=== PATIENT | female | born 1970 | race Caucasian/White ===

== ENCOUNTER → 2016-09-03 | Outpatient (CLI) | payer MEDICARE, OTHER ==
[2016-09-03 09:30] LABS: Calcium 9.7 mg/dL (8.4-10.2); Potassium 4.2 mmol/L (3.5-5.1); Total Bilirubin 0.6 mg/dL (0.2-1.3); Total Protein 7.3 g/dL (6.3-8.2)
== END | disposition home or self-care (01) ==
LOC: LABWHC1 08:16
PROVIDERS: ATTEND Family Medicine
DX: E11.618 Type 2 diabetes mellitus with other diabetic arthropathy (principal)
CPT/HCPCS: 36415; 80053; 84681

== ENCOUNTER 2016-11-10 21:21 | Inpatient (IN) | payer MEDICARE, OTHER ==
--- NOTE | 2016-11-10 21:48 | ED ---
General Adult HPI - General Chief complaint: Syncope Stated complaint: Syncope Time Seen by Provider: 11/10/16 21:33 Source: EMS Mode of arrival: EMS Limitations: no limitations - History of Present Illness Initial comments: The patient is a 46-year-old female who presents to the ED with a chief complaint of nausea, vomiting, and generalized abdominal pain. The patient states that her nausea and vomiting have been present over the course the past 8 days. Patient states that she has been using various medications to help to relieve her symptoms. The patient states that she went to go see her PCP, who started her on Compazine. The patient states that today she was able to keep down some food but that this was the first time in the past 4-5 days. She notes that she has felt more lightheaded over the course the past 8 days. She states that she is off balance when attempting to ambulate. She states that she feels lightheaded and almost as if she is going to pass out. Patient also states severe constipation. She states that she has not had a bowel movement for the past 4 days. The patient notes that she does have a history of diabetes. She has an insulin pump that she uses. Patient notes that her sugars have been in the 200-250 range. Patient denies any fever or chills. She denies any history of cardiac disease. - Related Data Home Medications Medication Instructions Recorded Confirmed Esomeprazole Magnesium [NexIUM] 40 mg PO BID 12/24/15 11/10/16 Cyanocobalamin [Vitamin B-12] 500 mcg PO DAILY 01/14/16 11/10/16 HYDROcodone/APAP 10-325MG [[place] 1 tab PO TID PRN 01/14/16 11/10/16 10-325] Ascorbic Acid [Vitamin C] 1,000 mg PO DAILY 11/10/16 11/10/16 Ascorbic Acid/Multivit-Min 1,000 mg PO DAILY 11/10/16 11/10/16 [Emergen-C 1,000 mg Packet] INSULIN LISPRO (For Pump) [humaLOG See Protocol SQ-PUMP CONTINUOUS 11/10/1610/22 (For Pump)] Lidocaine 5% Patch [Lidoderm 5% 1 patch TRANSDERM DAILY 11/10/16 11/10/16 Patch] Menthol [Biofreeze] 1 applic TOPICAL DAILY PRN 11/10/16 11/10/16 Prochlorperazine [Compazine] 10 mg PO Q8H PRN 11/10/16 11/10/16 Allergies Allergy/AdvReac Type Severity Reaction Status Date / Time ceftriaxone sodium Allergy Anaphylaxis Verified 11/10/16 21:48 [From Rocephin] propoxyphene napsylate Allergy Rash/Hives Verified 11/10/16 21:48 [From Darvocet-N] steroids AdvReac elevated Uncoded 01/29/16 14:24 blood sugar 1600 Review of Systems ROS Statement: Those systems with pertinent positive or pertinent negative responses have been documented in the HPI. ROS Other: All systems not noted in ROS Statement are negative. Constitutional: Denies: fever, chills, weakness Eyes: Denies: vision change ENT: Denies: ear pain, throat pain, dental pain Respiratory: Denies: cough, dyspnea, wheezes Cardiovascular: Denies: chest pain, palpitations, dyspnea on exertion Endocrine: Reports: fatigue Gastrointestinal: Reports: abdominal pain (generalized), nausea, vomiting, constipation. Denies: diarrhea Genitourinary: Reports: urgency, dysuria, frequency. Denies: hematuria Musculoskeletal: Denies: back pain Skin: Denies: rash, lesions Neurological: Reports: abnormal gait, other (lightheadedness). Denies: headache , weakness Psychiatric: Denies: anxiety, depression Past Medical History Past Medical History: Diabetes Mellitus, GERD/Reflux, Neurologic Disorder, Skin Disorder Additional Past Medical History / Comment(s): wound ball of rt foot, neuropathy hands/feet History of Any Multi-Drug Resistant Organisms: MRSA Date of last positivie culture/infection: 2010 MDRO Source:: scalp Past Surgical History: Back Surgery, Cholecystectomy, Hysterectomy, Joint Replacement, Orthopedic Surgery, Tonsillectomy Additional Past Surgical History / Comment(s): left below knee amputation, lt knee joint replacement, 3 toes rt foot amputated, laser surgery eyes Past Anesthesia/Blood Transfusion Reactions: No Reported Reaction Past Psychological History: Anxiety, Depression Smoking Status: Never smoker Past Alcohol Use History: Rare Past Drug Use History: None Reported - Past Family History Mother Family Medical History: No Reported History General Exam Limitations: no limitations General appearance: alert, in no apparent distress Head exam: Present: atraumatic, normocephalic Eye exam: Present: normal appearance, PERRL Pupils: Present: normal accommodation ENT exam: Present: normal exam, mucous membranes dry Neck exam: Present: normal inspection, full ROM Respiratory exam: Present: normal lung sounds bilaterally. Absent: respiratory distress, wheezes, rales, rhonchi, stridor Cardiovascular Exam: Present: normal rhythm, tachycardia, normal heart sounds. Absent: systolic murmur, diastolic murmur GI/Abdominal exam: Present: soft, tenderness (mild diffuse tenderness). Absent : distended, guarding, rebound, rigid Extremities exam: Present: normal inspection, full ROM Back exam: Absent: normal inspection, full ROM Neurological exam: Present: alert, oriented X3 Psychiatric exam: Present: normal affect, normal mood Skin exam: Present: warm, dry, intact Course Vital Signs 11/10/16 21:22 Temperature 97.8 F Pulse Rate 78 Respiratory 18 Rate Blood Pressure 118/64 O2 Sat by Pulse 96 Oximetry EKG Findings - EKG Comments: EKG Findings:: EKG demonstrates rate of 100. There are no concerning ST or T- wave changes. QTc is slightly prolonged at 477. Medical Decision Making - Medical Decision Making Patient is a 46-year-old female who presents to ED with a chief complaint of lightheadedness and constipation. Patient also complains of nausea and vomiting. Symptoms are present over the course the past 8-9 days. Patient does not have any evidence of fevers or chills. She is noted to have generalized abdominal pain on examination of the abdomen. As such, we will check CT abdomen and pelvis. Check CBC, CMP, Magnesium. Check a UA and urine culture. Provide the patient with 2 L of IV fluids. Check a VBG and acetone given patient's insulin-dependent diabetes. Rule out DKA. 12:26 AM Patient noted to have elevated calcium. Continue with aggressive hydration. After speaking with the patient, she revealed that she has been consuming a large number of Rolaids over the course the past week. She states that it is only thing that she is able to keep down. As such, she's been eating as many as she can. Patient states that she's consumed today entire large container over the course the past several days. 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 However, I will check parathyroid and vitamin D levels. The patient's denies any history of malignancy. It should be noted that CT demonstrated a suspicious area in the patient's stomach. This area requires further investigation. Should also be noted the patient has a UTI. She will be treated with a dose of Levaquin while here in the ED. I have updated the patient overall findings. Patient will need to be admitted to the hospital. Vital signs are noted to be stable. Patient does not have any evidence of altered mental status. Magnesium was noted to be low and was supplemented. - Lab Data Result diagrams: 11/10/16 22:05 11/10/16 22:05 Lab Results 11/10/16 11/10/16 11/10/16 Range/Units 22:05 22:05 22:05 WBC 7.2 (3.8-10.6) k/uL RBC 3.73 L (3.80-5.40) m/uL Hgb 11.9 (11.4-16.0) gm/dL Hct 35.3 (34.0-46.0) % MCV 94.6 (80.0-100.0) fL MCH 31.9 (25.0-35.0) pg MCHC 33.8 (31.0-37.0) g/dL RDW 13.3 (11.5-15.5) % Plt Count 198 (150-450) k/uL Neutrophils % 62 % Lymphocytes % 27 % Monocytes % 6 % Eosinophils % 2 % Basophils % 1 % Neutrophils # 4.5 (1.3-7.7) k/uL Lymphocytes # 1.9 (1.0-4.8) k/uL Monocytes # 0.4 (0-1.0) k/uL Eosinophils # 0.2 (0-0.7) k/uL Basophils # 0.1 (0-0.2) k/uL VBG pH (7.31-7.41) VBG pCO2 (37-51) mmHg VBG HCO3 (24-28) mmol/L Sodium 137 (137-145) mmol/L Potassium 3.3 L (3.5-5.1) mmol/L Chloride 91 L (98-107) mmol/L Carbon Dioxide 39 H (22-30) mmol/L Anion Gap 7 mmol/L BUN 25 H (7-17) mg/dL Creatinine 1.13 H (0.52-1.04) mg/dL Est GFR (MDRD) Af Amer >60 (>60 ml/min/1.73 sqM) Est GFR (MDRD) Non-Af 52 (>60 ml/min/1.73 sqM) Glucose 273 H (74-99) mg/dL Plasma Lactic Acid [place] 1.8 (0.7-2.0) mmol/L Calcium 13.4 H* (8.4-10.2) mg/dL Magnesium 1.0 L* (1.6-2.3) mg/dL Total Bilirubin 0.7 (0.2-1.3) mg/dL AST 20 (14-36) U/L ALT 27 (9-52) U/L Alkaline Phosphatase 52 (38-126) U/L Troponin I (0.000-0.034) ng/mL Total Protein 6.5 (6.3-8.2) g/dL Albumin 3.7 (3.5-5.0) g/dL Urine Color Urine Appearance (Clear) Urine pH (5.0-8.0) Ur Specific [place] (1.001-1.035) Urine Protein (Negative) Urine Glucose (UA) (Negative) Urine Ketones (Negative) Urine Blood (Negative) Urine Nitrite (Negative) Urine Bilirubin (Negative) Urine Urobilinogen (<2.0) mg/dL Ur Leukocyte Esterase (Negative) Urine RBC (0-5) /hpf Urine WBC (0-5) /hpf Ur Squamous Epith Cells (0-4) /hpf Amorphous Sediment (None) /hpf Urine Bacteria (None) /hpf Hyaline Casts (0-2) /lpf Acetone, Qual Negative (Negative) 11/10/16 11/10/16 11/10/16 Range/Units 22:05 22:05 22:20 WBC (3.8-10.6) k/uL RBC (3.80-5.40) m/uL Hgb (11.4-16.0) gm/dL Hct (34.0-46.0) % MCV (80.0-100.0) fL MCH (25.0-35.0) pg MCHC (31.0-37.0) g/dL RDW (11.5-15.5) % Plt Count (150-450) k/uL Neutrophils % % Lymphocytes % % Monocytes % % Eosinophils % % Basophils % % Neutrophils # (1.3-7.7) k/uL Lymphocytes # (1.0-4.8) k/uL Monocytes # (0-1.0) k/uL Eosinophils # (0-0.7) k/uL Basophils # (0-0.2) k/uL VBG pH 7.49 H (7.31-7.41) VBG pCO2 53 H (37-51) mmHg VBG HCO3 40 H (24-28) mmol/L Sodium (137-145) mmol/L Potassium (3.5-5.1) mmol/L Chloride (98-107) mmol/L Carbon Dioxide (22-30) mmol/L Anion Gap mmol/L BUN (7-17) mg/dL Creatinine (0.52-1.04) mg/dL Est GFR (MDRD) Af Amer (>60 ml/min/1.73 sqM) Est GFR (MDRD) Non-Af (>60 ml/min/1.73 sqM) Glucose (74-99) mg/dL Plasma Lactic Acid [place] (0.7-2.0) mmol/L Calcium (8.4-10.2) mg/dL Magnesium (1.6-2.3) mg/dL Total Bilirubin (0.2-1.3) mg/dL AST (14-36) U/L ALT (9-52) U/L Alkaline Phosphatase (38-126) U/L Troponin I <0.012 (0.000-0.034) ng/mL Total Protein (6.3-8.2) g/dL Albumin (3.5-5.0) g/dL Urine Color Yellow Urine Appearance Clear (Clear) Urine pH 8.0 (5.0-8.0) Ur Specific [place] 1.011 (1.001-1.035) Urine Protein Trace H (Negative) Urine Glucose (UA) 4+ H (Negative) Urine Ketones Negative (Negative) Urine Blood Negative (Negative) Urine Nitrite Negative (Negative) Urine Bilirubin Negative (Negative) Urine Urobilinogen <2.0 (<2.0) mg/dL Ur Leukocyte Esterase Large H (Negative) Urine RBC <1 (0-5) /hpf Urine WBC 31 H (0-5) /hpf Ur Squamous Epith Cells 1 (0-4) /hpf Amorphous Sediment Rare H (None) /hpf Urine Bacteria Rare H (None) /hpf Hyaline Casts 88 H (0-2) /lpf Acetone, Qual (Negative) Disposition Clinical Impression: Hypercalcemia, Hypomagnesemia, Acute UTI Disposition: ADMITTED IP TO THIS HOSP Condition: Stable Referrals: Eric Meeks MD [Primary Care Provider] - 1-2 days Decision to Admit Reason: Admit from EC Decision Date: 11/11/16 Decision Time: 00:29
[2016-11-10] MEDS ORDERED: RX INFO: IV CONTRAST WAS GIVEN 1 EACH MISC MISCELLANE PRN (21:54)
[2016-11-10] MEDS ORDERED: SODIUM CHLORIDE 0.9% 2,000 ML IV STA (21:55)
[2016-11-10] MEDS ORDERED: ONDANSETRON 4 MG/2 ML VIAL IVP STA (21:55)
[2016-11-10] MEDS ORDERED: HYDROmorphone 1 MG/ML 1 ML SYRINGE IVP STA (21:55)
[2016-11-10] MEDS ORDERED: SODIUM CHLORIDE 0.9% 1,000 ML IV STA (21:55)
[2016-11-10 22:21] LABS: Basophils # (A) 0.1 k/uL (0-0.2); Basophils % (A) 1 %; CHCM 33.9; Eosinophils # (A) 0.2 k/uL (0-0.7); Eosinophils % (A) 2 %; HCT 35.3 % (34.0-46.0); HDW 2.53; HGB 11.9 gm/dL (11.4-16.0); Luc # (Auto) 0.17; Luc % (Auto) 2; Lymphocytes # (A) 1.9 k/uL (1.0-4.8); Lymphocytes % (A) 27 %; MCH 31.9 pg (25.0-35.0); MCHC 33.8 g/dL (31.0-37.0); MCV 94.6 fL (80.0-100.0); Mean Platelet Volume 8.3; Monocytes # (A) 0.4 k/uL (0-1.0); Monocytes % (A) 6 %; Neutrophils # (A) 4.5 k/uL (1.3-7.7); Neutrophils % (A) 62 %; RBC 3.73 m/uL (3.80-5.40); RDW 13.3 % (11.5-15.5); WBC 7.2 k/uL (3.8-10.6); WBC (Perox) 7.74
[2016-11-10 22:30] LABS: Amorphous Sediment,Urine Rare /hpf; Appearance,Urine Clear (Clear); Bacteria,Urine Rare /hpf; Bilirubin,Urine Negative (Negative); Glucose,Urine (UA) 4+ (Negative); Ketones,Urine Negative (Negative); Leukocyte Esterase,Urine Large (Negative); Nitrite,Urine Negative (Negative); Particle Count 3502; Protein,Urine Trace (Negative); RBC,Urine <1 /hpf (0-5); Specific Gravity,Urine 1.011 (1.001-1.035); Squamous Epithelial Cell,Urine 1 /hpf (0-4); UA Billing (MACRO vs. MICRO) MICRO; Urobilinogen,Urine <2.0 mg/dL (<2.0); WBC,Urine 31 /hpf (0-5)
[2016-11-10 22:39] LABS: ALT 27 U/L (9-52); AST 20 U/L (14-36); Alkaline Phosphatase 52 U/L (38-126); Anion Gap 7 mmol/L; Blood Urea Nitrogen 25 mg/dL (7-17); Carbon Dioxide 39 mmol/L (22-30); Chloride 91 mmol/L (98-107); Glucose 273 mg/dL (74-99); Non-African American GFR(MDRD) 52 (>60 ml/min/1.73 sqM); Potassium 3.3 mmol/L (3.5-5.1); Sodium 137 mmol/L (137-145); Total Bilirubin 0.7 mg/dL (0.2-1.3); Total Protein 6.5 g/dL (6.3-8.2)
[2016-11-10 22:41] LABS: Calcium 13.4 mg/dL (8.4-10.2)
[2016-11-10 22:49] LABS: VBG PH 7.49 (7.31-7.41)
[2016-11-10] MEDS ORDERED: LEVOFLOXACIN 750MG-D5W PMX 750 MG in DEXTROSE/WATER 1 150ML.BAG IVPB STA (22:51)
[2016-11-10] MEDS: MAGNESIUM SULFATE-D5W PMX 1 GM in DEXTROSE/WATER 1 100ML.BAG IVPB SCH (23:10)
--- NOTE | 2016-11-10 23:42 | CT ---
EXAM: CT Abdomen and Pelvis With Intravenous Contrast CLINICAL HISTORY: Reason: Constipation x 10 days. Nausea and vomiting x 1 week with pelvic pain. TECHNIQUE: Axial computed tomography images of the abdomen and pelvis with intravenous contrast. CTDI is 18.90 mGy and DLP is 772.80 mGy-cm. This CT exam was performed using one or more of the following dose reduction techniques: automated exposure control, adjustment of the mA and/or kV according to patient size, and/or use of iterative reconstruction technique. COMPARISON: None FINDINGS: Liver: Normal. No focal lesion. Spleen: Normal. No focal lesion. Gallbladder: Status post cholecystectomy. Pancreas: Atrophy of the pancreas. No mass or inflammation. Adrenal glands: Normal. No mass. Kidneys: Small extrarenal pelvis on the right. No hydronephrosis or stone. No mass. Bowel: Moderate stool ball in the rectum without significant rectal inflammatory changes may represent fecal impaction. Mild to moderate formed stool in the sigmoid colon and descending colon. Liquid noted in the right colon and transverse colon. Normal appendix. No bowel obstruction or inflammation. Nonspecific heterogeneously hypodense structure in the stomach cardia which may be arising off the gastric wall near the GE junction. Some sort of polyp or other soft tissue lesion cannot be excluded. Urinary bladder: Diffuse bladder wall prominence may be secondary to underdistention of the bladder. Reproductive organs: Normal. Muscles: No mass. Subcutaneous tissues: 2 cm probable sebaceous cyst in the right inguinal region. Injection granulomas in the right gluteal soft tissues. Peritoneal space: Normal. No free fluid. Lymph nodes: Normal. No lymphadenopathy. Vessels: Normal. No aneurysm or dissection. Bones: Mild degenerative changes of the hips. No acute fracture or bony lesion. Lung bases: Minimal dependent atelectasis bilaterally. IMPRESSION: 1. Moderate stool ball in the rectum without significant perirectal inflammatory change may represent fecal impaction. No evidence of bowel obstruction or inflammation. Normal appendix. 2. Nonspecific heterogeneously hypodense structure in the stomach cardia which may be arising off the gastric wall near the GE junction. Polyp versus other soft tissue lesion versus adherent ingested material possible.
[2016-11-11] MEDS ORDERED: HYDROmorphone 1 MG/ML 1 ML SYRINGE IV PRN (00:30)
[2016-11-11] MEDS ORDERED: SODIUM CHLORIDE 0.9% 1,000 ML IV STA (00:30)
[2016-11-11] MEDS ORDERED: NALOXONE 0.4 MG/ML 1 ML VIAL IV PRN (00:30)
[2016-11-11] MEDS: HYDROcodone/APAP 5-325MG 1 EACH TAB PO PRN ×2 (00:55→08:19)
[2016-11-11 01:35] LABS: Glucose,Whole Blood 301 mg/dL (75-99)
[2016-11-11 02:04] VITALS: BMI 25.8
[2016-11-11 02:06] LABS: Anion Gap 7 mmol/L; Blood Urea Nitrogen 22 mg/dL (7-17); Carbon Dioxide 35 mmol/L (22-30); Chloride 94 mmol/L (98-107); Glucose 328 mg/dL (74-99); Magnesium 2.1 mg/dL (1.6-2.3); Non-African American GFR(MDRD) 59 (>60 ml/min/1.73 sqM); Potassium 3.5 mmol/L (3.5-5.1); Sodium 136 mmol/L (137-145)
[2016-11-11 07:29] LABS: Glucose,Whole Blood 201 mg/dL (75-99)
[2016-11-11 11:01] LABS: Glucose,Whole Blood 155 mg/dL (75-99)
[2016-11-11 12:06] LABS: Glucose,Whole Blood 154 mg/dL (75-99)
[2016-11-11] MEDS ORDERED: INSPUCOR MISCELLANE PRN (13:48)
[2016-11-11] MEDS ORDERED: INSULIN PUMP BASAL RATES 1 EACH MISC MISCELLANE PRN (13:48)
[2016-11-11] MEDS ORDERED: INSULIN LISPRO (For Pump) 100 UNIT/ML VIAL SQ-PUMP SCH (14:00)
[2016-11-11 17:22] LABS: Glucose,Whole Blood 202 mg/dL (75-99)
[2016-11-11] MEDS: HYDROcodone/APAP 10-325MG 1 EACH TAB PO PRN (17:27)
[2016-11-11] MEDS: ENOXAPARIN 40 MG/0.4 ML SYRINGE SQ SCH (17:28)
[2016-11-11] MEDS: PANTOPRAZOLE 40 MG TABLET PO SCH (17:28)
[2016-11-11 21:42] LABS: Glucose,Whole Blood 221 mg/dL (75-99)
[2016-11-11] MEDS ORDERED: LEVOFLOXACIN 750MG-D5W PMX 750 MG in DEXTROSE/WATER 1 150ML.BAG IVPB SCH (22:00)
--- NOTE | 2016-11-11 22:59 | HP ---
DATE OF ADMISSION: 11/11/2016 PRESENTING COMPLAINT: Nausea, vomiting, fever, constipation. HISTORY OF PRESENTING COMPLAINT: This is a very pleasant 46-year-old patient of Dr. Meeks. Chronic stable medical conditions include GERD, peripheral neuropathy, left below knee amputation, anxiety, depression, severe, osteoarthritis, diabetes. For 10 days patient sugars are running high and also for 2 days the patient developed significant nausea, vomiting. Patient normally has a bowel movement every 2 to 4 days but has not had a bowel movement for at least 5 or 6 days. Sugars are starting to run really high, since that patient presented with feeling rather miserable. Denies any fevers or chills. No urinary symptoms. The patient was found to have UTI in the ER. Patient had been adjusting her sugar with the insulin pump she has. REVIEW OF SYSTEMS: CONSTITUTIONAL: Weak, tired. HEENT: None. RESPIRATORY: None. CARDIOVASCULAR: None. GASTROINTESTINAL: As above. GENITOURINARY: None. MUSCULOSKELETAL: Aches and pains in different joints. Dermatological: None. HEMATOLOGIC: None. LYMPHATICS: None. PSYCHIATRY: None. NEUROLOGICAL: Peripheral neuropathy. PAST HISTORY: Diabetes, GERD, peripheral neuropathy, osteoarthritis, anxiety, depression. PAST SURGICAL HISTORY: Back surgery, cholecystectomy, hysterectomy, joint replacement, left below knee amputation, left knee joint replacement. ( ) laser surgery to the eyes. Past psych history: Anxiety, depression. SOCIAL HISTORY: The patient lives with her boyfriend. No smoking or alcohol. FAMILY HISTORY: Reviewed, noncontributory to the presentation. HOME MEDICATIONS: 1. Vitamin B12 500 mcg p.o. daily. 2. Vitamin C 1000 mg p.o. daily. 3. ( ) 1000 milligrams p.o. daily. 4. Menthol one application topically daily p.r.n. 5. Lidoderm 5% patch topical p.r.n. 6. Compazine 10 mg p.o. q.8 p.r.n. 7. [place] 10 p.o. t.i.d. p.r.n. 8. Nexium 40 mg p.o. b.i.d. 9. Humalog pump. ALLERGIES: CEFTRIAXONE, DARVOCET-N 100, STEROIDS. PHYSICAL EXAMINATION: Vital signs on presentation: Temperature 97.8, pulse 70, respiration 18, blood pressure 108/64, pulse ox 96% on room air. GENERAL APPEARANCE: Average build, lying in bed, tired appearing. EYES: Pupils equal. Conjunctivae normal. Oral cavity with dry mucous membrane. NECK: JVD not raised. Mass not palpable. RESPIRATORY: Effort normal. LUNGS: Fair air entry. CARDIOVASCULAR: First and second sounds normal. No edema. ABDOMEN: Soft, nontender. Liver and spleen not palpable. LYMPHATIC: No lymph node palpable in neck or axillae. PSYCHIATRY: Alert and oriented x3. Mood and affect slightly anxious-appearing. NEUROLOGICAL: Pupils equal. Cranial nerves grossly intact. Power and sensation slightly decreased distally. EXTREMITIES: Left total amputation with a prosthesis in place. INVESTIGATIONS: White count 7.2, hemoglobin 11.9. Potassium 3.3, BUN 25, creatinine 1.13, calcium 13.4, magnesium 1.0. UA positive for leukocyte esterase, WBC. Serum acetone negative. The patient blood sugar was 273. Repeat was 328. ASSESSMENT: 1. Acute urinary tract infection. 2. Severe hypomagnesemia. 3. Hypercalcemia from dehydration. 4. Hypokalemia. PLAN: The patient given IV fluids, given laxative, patient had a big bowel movement today. He has been out of bed. Sugars started to come down. Patient will be treated for UTI. Care was discussed with the patient. Encouraged to be out of bed. Copy to Dr. Meeks.
[2016-11-12] MEDS: HYDROcodone/APAP 10-325MG 1 EACH TAB PO PRN (01:04)
[2016-11-12 07:51] LABS: Glucose,Whole Blood 233 mg/dL (75-99)
[2016-11-12 08:05] LABS: Basophils % (A) 1 %; CH 31.5; CHCM 32.9; Eosinophils # (A) 0.4 k/uL (0-0.7); Eosinophils % (A) 8 %; HCT 32.1 % (34.0-46.0); HGB 10.6 gm/dL (11.4-16.0); Luc # (Auto) 0.18; Luc % (Auto) 4; Lymphocytes # (A) 1.7 k/uL (1.0-4.8); Lymphocytes % (A) 37 %; MCH 31.6 pg (25.0-35.0); MCHC 32.9 g/dL (31.0-37.0); MCV 96.1 fL (80.0-100.0); Mean Platelet Volume 7.6; Monocytes # (A) 0.3 k/uL (0-1.0); Monocytes % (A) 6 %; Neutrophils % (A) 44 %; RBC 3.34 m/uL (3.80-5.40); RDW 13.5 % (11.5-15.5); WBC 4.6 k/uL (3.8-10.6); WBC (Perox) 4.88
[2016-11-12 08:19] LABS: ALT 27 U/L (9-52); AST 23 U/L (14-36); Alkaline Phosphatase 43 U/L (38-126); Anion Gap 6 mmol/L; Blood Urea Nitrogen 15 mg/dL (7-17); Calcium 9.9 mg/dL (8.4-10.2); Carbon Dioxide 32 mmol/L (22-30); Chloride 102 mmol/L (98-107); Glucose 207 mg/dL (74-99); Magnesium 1.7 mg/dL (1.6-2.3); Non-African American GFR(MDRD) 59 (>60 ml/min/1.73 sqM); Phosphorous 1.8 mg/dL (2.5-4.5); Potassium 3.5 mmol/L (3.5-5.1); Sodium 140 mmol/L (137-145); Total Bilirubin 0.5 mg/dL (0.2-1.3); Total Protein 5.7 g/dL (6.3-8.2)
[2016-11-12] MEDS: PANTOPRAZOLE 40 MG TABLET PO SCH ×2 (08:32→16:32)
[2016-11-12] MEDS: ENOXAPARIN 40 MG/0.4 ML SYRINGE SQ SCH (08:33)
[2016-11-12] MEDS ORDERED: LIDOCAINE 5% PATCH TOPICAL SCH (09:00)
[2016-11-12 11:54] LABS: Hemoglobin A1C 9.8 % (4.2-6.1)
[2016-11-12] MEDS ORDERED: CYANOCOBALAMIN 500 MCG TAB PO SCH (12:00)
[2016-11-12 13:00] LABS: Glucose,Whole Blood 181 mg/dL (75-99)
[2016-11-12] MEDS: CALCIUM CARBONATE LIQUID 500 MG/5 ML CUP PO SCH ×2 (14:05→16:32)
[2016-11-12 15:38] VITALS: BP 111/75; PULSE 82; RESP 18; TEMP 98.4
--- NOTE | 2016-11-12 16:58 | HP ---
ADDENDUM DATE OF ADMISSION: 11/11/2016 ASSESSMENT: 1. Acute urinary tract infection. 2. Severe hypomagnesemia. 3. Hypercalcemia from dehydration. 4. Hypokalemia. 5. Gastroesophageal reflux disease. 6. Diabetes mellitus, type 2, causing peripheral neuropathy. 7. Primary osteoarthritis in multiple joints, bilateral. 8. Anxiety, depression not otherwise specified. 9. Left below-knee amputation with a prosthesis.
[2016-11-12 17:38] LABS: Glucose,Whole Blood 231 mg/dL (75-99)
[2016-11-12] MEDS ORDERED: LEVOFLOXACIN 750 MG TAB PO SCH (22:00)
--- NOTE | 2016-11-13 20:02 | DS ---
DATE OF ADMISSION: 11/11/2016 DATE OF DISCHARGE: 11/12/2016 FINAL DIAGNOSES: 1. Acute urinary tract infection presented on admission. 2. Severe hypomagnesemia. 3. ( ) dehydration. 4. Hyperkalemia. 5. Diabetes mellitus type 2 causing peripheral neuropathy. 6. Primary osteoarthritis of multiple joints, bilateral. 7. Anxiety, depression not otherwise specified. 8. Left below -knee amputation with a prosthesis. 9. Acute dehydration, nausea, vomiting on presentation. HOSPITAL COURSE: This patient is diabetic, presented with nausea, vomiting. Feeling very weak, tired, severely hypomagnesemic. Sugars are running high. Responded well to IV fluids and antibiotics. Sugars doing better. On the day of discharge, the patient is tolerating a diet. Overall doing much better. CT of the abdomen was unremarkable. It looks like all the ( ) precipitated by urinary tract infection. Patient doing much better at the time of discharge. DISCHARGE MEDICATIONS: 1. Nexium 40 mg b.i.d. 2. Vitamin B12 500 mcg p.o. daily. 3. [place] 10, 1 tablet t.i.d. p.r.n. 4. Vitamin C 1000 mg p.o. daily. 5. Humalog pump. 6. Lidoderm 5% patch. 7. BioFreeze one topical daily p.r.n. 8. Compazine 10 mg q.8 p.r.n. 9. Levaquin 250 mg a day for 5 days. Follow up with Dr. Laina Phipps. Follow-up with Dr. Meeks on 11/14/2016. Initially because of CT scan, patient should call the patient and tell him to tell her that she should follow up with Dr. Meeks if she has ( ) of this thing and then follow up with Dr. Laina Phipps regarding CT scan finding.
== END 2016-11-12 18:26 | disposition home or self-care (01) | DRG 690 ==
LOC: EC 21:21 → 4MS4W 11-11 00:31
PROVIDERS: ADMIT Hospitalist; ATTEND Hospitalist
DX: N39.0 Urinary tract infection, site not specified (principal); E11.42 Type 2 diabetes mellitus with diabetic polyneuropathy; E83.42 Hypomagnesemia; E83.52 Hypercalcemia; E86.0 Dehydration; E87.6 Hypokalemia; M19.91 Primary osteoarthritis, unspecified site; K21.9 Gastro-esophageal reflux disease without esophagitis; K59.00 Constipation, unspecified; F32.9 Major depressive disorder, single episode, unspecified; F41.9 Anxiety disorder, unspecified; Z96.41 Presence of insulin pump (external) (internal); Z90.49 Acquired absence of other specified parts of digestive tract; Z89.512 Acquired absence of left leg below knee; Z90.710 Acquired absence of both cervix and uterus; Z96.652 Presence of left artificial knee joint; Z79.4 Long term (current) use of insulin; Z79.899 Other long term (current) drug therapy
CPT/HCPCS: 36415; 74177; 80048; 80053; 81001; 82009; 82306; 82652; 82803; 83036; 83605; 83735; 83970; 84100; 84484; 85025; 87086; 93005; 96361; 96365; 96367; 96375; 99285

== ENCOUNTER 2016-12-01 07:50 | Day surgery (SDC) | payer MEDICARE, OTHER ==
[2016-11-26 11:42] VITALS: BMI 25.7
[~2016-12-01 07:50] MED LIST: LACTATED RINGERS 1,000 ML IV SCH; LIDOCAINE 1% 20 ML VIAL (10MG/ML) FOR IV START INTRADERMA PRN
[2016-12-01 08:08] VITALS: RESP 16; TEMP 98.4
[2016-12-01 08:16] LABS: Glucose,Whole Blood 128 mg/dL (75-99)
[2016-12-01] MEDS ORDERED: PROPOFOL 10 MG/ML 20 ML VIAL IV ONE (08:32)
--- NOTE | 2016-12-01 08:46 | P.GSHP ---
History of Present Illness H&P Date: 12/01/16 Chief Complaint: Abdominal pain, constipation, gastritis This is a 46-year-old female presents today for EGD colonoscopy. She had complaints of epigastric dull pain, constipation and some mild GERD symptoms. She's had pain for several weeks. Past Medical History Past Medical History: Diabetes Mellitus, Eye Disorder, GERD/Reflux, Neurologic Disorder, Skin Disorder, Syncope Additional Past Medical History / Comment(s): healed wound ball of rt foot, neuropathy hands/feet, Left BKA and toes amputated right foot making balance difficult when walking., Legally Blind., Back and stump pain., Constipation., Hx of anemia., Nausea. History of Any Multi-Drug Resistant Organisms: MRSA Date of last positivie culture/infection: 2010 MDRO Source:: scalp Past Surgical History: Back Surgery, Cholecystectomy, Hysterectomy, Joint Replacement, Orthopedic Surgery, Tonsillectomy Additional Past Surgical History / Comment(s): left below knee amputation, lt knee joint replacement, 3 toes rt foot amputated, laser surgery eyes Past Anesthesia/Blood Transfusion Reactions: No Reported Reaction Past Psychological History: Anxiety, Depression Additional Psychological History / Comment(s): DEPRESSION AFTER HER MOTHER PASSED- NO PROBLEM NOW. Smoking Status: Never smoker Past Alcohol Use History: Rare Past Drug Use History: None Reported - Past Family History Mother Family Medical History: No Reported History Medications and Allergies Home Medications Medication Instructions Recorded Confirmed Type Esomeprazole Magnesium [NexIUM] 40 mg PO BID 12/24/15 11/26/16 History Cyanocobalamin [Vitamin B-12] 500 mcg PO DAILY 01/14/16 11/26/16 History HYDROcodone/APAP 10-325MG [[place] 1 tab PO TID PRN 01/14/16 11/26/16 History 10-325] Ascorbic Acid/Multivit-Min 1,000 mg PO DAILY 11/10/16 11/26/16 History [Emergen-C 1,000 mg Packet] INSULIN LISPRO (For Pump) [humaLOG See Protocol SQ-PUMP CONTINUOUS 11/10/16 History (For Pump)] Lidocaine 5% Patch [Lidoderm 5% 1 patch TRANSDERM DAILY PRN 11/10/16 11/26/16 History Patch] Prochlorperazine [Compazine] 10 mg PO Q8H PRN 11/10/16 12/01/16 History Magnesium (Unknown Dose) 1 tab PO DAILY 11/26/16 History Allergies Allergy/AdvReac Type Severity Reaction Status Date / Time ceftriaxone sodium Allergy Anaphylaxis Verified 12/01/16 08:04 [From Rocephin] propoxyphene napsylate Allergy Rash/Hives Verified 12/01/16 08:04 [From Darvocet-N] steroids AdvReac elevated Uncoded 12/01/16 08:04 blood sugar 1600 Surgical - Exam Vital Signs Temp Pulse Resp BP Pulse Ox 98.4 F 112 H 16 105/74 100 12/01/16 08:07 12/01/16 08:07 12/01/16 08:07 12/01/16 08:07 12/01/16 08:07 - General well developed, no distress - Eyes PERRL - ENT normal pinna - Neck no masses - Respiratory normal expansion - Cardiovascular Rhythm: regular - Abdomen Abdomen: soft, non tender Results - Labs Abnormal Lab Results - Last 24 Hours (Table) 12/01/16 Range/Units 08:12 POC Glucose (mg/dL) 128 H (75-99) mg/dL Assessment and Plan Plan: GERD, abdominal pain, constipation. Patient will undergo EGD and colonoscopy.
--- NOTE | 2016-12-01 09:08 | P.OP ---
Date of Procedure: 12/01/16 Preoperative Diagnosis: Epigastric abdominal pain Gastritis Possible rectal lesion Postoperative Diagnosis: Antral gastritis No evidence of hiatal hernia Normal colon Procedure(s) Performed: Implants: Anesthesia: MAC Surgeon: Arnaldo Yost Pathology: other (Antrum, esophagus) Condition: stable Disposition: PACU Indications for Procedure: Operative Findings: Description of Procedure: The patient's placed on the endoscopy table in the lateral position. She received IV sedation. The gastroscope some placed oropharynx and passed in the esophagus and stomach. Scope was then placed through the pylorus. The first and second portion of the duodenum appeared normal. Scope was then brought back the antrum and this appeared mildly inflamed. A biopsies was performed. The scope was unretroflexed and remainder stomach appeared normal. There is no hiatal hernia. The GE junction was at 40 cms. The distal esophagus appeared mildly inflamed. A biopsies performed. The proximal esophagus appeared normal. Scope was withdrawn for patient. Next digital rectal exam was performed which revealed no abnormalities. Flexible colonoscope was then placed patient anus and passed throughout the entire colon. The ileocecal valve was visualized. The cecum, ascending, transverse colon and descending colon appeared normal. Scope was then brought back the sigmoid colon and this appeared normal. Scope summer back the rectum and this appeared normal normal. Copious withdrawn for patient.
[2016-12-01 09:15] VITALS: BP 106/64; PULSE 85
[2016-12-01 09:35] LABS: Glucose,Whole Blood 159 mg/dL (75-99)
== END 2016-12-01 09:49 | disposition home or self-care (01) ==
LOC: ORWHC2ENDO 07:50
PROVIDERS: ATTEND Surgery
DX: K21.0 Gastro-esophageal reflux disease with esophagitis (principal); K29.70 Gastritis, unspecified, without bleeding; K59.00 Constipation, unspecified; E11.9 Type 2 diabetes mellitus without complications; Z79.4 Long term (current) use of insulin; Z96.41 Presence of insulin pump (external) (internal); Z79.899 Other long term (current) drug therapy; Z88.1 Allergy status to other antibiotic agents; Z88.5 Allergy status to narcotic agent; Z87.19 Personal history of other diseases of the digestive system
CPT/HCPCS: 88305; 88342; 45378; 43239; J2704

== ENCOUNTER 2017-01-20 09:52 | Day surgery (SDC) | payer MEDICARE, OTHER ==
[2017-01-14 13:18] VITALS: BMI 25.1
[~2017-01-20 09:52] MED LIST changes: +CLINDAMYCIN 900 MG in DEXTROSE 5% IN WATER 50 ML IVPB ONE; +DEXAMETHASONE SOD PHOSPHATE 10 MG/ML 1 ML VIAL IV ONE; +HEPARIN SODIUM,PORCINE 5,000 UNIT/ML 1 ML VIAL SQ ONE; -LACTATED RINGERS 1,000 ML IV SCH; -LIDOCAINE 1% 20 ML VIAL (10MG/ML) FOR IV START INTRADERMA PRN; +MIDAZOLAM 2 MG/2 ML VIAL IV PRN; +ONDANSETRON 4 MG/2 ML VIAL IVP ONE; +SCOPOLAMINE 1.5MG/72HR PATCH TRANSDERM ONE
[2017-01-20 10:38] LABS: Glucose,Whole Blood 128 mg/dL (75-99)
[2017-01-20] MEDS ORDERED: LIDOCAINE 1% 20 ML VIAL (10MG/ML) FOR IV START INTRADERMA ONE (10:53)
[2017-01-20] MEDS: LACTATED RINGERS 1,000 ML IV SCH ×2 (10:53→13:57)
--- NOTE | 2017-01-20 11:20 | P.GSHP ---
History of Present Illness H&P Date: 01/20/17 Chief Complaint: GERD This is a 46-year-old female referred from . -The patient has had long-standing problems with reflux esophagitis. The patient underwent recent EGD is found have evidence of esophagitis. Patient has been well informed on the procedure of laparoscopic Bren fundoplication. The patient is aware the risk of the conversion to the open procedure, risk of injury to the stomach, liver and spleen. The patient is also a risk of recurrent GERD and dysphagia symptoms. The patient understands there is a postoperative diet of full liquids for 2 weeks after surgery. 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 History of Any Multi-Drug Resistant Organisms: MRSA Date of last positivie culture/infection: 2010 MDRO Source:: scalp scrape from nail Past Surgical History: Back Surgery, Cholecystectomy, Hysterectomy, Joint Replacement, Orthopedic Surgery, Tonsillectomy Additional Past Surgical History / Comment(s): left below knee amputation-uses prosthesis, lt knee joint replacement, 3 toes rt foot amputated, laser surgery eyes Past Anesthesia/Blood Transfusion Reactions: No Reported Reaction Additional Past Anesthesia/Blood Transfusion Reaction / Comment(s): no hx of problems with prior blood transfusion Smoking Status: Never smoker - Past Family History Mother Family Medical History: No Reported History Medications and Allergies Home Medications Medication Instructions Recorded Confirmed Type Esomeprazole Magnesium [NexIUM] 40 mg PO BID 12/24/15 01/20/17 History Cyanocobalamin [Vitamin B-12] 500 mcg PO DAILY 01/14/16 01/20/17 History HYDROcodone/APAP 10-325MG [[place] 1 tab PO TID PRN 01/14/16 01/20/17 History 10-325] Ascorbic Acid/Multivit-Min 1,000 mg PO DAILY 11/10/16 01/20/17 History [Emergen-C 1,000 mg Packet] INSULIN LISPRO (For Pump) [humaLOG See Protocol SQ-PUMP CONTINUOUS 11/10/16 History (For Pump)] Lidocaine 5% Patch [Lidoderm 5% 1 patch TRANSDERM DAILY PRN 11/10/16 01/20/17 History Patch] Prochlorperazine [Compazine] 10 mg PO Q8H PRN 11/10/16 01/20/17 History Magnesium (Unknown Dose) 1 tab PO DAILY 11/26/16 01/20/17 History Allergies Allergy/AdvReac Type Severity Reaction Status Date / Time ceftriaxone sodium Allergy Anaphylaxis Verified 01/20/17 10:15 [From Rocephin] propoxyphene napsylate Allergy Rash/Hives Verified 01/20/17 10:15 [From Darvocet-N] steroids AdvReac elevated Uncoded 01/20/17 10:15 blood sugar 1600 Surgical - Exam Vital Signs Temp Pulse Resp BP Pulse Ox 98.8 F 90 16 92/57 98 01/20/17 10:52 01/20/17 10:52 01/20/17 10:52 01/20/17 10:52 01/20/17 10:52 - General well developed, no distress - Eyes PERRL - ENT normal pinna - Neck no masses - Respiratory normal expansion - Cardiovascular Rhythm: regular - Abdomen Abdomen: soft, non tender Results - Labs Abnormal Lab Results - Last 24 Hours (Table) 01/20/17 Range/Units 10:36 POC Glucose (mg/dL) 128 H (75-99) mg/dL Assessment and Plan Plan: GERD. We'll perform laparoscopic Bren fundoplication.
[2017-01-20] MEDS ORDERED: LIDOCAINE 1% INJ 10MG/ML (20 ML MDV) ONE (11:24)
[2017-01-20] MEDS ORDERED: ROCURONIUM BROMIDE 10 MG/ML 10 ML VIAL IV ONE (11:24)
[2017-01-20] MEDS ORDERED: NEOSTIGMINE 1 MG/ML 10 ML VIAL ONE (11:24)
[2017-01-20] MEDS ORDERED: SUCCINYLCHOLINE CHLORIDE 100 MG/5 ML SYR IV ONE (11:24)
[2017-01-20] MEDS ORDERED: MIDAZOLAM 2 MG/2 ML VIAL ONE (11:24)
[2017-01-20] MEDS ORDERED: GLYCOPYRROLATE 0.2 MG/ML 2 ML VIAL ONE (11:24)
[2017-01-20] MEDS ORDERED: PROPOFOL 10 MG/ML 20 ML VIAL IV ONE (11:24)
[2017-01-20] MEDS ORDERED: fentaNYL (PF) 50 MCG/ML 2 ML AMP ONE (11:24)
[2017-01-20] MEDS ORDERED: BUPIVACAINE-EPI 0.5%-1:200,000 10 ML VIAL SQ ONE ×2 (11:47→12:03)
--- NOTE | 2017-01-20 12:33 | P.OP ---
Date of Procedure: 01/20/17 Preoperative Diagnosis: GERD Postoperative Diagnosis: GERD Procedure(s) Performed: Laparoscopic Bren fundal plication Implants: Anesthesia: TIFFANY Surgeon: Arnaldo Yost Estimated Blood Loss (ml): 5 Pathology: none sent Condition: stable Disposition: PACU Indications for Procedure: Operative Findings: Description of Procedure: The patient was placed on the operating table in the supine position. The patient received general anesthesia. And was placed in dorsal lithotomy position. The patient was prepped and draped in the usual sterile fashion. The skin incision sites were anesthetized with 1% local Xylocaine. The skin was incised in the left periumbilical area and then using a blade less 5 mm trocar under direct visualization panel cavity was entered. After adequate insufflation the laparoscope was then placed into the peritoneal cavity. Next a 5 mm trochars placed in the right epigastric position. Another 5 millimeter trocar the right lateral position. Another 5 millimeter trocar in the left lateral position a 5 mm trocar is placed in the left epigastric position. And then the initial 5 mm trocar was exchanged for a 10 mm trocar. The left lateral lobe liver was retracted. The hernia was seen. The crural defect was then dissected using the Harmonic scissors device. A 360 crural dissection was performed the esophagus stomach was reduced back into the peritoneal Cavity. The crural defect was then closed using 2-0 Ethibond suture. Next the fundus of the stomach was mobilized using the [place] scissors device. and then a 58-[place] bougie dilator was placed oropharynx passed into the esophagus and stomach the fundal plication wrap was then performed by grasping the fundus posteriorly and bringing it around the esophagus and stomach fundoplication was then performed using 2-0 Ethibond suture. Care was taken that the fundal location rested over top of the intra-abdominal esophagus. There was no injury seen to the stomach or esophagus. The dilator was then withdrawn. The abdomen was irrigated there is no bleeding seen. The trochars were then withdrawn and then skin incision sites were closed using 3-0 Monocryl suture Steri-Strips are applied. Patient thought procedure well and sent to recovery room in stable condition.
[2017-01-20] MEDS ORDERED: ONDANSETRON 4 MG/2 ML VIAL IVP ONE (13:00)
[2017-01-20] MEDS: MEPERIDINE 50 MG/ML SYRINGE IVP ONE ×2 (13:05→13:39)
[2017-01-20 13:08] LABS: Glucose,Whole Blood 131 mg/dL (75-99)
[2017-01-20] MEDS: HYDROmorphone 1 MG/ML 1 ML SYRINGE IVP PRN ×5 (13:15→23:44)
[2017-01-20] MEDS: D5-0.45% NACL WITH KCL 20MEQ/L 1,000 ML IV SCH ×2 (14:42→23:45)
[2017-01-20] MEDS: ONDANSETRON 4 MG/2 ML VIAL IVP PRN ×2 (14:42→21:44)
[2017-01-20] MEDS: METOCLOPRAMIDE 5 MG/ML 2 ML VIAL IVP SCH ×2 (16:16→23:45)
[2017-01-20] MEDS: FAMOTIDINE 20 MG/2 ML VIAL IV SCH (20:47)
[2017-01-20 20:57] LABS: Glucose,Whole Blood 152 mg/dL (75-99)
[2017-01-20 21:20] VITALS: RESP 16
[2017-01-20] MEDS: PANTOPRAZOLE 40 MG/10 ML VIAL IVP SCH (21:28)
[2017-01-21 02:01] LABS: Glucose,Whole Blood 168 mg/dL (75-99)
[2017-01-21] MEDS: METOCLOPRAMIDE 5 MG/ML 2 ML VIAL IVP SCH ×2 (05:06→12:41)
[2017-01-21] MEDS: HYDROmorphone 1 MG/ML 1 ML SYRINGE IVP PRN ×2 (05:09→12:41)
[2017-01-21 05:15] LABS: Glucose,Whole Blood 122 mg/dL (75-99)
[2017-01-21 07:45] VITALS: BP 109/56; PULSE 85; TEMP 98.3
[2017-01-21 07:47] LABS: Basophils % (A) 1 %; CH 31.3; CHCM 31.6; Eosinophils # (A) 0.2 k/uL (0-0.7); Eosinophils % (A) 5 %; HCT 32.9 % (34.0-46.0); HDW 2.46; HGB 9.9 gm/dL (11.4-16.0); Luc # (Auto) 0.11; Luc % (Auto) 2; Lymphocytes # (A) 1.4 k/uL (1.0-4.8); Lymphocytes % (A) 28 %; MCHC 30.1 g/dL (31.0-37.0); MCV 99.8 fL (80.0-100.0); Macrocytosis Slight; Mean Platelet Volume 8.3; Monocytes # (A) 0.4 k/uL (0-1.0); Monocytes % (A) 7 %; Neutrophils % (A) 58 %; RDW 14.1 % (11.5-15.5); WBC 5.1 k/uL (3.8-10.6); WBC (Perox) 4.89
[2017-01-21] MEDS: D5-0.45% NACL WITH KCL 20MEQ/L 1,000 ML IV SCH ×2 (07:47→12:45)
[2017-01-21] MEDS: FAMOTIDINE 20 MG/2 ML VIAL IV SCH (07:48)
[2017-01-21] MEDS: PANTOPRAZOLE 40 MG/10 ML VIAL IVP SCH (07:48)
[2017-01-21 08:05] LABS: Anion Gap 6 mmol/L; Blood Urea Nitrogen 18 mg/dL (7-17); Calcium 8.4 mg/dL (8.4-10.2); Carbon Dioxide 24 mmol/L (22-30); Chloride 110 mmol/L (98-107); Glucose 109 mg/dL (74-99); Non-African American GFR(MDRD) >60 (>60 ml/min/1.73 sqM); Potassium 4.2 mmol/L (3.5-5.1); Sodium 140 mmol/L (137-145)
--- NOTE | 2017-01-21 08:34 | FL ---
EXAMINATION TYPE: FL esophagus cervic/pharynx DATE OF EXAM: 01/21/2017 LIMITED UGI-ESOPHAGRAM: CLINICAL HISTORY: Morbid Obesity, lap band placed earlier today. TECHNIQUE: Limited esophagram is performed utilizing 20 oz of Omnipaque 350. A total of 80 seconds o f fluoroscopic time was utilized during procedure. Seminal images are submitted. FINDINGS: There is mild delay in esophagogastric transit of contrast. While contrast does flow into t he stomach there is partial hang up of contrast within the distal esophagus. There is no evidence for leak. Small amount of free air is noted underneath the hemidiaphragms. IMPRESSION: 1. Mild delay in esophagogastric transit with partial hang up of contrast within the distal esophagus as noted.
[2017-01-21] MEDS ORDERED: LIDOCAINE 5% PATCH TOPICAL SCH (09:00)
--- NOTE | 2017-01-21 12:21 | CONS ---
DATE OF SERVICE: 01/20/2017 REASON FOR CONSULTATION: Advice regarding diabetes and other medical issues requested by Dr. Yost. HISTORY OF PRESENT ILLNESS: This is a 46-year-old woman with a past medical history of diabetes, history of syncope, history of GERD, being followed by Dr. Meeks in the outpatient setting. Underwent laparoscopic Bren fundoplication for severe GERD by Dr. Yost. The pressure has been elevated. Patient was using insulin pump with basal around 0.8 units/h. There is no history of fever, chills or rigors. No history of headache, loss of consciousness. PAST MEDICAL HISTORY: History of diabetes mellitus type 2 on insulin pump, history of GERD, history of severe heartburn. The home medications are: 1. Compazine 10 mg q.8 p.r.n. 2. Lidocaine 5% patch. 3. Insulin pump. 4. [place] 10 mg t.i.d. p.r.n. 5. Nexium 40 mg b.i.d. 6. Vitamin B12 five hundred mcg p.o. daily. 7. Multivitamin 1 p.o. daily. Allergies are ROCEPHIN, DARVOCET-N and STEROIDS. FAMILY HISTORY: No history of heart disease or strokes in the family. SOCIAL HISTORY: No history of smoking, no history of alcohol. REVIEW OF SYSTEMS: ENT: No diminished hearing, diminished vision. CARDIOVASCULAR SYSTEM: No angina. RESPIRATORY SYSTEM: No cough. GI: No nausea. : No dysuria. NERVOUS SYSTEM: No numbness or weakness. ALLERGY/IMMUNOLOGY: No asthma or hayfever. MUSCULOSKELETAL: As mentioned earlier. HEMATOLOGY: As mentioned earlier. ENDOCRINE: As mentioned earlier. CONSTITUTIONAL: As mentioned earlier. DERMATOLOGY: Negative. RHEUMATOLOGY: Negative. PSYCHIATRY: As mentioned earlier. PHYSICAL EXAM: Patient is alert and oriented x3. Pulse is 93, blood pressure 106/67, respirations 17, pulse ox 94% on room air. HEENT: Conjunctivae normal. NECK: No jugular venous distension. CARDIOVASCULAR SYSTEM: S1, S2, muffled, no S3, S4. RESPIRATORY: Breath sounds diminished at the bases, a few scattered rhonchi, no crackles. ABDOMEN: Soft, status post surgery. LEGS: No edema, no swelling. NERVOUS SYSTEM: Higher functions as mentioned. Moves all 4 limbs. No focal deficits. LYMPHATICS: No lymph node enlargement in the neck, axillae or groin. LABS: Glucose is 128 to 131 to 152. Other labs which are done during the recent admission, hemoglobin is 10.6 and chemistry shows high glucose, otherwise normal. UA shows UTI on recent labs. ASSESSMENT: 1. Status post laparoscopic Bren fundoplication for severe gastroesophageal reflux disease. 2. Diabetes mellitus type 2 on insulin pump. 3. Rule out urinary tract infection. 4. History of degenerative joint disease. 5. History of gastroesophageal reflux disease. 6. History of anxiety, depression. RECOMMENDATION AND DISCUSSION: In this 46-year-old woman who presented with multiple complex medical issues. Will monitor the patient closely. Continue with the current medications and symptomatic treatment. I would recommend to continue with the insulin pump at the basal rate and for now the patient is on D5 water. Otherwise, monitor blood sugars very closely. Other than that, I would also recommend repeat labs and also with UA with micro also. Home medications may be continued. Will follow the patient closely. Patient may be asked to follow up with Dr. Meeks closely. The rest of the home medications may be continued once the patient is p.o. Thank you, Dr. Yost for letting us participate in the care of this patient. AYLEEN
--- NOTE | 2017-01-21 13:59 | P.DS ---
Providers Date of admission: 01/20/17 Expected date of discharge: 01/21/17 Attending physician: Arnaldo Yost Consults: 01/20/17 12:32 Consult Physician Routine Consulting Provider: Roland Odell Consult Reason/Comments: Medical management Do you want consulting provider notified?: Yes Primary care physician: Eric Rader [facility] Course: A 46-year-old female who has had a long-standing history of reflux esophagitis. Patient underwent a recent EGD was found to have evidence of esophagitis. Patient elected to undergo laparoscopic bren fundoplication . Postop there were no events. Patient stated "all my symptoms have resolved I have no longer experiencing any esophageal reflux symptoms. Patient was instructed on postoperative diet to full liquids for 2 weeks after surgery patient was able to verbalize an understanding. Patient does have diabetes and has an insulin pump states that she has talked with her primary care provider who will be directing usage of her insulin pump. Patient was felt to be medically stable and appropriate to proceed with a discharge to home patient's follow esophagram showed no evidence of obstruction. There was no evidence of a leak. Small amount of free air noted.. Patient was felt to be hemodynamically stable appropriate proceed with a discharge to home Impression discharge diagnoses status post laparoscopic Bren fundoplication for symptomatic esophageal reflux with evidence of esophagitis per EGD Left BKA Legally blind Type 2 diabetes with an insulin pump History of symptomatic esophageal reflux symptoms The above impression and plan of care have been discussed and directed by signing physician. [place] Kaye nurse practitioner acting as scribe for signing physician. Plan - Discharge Summary New Discharge Prescriptions: Continue Esomeprazole Magnesium [NexIUM] 40 mg PO BID HYDROcodone/APAP 10-325MG [[place] 10-325] 1 tab PO TID PRN PRN Reason: Pain Cyanocobalamin [Vitamin B-12] 500 mcg PO DAILY Lidocaine 5% Patch [Lidoderm 5% Patch] 1 patch TRANSDERM DAILY PRN PRN Reason: stump pain Prochlorperazine [Compazine] 10 mg PO Q8H PRN PRN Reason: Nausea INSULIN LISPRO (For Pump) [humaLOG (For Pump)] See Protocol SQ-PUMP CONTINUOUS Ascorbic Acid/Multivit-Min [Emergen-C 1,000 mg Packet] 1,000 mg PO DAILY Magnesium (Unknown Dose) 1 tab PO DAILY Discharge Medication List Esomeprazole Magnesium [NexIUM] 40 mg PO BID 12/24/15 [History] Cyanocobalamin [Vitamin B-12] 500 mcg PO DAILY 01/14/16 [History] HYDROcodone/APAP 10-325MG [[place] 10-325] 1 tab PO TID PRN 01/14/16 [History] Ascorbic Acid/Multivit-Min [Emergen-C 1,000 mg Packet] 1,000 mg PO DAILY [History] INSULIN LISPRO (For Pump) [humaLOG (For Pump)] See Protocol SQ-PUMP CONTINUOUS 11/10/16 [History] Lidocaine 5% Patch [Lidoderm 5% Patch] 1 patch TRANSDERM DAILY PRN 11/10/16 [ History] Prochlorperazine [Compazine] 10 mg PO Q8H PRN 11/10/16 [History] Magnesium (Unknown Dose) 1 tab PO DAILY 11/26/16 [History] Follow up Appointment(s)/Referral(s): Eric Meeks MD [Primary Care Provider] - 01/28/17 1:15 pm Arnaldo Yost MD [STAFF PHYSICIAN] - 1 Week Activity/Diet/Wound Care/Special Instructions: For liquid diet for 2 weeks after surgery Discharge Disposition: HOME SELF-CARE
[2017-01-21 14:15] LABS: Appearance,Urine Clear (Clear); Bilirubin,Urine Negative (Negative); Glucose,Urine (UA) 3+ (Negative); Ketones,Urine Negative (Negative); Leukocyte Esterase,Urine Negative (Negative); Nitrite,Urine Negative (Negative); Protein,Urine Negative (Negative); Specific Gravity,Urine 1.008 (1.001-1.035); UA Billing (MACRO vs. MICRO) CHEM; Urobilinogen,Urine <2.0 mg/dL (<2.0)
--- NOTE | 2017-01-21 19:42 | PN ---
DATE OF SERVICE: 01/21/17 This 46-year-old woman who was admitted after laparoscopic Bren fundoplication is being closely monitored at this time. No chest pain. No palpitations. No fever. The patient is on basal rate insulin pump. On exam, the patient is alert and oriented times three. Pulse 85. Blood pressure 109/56. Respiratory rate 15. Temperature 98.3. Pulse ox 97% on room air. HEENT: Conjunctivae normal. Neck: No JVD. CARDIOVASCULAR : S1, S2 muffled. No S3, no S4. Respiratory: Breath sounds diminished at the bases. No rhonchi and no crackles. Abdomen soft. Status post surgery. LEGS: No edema. No swelling. DOUGH MAKER: No focal deficits. LABS: At this time, Accu-Cheks 122, hemoglobin 9.9. ASSESSMENT: 1. Status post laparoscopic Bren fundoplication, severe gastroesophageal reflux disease. 2. Diabetes mellitus Type 2, on insulin pump. 3. Degenerative joint disease. 4. History of gastroesophageal reflux disease. 5. History of anxiety and depression. 6. Urinary tract infection ruled ( ). RECOMMENDATIONS AND DISCUSSION: Continue the current medications. Continue symptomatic treatment. Continue the rest of the medications. If surgery okayed the patient, the patient will be discharged on the home medications. I recommend close follow-up in the outpatient setting with primary care physician. AYLEEN
== END 2017-01-21 15:40 | disposition home or self-care (01) ==
LOC: OR 09:52 → 3SUR 12:42 → OR 01-21 15:40
PROVIDERS: ATTEND Surgery
DX: K21.9 Gastro-esophageal reflux disease without esophagitis (principal); K42.9 Umbilical hernia without obstruction or gangrene; E11.42 Type 2 diabetes mellitus with diabetic polyneuropathy; E11.618 Type 2 diabetes mellitus with other diabetic arthropathy; Z79.4 Long term (current) use of insulin; Z96.41 Presence of insulin pump (external) (internal); E78.00 Pure hypercholesterolemia, unspecified; F41.8 Other specified anxiety disorders; F32.1 Major depressive disorder, single episode, moderate; G60.8 Other hereditary and idiopathic neuropathies; Z79.899 Other long term (current) drug therapy; Z88.1 Allergy status to other antibiotic agents; Z88.5 Allergy status to narcotic agent; Z88.8 Allergy status to other drugs, medicaments and biological substances
CPT/HCPCS: 43280; 80048; 85025; 81003; 74210; J1644; J2765 ×2; Q9967; J2175; J2405; J1170 ×2; C9113 ×2

== ENCOUNTER → 2018-01-13 | Outpatient (CLI) | payer MEDICARE, OTHER ==
--- NOTE | 2018-01-13 14:36 | FL ---
EXAMINATION: Single contrast Cervical and Thoracic Esophagram DATE OF EXAM: 01/13/2018 CLINICAL INDICATION: 47-year-old female severe heartburn that began one month ago, history of Bren fundoplication one year ago. COMPARISON: 01/21/2017 Total Fluoroscopy Time: 1.45 minutes. Total images: 21 FINDINGS: The swallowing mechanism is normal and hypopharyngeal anatomy is preserved. The cervical and thoracic portions have a normal course and caliber. There are moderate tertiary dm staltic contractions in the lower half of the esophagus. This is likely secondary to a relative moder ate obstruction at the GE junction. Contrast remains old in the esophagus for a prolonged period. There is a recurrent moderate-sized hiatal hernia and some irregularity along the hernia site possibl y reflecting an intact, herniated wrap. When the patient is supine, the hernia fills with contrast from the remainder of the stomach. Josué g astroesophageal reflux could not be elicited during the exam. IMPRESSION: 1. Recurrent hiatal hernia. There is irregularity along the herniated portion of the stomach suspecte d to represent an intact, herniated wrap rather than a mucosal lesion. 2. When the patient is supine, the hernia shows retrograde filling with contrast. Josué gastroesophag eal reflux could not be elicited during the course of the exam. 3. There is a relative moderate obstruction at the hernia when the patient was drinking upright.
== END | disposition home or self-care (01) ==
LOC: RADFLWHC 09:04
PROVIDERS: ATTEND Surgery
DX: K21.9 Gastro-esophageal reflux disease without esophagitis (principal); K44.9 Diaphragmatic hernia without obstruction or gangrene; K56.699 Other intestinal obstruction unspecified as to partial versus complete obstruction
CPT/HCPCS: 74220

== ENCOUNTER → 2018-01-20 | Outpatient (CLI) | payer MEDICARE, OTHER ==
[2018-01-20 10:23] LABS: Basophils % (A) 1 %; Eosinophils # (A) 0.4 k/uL (0-0.7); Eosinophils % (A) 9 %; HCT 36.9 % (34.0-46.0); HGB 11.4 gm/dL (11.4-16.0); Lymphocytes % (A) 41 %; MCH 28.5 pg (25.0-35.0); MCHC 30.8 g/dL (31.0-37.0); MCV 92.5 fL (80.0-100.0); Mean Platelet Volume 7.4; Monocytes # (A) 0.3 k/uL (0-1.0); Monocytes % (A) 6 %; Neutrophils % (A) 41 %; Platelet Count 264 k/uL (150-450); RBC 3.99 m/uL (3.80-5.40); RDW 13.4 % (11.5-15.5); WBC 4.8 k/uL (3.8-10.6)
== END | disposition home or self-care (01) ==
LOC: LABPAT 09:34
PROVIDERS: ATTEND Surgery
DX: Z01.818 Encounter for other preprocedural examination (principal); Z01.812 Encounter for preprocedural laboratory examination; K21.9 Gastro-esophageal reflux disease without esophagitis
CPT/HCPCS: 36415; 85025; 93005

== ENCOUNTER 2018-01-27 07:20 | Day surgery (SDC) | payer MEDICARE, OTHER ==
[2018-01-25 09:58] VITALS: BMI 24.4
[~2018-01-27 07:20] MED LIST changes: -CLINDAMYCIN 900 MG in DEXTROSE 5% IN WATER 50 ML IVPB ONE; -DEXAMETHASONE SOD PHOSPHATE 10 MG/ML 1 ML VIAL IV ONE; -HEPARIN SODIUM,PORCINE 5,000 UNIT/ML 1 ML VIAL SQ ONE; +LACTATED RINGERS 1,000 ML IV SCH; +LIDOCAINE 1% 20 ML VIAL (10MG/ML) FOR IV START INTRADERMA PRN; -MIDAZOLAM 2 MG/2 ML VIAL IV PRN; -ONDANSETRON 4 MG/2 ML VIAL IVP ONE; -SCOPOLAMINE 1.5MG/72HR PATCH TRANSDERM ONE
[2018-01-27 07:56] VITALS: TEMP 98.4
[2018-01-27 08:11] LABS: Glucose,Whole Blood 151 mg/dL (75-99)
[2018-01-27] MEDS ORDERED: LIDOCAINE 1% INJ 10MG/ML (20 ML MDV) ONE (08:44)
[2018-01-27] MEDS ORDERED: PROPOFOL 10 MG/ML 20 ML VIAL IV ONE (08:44)
--- NOTE | 2018-01-27 08:48 | P.GSHP ---
History of Present Illness H&P Date: 01/27/18 Chief Complaint: GERD This is a 39-year-old female who presents today for EGD. She's had issues with GERD. Her recent esophagram shows evidence of a recurrent hiatal hernia. Past Medical History Past Medical History: Diabetes Mellitus, Eye Disorder, GERD/Reflux, Neurologic Disorder, Skin Disorder, Syncope Additional Past Medical History / Comment(s): severe hearburn with nausea, neuropathy hands/feet, Legally Blind., Back and stump pain., Constipation., Hx of anemia.,HIATAL HERNIA, BALANCE ISSUES WITH PROTHESIS History of Any Multi-Drug Resistant Organisms: MRSA Date of last positivie culture/infection: 2010 MDRO Source:: scalp scrape from nail Past Surgical History: Back Surgery, Cholecystectomy, Hysterectomy, Joint Replacement, Orthopedic Surgery, Tonsillectomy Additional Past Surgical History / Comment(s): left below knee amputation-uses prosthesis, lt knee joint replacement, 3 toes rt foot amputated, laser surgery eyes, EGD, COLONOSCOPY Past Anesthesia/Blood Transfusion Reactions: No Reported Reaction Additional Past Anesthesia/Blood Transfusion Reaction / Comment(s): no hx of problems with prior blood transfusion Smoking Status: Never smoker - Past Family History Mother Family Medical History: No Reported History Medications and Allergies Home Medications Medication Instructions Recorded Confirmed Type Esomeprazole Magnesium [NexIUM] 40 mg PO BID 12/24/15 01/27/18 History HYDROcodone/APAP 10-325MG [[place] 1 tab PO TID PRN 01/14/16 01/27/18 History 10-325] Ascorbic Acid/Multivit-Min 1,000 mg PO DAILY 11/10/16 01/27/18 History [Emergen-C 1,000 mg Packet] INSULIN LISPRO (For Pump) [humaLOG See Protocol SQ-PUMP CONTINUOUS 11/10/16 History (For Pump)] Prochlorperazine [Compazine] 10 mg PO Q8H PRN 11/10/16 01/27/18 History Diphenox-Atrop 2.5-0.025 mg 1 tab PO 5XD PRN 01/25/18 01/27/18 History [Lomotil] Allergies Allergy/AdvReac Type Severity Reaction Status Date / Time ceftriaxone sodium Allergy Anaphylaxis Verified 01/27/18 07:58 [From Rocephin] propoxyphene napsylate Allergy Rash/Hives Verified 01/27/18 07:58 [From Darvocet-N] steroids AdvReac elevated Uncoded 01/27/18 07:58 blood sugar 1600 Surgical - Exam Vital Signs Temp Pulse Resp BP Pulse Ox 98.4 F 91 18 106/71 99 01/27/18 07:54 01/27/18 07:54 01/27/18 07:54 01/27/18 07:54 01/27/18 07:54 - General well developed, no distress - Eyes PERRL - ENT normal pinna - Neck no masses - Respiratory normal expansion, normal respiratory effort - Cardiovascular Rhythm: regular - Abdomen Abdomen: soft, non tender Results - Labs Abnormal Lab Results - Last 24 Hours (Table) 01/27/18 Range/Units 08:07 POC Glucose (mg/dL) 151 H (75-99) mg/dL Assessment and Plan Assessment: GERD. We'll perform EGD.
--- NOTE | 2018-01-27 08:56 | P.OP ---
Date of Procedure: 01/27/18 Preoperative Diagnosis: GERD Postoperative Diagnosis: Recurrent hiatal hernia Procedure(s) Performed: EGD Anesthesia: MAC Surgeon: Arnaldo Yost Pathology: other (Antrum) Condition: stable Disposition: PACU Description of Procedure: The patient's placed on the endoscopy table in the lateral position. She received IV sedation. The gastroscope placed oropharynx passed in the esophagus into the stomach. Scope was then placed through the pylorus. The first and second portion of the duodenum appeared normal. Scope was then brought back the stomach in the antrum appeared mildly inflamed a biopsies performed. The scope was unretroflexed and remainder some appeared normal. The patient had a fundal plication wrap. This appeared to be slight below the GE junction. There is evidence of recurrent hiatal hernia. The GE junction was at 38 cm. The distal esophagus appeared mildly inflamed. The proximal esophagus appeared normal. Scope was withdrawn for patient.
[2018-01-27 09:32] VITALS: BP 155/88; PULSE 84; RESP 18
== END 2018-01-27 09:40 | disposition home or self-care (01) ==
LOC: ORWHC2ENDO 07:20
PROVIDERS: ATTEND Surgery
DX: K29.50 Unspecified chronic gastritis without bleeding (principal); K44.9 Diaphragmatic hernia without obstruction or gangrene; K21.9 Gastro-esophageal reflux disease without esophagitis; E11.40 Type 2 diabetes mellitus with diabetic neuropathy, unspecified; Z86.14 Personal history of Methicillin resistant Staphylococcus aureus infection; Z90.49 Acquired absence of other specified parts of digestive tract; Z90.710 Acquired absence of both cervix and uterus; Z96.652 Presence of left artificial knee joint; Z89.512 Acquired absence of left leg below knee; Z79.4 Long term (current) use of insulin; Z79.899 Other long term (current) drug therapy; Z88.1 Allergy status to other antibiotic agents; Z88.8 Allergy status to other drugs, medicaments and biological substances; Z88.5 Allergy status to narcotic agent
CPT/HCPCS: 88305; 43239; J2001; J2704

== ENCOUNTER 2018-01-29 09:37 | Day surgery (SDC) | payer MEDICARE, OTHER ==
[~2018-01-29 09:37] MED LIST changes: +CLINDAMYCIN 900 MG in DEXTROSE 5% IN WATER 50 ML IVPB ONE; +DEXAMETHASONE SOD PHOSPHATE 10 MG/ML 1 ML VIAL IV ONE; +HEPARIN SODIUM,PORCINE 5,000 UNIT/ML 1 ML VIAL SQ ONE; +LEVOFLOXACIN 500MG-D5W PMX 500 MG in DEXTROSE/WATER 1 100ML.BAG IVPB ONE; +MIDAZOLAM 2 MG/2 ML VIAL IV PRN; +fentaNYL (PF) 50 MCG/ML 2 ML AMP IV PRN
--- NOTE | 2018-01-29 10:12 | P.GSHP ---
History of Present Illness H&P Date: 01/29/18 Chief Complaint: GERD This a 39-year-old female who presents today for laparoscopic hiatal hernia repair. Patient has had GERD. She was worked up found have evidence of a recurrent hiatal hernia. Patient aware the risks of surgery including conversion O procedure and injury to the stomach liver or spleen. Past Medical History Past Medical History: Diabetes Mellitus, Eye Disorder, GERD/Reflux, Neurologic Disorder, Skin Disorder, Syncope Additional Past Medical History / Comment(s): severe hearburn with nausea, neuropathy hands/feet, Legally Blind., Back and stump pain., Constipation., Hx of anemia.,HIATAL HERNIA, BALANCE ISSUES WITH PROTHESIS History of Any Multi-Drug Resistant Organisms: MRSA Date of last positivie culture/infection: 2010 MDRO Source:: scalp scrape from nail Past Surgical History: Back Surgery, Cholecystectomy, Hysterectomy, Joint Replacement, Orthopedic Surgery, Tonsillectomy Additional Past Surgical History / Comment(s): left below knee amputation-uses prosthesis, lt knee joint replacement, 3 toes rt foot amputated, laser surgery eyes, EGD, COLONOSCOPY Past Anesthesia/Blood Transfusion Reactions: No Reported Reaction Additional Past Anesthesia/Blood Transfusion Reaction / Comment(s): no hx of problems with prior blood transfusion Smoking Status: Never smoker - Past Family History Mother Family Medical History: No Reported History Medications and Allergies Home Medications Medication Instructions Recorded Confirmed Type Esomeprazole Magnesium [NexIUM] 40 mg PO BID 12/24/15 01/27/18 History HYDROcodone/APAP 10-325MG [[place] 1 tab PO TID PRN 01/14/16 01/27/18 History 10-325] Ascorbic Acid/Multivit-Min 1,000 mg PO DAILY 11/10/16 01/27/18 History [Emergen-C 1,000 mg Packet] INSULIN LISPRO (For Pump) [humaLOG See Protocol SQ-PUMP CONTINUOUS 11/10/16 History (For Pump)] Prochlorperazine [Compazine] 10 mg PO Q8H PRN 11/10/16 01/27/18 History Diphenox-Atrop 2.5-0.025 mg 1 tab PO 5XD PRN 01/25/18 01/27/18 History [Lomotil] Allergies Allergy/AdvReac Type Severity Reaction Status Date / Time ceftriaxone sodium Allergy Anaphylaxis Verified 01/27/18 07:58 [From Rocephin] propoxyphene napsylate Allergy Rash/Hives Verified 01/27/18 07:58 [From Darvocet-N] steroids AdvReac elevated Uncoded 01/27/18 07:58 blood sugar 1600 Surgical - Exam - General well developed, well nourished, no distress - Eyes PERRL - ENT normal pinna - Neck no masses - Respiratory normal expansion - Cardiovascular Rhythm: regular - Abdomen Abdomen: soft, non tender Assessment and Plan Assessment: GERD Recurrent hiatal hernia. We'll perform laparoscopic hiatal hernia repair.
[2018-01-29] MEDS: INSPUCOR MISCELLANE PRN ×2 (10:30→23:29)
[2018-01-29 11:23] LABS: Glucose,Whole Blood 77 mg/dL (75-99)
[2018-01-29] MEDS ORDERED: DEXTROSE 50%-WATER 50 ML SYRINGE IVP ONE (11:30)
[2018-01-29] MEDS: ONDANSETRON 4 MG/2 ML VIAL IVP ONE ×2 (11:31→13:43)
[2018-01-29 11:49] LABS: Glucose,Whole Blood 137 mg/dL (75-99)
[2018-01-29] MEDS ORDERED: BUPIVACAIN-EPI 0.5%-1:200,000 30 ML VIAL SQ ONE (12:35)
[2018-01-29 14:00] LABS: Glucose,Whole Blood 190 mg/dL (75-99)
[2018-01-29] MEDS: HYDROmorphone 0.5 MG/0.5 ML SYRINGE IVP PRN ×2 (14:05→14:19)
[2018-01-29] MEDS ORDERED: ONDANSETRON 4 MG/2 ML VIAL IVP PRN (14:06)
--- NOTE | 2018-01-29 14:06 | P.OP ---
Date of Procedure: 01/29/18 Preoperative Diagnosis: GERD Recurrent hiatal hernia Postoperative Diagnosis: Recurrent hiatal hernia Procedure(s) Performed: Laparoscopic repair of recurrent hiatal hernia with mesh 180 partial fundoplication Anesthesia: MAC Surgeon: Arnaldo Yost Estimated Blood Loss (ml): 5 Pathology: none sent Condition: stable Disposition: PACU Description of Procedure: The patient was placed on the operating table in the supine position. The patient received general anesthesia. And was placed in dorsal lithotomy position. The patient was prepped and draped in the usual sterile fashion. The skin incision sites were anesthetized with 1% local Xylocaine. The skin was incised in the left periumbilical area and then using a blade less 5 mm trocar under direct visualization panel cavity was entered. After adequate insufflation the laparoscope was then placed into the peritoneal cavity. Next a 5 mm trochars placed in the right epigastric position. Another 5 millimeter trocar the right lateral position. Another 5 millimeter trocar in the left lateral position a 5 mm trocar is placed in the left epigastric position. And then the initial 5 mm trocar was exchanged for a 10 mm trocar. The left lateral lobe liver was retracted. The hernia was seen. Using the Metzenbaum scissors and the Harmonic scissors the adhesions to the hiatal hernia were lysed. The stomach was reduced into the chest. The patient a previous fundoplication wrap. The wrap was freed by dividing the sutures of the wrap. And then meticulously dissected and stomach. The 58-[place]ux[place] bougie dilator was placed the patient's esophagus. The crural defect was then closed using 2-0 Ethibond suture. Once the crural defect was closed the [place] bio a mesh was placed over top of the repair and secured with 2-0 Ethibond suture. A 180 fundoplication wrap was performed. This point the dilator was withdrawn. Stomach and esophagus were inspected. There is no evidence of any injury to the stomach or esophagus. There is no bleeding seen. The trochars withdrawn. The skin was closed interrupted 3-0 Monocryl suture.
[2018-01-29] MEDS ORDERED: SODIUM CHLORIDE 0.9% 1,000 ML IV ONE (14:23)
--- NOTE | 2018-01-29 15:40 | P.CONS ---
History of Present Illness - Reason for Consult Consult date: 01/29/18 Medical management - Chief Complaint Laparoscopic hernia repair - History of Present Illness 39-year-old female who presented to the hospital for laparoscopic hernia repair ; patient has advanced history of gastroesophageal reflux disease and was worked up as an outpatient with severe recurrent hiatal hernia; patient underwent elective laparoscopic repair of recurrent hiatal hernia with mesh with partial fundoplication Patient is seen postoperatively; remains very sleepy but arousable; denying any complaints of chest pain or shortness of breath Review of Systems 14 point review of systems unremarkable Past Medical History Past Medical History: Diabetes Mellitus, Eye Disorder, GERD/Reflux, Neurologic Disorder, Skin Disorder, Syncope Additional Past Medical History / Comment(s): severe hearburn with nausea, neuropathy hands/feet, Legally Blind., Back and stump pain., Constipation., Hx of anemia.,HIATAL HERNIA, BALANCE ISSUES WITH PROTHESIS History of Any Multi-Drug Resistant Organisms: MRSA Year Discovered:: 2010 MDRO Source:: scalp scrape from nail Past Surgical History: Back Surgery, Cholecystectomy, Hysterectomy, Joint Replacement, Orthopedic Surgery, Tonsillectomy Additional Past Surgical History / Comment(s): left below knee amputation-uses prosthesis, lt knee joint replacement, 3 toes rt foot amputated, laser surgery eyes, EGD, COLONOSCOPY Past Anesthesia/Blood Transfusion Reactions: No Reported Reaction Additional Past Anesthesia/Blood Transfusion Reaction / Comm: no hx of problems with prior blood transfusion Smoking Status: Never smoker - Past Family History Mother Family Medical History: No Reported History Medications and Allergies Home Medications Medication Instructions Recorded Confirmed Type Esomeprazole Magnesium [NexIUM] 40 mg PO BID 12/24/15 01/27/18 History HYDROcodone/APAP 10-325MG [[place] 1 tab PO TID PRN 01/14/16 01/27/18 History 10-325] Ascorbic Acid/Multivit-Min 1,000 mg PO DAILY 11/10/16 01/27/18 History [Emergen-C 1,000 mg Packet] INSULIN LISPRO (For Pump) [humaLOG See Protocol SQ-PUMP CONTINUOUS 11/10/16 History (For Pump)] Prochlorperazine [Compazine] 10 mg PO Q8H PRN 11/10/16 01/27/18 History Diphenox-Atrop 2.5-0.025 mg 1 tab PO 5XD PRN 01/25/18 01/27/18 History [Lomotil] Docusate [Colace] 100 mg PO BID #20 capsule 01/29/18 Rx Docusate [Colace] 100 mg PO BID #20 capsule 01/29/18 Rx HYDROcodone/APAP 7.5-325MG [[place] 1 tab PO Q4H PRN 3 Days #18 tab 01/29/18 Rx 7.5-325] Allergies Allergy/AdvReac Type Severity Reaction Status Date / Time ceftriaxone sodium Allergy Anaphylaxis Verified 01/27/18 07:58 [From Rocephin] propoxyphene napsylate Allergy Rash/Hives Verified 01/27/18 07:58 [From Darvocet-N] steroids AdvReac elevated Uncoded 01/27/18 07:58 blood sugar 1600 Physical Exam Vitals: Vital Signs Temp Pulse Pulse Resp BP Pulse Ox 01/29/18 14:25 96 16 127/70 93 L 01/29/18 14:10 96 16 128/69 97 01/29/18 13:55 92 16 127/67 96 01/29/18 13:41 97 F L 90 18 134/68 97 01/29/18 11:34 98.0 F 95 18 143/80 98 Intake and Output 01/29/18 01/29/18 01/29/18 06:59 14:59 22:59 Intake Total 1156 Output Total 5 Balance 1151 Intake: IV 1156 Output: Estimated Blood Loss 5 - Constitutional General appearance: Present: average body habitus, cooperative, no acute distress - EENT Eyes: Present: anicteric sclerae, EOMI, PERRLA, normal appearance ENT: Present: hearing grossly normal, normal oropharynx Ears: bilateral: normal - Neck Neck: Present: normal ROM. Absent: lymphadenopathy, rigidity, thyromegaly Carotids: negative: bruit present Thyroid: bilateral: normal size, negative: enlarged, nodule - Respiratory Respiratory: bilateral: CTA, negative: rales, rhonchi, wheezing - Cardiovascular Rhythm: regular Heart sounds: normal: S1, S2 Abnormal Heart Sounds: Absent: systolic murmur, diastolic murmur - Gastrointestinal General gastrointestinal: Present: normal bowel sounds, soft. Absent: distended , organomegaly, tenderness - Genitourinary Genitourinary Comment(s): deferred - Integumentary Integumentary: Present: normal turgor. Absent: jaundiced, rash, ulcer - Neurologic Neurologic: Present: CNII-XII intact. Absent: focal deficits - Musculoskeletal Musculoskeletal: Present: gait normal, strength equal bilaterally - Psychiatric Psychiatric: Present: A&O x's 3, appropriate affect, intact judgment & insight Results Labs: Abnormal Lab Results - Last 24 Hours (Table) 01/29/18 01/29/18 Range/Units 11:48 13:45 POC Glucose (mg/dL) 137 H 190 H (75-99) mg/dL Assessment and Plan Assessment: 1. Diabetes mellitus - Fairly stable; we will continue with Accu-Cheks with insulin sliding scale - Patient uses insulin pump at home; we'll resume home settings once patient is stable and is started on oral feeding 2. Peripheral neuropathy; we will recommend starting patient on Neurontin upon discharge 3. Constipation; we will order stool softeners once oral intake is established 4. Chronic anemia; monitor H&H every 12 hours - We will recommend type crossmatch and transfuse if hemoglobin is less than 8 5. Hiatal hernia; as above - We will continue with PPI; Protonix 40 mg IV daily - Continue with Reglan 10 mg IV every 6 hours 6. DVT prophylaxis; Lovenox 40 mg subcu daily CODE STATUS; full code Time with Patient: Greater than 30
--- NOTE | 2018-01-29 16:41 | FL ---
EXAMINATION TYPE: FL esophagus cervic/pharynx DATE OF EXAM: 01/29/2018 ESOPHAGRAM: CLINICAL HISTORY: History of reflux and hiatal hernia status post Irwin fundoplication surgery annel ier today. TECHNIQUE: Limited esophagram is performed utilizing 30 oz of Isovue-370. A total of 59 seconds of f luoroscopic time was utilized during procedure. 23 spot images were saved during procedure. FINDINGS: The patient swallowed contrast without difficulty or delay. Esophageal peristalsis and mo tility are within normal limits. There is mild to moderate delay in flow of contrast along the diaphr agmatic hiatus into the stomach, there is no evidence of contrast extravasation to suggest leak. No p ersistent hiatal hernia is seen. Patient remained asymptomatic. Cholecystectomy clips are incidentall y noted. IMPRESSION: No evidence of leak status post Irwin fundoplication surgery earlier today.
[2018-01-29 18:02] LABS: Glucose,Whole Blood 385 mg/dL (75-99)
[2018-01-29] MEDS: LACTATED RINGERS 1,000 ML IV SCH ×2 (19:41→23:20)
[2018-01-29] MEDS: PANTOPRAZOLE 40 MG/10 ML VIAL IVP SCH (19:42)
[2018-01-29] MEDS: METOCLOPRAMIDE 5 MG/ML 2 ML VIAL IVP SCH ×2 (19:42→23:19)
[2018-01-29] MEDS ORDERED: INSULIN ASPART 100 UNIT/ML 1 ML 10 ML VIAL SQ PRN (19:54)
[2018-01-29] MEDS ORDERED: INSULIN PUMP BASAL RATES 1 EACH MISC MISCELLANE PRN (19:54)
[2018-01-29] MEDS: INSULIN PUMP MEAL BOLUS 1 UNIT MISC MISCELLANE SCH (20:37)
[2018-01-29 20:38] LABS: Glucose,Whole Blood 512 mg/dL (75-99)
[2018-01-29] MEDS: HYDROmorphone 1 MG/ML 1 ML SYRINGE IVP PRN (20:51)
[2018-01-29] MEDS ORDERED: INSULIN ASPART 100 UNIT/ML 1 ML 10 ML VIAL SQ SCH (21:00)
[2018-01-29 21:20] VITALS: BMI 25.9
[2018-01-29 21:45] LABS: Glucose,Whole Blood 460 mg/dL (75-99)
[2018-01-29 22:24] LABS: Glucose,Whole Blood 395 mg/dL (75-99)
[2018-01-29 23:21] LABS: Glucose,Whole Blood 315 mg/dL (75-99)
[2018-01-30 00:34] LABS: Glucose,Whole Blood 272 mg/dL (75-99)
[2018-01-30] MEDS: INSPUCOR MISCELLANE PRN ×2 (00:38→12:38)
[2018-01-30 01:51] LABS: Glucose,Whole Blood 243 mg/dL (75-99)
[2018-01-30 04:06] LABS: Glucose,Whole Blood 213 mg/dL (75-99)
[2018-01-30] MEDS: HYDROmorphone 1 MG/ML 1 ML SYRINGE IVP PRN ×2 (05:11→14:25)
[2018-01-30] MEDS: METOCLOPRAMIDE 5 MG/ML 2 ML VIAL IVP SCH ×2 (05:11→11:25)
[2018-01-30 07:06] LABS: Glucose,Whole Blood 133 mg/dL (75-99)
[2018-01-30 07:12] LABS: Basophils % (A) 0 %; Eosinophils # (A) 0.1 k/uL (0-0.7); Eosinophils % (A) 1 %; HCT 34.7 % (34.0-46.0); HGB 11.3 gm/dL (11.4-16.0); Lymphocytes # (A) 1.7 k/uL (1.0-4.8); Lymphocytes % (A) 24 %; MCH 30.5 pg (25.0-35.0); MCHC 32.4 g/dL (31.0-37.0); MCV 93.9 fL (80.0-100.0); Mean Platelet Volume 7.6; Monocytes # (A) 0.4 k/uL (0-1.0); Monocytes % (A) 6 %; Neutrophils # (A) 4.6 k/uL (1.3-7.7); Neutrophils % (A) 67 %; Platelet Count 214 k/uL (150-450); RDW 13.3 % (11.5-15.5); WBC 6.9 k/uL (3.8-10.6)
[2018-01-30] MEDS: INSULIN PUMP MEAL BOLUS 1 UNIT MISC MISCELLANE SCH ×2 (07:13→12:37)
[2018-01-30 07:27] LABS: Albumin 3.1 g/dL (3.5-5.0); Calcium 8.7 mg/dL (8.4-10.2); Potassium 4.5 mmol/L (3.5-5.1); Total Bilirubin 0.4 mg/dL (0.2-1.3); Total Protein 5.6 g/dL (6.3-8.2)
[2018-01-30] MEDS ORDERED: ENOXAPARIN 40 MG/0.4 ML SYRINGE SQ SCH (09:00)
[2018-01-30] MEDS: PANTOPRAZOLE 40 MG/10 ML VIAL IVP SCH (09:41)
[2018-01-30 11:59] LABS: Glucose,Whole Blood 161 mg/dL (75-99)
--- NOTE | 2018-01-30 13:28 | P.PN ---
Subjective Progress Note Date: 01/30/18 Patient is status post laparoscopic hiatal hernia repair for recurrence. She has been tolerating liquids. She has history of diabetes with insulin dependence. Medicines following for medical management. She had been seen by the dietitian regarding her Bren diet. Objective - Vital Signs Vital signs: Vital Signs Temp 97.8 F 01/30/18 02:32 Pulse 96 01/30/18 02:32 Resp 18 01/30/18 02:32 BP 105/66 01/30/18 02:32 Pulse Ox 98 01/30/18 02:32 Intake & Output 01/29/18 01/30/18 01/30/18 18:59 06:59 18:59 Intake Total 1156 1500 Output Total 5 Balance 1151 1500 Weight 79.379 kg 84.395 kg 84.395 kg Intake: IV 1156 Intake, IV Titration 1500 Amount Lactated Ringers 1,000 ml 1500 @ 125 mls/hr IV .Q8H TAMIKA Rx#:[id number] Output: Estimated Blood Loss 5 Other: # Voids 1 1 - Exam GENERAL: Well developed and in no acute distress. Pleasant. HEENT: No sclera icterus. Extraocular movements grossly intact. Moist buccal mucosa. Head is atraumatic, normocephalic. Hears conversational speech. No nasal drainage. NECK: Range of motion intact. CHEST: Non-labored respirations and equal bilateral excursions. CARDIOVASCULAR: Regular rate and rhythm. Palpable 2+ radial pulses. ABDOMEN: Soft, Nondistended. MUSCULOSKELETAL: No clubbing, cyanosis or edema. NEUROLOGIC: No focal or lateralizing signs. Cranial nerves II-12 grossly intact PSYCH: Appropriate affect. Alert and oriented to person, place and time. SKIN: Good skin turgor. Well perfused. - Labs CBC & Chem 7: 01/30/18 06:26 01/30/18 06:26 Labs: Abnormal Lab Results - Last 24 Hours (Table) 01/29/18 01/29/18 01/29/18 Range/Units 13:45 17:59 20:37 RBC (3.80-5.40) m/uL Hgb (11.4-16.0) gm/dL BUN (7-17) mg/dL Glucose (74-99) mg/dL POC Glucose (mg/dL) 190 H 385 H 512 H (75-99) mg/dL AST (14-36) U/L ALT (9-52) U/L Total Protein (6.3-8.2) g/dL Albumin (3.5-5.0) g/dL 01/29/18 01/29/18 01/29/18 Range/Units 21:22 22:23 23:18 RBC (3.80-5.40) m/uL Hgb (11.4-16.0) gm/dL BUN (7-17) mg/dL Glucose (74-99) mg/dL POC Glucose (mg/dL) 460 H 395 H 315 H (75-99) mg/dL AST (14-36) U/L ALT (9-52) U/L Total Protein (6.3-8.2) g/dL Albumin (3.5-5.0) g/dL 01/30/18 01/30/18 01/30/18 Range/Units 00:33 01:49 03:54 RBC (3.80-5.40) m/uL Hgb (11.4-16.0) gm/dL BUN (7-17) mg/dL Glucose (74-99) mg/dL POC Glucose (mg/dL) 272 H 243 H 213 H (75-99) mg/dL AST (14-36) U/L ALT (9-52) U/L Total Protein (6.3-8.2) g/dL Albumin (3.5-5.0) g/dL 01/30/18 01/30/18 01/30/18 Range/Units 06:26 06:26 06:46 RBC 3.70 L (3.80-5.40) m/uL Hgb 11.3 L (11.4-16.0) gm/dL BUN 18 H (7-17) mg/dL Glucose 145 H (74-99) mg/dL POC Glucose (mg/dL) 133 H (75-99) mg/dL AST 183 H (14-36) U/L ALT 145 H (9-52) U/L Total Protein 5.6 L (6.3-8.2) g/dL Albumin 3.1 L (3.5-5.0) g/dL 01/30/18 Range/Units 11:38 RBC (3.80-5.40) m/uL Hgb (11.4-16.0) gm/dL BUN (7-17) mg/dL Glucose (74-99) mg/dL POC Glucose (mg/dL) 161 H (75-99) mg/dL AST (14-36) U/L ALT (9-52) U/L Total Protein (6.3-8.2) g/dL Albumin (3.5-5.0) g/dL Assessment and Plan (1) Hiatal hernia with GERD Current Visit: Yes Status: Acute Code(s): K21.9 - GASTRO-ESOPHAGEAL REFLUX DISEASE WITHOUT ESOPHAGITIS; K44.9 - DIAPHRAGMATIC HERNIA WITHOUT OBSTRUCTION OR GANGRENE SNOMED Code(s): 354360926 (2) GERD (gastroesophageal reflux disease) Current Visit: No Status: Acute Code(s): K21.9 - GASTRO-ESOPHAGEAL REFLUX DISEASE WITHOUT ESOPHAGITIS SNOMED Code(s): 794263451 Plan: 1. Continue Bren diet 2. Follow-up with operating surgeon as outpatient 3. Medical management per medicine
--- NOTE | 2018-01-30 14:35 | P.PN ---
Progress Note - Text Progress Note Date: 01/30/18 The patient is cleared for discharge after discussion with her operating surgeon.
[2018-01-30 14:56] VITALS: BP 122/80; PULSE 91; RESP 16; TEMP 98.3
[2018-01-30 16:55] LABS: Glucose,Whole Blood 112 mg/dL (75-99)
[2018-01-30 17:46] LABS: Hemoglobin A1C 8.4 % (4.0-6.0)
--- NOTE | 2018-02-01 06:02 | PN ---
PROGRESS NOTE DATE OF SERVICE: 01/30/18. PRESENTING COMPLAIN: Abdominal surgery. INTERVAL HISTORY: Patient is status post abdominal surgery for a recurrence of hiatal hernia repair. The patient has some abdominal pain. No nausea or vomiting. Did tolerate a liquid diet. Did pass some flatus. Has been up to the bathroom. REVIEW OF SYSTEMS: Done for constitutional, cardiovascular, GI, pulmonary; relevant findings as above. CURRENT MEDICATIONS: Reviewed. PHYSICAL EXAMINATION: Temperature 97.8, pulse 96, respirations 18, blood pressure 105/66, pulse ox 98 percent on room air. GENERAL APPEARANCE: Sitting up, awake. EYES: Pupils equal. Conjunctivae normal. HEENT: External appearance of nose and ears normal. Oral cavity normal. NECK: JVD not raised. Mass not palpable. RESPIRATORY: Effort, lungs are clear. CARDIOVASCULAR: First and second sounds, no edema. ABDOMEN: Soft, mild tenderness. Liver and spleen not palpable. PSYCHIATRY: Alert and oriented x3. Mood and affect normal. INVESTIGATIONS: White count 6.9, potassium 4.5, BUN 8, creatinine 0.91. Accu-Cheks are noted. ASSESSMENT: 1. Status post laparoscopic repair of recurrent hiatal hernia with mesh. 2. Diabetes mellitus type 2 on insulin pump. 3. Gastroesophageal reflux disease. 4. Peripheral neuropathy secondary to diabetes. 5. Legally blind. 6. Left below-knee amputation, uses a prosthesis. PLAN: Continue medication and treatment plan patient on insulin pump. She knows to manage her sugar. Care was discussed. The patient should follow up with a family doctor upon discharge. Thank you Dr. Yost. [id number] / MARYN: [id number] /
== END 2018-01-30 18:16 | disposition home or self-care (01) ==
LOC: OR 09:37 → 3SUR 13:44 → OR 01-30 18:16
PROVIDERS: ATTEND Surgery
DX: K44.9 Diaphragmatic hernia without obstruction or gangrene (principal); E11.42 Type 2 diabetes mellitus with diabetic polyneuropathy; Z79.4 Long term (current) use of insulin; Z96.41 Presence of insulin pump (external) (internal); K21.9 Gastro-esophageal reflux disease without esophagitis; Z89.512 Acquired absence of left leg below knee; Z96.652 Presence of left artificial knee joint; H54.8 Legal blindness, as defined in USA; Z79.899 Other long term (current) drug therapy; Z88.5 Allergy status to narcotic agent; Z88.8 Allergy status to other drugs, medicaments and biological substances; Z86.14 Personal history of Methicillin resistant Staphylococcus aureus infection
CPT/HCPCS: 80053; 85025; 83036; 74210; 43282; C1781; J1644; J1100; J2765 ×2; J2405; J1956; J1650; J1170 ×3; C9113 ×2; Q9967

== ENCOUNTER → 2018-03-04 | Outpatient (CLI) | payer MEDICARE, OTHER ==
--- NOTE | 2018-03-04 14:45 | FL ---
EXAMINATION: Fluoroscopic barium swallow study DATE OF EXAM: 03/04/2018 CLINICAL INDICATION: 47-year-old female intractable vomiting and nausea. Sensation of food being stuc k since revision Bren fundoplication one month ago. COMPARISON: 01/13/2018 and 01/29/2018 Total Fluoroscopy Time: 1 minute 58 seconds. Total images: 16. FINDINGS: Thin barium was utilized given the patient's symptoms. The patient took only 2 swallows with a total of 1 ounce ingested. There is a moderate to severe obstruction at the level of the GE junction. Small amount of contrast makes its way into the stomach. Repeated to and fro flow of contrast is present w ithin the esophagus with extensive tertiary peristalsis that ensues. The hypopharyngeal anatomy is preserved. No obvious mucosal abnormality or or persistent filling defe ct is encountered. No evident recurrent hiatal hernia. IMPRESSION: 1. The patient ingested a total of only 1 ounce of thin barium. She became sick and vomited at one po int. There is a moderate to severe obstruction at the GE junction suspected to be secondary to a tigh t wrap. No recurrent hernia. 2. Extensive tertiary peristalsis and repeated to and fro flow of the pooled contrast in the esophagu s.
== END | disposition home or self-care (01) ==
LOC: RADFLWHC 08:59
PROVIDERS: ATTEND Surgery
DX: K56.609 Unspecified intestinal obstruction, unspecified as to partial versus complete obstruction (principal); R19.2 Visible peristalsis
CPT/HCPCS: 74220

== ENCOUNTER 2018-03-05 08:37 | Day surgery (SDC) | payer MEDICARE, OTHER ==
[2018-03-05] MEDS ORDERED: LACTATED RINGERS 1,000 ML IV ONE (09:24)
[2018-03-05] MEDS ORDERED: LIDOCAINE 1% 20 ML VIAL (10MG/ML) FOR IV START INTRADERMA ONE (09:25)
[2018-03-05 09:29] VITALS: RESP 16; TEMP 97.8
[2018-03-05 09:33] LABS: Glucose,Whole Blood 83 mg/dL (75-99)
[2018-03-05] MEDS ORDERED: PROPOFOL 10 MG/ML 20 ML VIAL IV ONE (10:02)
--- NOTE | 2018-03-05 10:08 | P.GSHP ---
History of Present Illness H&P Date: 03/05/18 Chief Complaint: Dysphagia This is a 39-year-old female who has complaints of dysphagia. Patient had a recent repair of recurrent hiatal hernia. Initially she did well however she had complaints of progressive dysphagia. Her original esophagram showed no evidence of obstruction of the GE junction. Her esophagram performed yesterday shows evidence of moderate obstruction of the GE junction. She presents today for EGD and possible balloon dilatation. Past Medical History Past Medical History: Diabetes Mellitus, Eye Disorder, GERD/Reflux, Neurologic Disorder, Skin Disorder, Syncope Additional Past Medical History / Comment(s): severe hearburn with nausea, neuropathy hands/feet, Legally Blind., Back and stump pain., Constipation., Hx of anemia.,HIATAL HERNIA, BALANCE ISSUES WITH PROTHESIS History of Any Multi-Drug Resistant Organisms: MRSA Date of last positivie culture/infection: 2010 MDRO Source:: scalp scrape from nail Past Surgical History: Back Surgery, Cholecystectomy, Hysterectomy, Joint Replacement, Orthopedic Surgery, Tonsillectomy Additional Past Surgical History / Comment(s): left below knee amputation-uses prosthesis, lt knee joint replacement, 3 toes rt foot amputated, laser surgery eyes, EGD, COLONOSCOPY Past Anesthesia/Blood Transfusion Reactions: No Reported Reaction Additional Past Anesthesia/Blood Transfusion Reaction / Comment(s): no hx of problems with prior blood transfusion Past Psychological History: No Psychological Hx Reported Additional Psychological History / Comment(s): DEPRESSION AFTER HER MOTHER PASSED- NO PROBLEM NOW. Smoking Status: Never smoker Past Alcohol Use History: None Reported Past Drug Use History: None Reported - Past Family History Mother Family Medical History: No Reported History Medications and Allergies Home Medications Medication Instructions Recorded Confirmed Type HYDROcodone/APAP 10-325MG [[place] 1 tab PO TID PRN 01/14/16 03/05/18 History 10-325] Ascorbic Acid/Multivit-Min 1,000 mg PO DAILY 11/10/16 03/05/18 History [Emergen-C 1,000 mg Packet] INSULIN LISPRO (For Pump) [humaLOG See Protocol SQ-PUMP CONTINUOUS 11/10/16 History (For Pump)] Prochlorperazine [Compazine] 10 mg PO Q8H PRN 11/10/16 03/05/18 History Diphenox-Atrop 2.5-0.025 mg 1 tab PO 5XD PRN 01/25/18 03/05/18 History [Lomotil] Ondansetron [Zofran] 4 mg PO Q8HR PRN 03/05/18 03/05/18 History Allergies Allergy/AdvReac Type Severity Reaction Status Date / Time ceftriaxone sodium Allergy Anaphylaxis Verified 03/05/18 08:57 [From Rocephin] propoxyphene napsylate Allergy Rash/Hives Verified 03/05/18 08:57 [From Darvocet-N] steroids AdvReac elevated Uncoded 03/05/18 08:57 blood sugar 1600 Surgical - Exam Vital Signs Temp Pulse Resp BP Pulse Ox 97.8 F 84 16 107/75 99 03/05/18 09:26 03/05/18 09:26 03/05/18 09:26 03/05/18 09:26 03/05/18 09:26 - General well developed, no distress - Eyes PERRL - ENT normal pinna - Neck no masses - Respiratory normal expansion - Cardiovascular Rhythm: regular - Abdomen Abdomen: soft, non tender Assessment and Plan Assessment: Dysphagia. We'll perform EGD and possible balloon dilatation
--- NOTE | 2018-03-05 10:27 | P.OP ---
Date of Procedure: 03/05/18 Preoperative Diagnosis: Dysphagia Postoperative Diagnosis: Dysphagia Procedure(s) Performed: EGD with balloon dilatation GE junction Anesthesia: MAC Surgeon: Arnaldo Yost Pathology: none sent Condition: stable Disposition: PACU Description of Procedure: The patient's placed on the endoscopy table in the lateral position. She received IV sedation. The gastroscope placed oropharynx. The scope was then placed esophagus. The scope was a place and stomach and then through the pylorus. There is no evidence of a gastric obstruction. The scope was then retroflexed there was no evidence of a recurrent hiatal hernia. Due to the patient's symptoms of dysphagia a 20 mm balloon was placed across the GE junction. This was held in position for 4 minutes. This was done several ties. The balloon was then withdrawn. There is known to any obstruction of the GE junction. The scope was withdrawn from patient.
[2018-03-05 10:41] LABS: Glucose,Whole Blood 114 mg/dL (75-99)
[2018-03-05 10:45] VITALS: BP 102/55; PULSE 81
== END 2018-03-05 10:56 | disposition home or self-care (01) ==
LOC: ORWHC2ENDO 08:37
PROVIDERS: ATTEND Surgery
DX: R13.10 Dysphagia, unspecified (principal); Z87.19 Personal history of other diseases of the digestive system; K21.9 Gastro-esophageal reflux disease without esophagitis; E11.40 Type 2 diabetes mellitus with diabetic neuropathy, unspecified; H54.8 Legal blindness, as defined in USA; L98.9 Disorder of the skin and subcutaneous tissue, unspecified; Z79.4 Long term (current) use of insulin; Z79.899 Other long term (current) drug therapy; Z96.41 Presence of insulin pump (external) (internal); Z96.652 Presence of left artificial knee joint; Z89.512 Acquired absence of left leg below knee; Z89.421 Acquired absence of other right toe(s); Z90.49 Acquired absence of other specified parts of digestive tract; Z90.710 Acquired absence of both cervix and uterus; Z86.14 Personal history of Methicillin resistant Staphylococcus aureus infection; Z88.6 Allergy status to analgesic agent; Z88.1 Allergy status to other antibiotic agents; Z88.8 Allergy status to other drugs, medicaments and biological substances
CPT/HCPCS: 43249; J2704; C1726

== ENCOUNTER → 2018-03-23 | Outpatient (CLI) | payer MEDICARE, OTHER ==
[2018-03-23 09:39] LABS: Basophils % (A) 1 %; Eosinophils # (A) 0.3 k/uL (0-0.7); Eosinophils % (A) 8 %; HCT 36.6 % (34.0-46.0); HGB 11.7 gm/dL (11.4-16.0); Hypochromasia Slight; Lymphocytes # (A) 1.6 k/uL (1.0-4.8); Lymphocytes % (A) 38 %; MCH 30.4 pg (25.0-35.0); MCHC 31.9 g/dL (31.0-37.0); MCV 95.4 fL (80.0-100.0); Mean Platelet Volume 7.9; Monocytes # (A) 0.3 k/uL (0-1.0); Monocytes % (A) 6 %; Neutrophils # (A) 1.8 k/uL (1.3-7.7); Neutrophils % (A) 44 %; Platelet Count 246 k/uL (150-450); RBC 3.84 m/uL (3.80-5.40); RDW 13.8 % (11.5-15.5); WBC 4.2 k/uL (3.8-10.6)
[2018-03-23 10:04] LABS: Albumin 3.8 g/dL (3.5-5.0); Calcium 9.5 mg/dL (8.4-10.2); Potassium 5.1 mmol/L (3.5-5.1); Total Bilirubin 0.4 mg/dL (0.2-1.3); Total Protein 6.6 g/dL (6.3-8.2)
[2018-03-23 11:25] LABS: Erythrocyte Sedimentation Rate 24 mm/hr (0-20)
== END | disposition home or self-care (01) ==
LOC: LABWHC1 08:48
PROVIDERS: ATTEND Nurse Practitioner Family
DX: Z00.01 Encounter for general adult medical examination with abnormal findings (principal); E03.9 Hypothyroidism, unspecified
CPT/HCPCS: 36415; 80053; 80061; 82550; 82607; 84443; 85025; 85652

== ENCOUNTER 2018-12-30 07:16 | Day surgery (SDC) | payer MEDICARE, OTHER ==
[2018-12-29 09:21] VITALS: BMI 25.1
[~2018-12-30 07:16] MED LIST changes: -CLINDAMYCIN 900 MG in DEXTROSE 5% IN WATER 50 ML IVPB ONE; -DEXAMETHASONE SOD PHOSPHATE 10 MG/ML 1 ML VIAL IV ONE; -HEPARIN SODIUM,PORCINE 5,000 UNIT/ML 1 ML VIAL SQ ONE; -LEVOFLOXACIN 500MG-D5W PMX 500 MG in DEXTROSE/WATER 1 100ML.BAG IVPB ONE; -LIDOCAINE 1% 20 ML VIAL (10MG/ML) FOR IV START INTRADERMA PRN; -MIDAZOLAM 2 MG/2 ML VIAL IV PRN; -fentaNYL (PF) 50 MCG/ML 2 ML AMP IV PRN
[2018-12-30 07:37] VITALS: RESP 18; TEMP 97.8
[2018-12-30] MEDS ORDERED: LACTATED RINGERS 1,000 ML IV ONE (07:37)
[2018-12-30] MEDS ORDERED: LIDOCAINE 1% 20 ML VIAL (10MG/ML) FOR IV START INTRADERMA ONE (07:37)
[2018-12-30 07:45] LABS: Glucose,Whole Blood 176 mg/dL (75-99)
[2018-12-30] MEDS ORDERED: PROPOFOL 10 MG/ML 20 ML VIAL IV ONE (08:17)
--- NOTE | 2018-12-30 08:22 | P.GSHP ---
History of Present Illness H&P Date: 12/30/18 Chief Complaint: Dysphagia This a 48-year-old female with history of dysphagia. Patient has had previous esophageal dysphagia. She does today for EGD with dilatation. Patient reversed surgery including injury to the esophagus bleeding recurrent GERD and dysphagia. Past Medical History Past Medical History: Diabetes Mellitus, Eye Disorder, GERD/Reflux, Neurologic Disorder, Skin Disorder, Syncope Additional Past Medical History / Comment(s): severe hearburn with nausea, neuropathy hands/feet, Legally Blind., Back and stump pain., Constipation., Hx of anemia.,HIATAL HERNIA History of Any Multi-Drug Resistant Organisms: MRSA Date of last positivie culture/infection: 2010 MDRO Source:: scalp scrape from nail Past Surgical History: Back Surgery, Cholecystectomy, Hysterectomy, Joint Replacement, Orthopedic Surgery, Tonsillectomy Additional Past Surgical History / Comment(s): left below knee amputation-uses prosthesis, lt knee joint replacement, 3 toes rt foot amputated, laser surgery eyes, EGD w/ dilatation, COLONOSCOPY Past Anesthesia/Blood Transfusion Reactions: No Reported Reaction Additional Past Anesthesia/Blood Transfusion Reaction / Comment(s): no hx of problems with prior blood transfusion Smoking Status: Never smoker - Past Family History Mother Family Medical History: No Reported History Medications and Allergies Home Medications Medication Instructions Recorded Confirmed Type HYDROcodone/APAP 10-325MG [[place] 1 tab PO TID PRN 01/14/16 12/29/18 History 10-325] Ascorbic Acid/Multivit-Min 1,000 mg PO DAILY 11/10/16 12/29/18 History [Emergen-C 1,000 mg Packet] INSULIN LISPRO (For Pump) [humaLOG See Protocol SQ-PUMP CONTINUOUS 11/10/16 12/29/18 History (For Pump)] Prochlorperazine [Compazine] 10 mg PO Q8H PRN 11/10/16 12/29/18 History Diphenox-Atrop 2.5-0.025 mg 1 tab PO 5XD PRN 01/25/18 12/29/18 History [Lomotil] Esomeprazole Magnesium [NexIUM] 40 mg PO DAILY 12/29/18 12/29/18 History Allergies Allergy/AdvReac Type Severity Reaction Status Date / Time ceftriaxone sodium Allergy Anaphylaxis Verified 12/29/18 09:16 [From Rocephin] propoxyphene napsylate Allergy Rash/Hives Verified 12/29/18 09:16 [From Darvocet-N] steroids AdvReac elevated Uncoded 12/29/18 09:16 blood sugar 1600 Surgical - Exam Vital Signs Temp Pulse Resp BP Pulse Ox 97.8 F 98 18 108/68 99 12/30/18 07:36 12/30/18 07:36 12/30/18 07:36 12/30/18 07:36 12/30/18 07:36 - General well developed, well nourished, no distress - Eyes PERRL - ENT normal pinna - Neck no masses - Respiratory normal expansion - Cardiovascular Rhythm: regular - Abdomen Abdomen: soft, non tender Results - Labs Abnormal Lab Results - Last 24 Hours (Table) 12/30/18 Range/Units 07:43 POC Glucose (mg/dL) 176 H (75-99) mg/dL Assessment and Plan Assessment: Dysphagia. We'll perform EGD with balloon dilatation esophagus.
--- NOTE | 2018-12-30 08:32 | P.OP ---
Date of Procedure: 12/30/18 Preoperative Diagnosis: Dysphagia Postoperative Diagnosis: Gastroparesis with retained gastric food No significant GE junction stricture Procedure(s) Performed: EGD with balloon dilatation of GE junction Anesthesia: TIFFANY Surgeon: Arnaldo Yost Pathology: none sent Condition: stable Disposition: PACU Description of Procedure: The patient's placed on the endoscopy table in the lateral position. She received IV sedation. The gastroscope placed oropharynx passed in the esophagus. Scope was then placed through the GE junction and stomach. There is a large amount of retained food the rectum. This was suggestive of gastroparesis. Scope was placed through the pylorus. First portion duodenum appeared normal. Scope was then brought back to the stomach. The GE junction was examined. There is appeared to be no evidence of significant obstruction. The 20 mm balloon was placed across the GE junction and dilated the balloon was passed easily through the GE junction. There is no significant stricture. The scope was withdrawn for patient. The distal esophagus appeared normal. The proximal esophagus. Scope was withdrawn for patient.
[2018-12-30 08:41] LABS: Glucose,Whole Blood 223 mg/dL (75-99)
[2018-12-30 09:07] VITALS: BP 133/78; PULSE 78
== END 2018-12-30 09:17 | disposition home or self-care (01) ==
LOC: ORWHC2ENDO 07:16
PROVIDERS: ATTEND Surgery
DX: E11.43 Type 2 diabetes mellitus with diabetic autonomic (poly)neuropathy (principal); K31.84 Gastroparesis; K21.9 Gastro-esophageal reflux disease without esophagitis; E11.42 Type 2 diabetes mellitus with diabetic polyneuropathy; H54.8 Legal blindness, as defined in USA; Z79.4 Long term (current) use of insulin; Z79.899 Other long term (current) drug therapy; Z88.1 Allergy status to other antibiotic agents; Z88.5 Allergy status to narcotic agent; Z88.8 Allergy status to other drugs, medicaments and biological substances; Z96.652 Presence of left artificial knee joint; Z90.49 Acquired absence of other specified parts of digestive tract; Z90.710 Acquired absence of both cervix and uterus; Z89.512 Acquired absence of left leg below knee; Z89.421 Acquired absence of other right toe(s); Z98.890 Other specified postprocedural states; Z86.14 Personal history of Methicillin resistant Staphylococcus aureus infection
CPT/HCPCS: 43249; J2704; C1726

== ENCOUNTER 2019-12-19 10:07 | Emergency (ER) | payer MEDICARE, OTHER ==
[2019-12-19 10:20] VITALS: TEMP 98.2
[2019-12-19] MEDS ORDERED: SODIUM CHLORIDE 0.9% 500 ML 500 ML IV ONE (10:40)
[2019-12-19] MEDS ORDERED: SODIUM CHLORIDE 0.9% 1,000 ML IV ONE (10:40)
[2019-12-19 12:14] LABS: Basophils % (A) 1 %; Eosinophils # (A) 0.3 k/uL (0-0.7); Eosinophils % (A) 6 %; HGB 11.7 gm/dL (11.4-16.0); Lymphocytes # (A) 1.3 k/uL (1.0-4.8); Lymphocytes % (A) 26 %; MCH 30.1 pg (25.0-35.0); MCHC 31.7 g/dL (31.0-37.0); MCV 95.1 fL (80.0-100.0); Mean Platelet Volume 8.5; Monocytes # (A) 0.2 k/uL (0-1.0); Monocytes % (A) 5 %; Neutrophils # (A) 3.1 k/uL (1.3-7.7); Neutrophils % (A) 61 %; Platelet Count 216 k/uL (150-450); RBC 3.89 m/uL (3.80-5.40); RDW 13.5 % (11.5-15.5); WBC 5.1 k/uL (3.8-10.6)
--- NOTE | 2019-12-19 12:27 | ED ---
General Adult HPI - General Chief complaint: Recheck/Abnormal Lab/Rx Stated complaint: covid test,body aches,sore throat Time Seen by Provider: 12/19/19 10:22 Source: patient, RN notes reviewed Mode of arrival: ambulatory Limitations: no limitations - History of Present Illness Initial comments: This a 49-year-old female presents emergency Department chief complaint of dizziness, possible colic. Patient states that she was exposed to a known positive at a meeting at work. Patient states that she's had in which she thought was just sinus issues. She states she had a runny nose, scratchy sore throat, , cough. She states it slightly productive. Patient is a known diabetic in which she's had multiple problems with her diabetes. Blood sugar has been labile recently. Patient denies any known fever or chills. She states that she's had ongoing dizziness and blood pressure issues in which she has seen cardiology several times. There is no clear reason for this. Patient states that it's usually with position changes. - Related Data Home Medications Medication Instructions Recorded Confirmed HYDROcodone/APAP 10-325MG [[place] 1 - 2 tab PO Q4HR PRN 01/14/16 12/19/19 10-325] Ascorbic Acid/Multivit-Min 1,000 mg PO DAILY 11/10/16 12/19/19 [Emergen-C 1,000 mg Packet] INSULIN LISPRO (For Pump) [humaLOG See Protocol SQ-PUMP CONTINUOUS 11/10/16 12/19/19 (For Pump)] Diphenox-Atrop 2.5-0.025 mg 1 tab PO 5XD PRN 01/25/18 12/19/19 [Lomotil] Ergocalciferol [Vitamin D2] 50,000 unit PO TH 12/19/19 12/19/19 Escitalopram [Lexapro] 20 mg PO DAILY PRN 12/19/19 12/19/19 Lidocaine 5% Patch [Lidoderm] 1 patch TOPICAL DAILY PRN 12/19/19 12/19/19 Loratadine [Claritin] 10 mg PO DAILY 12/19/19 12/19/19 Allergies Allergy/AdvReac Type Severity Reaction Status Date / Time ceftriaxone sodium Allergy Anaphylaxis Verified 12/19/19 11:21 [From Rocephin] propoxyphene napsylate AdvReac Rash/Hives Verified 12/19/19 11:21 [From Rubi] pink dye Allergy Swelling Uncoded 12/19/19 11:21 steroids AdvReac elevated Uncoded 12/19/19 10:20 blood sugar 1600 Review of Systems ROS Statement: Those systems with pertinent positive or pertinent negative responses have been documented in the HPI. ROS Other: All systems not noted in ROS Statement are negative. Past Medical History Past Medical History: Diabetes Mellitus, Eye Disorder, GERD/Reflux, Neurologic Disorder, Skin Disorder, Syncope Additional Past Medical History / Comment(s): severe hearburn with nausea, neuropathy hands/feet, Legally Blind., Back and stump pain., Constipation., Hx of anemia.,HIATAL HERNIA History of Any Multi-Drug Resistant Organisms: MRSA Date of last positivie culture/infection: 2010 MDRO Source:: scalp scrape from nail Past Surgical History: Back Surgery, Cholecystectomy, Hysterectomy, Joint Replacement, Orthopedic Surgery, Tonsillectomy Additional Past Surgical History / Comment(s): left below knee amputation-uses prosthesis, lt knee joint replacement, 3 toes rt foot amputated, laser surgery eyes, EGD w/ dilatation, COLONOSCOPY Past Anesthesia/Blood Transfusion Reactions: No Reported Reaction Additional Past Anesthesia/Blood Transfusion Reaction / Comment(s): no hx of problems with prior blood transfusion Past Psychological History: No Psychological Hx Reported Smoking Status: Never smoker Past Alcohol Use History: None Reported Past Drug Use History: None Reported - Past Family History Mother Family Medical History: No Reported History General Exam Limitations: no limitations General appearance: alert, in no apparent distress Head exam: Present: atraumatic, normocephalic, normal inspection Eye exam: Present: normal appearance, PERRL, EOMI. Absent: scleral icterus, conjunctival injection, periorbital swelling ENT exam: Present: normal exam, normal oropharynx, mucous membranes moist, TM's normal bilaterally Neck exam: Present: normal inspection, full ROM. Absent: tenderness, meningismus, lymphadenopathy Respiratory exam: Present: normal lung sounds bilaterally. Absent: respiratory distress, wheezes, rales, rhonchi, stridor Cardiovascular Exam: Present: regular rate, normal rhythm, normal heart sounds. Absent: systolic murmur, diastolic murmur, rubs, gallop, clicks GI/Abdominal exam: Present: soft, normal bowel sounds. Absent: distended, tenderness, guarding, rebound, rigid Neurological exam: Present: alert, oriented X3 Skin exam: Present: warm, dry, intact, normal color. Absent: rash Course Vital Signs 12/19/19 12/19/19 12/19/19 10:15 10:30 11:00 Temperature 98.2 F Pulse Rate 79 97 97 Respiratory 18 16 16 Rate Blood Pressure 88/58 132/76 132/84 O2 Sat by Pulse 92 L 10 L 100 Oximetry 12/19/19 12:30 Temperature Pulse Rate 90 Respiratory 16 Rate Blood Pressure 101/70 O2 Sat by Pulse 100 Oximetry Medical Decision Making - Medical Decision Making X-ray, labs were reviewed. Patient has no major abnormality's. She does have mild elevation of creatinine related to diabetes, fluid hydration. She feels improved after IV fluids. Patient did have covid testing which is pending. I do feel clinically she does not have COVID. Though she will follow-up on results tomorrow. - Lab Data Result diagrams: 12/19/19 11:58 12/19/19 11:58 Lab Results 12/19/19 12/19/19 12/19/19 Range/Units 11:58 11:58 11:58 WBC 5.1 (3.8-10.6) k/uL RBC 3.89 (3.80-5.40) m/uL Hgb 11.7 (11.4-16.0) gm/dL Hct 37.0 (34.0-46.0) % MCV 95.1 (80.0-100.0) fL MCH 30.1 (25.0-35.0) pg MCHC 31.7 (31.0-37.0) g/dL RDW 13.5 (11.5-15.5) % Plt Count 216 (150-450) k/uL Neutrophils % 61 % Lymphocytes % 26 % Monocytes % 5 % Eosinophils % 6 % Basophils % 1 % Neutrophils # 3.1 (1.3-7.7) k/uL Lymphocytes # 1.3 (1.0-4.8) k/uL Monocytes # 0.2 (0-1.0) k/uL Eosinophils # 0.3 (0-0.7) k/uL Basophils # 0.0 (0-0.2) k/uL PT 9.5 (9.0-12.0) sec INR 0.9 (<1.2) APTT 21.3 L (22.0-30.0) sec D-Dimer 0.47 (<0.60) mg/L FEU Sodium 136 L (137-145) mmol/L Potassium 4.2 (3.5-5.1) mmol/L Chloride 97 L (98-107) mmol/L Carbon Dioxide 32 H (22-30) mmol/L Anion Gap 7 mmol/L BUN 26 H (7-17) mg/dL Creatinine 1.15 H (0.52-1.04) mg/dL Est GFR (CKD-EPI)AfAm 64 (>60 ml/min/1.73 sqM) Est GFR (CKD-EPI)NonAf 56 (>60 ml/min/1.73 sqM) Glucose 276 H (74-99) mg/dL Plasma Lactic Acid Baron (0.7-2.0) mmol/L Calcium 10.6 H (8.4-10.2) mg/dL Magnesium 1.5 L (1.6-2.3) mg/dL Total Bilirubin 0.5 (0.2-1.3) mg/dL AST 22 (14-36) U/L ALT 17 (4-34) U/L Alkaline Phosphatase 69 (38-126) U/L Lactate Dehydrogenase 461 (313-618) U/L C-Reactive Protein <5.0 (<10.0) mg/L Total Protein 6.7 (6.3-8.2) g/dL Albumin 4.1 (3.5-5.0) g/dL Acetone, Qual Negative (Negative) 12/19/19 Range/Units 11:58 WBC (3.8-10.6) k/uL RBC (3.80-5.40) m/uL Hgb (11.4-16.0) gm/dL Hct (34.0-46.0) % MCV (80.0-100.0) fL MCH (25.0-35.0) pg MCHC (31.0-37.0) g/dL RDW (11.5-15.5) % Plt Count (150-450) k/uL Neutrophils % % Lymphocytes % % Monocytes % % Eosinophils % % Basophils % % Neutrophils # (1.3-7.7) k/uL Lymphocytes # (1.0-4.8) k/uL Monocytes # (0-1.0) k/uL Eosinophils # (0-0.7) k/uL Basophils # (0-0.2) k/uL PT (9.0-12.0) sec INR (<1.2) APTT (22.0-30.0) sec D-Dimer (<0.60) mg/L FEU Sodium (137-145) mmol/L Potassium (3.5-5.1) mmol/L Chloride (98-107) mmol/L Carbon Dioxide (22-30) mmol/L Anion Gap mmol/L BUN (7-17) mg/dL Creatinine (0.52-1.04) mg/dL Est GFR (CKD-EPI)AfAm (>60 ml/min/1.73 sqM) Est GFR (CKD-EPI)NonAf (>60 ml/min/1.73 sqM) Glucose (74-99) mg/dL Plasma Lactic Acid Baron 1.1 (0.7-2.0) mmol/L Calcium (8.4-10.2) mg/dL Magnesium (1.6-2.3) mg/dL Total Bilirubin (0.2-1.3) mg/dL AST (14-36) U/L ALT (4-34) U/L Alkaline Phosphatase (38-126) U/L Lactate Dehydrogenase (313-618) U/L C-Reactive Protein (<10.0) mg/L Total Protein (6.3-8.2) g/dL Albumin (3.5-5.0) g/dL Acetone, Qual (Negative) Disposition Clinical Impression: URI (upper respiratory infection), Dizziness Disposition: HOME SELF-CARE Condition: Stable Instructions (If sedation given, give patient instructions): Upper Respiratory Infection (ED) Additional Instructions: Please return to the Emergency Department if symptoms worsen or any other concerns. Is patient prescribed a controlled substance at d/c from ED?: No Referrals: Eric Meeks MD [Primary Care Provider] - 1-2 days Time of Disposition: 13:05
[2019-12-19 12:28] LABS: ALT 17 U/L (4-34); AST 22 U/L (14-36); African American GFR (CKD) 64 (>60 ml/min/1.73 sqM); Albumin 4.1 g/dL (3.5-5.0); Alkaline Phosphatase 69 U/L (38-126); Anion Gap 7 mmol/L; Blood Urea Nitrogen 26 mg/dL (7-17); C Reactive Protein <5.0 mg/L (<10.0); Calcium 10.6 mg/dL (8.4-10.2); Carbon Dioxide 32 mmol/L (22-30); Chloride 97 mmol/L (98-107); Glucose 276 mg/dL (74-99); LDH 461 U/L (313-618); Magnesium 1.5 mg/dL (1.6-2.3); Non-African American GFR(CKD) 56 (>60 ml/min/1.73 sqM); Potassium 4.2 mmol/L (3.5-5.1); Sodium 136 mmol/L (137-145); Total Bilirubin 0.5 mg/dL (0.2-1.3); Total Protein 6.7 g/dL (6.3-8.2)
[2019-12-19 12:31] VITALS: RESP 16
--- NOTE | 2019-12-19 12:32 | XR ---
EXAMINATION TYPE: XR chest 1V portable DATE OF EXAM: 12/19/2019 HISTORY: Shortness of breath. COMPARISON: 05/30/2013 TECHNIQUE: Single view of the chest is submitted. FINDINGS: Demonstrated are scattered senescent parenchymal change. There is no evidence for focal infiltrate. The heart is stable. Hilar and mediastinal structures are within normal limits. Degenerative changes are seen of the dorsal spine. IMPRESSION: 1. Chronic changes without evidence for acute pulmonary disease.
[2019-12-19 12:34] VITALS: BP 101/70; PULSE 90
[2019-12-19 12:34] LABS: D-Dimer 0.47 mg/L FEU (<0.60); INR 0.9 (<1.2); Prothrombin Time 9.5 sec (9.0-12.0)
[2019-12-19 12:38] LABS: Partial Thromboplastin Time 21.3 sec (22.0-30.0)
[2019-12-19 20:07] LABS: Ferritin 34.4 ng/mL (10.0-291.0)
== END 2019-12-19 14:50 | disposition home or self-care (01) ==
LOC: EC 10:07
DX: R42 Dizziness and giddiness (principal); J06.9 Acute upper respiratory infection, unspecified; E11.42 Type 2 diabetes mellitus with diabetic polyneuropathy; L98.9 Disorder of the skin and subcutaneous tissue, unspecified; H54.8 Legal blindness, as defined in USA; Z91.041 Radiographic dye allergy status; Z88.1 Allergy status to other antibiotic agents; Z88.5 Allergy status to narcotic agent; Z88.8 Allergy status to other drugs, medicaments and biological substances; Z20.828 Contact with and (suspected) exposure to other viral communicable diseases; Z96.41 Presence of insulin pump (external) (internal); Z86.14 Personal history of Methicillin resistant Staphylococcus aureus infection; Z96.652 Presence of left artificial knee joint
CPT/HCPCS: 36415; 93005; 85379; 80053; 82728; 82009; 83605; 83615; 83735; 85025; 85610; 85730; 86140; 87040; 84145; 71045; 99284; 96360; 96361; U0003

== ENCOUNTER 2020-06-25 12:35 | Day surgery (SDC) | payer MEDICARE, OTHER ==
[2020-06-21 09:56] VITALS: BMI 28.4
[~2020-06-25 12:35] MED LIST changes: +LIDOCAINE 1% (10MG/ML) FOR IV START INTRADERMA PRN
[2020-06-25 12:59] VITALS: TEMP 97.5
[2020-06-25 13:05] LABS: Glucose,Whole Blood 122 mg/dL (75-99)
[2020-06-25] MEDS ORDERED: fentaNYL (PF) 50 MCG/ML 2 ML AMP ONE (13:41)
[2020-06-25] MEDS ORDERED: MIDAZOLAM 2 MG/2 ML VIAL ONE (13:41)
[2020-06-25] MEDS ORDERED: PROPOFOL 10 MG/ML 20 ML VIAL IV ONE (13:41)
--- NOTE | 2020-06-25 13:58 | P.GSHP ---
History of Present Illness H&P Date: 06/25/20 Chief Complaint: Dysphagia This 50-year-old female who's had complaints of dysphagia. Patient presents today for EGD. Past Medical History Past Medical History: Diabetes Mellitus, Eye Disorder, GERD/Reflux, Neurologic Disorder Additional Past Medical History / Comment(s): dysphygia, severe hearburn with nausea, neuropathy hands/feet, Legally Blind, Back and stump pain, (left leg) prosthesis left leg, past hx of anemia, HIATAL HERNIA History of Any Multi-Drug Resistant Organisms: MRSA Date of last positivie culture/infection: 2010 MDRO Source:: scalp scrape from nail Past Surgical History: Back Surgery, Cholecystectomy, Hysterectomy, Joint Replacement, Orthopedic Surgery, Tonsillectomy Additional Past Surgical History / Comment(s): left below knee amputation-uses prosthesis, lt knee joint replacement, 3 toes rt foot amputated, laser surgery eyes, EGD w/ dilatation, COLONOSCOPY Past Anesthesia/Blood Transfusion Reactions: No Reported Reaction Additional Past Anesthesia/Blood Transfusion Reaction / Comment(s): no hx of pr oblems with prior blood transfusion Smoking Status: Never smoker - Past Family History Mother Family Medical History: No Reported History Medications and Allergies Home Medications Medication Instructions Recorded Confirmed Type HYDROcodone/APAP 10-325MG [[place] 1 - 2 tab PO Q4HR PRN 01/14/16 06/25/20 History 10-325] Ascorbic Acid/Multivit-Min 1,000 mg PO DAILY 11/10/16 06/25/20 History [Emergen-C 1,000 mg Packet] INSULIN LISPRO (For Pump) [humaLOG See Protocol SQ-PUMP CONTINUOUS 11/10/16 06/25/20 History (For Pump)] Diphenox-Atrop 2.5-0.025 mg 1 tab PO 5XD PRN 01/25/18 06/25/20 History [Lomotil] Ergocalciferol [Vitamin D2] 50,000 unit PO TH 12/19/19 06/25/20 History Lidocaine 5% Patch [Lidoderm] 1 patch TOPICAL DAILY PRN 12/19/19 06/25/20 History Loratadine [Claritin] 10 mg PO DAILY PRN 12/19/19 06/25/20 History Allergies Allergy/AdvReac Type Severity Reaction Status Date / Time ceftriaxone sodium Allergy Anaphylaxis Verified 06/21/20 09:48 [From Rocephin] propoxyphene napsylate AdvReac Rash/Hives Verified 06/21/20 09:48 [From Darvocet-N] pink dye Allergy Swelling Uncoded 06/21/20 09:48 steroids AdvReac extreme Uncoded 06/21/20 09:48 elevated blood sugar 1600 Surgical - Exam Vital Signs Temp Pulse Resp BP Pulse Ox 97.5 F L 95 16 120/72 98 06/25/20 12:57 06/25/20 12:57 06/25/20 12:57 06/25/20 12:57 06/25/20 12:57 - General well developed, well nourished, no distress - Eyes PERRL - ENT normal pinna - Neck no masses - Respiratory normal expansion - Cardiovascular Rhythm: regular - Abdomen Abdomen: soft, non tender Results - Labs Abnormal Lab Results - Last 24 Hours (Table) 06/25/20 Range/Units 13:01 POC Glucose (mg/dL) 122 H (75-99) mg/dL Assessment and Plan Assessment: We'll perform EGD with possible balloon dilatation.
--- NOTE | 2020-06-25 14:00 | P.OP ---
Date of Procedure: 06/25/20 Preoperative Diagnosis: Dysphagia Postoperative Diagnosis: Mild GE junction stricture Procedure(s) Performed: EGD with balloon dilatation Anesthesia: MAC Surgeon: Arnaldo Yost Pathology: none sent Condition: stable Disposition: PACU Description of Procedure: The patient's placed on the endoscopy table in the lateral position. He received IV 6. The gastroscope placed oropharynx passed in the esophagus and stomach. Scope was placed through the pylorus. The first and second portion duodenum appeared normal. Scope summer back the antrum and this appeared normal. Scope was unretroflexed and remainder some appeared normal. There is no significant hiatal hernia. It. That the possible profundoplasty below the esophagus. There. Minimal stricture GE junction. A 20 mm balloon was placed across the GE junction. This was held in position for 2 minutes. There is no seen. The balloon was withdrawn. The distal esophagus proximal esophagus appeared normal. Scope was withdrawn for patient.
[2020-06-25 14:04] LABS: Glucose,Whole Blood 112 mg/dL (75-99)
[2020-06-25 14:10] VITALS: BP 108/74; PULSE 72; RESP 18
== END 2020-06-25 14:27 | disposition home or self-care (01) ==
LOC: ORWHC2ENDO 12:35
PROVIDERS: ATTEND Surgery
DX: K22.2 Esophageal obstruction (principal); E11.9 Type 2 diabetes mellitus without complications; K21.9 Gastro-esophageal reflux disease without esophagitis; G62.9 Polyneuropathy, unspecified; H54.8 Legal blindness, as defined in USA; Z89.612 Acquired absence of left leg above knee; Z79.4 Long term (current) use of insulin; Z88.5 Allergy status to narcotic agent; Z91.041 Radiographic dye allergy status; Z88.8 Allergy status to other drugs, medicaments and biological substances; Z79.899 Other long term (current) drug therapy; Z90.710 Acquired absence of both cervix and uterus; Z86.14 Personal history of Methicillin resistant Staphylococcus aureus infection; Z90.49 Acquired absence of other specified parts of digestive tract; Z96.652 Presence of left artificial knee joint; Z98.890 Other specified postprocedural states
CPT/HCPCS: 43249; J2250; J3010; J2704; C1726

== ENCOUNTER 2020-06-29 10:48 | Inpatient (IN) | payer MEDICARE, OTHER ==
--- NOTE | 2020-06-29 11:45 | FL ---
EXAMINATION TYPE: FL UGI air w esophagus DATE OF EXAM: 06/29/2020 COMPARISON: 03/04/2018 HISTORY: Dysphasia TECHNIQUE: A single contrast UGI study is performed. FINDINGS: Sterilization Technician image of the abdomen shows no gross abnormality.. 54 seconds of fluoroscopy and 32 i mages submitted. The esophagus shows there appears to be distention of the esophagus. There is a localized narrowing a t the level of GE junction with probable small hiatal hernia. Contrast does fill into the stomach. Ho wever the patient had difficulty with the exam and only a few images couldn't be obtained. The exam h ad to be terminated at the request patient. Numerous tertiary contractions of esophagus are seen. Ret ained contrast seen through the upper esophagus. Partial obstructive pattern suspected. Only esophagr am could be performed due to the patient's difficulty exam and requested termination of the exam. Ref erring physician called and images reviewed with referring physician. IMPRESSION: 1. No retained contrast with partial obstructive pattern suspected likely secondary to narrowing at t he level of the GE junction
[2020-06-29] MEDS: PANTOPRAZOLE 40 MG/10 ML VIAL IVP SCH (13:32)
[2020-06-29] MEDS: SODIUM CHLORIDE 0.45% 1,000 ML IV SCH ×2 (13:33→21:51)
[2020-06-29 13:57] LABS: ALT 27 U/L (4-34); AST 35 U/L (14-36); African American GFR (CKD) >90 (>60 ml/min/1.73 sqM); Albumin 3.7 g/dL (3.5-5.0); Albumin/Globulin Ratio 1.3; Alkaline Phosphatase 58 U/L (38-126); Anion Gap 4 mmol/L; Blood Urea Nitrogen 20 mg/dL (7-17); Calcium 9.3 mg/dL (8.4-10.2); Carbon Dioxide 26 mmol/L (22-30); Chloride 108 mmol/L (98-107); Globulin 2.9 g/dL; Glucose 155 mg/dL (74-99); Magnesium 1.9 mg/dL (1.6-2.3); Non-African American GFR(CKD) 79 (>60 ml/min/1.73 sqM); Potassium 4.5 mmol/L (3.5-5.1); Sodium 138 mmol/L (137-145); Total Bilirubin 0.5 mg/dL (0.2-1.3); Total Protein 6.6 g/dL (6.3-8.2)
[2020-06-29 14:01] LABS: Basophils % (A) 1 %; Eosinophils # (A) 0.3 k/uL (0-0.7); Eosinophils % (A) 6 %; HCT 28.3 % (34.0-46.0); HGB 8.8 gm/dL (11.4-16.0); Lymphocytes # (A) 1.7 k/uL (1.0-4.8); Lymphocytes % (A) 30 %; MCHC 31.3 g/dL (31.0-37.0); MCV 92.6 fL (80.0-100.0); Mean Platelet Volume 8.8; Monocytes # (A) 0.4 k/uL (0-1.0); Monocytes % (A) 7 %; Neutrophils # (A) 3.1 k/uL (1.3-7.7); Neutrophils % (A) 55 %; Platelet Count 276 k/uL (150-450); RBC 3.05 m/uL (3.80-5.40); RDW 13.4 % (11.5-15.5); WBC 5.7 k/uL (3.8-10.6)
--- NOTE | 2020-06-29 14:18 | P.GSHP ---
History of Present Illness H&P Date: 06/29/20 CHIEF COMPLAINT: Vomiting HISTORY OF PRESENT ILLNESS: Patient seen and examined with Dr. Yost. This is a 50-year-old female with a known chronic hiatal hernia, dysphagia, gastroparesis, GERD, anemia and diabetes mellitus. She has a surgical history of laparoscopic repair of recurrent hiatal hernia with mesh, 180 degree partial fundoplication, cholecystectomy and hysterectomy. Patient has had previous EGDs with balloon dilation of GE junction. Patient recently had EGD on 06/25/[address] Yost for dysphagia. There was evidence of mild GE junction stricture she had EGD with balloon dilatation. Patient had UGI completed today that was reviewed by Dr. Yost. Was found to have evidence of retained contrast in the esophagus but did pass through to the stomach. Patient has been admitted to the hospital for dysphagia and dehydration. She has been having intractable vomiting at home. She's been unable to keep any food or fluids down. She is having issues with hypoglycemia since she is a diabetic. PAST MEDICAL HISTORY: See list. PAST SURGICAL HISTORY: See list. MEDICATIONS: See list. ALLERGIES: See list. SOCIAL HISTORY: No illicit drug use. REVIEW OF SYSTEMS: CONSTITUTIONAL: Denies fever or chills. HEENT: Denies blurred vision, vision changes, or eye pain. Denies hemoptysis CARDIOVASCULAR: Denies chest pain or pressure. RESPIRATORY: No shortness of breath. GASTROINTESTINAL: See HPI for pertinent findings HEMATOLOGIC: Denies bleeding disorders. GENITOURINARY: Denies any blood in urine or increased urinary frequency. SKIN: Denies pruitis. Denies rash. PHYSICAL EXAM: VITAL SIGNS: Reviewed GENERAL: Well-developed in no acute distress. HEENT: No sclera icterus. Extraocular movements grossly intact. Moist buccal mucosa. Head is atraumatic, normocephalic. No nasal drainage. ABDOMEN: Soft. Nondistended. Nontender NEUROLOGIC: Alert and oriented. Cranial nerves II through XII grossly intact. LABORATORY DATA: WBC 5.7 hemoglobin 8.8 BUN 20 creatinine 0.86 and magnesium 1.9 LFTs normal IMAGING: ASSESSMENT: 1. Dysphagia 2. Dehydration 3. Chronic hiatal hernia 4. Diabetes mellitus type 2 PLAN: -Start patient on IV fluids for dehydration -Patient can have sips of clears -Continue to monitor patient closely -Consult medicine for medical management -Check prophylaxis Protonix and DVT prophylaxis subcu heparin Physician Bulk Sealer Operator note has been reviewed by physician. Signing provider agrees with the documented findings, assessment, and plan of care. Past Medical History Past Medical History: Diabetes Mellitus, Eye Disorder, GERD/Reflux, Neurologic Disorder Additional Past Medical History / Comment(s): dysphygia, severe hearburn with nausea, neuropathy hands/feet, Legally Blind, Back and stump pain, (left leg) prosthesis left leg, past hx of anemia, HIATAL HERNIA History of Any Multi-Drug Resistant Organisms: MRSA Date of last positivie culture/infection: 2010 MDRO Source:: scalp scrape from nail Past Surgical History: Back Surgery, Cholecystectomy, Hysterectomy, Joint Replacement, Orthopedic Surgery, Tonsillectomy Additional Past Surgical History / Comment(s): left below knee amputation-uses prosthesis, lt knee joint replacement, 3 toes rt foot amputated, laser surgery eyes, EGD w/ dilatation, COLONOSCOPY Past Anesthesia/Blood Transfusion Reactions: No Reported Reaction Additional Past Anesthesia/Blood Transfusion Reaction / Comment(s): no hx of problems with prior blood transfusion Smoking Status: Never smoker - Past Family History Mother Family Medical History: No Reported History Medications and Allergies Home Medications Medication Instructions Recorded Confirmed Type HYDROcodone/APAP 10-325MG [[place] 1 tab PO 5XD 01/14/16 06/29/20 History 10-325] Ascorbic Acid/Multivit-Min 1,000 mg PO DAILY 11/10/16 06/29/20 History [Emergen-C 1,000 mg Packet] INSULIN LISPRO (For Pump) [humaLOG See Protocol SQ-PUMP CONTINUOUS 11/10/16 06/29/20 History (For Pump)] Ergocalciferol [Vitamin D2] 50,000 unit PO TH 12/19/19 06/29/20 History Lidocaine 5% Patch [Lidoderm] 1 patch TOPICAL DAILY PRN 12/19/19 06/29/20 History Meloxicam [Mobic] 15 mg PO DAILY PRN 06/29/20 06/29/20 History Pregabalin [Lyrica] 200 mg PO TID PRN 06/29/20 06/29/20 History Semaglutide [Ozempic] 1 mg SQ TH 06/29/20 06/29/20 History Allergies Allergy/AdvReac Type Severity Reaction Status Date / Time ceftriaxone sodium Allergy Anaphylaxis Verified 06/29/20 12:45 [From Rocephin] propoxyphene napsylate AdvReac Rash/Hives Verified 06/29/20 12:45 [From Darvocet-N] pink dye Allergy Swelling Uncoded 06/29/20 12:45 steroids AdvReac extreme Uncoded 06/29/20 12:45 elevated blood sugar 1600 Surgical - Exam Vital Signs Temp Pulse Resp BP Pulse Ox 98.1 F 101 H 18 126/81 96 06/29/20 12:30 06/29/20 12:30 06/29/20 12:30 06/29/20 12:30 06/29/20 12:30 Results - Labs 06/29/20 13:01 06/29/20 13:01 Abnormal Lab Results - Last 24 Hours (Table) 06/29/20 06/29/20 Range/Units 13:01 13:01 RBC 3.05 L (3.80-5.40) m/uL Hgb 8.8 L (11.4-16.0) gm/dL Hct 28.3 L (34.0-46.0) % Chloride 108 H (98-107) mmol/L BUN 20 H (7-17) mg/dL Glucose 155 H (74-99) mg/dL Diabetes panel 06/29/20 Range/Units 13:01 Sodium 138 (137-145) mmol/L Potassium 4.5 (3.5-5.1) mmol/L Chloride 108 H (98-107) mmol/L Carbon Dioxide 26 (22-30) mmol/L BUN 20 H (7-17) mg/dL Creatinine 0.86 (0.52-1.04) mg/dL Glucose 155 H (74-99) mg/dL Calcium 9.3 (8.4-10.2) mg/dL AST 35 (14-36) U/L ALT 27 (4-34) U/L Alkaline Phosphatase 58 (38-126) U/L Total Protein 6.6 (6.3-8.2) g/dL Albumin 3.7 (3.5-5.0) g/dL Calcium panel 06/29/20 Range/Units 13:01 Calcium 9.3 (8.4-10.2) mg/dL Albumin 3.7 (3.5-5.0) g/dL Pituitary panel 06/29/20 Range/Units 13:01 Sodium 138 (137-145) mmol/L Potassium 4.5 (3.5-5.1) mmol/L Chloride 108 H (98-107) mmol/L Carbon Dioxide 26 (22-30) mmol/L BUN 20 H (7-17) mg/dL Creatinine 0.86 (0.52-1.04) mg/dL Glucose 155 H (74-99) mg/dL Calcium 9.3 (8.4-10.2) mg/dL Adrenal panel 06/29/20 Range/Units 13:01 Sodium 138 (137-145) mmol/L Potassium 4.5 (3.5-5.1) mmol/L Chloride 108 H (98-107) mmol/L Carbon Dioxide 26 (22-30) mmol/L BUN 20 H (7-17) mg/dL Creatinine 0.86 (0.52-1.04) mg/dL Glucose 155 H (74-99) mg/dL Calcium 9.3 (8.4-10.2) mg/dL Total Bilirubin 0.5 (0.2-1.3) mg/dL AST 35 (14-36) U/L ALT 27 (4-34) U/L Alkaline Phosphatase 58 (38-126) U/L Total Protein 6.6 (6.3-8.2) g/dL Albumin 3.7 (3.5-5.0) g/dL
[2020-06-29] MEDS: HYDROcodone/APAP 10-325MG 1 EACH TAB PO PRN (17:35)
[2020-06-29] MEDS: HEPARIN SODIUM,PORCINE 5,000 UNIT/ML 1 ML VIAL SQ SCH (21:51)
[2020-06-30] MEDS: HYDROcodone/APAP 10-325MG 1 EACH TAB PO PRN ×3 (01:51→17:31)
[2020-06-30 06:50] LABS: HCT 33.6 % (34.0-46.0); HGB 11.3 gm/dL (11.4-16.0); MCH 31.6 pg (25.0-35.0); MCHC 33.5 g/dL (31.0-37.0); MCV 94.2 fL (80.0-100.0); Mean Platelet Volume 7.7; Platelet Count 213 k/uL (150-450); RBC 3.56 m/uL (3.80-5.40)
[2020-06-30] MEDS: PANTOPRAZOLE 40 MG/10 ML VIAL IVP SCH (08:47)
[2020-06-30] MEDS: ONDANSETRON 4 MG/2 ML VIAL IVP PRN (08:49)
[2020-06-30] MEDS: SODIUM CHLORIDE 0.45% 1,000 ML IV SCH (08:49)
[2020-06-30] MEDS: HEPARIN SODIUM,PORCINE 5,000 UNIT/ML 1 ML VIAL SQ SCH ×2 (08:49→20:14)
[2020-06-30 09:38] LABS: African American GFR (CKD) 85.8 (60.0-200.0); Anion Gap 2.1 mmol/L (4.00-12.00); BUN/Creat Ratio 14.44 Ratio (12.00-20.00); Calcium 8.8 mg/dL (8.7-10.3); Carbon Dioxide 25.9 mmol/L (21.6-31.8); Potassium 4.5 mmol/L (3.5-5.5)
--- NOTE | 2020-06-30 10:29 | P.PN ---
Subjective Progress Note Date: 06/30/20 Principal diagnosis: Dysphagia Patient still having dysphagia symptoms. Had some vomiting this morning. She says it appeared somewhat bilious however. No real pain. Objective - Vital Signs Vital signs: Vital Signs Temp 97.8 F 06/30/20 08:00 Pulse 77 06/30/20 08:00 Resp 18 06/30/20 08:00 BP 108/68 06/30/20 08:00 Pulse Ox 97 06/30/20 08:00 Intake & Output 06/29/20 06/30/20 06/30/20 18:59 06:59 18:59 Intake Total 1999 Balance 1999 Weight 91.81 kg Intake: Intake, IV Titration 1200 Amount Sodium Chloride 0.45% 1, 1200 000 ml @ 100 mls/hr IV . Q10H TAMIKA Rx#:[id number] Oral 800 Other: Voiding Method Toilet Toilet # Voids 1 1 # Emeses 1 - Exam Abdomen: Soft, nontender, nondistended - Labs CBC & Chem 7: 06/30/20 06:05 06/30/20 06:05 Labs: Abnormal Lab Results - Last 24 Hours (Table) 06/29/20 06/29/20 06/30/20 Range/Units 13:01 13:01 06:05 RBC 3.05 L 3.56 L (3.80-5.40) m/uL Hgb 8.8 L 11.3 L (11.4-16.0) gm/dL Hct 28.3 L 33.6 L (34.0-46.0) % Chloride 108 H (98-107) mmol/L Anion Gap (4.00-12.00) mmol/L BUN 20 H (7-17) mg/dL Glucose 155 H (74-99) mg/dL 06/30/20 Range/Units 06:05 RBC (3.80-5.40) m/uL Hgb (11.4-16.0) gm/dL Hct (34.0-46.0) % Chloride 114 H (98-107) mmol/L Anion Gap 2.10 L (4.00-12.00) mmol/L BUN (7-17) mg/dL Glucose 145 H (74-99) mg/dL Assessment and Plan (1) Dysphagia Narrative/Plan: Patient with ongoing dysphagia. Continue IV hydration and clear liquids for now. Current Visit: Yes Status: Acute Code(s): R13.10 - DYSPHAGIA, UNSPECIFIED SNOMED Code(s): 30758699
[2020-06-30] MEDS: D5-0.45% NACL WITH KCL 20MEQ/L 1,000 ML IV SCH ×2 (12:03→21:51)
[2020-06-30] MEDS ORDERED: LIDOCAINE 5% PATCH TOPICAL PRN (12:15)
[2020-06-30] MEDS ORDERED: PREGABALIN 100 MG CAP PO PRN (12:30)
[2020-06-30] MEDS ORDERED: INSPUCOR MISCELLANE PRN (13:47)
[2020-06-30] MEDS ORDERED: INSULIN PUMP BASAL RATES 1 EACH MISC MISCELLANE PRN (13:47)
[2020-06-30] MEDS ORDERED: INSULIN ASPART (NovoLOG) 100 UNIT/ML VIAL SQ PRN (13:47)
[2020-06-30 16:28] LABS: Glucose,Whole Blood 185 mg/dL (75-99)
[2020-06-30] MEDS: INSULIN PUMP MEAL BOLUS 1 UNIT MISC MISCELLANE SCH ×2 (17:33→20:18)
[2020-06-30 20:17] LABS: Glucose,Whole Blood 157 mg/dL (75-99)
--- NOTE | 2020-06-30 22:22 | P.CONS ---
History of Present Illness - Reason for Consult Consult date: 06/30/20 Medical management Requesting physician: Arnaldo Yost - Chief Complaint Nausea vomiting - History of Present Illness Consultation: This is a pleasant 50-year-old patient, of Dr. ayala from [place]. Patient chronic stable medical conditions include diabetes on insulin pump, GERD, peripheral neuropathy, legally blind, left below knee amputation with a prosthesis,. Patient has known gastroparesis. Patient's had surgical repair of laparoscopic recurrent hiatal hernia with mesh. Patient's had previous EGDs with balloon dilatation of the GE junction. Patient had EGD on June [address] Yost for dysphagia. Does mild stricture that was dilated. She had an upper GI. Study done yesterday was found to have evidence of retained contrast in the esophagus. 2 dr. Wray through the stomach. She's been having intractable vomiting at home. Unable to keep anything down. Sugars was started to run low. Review of systems: GEN.: Tired EYES: Legally blind HEENT: None NECK: None RESPIRATORY: None CARDIOVASCULAR: None GASTROINTESTINAL: As above GENITOURINARY: None MUSCULOSKELETAL: None LYMPHATICS: None HEMATOLOGICAL: None PSYCHIATRY: None NEUROLOGICAL: Peripheral neuropathy Past medical history to include: Diabetes mellitus type II on insulin pump, legally blind, GERD, peripheral neuropathy, left below knee amputation with a prosthesis, hiatal hernia, Social history: Lives with her boyfriend. No smoking or alcohol. Family history: Reviewed, noncontributory to presentation Physical examination: VITAL SIGNS: 97.8, 77, 18, 108/68, 97% room air GENERAL: BMI 28.2, laying in bed, bit tired. EYES: Pupils equal. Conjunctiva normal. HEENT: External appearance of nose and ears normal, oral cavity grossly normal. NECK: JVD not raised; masses not palpable. HEART: First and second heart sounds are normal; no edema. LUNGS: Respiratory rate normal; clear to auscultation. ABDOMEN: Soft, nontender, liver spleen not palpable, no masses palpable. PSYCH: Alert and oriented x3; mood and affect normal. NEUROLOGICAL: Cranial nerves grossly intact; no facial asymmetry, power and sensation grossly intact. LYMPHATICS: No lymph nodes palpable in the axilla and neck INVESTIGATIONS, reviewed in the clinical context: White count 4 hemoglobin 11.3 platelets 213 potassium 4.5 creatinine 0.9 Assessment: -Persistent nausea vomiting after patient underwent EGD and stricture dilatation 5 days ago. Follow-up upper GI barium study yesterday showed medium not going through the stomach. -Diabetes mellitus type 2 chronically on insulin uncontrolled with hypoglycemia from decreased oral intake -Diabetic peripheral neuropathy -Diabetic gastroparesis -Chronic low back pain -Left below knee amputation with a prosthesis -GERD Plan: Patient is put on D5 0.45. Accu-Cheks will be followed. Subcu heparin for DVT prophylaxis. Patient be followed closely. Discussed with the patient. We'll discuss with Dr. Yost if she'll benefit from a GI consultation. Also getting PPI. Thank you Dr. Yost Past Medical History Past Medical History: Diabetes Mellitus, Eye Disorder, GERD/Reflux, Neurologic Disorder Additional Past Medical History / Comment(s): dysphygia, severe hearburn with nausea, neuropathy hands/feet, Legally Blind, Back and stump pain, (left leg) prosthesis left leg, past hx of anemia, HIATAL HERNIA History of Any Multi-Drug Resistant Organisms: MRSA Year Discovered:: 2010 MDRO Source:: scalp scrape from nail Past Surgical History: Back Surgery, Cholecystectomy, Hysterectomy, Joint Replacement, Orthopedic Surgery, Tonsillectomy Additional Past Surgical History / Comment(s): left below knee amputation-uses prosthesis, lt knee joint replacement, 3 toes rt foot amputated, laser surgery eyes, EGD w/ dilatation, COLONOSCOPY Past Anesthesia/Blood Transfusion Reactions: No Reported Reaction Additional Past Anesthesia/Blood Transfusion Reaction / Comm: no hx of problems with prior blood transfusion Smoking Status: Never smoker - Past Family History Mother Family Medical History: No Reported History Medications and Allergies Home Medications Medication Instructions Recorded Confirmed Type HYDROcodone/APAP 10-325MG [Marion 1 tab PO 5XD 01/14/16 06/29/20 History 10-325] Ascorbic Acid/Multivit-Min 1,000 mg PO DAILY 11/10/16 06/29/20 History [Emergen-C 1,000 mg Packet] INSULIN LISPRO (For Pump) [humaLOG See Protocol SQ-PUMP CONTINUOUS 11/10/16 06/29/20 History (For Pump)] Ergocalciferol [Vitamin D2] 50,000 unit PO TH 12/19/19 06/29/20 History Lidocaine 5% Patch [Lidoderm] 1 patch TOPICAL DAILY PRN 12/19/19 06/29/20 History Meloxicam [Mobic] 15 mg PO DAILY PRN 06/29/20 06/29/20 History Pregabalin [Lyrica] 200 mg PO TID PRN 06/29/20 06/29/20 History Semaglutide [Ozempic] 1 mg SQ TH 06/29/20 06/29/20 History Allergies Allergy/AdvReac Type Severity Reaction Status Date / Time ceftriaxone sodium Allergy Anaphylaxis Verified 06/29/20 12:45 [From Rocephin] propoxyphene napsylate AdvReac Rash/Hives Verified 06/29/20 12:45 [From Darvocet-N] pink dye Allergy Swelling Uncoded 06/29/20 12:45 steroids AdvReac extreme Uncoded 06/29/20 12:45 elevated blood sugar 1600 Physical Exam Vitals: Vital Signs Temp Pulse Resp BP Pulse Ox 06/30/20 08:00 97.8 F 77 18 108/68 97 06/30/20 01:35 97.9 F 75 17 98/63 96 06/29/20 20:00 80 17 06/29/20 18:40 98.7 F 80 17 111/68 97 06/29/20 15:50 78 18 06/29/20 14:00 98.4 F 78 18 127/81 97 06/29/20 12:30 98.1 F 101 H 18 126/81 96 Intake and Output 06/29/20 06/30/20 06/30/20 22:59 06:59 14:59 Intake Total 300 1700 Balance 300 1700 Intake: Intake, IV Titration 1200 Amount Sodium Chloride 0.45% 1, 1200 000 ml @ 100 mls/hr IV . Q10H [facility] Rx#:[id number] Oral 300 500 Other: Voiding Method Toilet # Voids 1 1 # Emeses 1 Results CBC & Chem 7: 06/30/20 06:05 06/30/20 06:05 Labs: Abnormal Lab Results - Last 24 Hours (Table) 06/29/20 06/29/20 06/30/20 Range/Units 13:01 13:01 06:05 RBC 3.05 L 3.56 L (3.80-5.40) m/uL Hgb 8.8 L 11.3 L (11.4-16.0) gm/dL Hct 28.3 L 33.6 L (34.0-46.0) % Chloride 108 H (98-107) mmol/L Anion Gap (4.00-12.00) mmol/L BUN 20 H (7-17) mg/dL Glucose 155 H (74-99) mg/dL 06/30/20 Range/Units 06:05 RBC (3.80-5.40) m/uL Hgb (11.4-16.0) gm/dL Hct (34.0-46.0) % Chloride 114 H (98-107) mmol/L Anion Gap 2.10 L (4.00-12.00) mmol/L BUN (7-17) mg/dL Glucose 145 H (74-99) mg/dL
[2020-07-01 02:25] LABS: Glucose,Whole Blood 171 mg/dL (75-99)
[2020-07-01] MEDS: D5-0.45% NACL WITH KCL 20MEQ/L 1,000 ML IV SCH ×2 (06:29→15:40)
[2020-07-01 06:53] LABS: Glucose,Whole Blood 124 mg/dL (75-99)
[2020-07-01] MEDS: HEPARIN SODIUM,PORCINE 5,000 UNIT/ML 1 ML VIAL SQ SCH ×2 (07:44→20:10)
[2020-07-01] MEDS: HYDROcodone/APAP 10-325MG 1 EACH TAB PO PRN ×3 (07:44→21:20)
[2020-07-01] MEDS: PANTOPRAZOLE 40 MG/10 ML VIAL IVP SCH (07:46)
[2020-07-01] MEDS: INSULIN PUMP MEAL BOLUS 1 UNIT MISC MISCELLANE SCH ×4 (07:57→20:10)
--- NOTE | 2020-07-01 10:56 | P.PN ---
Subjective Progress Note Date: 07/01/20 Principal diagnosis: Dysphagia patient said she did better with the liquids yesterday. No vomiting today or yesterday. No pain. Objective - Vital Signs Vital signs: Vital Signs Temp 98.3 F 07/01/20 07:53 Pulse 85 07/01/20 07:53 Resp 18 07/01/20 07:53 BP 103/59 07/01/20 07:53 Pulse Ox 97 07/01/20 07:53 Intake & Output 06/30/20 07/01/20 07/01/20 18:59 06:59 18:59 Other: Voiding Method Toilet Toilet Toilet # Voids 2 2 # Emeses 1 - Exam Abdomen: Soft, nontender, nondistended - Labs CBC & Chem 7: 06/30/20 06:05 06/30/20 06:05 Labs: Abnormal Lab Results - Last 24 Hours (Table) 06/30/20 06/30/20 07/01/20 Range/Units 16:28 20:15 02:23 POC Glucose (mg/dL) 185 H 157 H 171 H (75-99) mg/dL 07/01/20 Range/Units 06:52 POC Glucose (mg/dL) 124 H (75-99) mg/dL Assessment and Plan (1) Dysphagia Narrative/Plan: Patient seemed to be doing slightly better. She is not comfortable being discharged at this point. Patient still had some hypoglycemic issues. Continue clear liquids. We'll reevaluate tomorrow. Current Visit: Yes Status: Acute Code(s): R13.10 - DYSPHAGIA, UNSPECIFIED SNOMED Code(s): 57840279
[2020-07-01 11:27] LABS: Glucose,Whole Blood 68 mg/dL (75-99)
[2020-07-01 11:51] LABS: Glucose,Whole Blood 79 mg/dL (75-99)
[2020-07-01 16:38] LABS: Glucose,Whole Blood 184 mg/dL (75-99)
[2020-07-01 20:10] LABS: Glucose,Whole Blood 147 mg/dL (75-99)
--- NOTE | 2020-07-01 21:32 | P.PN ---
Progress Note - Text Progress Note Date: 07/01/20 - Chief Complaint Nausea vomiting Consultation: This is a pleasant 50-year-old patient, of Dr. ayala from [place]. Patient chronic stable medical conditions include diabetes on insulin pump, GERD, peripheral neuropathy, legally blind, left below knee amputation with a prosthesis,. Patient has known gastroparesis. Patient's had surgical repair of laparoscopic recurrent hiatal hernia with mesh. Patient's had previous EGDs with balloon dilatation of the GE junction. Patient had EGD on June 25 -Dr. Yost for dysphagia. - mild stricture that was dilated. She had an upper GI. Study done yesterday was found to have evidence of retained contrast in the esophagus.-Partial obstructive pattern suspected narrowing at the level of the GE junction. She's been having intractable vomiting at home. Unable to keep anything down. Sugars was started to run low. Admitted with nausea vomiting. Hypoglycemia. Patient has a insulin pump. Using it accordingly. Today-patient didn't tolerate some liquids. Using an insulin pump. A bit tired. Review of systems: Was done for constitutional, cardiovascular, GI, pulmonary. relevant finding as above Active Medications Hydrocodone Bitart/Acetaminophen (Hydrocodone/Apap 10-325mg 1 Each Tab) 1 each PO Q6H PRN PRN Reason: Pain Last Admin: 07/01/20 21:20 Dose: 1 each Documented by: Heparin Sodium (Porcine) (Heparin Sodium,Porcine 5,000 Unit/Ml 1 Ml Vial) 5,000 unit SQ Q12HR [facility] Last Admin: 07/01/20 20:10 Dose: 5,000 unit Documented by: Potassium Chloride/Dextrose/Sod Cl (D5%-1/2ns-Kcl 20 Meq/L Iv Solution) 1,000 mls @ 100 mls/hr IV .Q10H [facility] Last Admin: 07/01/20 15:40 Dose: 100 mls/hr Documented by: Insulin Aspart (Insulin Aspart (Novolog) 100 Unit/Ml Vial) 0 unit SQ DAILY PRN PRN Reason: Insulin Pump Replacement Lidocaine (Lidocaine 5% Patch) 1 patch TOPICAL DAILY PRN PRN Reason: Pain Miscellaneous Information (Insulin Pump Basal Rates 1 Each Misc) 1 each MISCELLANE Q6HR PRN; Protocol PRN Reason: Blood Sugar - High Miscellaneous Information (Insulin Pump Meal Bolus 1 Unit Misc) 0 unit MISCELLANE ACHS [facility]; Protocol Last Admin: 07/01/20 20:10 Dose: Not Given Documented by: Miscellaneous Information (Insulin Pump Correction Bolus 1 Unit Misc) 0 unit MISCELLANE ACHS PRN; Protocol PRN Reason: Blood Sugar - High Non-Formulary Medication (Semaglutide [Ozempic]) 1 mg SQ TH [facility] Ondansetron HCl (Ondansetron 4 Mg/2 Ml Vial) 4 mg IVP Q6HR PRN PRN Reason: Nausea And Vomiting Last Admin: 06/30/20 08:49 Dose: 4 mg Documented by: Pantoprazole Sodium (Pantoprazole 40 Mg/10 Ml Vial) 40 mg IVP DAILY [facility] Last Admin: 07/01/20 07:46 Dose: 40 mg Documented by: Pregabalin (Pregabalin 100 Mg Cap) 200 mg PO TID PRN PRN Reason: Pain Past medical history to include: Diabetes mellitus type II on insulin pump, legally blind, GERD, peripheral neuropathy, left below knee amputation with a prosthesis, hiatal hernia, Social history: Lives with her boyfriend. No smoking or alcohol. Family history: Reviewed, noncontributory to presentation Physical examination: VITAL SIGNS: 98.1, 77, 19, 132/84, 99% room air GENERAL: BMI 28.2, laying in bed, awake EYES: Pupils equal. Conjunctiva normal. HEENT: External appearance of nose and ears normal, oral cavity grossly normal. NECK: JVD not raised; masses not palpable. HEART: First and second heart sounds are normal; no edema. LUNGS: Respiratory rate normal; clear to auscultation. ABDOMEN: Soft, nontender, liver spleen not palpable, no masses palpable. PSYCH: Alert and oriented x3; mood and affect normal. EXTREMITIES: Left below knee amputation-uses prosthesis INVESTIGATIONS, reviewed in the clinical context: July 01: Accu-Cheks 68, 79, 184, 147 White count 4 hemoglobin 11.3 platelets 213 potassium 4.5 creatinine 0.9 Assessment: -Persistent nausea vomiting after patient underwent EGD and stricture dilatation 5 days ago. Follow-up upper GI barium study -showing partial obstruction pattern with narrowing at the level of the GE junction. -EGD with balloon dilatation on 06/25/2020 with a 20 mm balloon. -Diabetes mellitus type 2 chronically on insulin pump-uncontrolled with hypoglycemia from decreased oral intake -Diabetic peripheral neuropathy -Diabetic gastroparesis -Chronic low back pain -Left below knee amputation with a prosthesis -GERD Plan: Discussed with the patient. Will get a GI consultation to see thank you been to further contribution. Discussed with the patient insulin pump: Just the same. Cutting back on her base rate. Thank you Dr. Yost
[2020-07-02] MEDS: ONDANSETRON 4 MG/2 ML VIAL IVP PRN ×2 (00:14→05:29)
[2020-07-02] MEDS: D5-0.45% NACL WITH KCL 20MEQ/L 1,000 ML IV SCH ×2 (00:14→15:52)
[2020-07-02 02:15] LABS: Glucose,Whole Blood 67 mg/dL (75-99)
[2020-07-02 06:57] LABS: Glucose,Whole Blood 335 mg/dL (75-99)
[2020-07-02] MEDS: HEPARIN SODIUM,PORCINE 5,000 UNIT/ML 1 ML VIAL SQ SCH ×2 (07:49→20:24)
[2020-07-02] MEDS: INSULIN PUMP MEAL BOLUS 1 UNIT MISC MISCELLANE SCH ×4 (07:49→20:24)
[2020-07-02] MEDS: PANTOPRAZOLE 40 MG/10 ML VIAL IVP SCH (07:49)
[2020-07-02 08:14] LABS: HCT 34.1 % (34.0-46.0); HGB 11.1 gm/dL (11.4-16.0); MCH 30.8 pg (25.0-35.0); MCHC 32.5 g/dL (31.0-37.0); MCV 94.8 fL (80.0-100.0); Mean Platelet Volume 7.8; Platelet Count 210 k/uL (150-450); RDW 13.1 % (11.5-15.5); WBC 5.1 k/uL (3.8-10.6)
[2020-07-02] MEDS: HYDROcodone/APAP 10-325MG 1 EACH TAB PO PRN ×2 (09:14→18:53)
--- NOTE | 2020-07-02 11:12 | FL ---
EXAMINATION TYPE: FL UGI w esophagus DATE OF EXAM: 07/02/2020 COMPARISON: 06/29/2020 HISTORY: 50-year-old female with dysphagia, history of hiatal hernia repair 01/29/2018 and several bal loon dilatations. TECHNIQUE: A single contrast UGI study is performed. FINDINGS: The patient ingested only 1 large swallow of thin barium. This pooled in the distal esophagus with re current episodes of intraesophageal reflux and no initial passage of contrast into the stomach for at least 3 minutes. Subsequent image 5 minutes later shows contrast having passed into the stomach. IMPRESSION: Only one large swallow of thin barium with initial complete obstruction at the GE junction for at [address] 3 minutes. Repeated episodes of intraesophageal reflux are encountered. Subsequent imaging 5 minut es later shows that the contrast has passed and is located in the stomach.
[2020-07-02 11:27] LABS: Glucose,Whole Blood 229 mg/dL (75-99)
[2020-07-02 11:35] LABS: African American GFR (CKD) 75.5 (60.0-200.0); Non-African American GFR(CKD) 65.2 (60.0-200.0)
[2020-07-02 11:41] LABS: Potassium 7.4 mmol/L (3.5-5.5)
[2020-07-02 13:14] LABS: African American GFR (CKD) 89 (>60 ml/min/1.73 sqM); Anion Gap 5 mmol/L; Blood Urea Nitrogen 8 mg/dL (7-17); Calcium 8.7 mg/dL (8.4-10.2); Carbon Dioxide 27 mmol/L (22-30); Chloride 104 mmol/L (98-107); Glucose 215 mg/dL (74-99); Non-African American GFR(CKD) 77 (>60 ml/min/1.73 sqM); Potassium 5.7 mmol/L (3.5-5.1); Sodium 136 mmol/L (137-145)
[2020-07-02] MEDS ORDERED: SODIUM POLYSTYRENE SULFONATE 15 GM/60 ML BOTTLE PO STA (13:18)
[2020-07-02] MEDS: DEXTROSE 5%-0.45% NACL 1,000 ML IV SCH (13:55)
--- NOTE | 2020-07-02 14:30 | P.PN ---
Subjective Progress Note Date: 07/02/20 CHIEF COMPLAINT: Dysphagia HISTORY OF PRESENT ILLNESS: Patient is being followed for her dysphagia. She did have vomiting this morning. She had another upper GI completed showing only 1 large swallow of thin barium with initial complete obstruction at the GE junction for at least 3 minutes. Repeated episodes of interest esophageal reflux are encountered. Subsequent imaging 5 minutes later showed the contrast has passed and is located in the stomach. Results have been reviewed with Dr. Yost. Patient has been having hyperkalemia. Potassium was removed from her IV fluids. Medicine service has also ordered Kayexalate. Patient did have hypoglycemia around 2 AM. Blood sugar now around 2:15 Afebrile. WBC 5.1 patient did have a critical potassium of 7.4 down to 5.7. PHYSICAL EXAM: VITAL SIGNS: Reviewed. GENERAL: Well-developed in no acute distress. HEENT: No sclera icterus. Extraocular movements grossly intact. Moist buccal mucosa. Head is atraumatic, normocephalic. ABDOMEN: Soft. Nondistended. Nontender. NEUROLOGIC: Alert and oriented. Cranial nerves II through XII grossly intact. ASSESSMENT: 1. Dysphagia 2. Dehydration improved 3. Chronic hiatal hernia 4. Diabetes mellitus type 2 PLAN: -Advanced patient to a full liquid diet -Continue IV fluids -Hyperkalemia being treated by medicine service -Repeat potassium level in a.m. -Check prophylaxis Protonix and DVT prophylaxis subcu heparin Physician Road Marker note has been reviewed by physician. Signing provider agrees with the documented findings, assessment, and plan of care. Objective - Vital Signs Vital signs: Vital Signs Temp 98.2 F 07/02/20 07:01 Pulse 81 07/02/20 07:01 Resp 18 07/02/20 07:01 BP 115/67 07/02/20 07:01 Pulse Ox 95 07/02/20 07:01 Intake & Output 07/01/20 07/02/20 07/02/20 18:59 06:59 18:59 Intake Total 300 Output Total 100 Balance 200 Intake: Oral 300 Output: Emesis 100 Other: Voiding Method Toilet Toilet Toilet # Voids 3 1 - Labs CBC & Chem 7: 07/02/20 07:36 07/02/20 12:19 Labs: Abnormal Lab Results - Last 24 Hours (Table) 07/01/20 07/01/20 07/02/20 Range/Units 16:36 20:09 02:13 RBC (3.80-5.40) m/uL Hgb (11.4-16.0) gm/dL Sodium (135-145) mmol/L Potassium (3.5-5.5) mmol/L Anion Gap (4.00-12.00) mmol/L BUN/Creatinine Ratio (12.00-20.00) Ratio Glucose (70-110) mg/dL POC Glucose (mg/dL) 184 H 147 H 67 L (75-99) mg/dL Calcium (8.7-10.3) mg/dL 07/02/20 07/02/20 07/02/20 Range/Units 06:47 07:36 07:36 RBC 3.60 L (3.80-5.40) m/uL Hgb 11.1 L (11.4-16.0) gm/dL Sodium 133 L (135-145) mmol/L Potassium 7.4 H* (3.5-5.5) mmol/L Anion Gap 2.00 L (4.00-12.00) mmol/L BUN/Creatinine Ratio 9.00 L (12.00-20.00) Ratio Glucose 381 H (70-110) mg/dL POC Glucose (mg/dL) 335 H (75-99) mg/dL Calcium 8.0 L (8.7-10.3) mg/dL 07/02/20 07/02/20 Range/Units 11:25 12:19 RBC (3.80-5.40) m/uL Hgb (11.4-16.0) gm/dL Sodium 136 L (135-145) mmol/L Potassium 5.7 H (3.5-5.5) mmol/L Anion Gap (4.00-12.00) mmol/L BUN/Creatinine Ratio (12.00-20.00) Ratio Glucose 215 H (70-110) mg/dL POC Glucose (mg/dL) 229 H (75-99) mg/dL Calcium (8.7-10.3) mg/dL
[2020-07-02 16:42] LABS: Glucose,Whole Blood 159 mg/dL (75-99)
[2020-07-02 20:16] LABS: Glucose,Whole Blood 189 mg/dL (75-99)
--- NOTE | 2020-07-02 21:04 | P.PN ---
Progress Note - Text Progress Note Date: 07/02/20 - Chief Complaint Nausea vomiting Consultation: This is a pleasant 50-year-old patient, of Dr. ayala from [place]. Patient chronic stable medical conditions include diabetes on insulin pump, GERD, peripheral neuropathy, legally blind, left below knee amputation with a prosthesis,. Patient has known gastroparesis. Patient's had surgical repair of laparoscopic recurrent hiatal hernia with mesh. Patient's had previous EGDs with balloon dilatation of the GE junction. Patient had EGD on June 25 -Dr. Yost for dysphagia. - mild stricture that was dilated. She had an upper GI. Study done yesterday was found to have evidence of retained contrast in the esophagus.-Partial obstructive pattern suspected narrowing at the level of the GE junction. She's been having intractable vomiting at home. Unable to keep anything down. Sugars was started to run low. Admitted with nausea vomiting. Hypoglycemia. Patient has a insulin pump. Using it accordingly. Today-patient and upper GI swallow today. Incomplete. Barium did stay in the esophagus about 3 minutes at least. And finally passed down to the stomach.. Review of systems: Was done for constitutional, cardiovascular, GI, pulmonary. relevant finding as above Active Medications Hydrocodone Bitart/Acetaminophen (Hydrocodone/Apap 10-325mg 1 Each Tab) 1 each PO Q6H PRN PRN Reason: Pain Last Admin: 07/02/20 18:53 Dose: 1 each Documented by: Heparin Sodium (Porcine) (Heparin Sodium,Porcine 5,000 Unit/Ml 1 Ml Vial) 5,000 unit SQ Q12HR [facility] Last Admin: 07/02/20 20:24 Dose: 5,000 unit Documented by: Dextrose/Sodium Chloride (Dextrose 5%-1/2ns Iv Soln) 1,000 mls @ 75 mls/hr IV .[id number] [facility] Last Admin: 07/02/20 13:55 Dose: 75 mls/hr Documented by: Insulin Aspart (Insulin Aspart (Novolog) 100 Unit/Ml Vial) 0 unit SQ DAILY PRN PRN Reason: Insulin Pump Replacement Lidocaine (Lidocaine 5% Patch) 1 patch TOPICAL DAILY PRN PRN Reason: Pain Miscellaneous Information (Insulin Pump Basal Rates 1 Each Misc) 1 each MISCELLANE Q6HR PRN; Protocol PRN Reason: Blood Sugar - High Miscellaneous Information (Insulin Pump Meal Bolus 1 Unit Misc) 0 unit MISCELLANE ACHS [facility]; Protocol Last Admin: 07/02/20 20:24 Dose: 0.9 unit Documented by: Miscellaneous Information (Insulin Pump Correction Bolus 1 Unit Misc) 0 unit MISCELLANE ACHS PRN; Protocol PRN Reason: Blood Sugar - High Non-Formulary Medication (Semaglutide [Ozempic]) 1 mg SQ TH [facility] Ondansetron HCl (Ondansetron 4 Mg/2 Ml Vial) 4 mg IVP Q6HR PRN PRN Reason: Nausea And Vomiting Last Admin: 07/02/20 05:29 Dose: 4 mg Documented by: Pantoprazole Sodium (Pantoprazole 40 Mg/10 Ml Vial) 40 mg IVP DAILY [facility] Last Admin: 07/02/20 07:49 Dose: 40 mg Documented by: Pregabalin (Pregabalin 100 Mg Cap) 200 mg PO TID PRN PRN Reason: Pain Past medical history to include: Diabetes mellitus type II on insulin pump, legally blind, GERD, peripheral neuropathy, left below knee amputation with a prosthesis, hiatal hernia, Social history: Lives with her boyfriend. No smoking or alcohol. Family history: Reviewed, noncontributory to presentation Physical examination: VITAL SIGNS: 98.2, 81, 18, 115/67, 95% room air GENERAL: BMI 28.2, sitting up in a chair awake EYES: Pupils equal. Conjunctiva normal. HEENT: External appearance of nose and ears normal, oral cavity grossly normal. NECK: JVD not raised; masses not palpable. HEART: First and second heart sounds are normal; no edema. LUNGS: Respiratory rate normal; clear to auscultation. ABDOMEN: Soft, nontender, liver spleen not palpable, no masses palpable. PSYCH: Alert and oriented x3; mood and affect normal. EXTREMITIES: Left below knee amputation-uses prosthesis INVESTIGATIONS, reviewed in the clinical context: July 02: White count 5.1 hemoglobin 11.1 potassium 7.4-repeat 5.7 creatinine 1.0 Accu-Cheks 229 Upper GI swallow-barium did stay in the esophagus for about 3 minutes. Finally did pass into the stomach July 01: Accu-Cheks 68, 79, 184, 147 White count 4 hemoglobin 11.3 platelets 213 potassium 4.5 creatinine 0.9 Assessment: -Persistent nausea vomiting after patient underwent EGD and stricture dilatation 5 days ago. Follow-up upper GI barium study -showing partial obstruction pattern with narrowing at the level of the GE junction. Repeat upper GI barium study shows the same results. -EGD with balloon dilatation on 06/25/2020 with a 20 mm balloon. -Diabetes mellitus type 2 chronically on insulin pump-uncontrolled with hypoglycemia from decreased oral intake -Diabetic peripheral neuropathy -Diabetic gastroparesis -Chronic low back pain -Left below knee amputation with a prosthesis -GERD -Hyperkalemia. Stop potassium supplement. Kayexalate. Plan: Patient using an insulin pump. Possible repeat endoscopy and dilatation. Discussed with the patient. Thank you Dr. Yost
[2020-07-03 02:22] LABS: Glucose,Whole Blood 89 mg/dL (75-99)
[2020-07-03 02:39] VITALS: RESP 17
[2020-07-03 06:56] LABS: Glucose,Whole Blood 99 mg/dL (75-99)
[2020-07-03 07:07] VITALS: BP 112/73; PULSE 91; TEMP 98.2
[2020-07-03] MEDS ORDERED: HYOSCYAMINE ORAL DROPS 1.875 MG/15 ML BOTTLE PO PRN (07:28)
[2020-07-03] MEDS: HEPARIN SODIUM,PORCINE 5,000 UNIT/ML 1 ML VIAL SQ SCH (08:32)
[2020-07-03] MEDS: PANTOPRAZOLE 40 MG/10 ML VIAL IVP SCH (08:32)
[2020-07-03] MEDS: INSULIN PUMP MEAL BOLUS 1 UNIT MISC MISCELLANE SCH (08:33)
[2020-07-03] MEDS: DEXTROSE 5%-0.45% NACL 1,000 ML IV SCH (08:33)
[2020-07-03 10:07] LABS: African American GFR (CKD) 85.8 (60.0-200.0); Anion Gap 8.5 mmol/L (4.00-12.00); BUN/Creat Ratio 8.89 Ratio (12.00-20.00); Calcium 8.5 mg/dL (8.7-10.3); Carbon Dioxide 26.5 mmol/L (21.6-31.8); Potassium 4.3 mmol/L (3.5-5.5)
[2020-07-03 11:35] LABS: Glucose,Whole Blood 336 mg/dL (75-99)
[2020-07-03] MEDS ORDERED: INSULIN ASPART (NovoLOG) 100 UNIT/ML VIAL SQ SCH (12:30)
--- NOTE | 2020-07-03 12:53 | P.DS ---
Providers Date of admission: 06/29/20 11:44 Expected date of discharge: 07/03/20 Attending physician: Arnaldo Yost Consults: 06/29/20 12:24 Consult Physician Routine Consulting Provider: Haim Ronquillo Consult Reason/Comments: medical management Do you want consulting provider notified?: Yes Placement Type Exists?: Yes 07/01/20 14:38 Consult Physician Routine Consulting Provider: Amirah Phipps Consult Reason/Comments: poss prebyesophagus/achalasia Do you want consulting provider notified?: Yes Primary care physician: Eric Meeks MD Hospital Course: Discharge diagnosis 1. Dysphagia 2. Dehydration improved 3. Chronic hiatal hernia 4. Diabetes mellitus type 2 5. Hyperkalemia resolved Hospital course This is a 50-year-old female with a known chronic hiatal hernia, dysphagia, gastroparesis, GERD, anemia and diabetes mellitus. She has a surgical history of laparoscopic repair of recurrent hiatal hernia with mesh, 180 degree partial fundoplication, cholecystectomy and hysterectomy. Patient has had previous EGDs with balloon dilation of GE junction. Patient recently had EGD on 06/25/[address] Yost for dysphagia. There was evidence of mild GE junction stricture she had EGD with balloon dilatation. Patient did have a repeat upper GI completed showing only 1 large swallow of thin barium with initial complete obstruction at the GE junction for at least 3 minutes. Repeated episodes of interest esophageal reflux are encountered. Subsequent imaging 5 minutes later showed the contrast has passed and is located in the stomach. Patient is tolerating a full liquid diet. Nausea and vomiting have resolved. Patient is stable for discharge. Please refer to chart for further details. Physician Gluing Machine Offbearer note has been reviewed by physician. Signing provider agrees with the documented findings, assessment, and plan of care. Patient Condition at Discharge: Stable Plan - Discharge Summary Discharge Rx Participant: Yes New Discharge Prescriptions: New Pantoprazole Sodium [Protonix] 40 mg PO DAILY #30 tablet. Hyoscyamine Sulfate [Levsin] 0.125 mg PO Q8HR PRN #90 tab PRN Reason: Spasms Continue HYDROcodone/APAP 10-325MG [[place] 10-325] 1 tab PO 5XD Ascorbic Acid/Multivit-Min [Emergen-C 1,000 mg Packet] 1,000 mg PO DAILY Lidocaine 5% Patch [Lidoderm 5% Patch] 1 patch TOPICAL DAILY PRN PRN Reason: Pain Ergocalciferol [Vitamin D2 (DRISDOL)] 50,000 unit PO TH Semaglutide [Ozempic] 1 mg SQ TH Pregabalin [Lyrica] 200 mg PO TID PRN PRN Reason: Pain Meloxicam [Mobic] 15 mg PO DAILY PRN PRN Reason: Pain No Action INSULIN LISPRO (For Pump) [humaLOG (For Pump)] See Protocol SQ-PUMP CONTINUOUS Discharge Medication List HYDROcodone/APAP 10-325MG [[place] 10-325] 1 tab PO 5XD 01/14/16 [History] Ascorbic Acid/Multivit-Min [Emergen-C 1,000 mg Packet] 1,000 mg PO DAILY 11/10/16 [History] INSULIN LISPRO (For Pump) [humaLOG (For Pump)] See Protocol SQ-PUMP CONTINUOUS 11/10/16 [History] Ergocalciferol [Vitamin D2 (DRISDOL)] 50,000 unit PO TH 12/19/19 [History] Lidocaine 5% Patch [Lidoderm 5% Patch] 1 patch TOPICAL DAILY PRN 12/19/19 [History] Meloxicam [Mobic] 15 mg PO DAILY PRN 06/29/20 [History] Pregabalin [Lyrica] 200 mg PO TID PRN 06/29/20 [History] Semaglutide [Ozempic] 1 mg SQ TH 06/29/20 [History] Hyoscyamine Sulfate [Levsin] 0.125 mg PO Q8HR PRN #90 tab 07/03/20 [Rx] Pantoprazole Sodium [Protonix] 40 mg PO DAILY #30 tablet. 07/03/20 [Rx] Follow up Appointment(s)/Referral(s): Eric Meeks MD [Primary Care Provider] - 07/09/20 11:15 am Talib Bran MD [STAFF PHYSICIAN] - 07/24/20 4:00 pm Arnaldo Yost MD [STAFF PHYSICIAN] - 07/10/20 2:30 pm Activity/Diet/Wound Care/Special Instructions: Patient is to be maintained on a full liquid diet until she follows up in the office with Dr. Yost Discharge Disposition: HOME SELF-CARE
--- NOTE | 2020-07-03 13:44 | P.CONS ---
History of Present Illness - Reason for Consult Consult date: 07/02/20 Difficulty swallowing, dysphagia Requesting physician: Hiam Ronquillo - Chief Complaint Nausea and vomiting, difficulty swallowing - History of Present Illness 50-year-old female with multiple medical comorbidities including diabetes mellitus with diabetic complications including peripheral neuropathy, gastroparesis and prior left below the knee amputation, other medical comorbidities including GERD, prior hiatal hernia repair. The patient presented to the hospital with complaints of nausea, vomiting and dehydration. The patient previously underwent laparoscopic hiatal hernia repair. She is undergone multiple EGDs with dilations in the past and previously done upper endoscopy with the surgical service on 06/25/2020 for dysphagia with balloon dilation at that time. She reports that she has frequent episodes of difficulty swallowing. This will happen both to solids and liquids where she feels as if she is unable to get them down. The patient underwent an upper GI study on 06/29/20 with no retained contrast with a partial obstructive pattern secondary to suspected narrowing at the GE junction. She underwent a barium swallow on 07/02/20 with only one large swallow with initial complete obstruction at the GE junction for 3 minutes with repeated episodes of intraesophageal reflux encountered. Currently the patient is seen lying in bed reporting that she is tolerating a liquid diet. No nausea and vomiting today. Review of Systems REVIEW OF SYSTEMS: CONSTITUTIONAL: Denies any fevers, chills, weight change or fatigue. CARDIOVASCULAR: Denies any chest pain, palpitations high or low blood pressures RESPIRATORY: Denies any shortness of breath, hemoptysis or cough. GENITOURINARY: No dysuria or hematuria. MUSCULOSKELETAL: No weakness reported, history of below the knee amputation. SKIN: Denies any new rashes or lesions, jaundice or pallor. PSYCHIATRIC: Denies any depression or anxiety. NEUROLOGY: Denies headache, denies any new focal deficits, history of peripheral neuropathy. EARS/NOSE/THROAT: No recent hearing change, congestion, nasal discharge or sore throat. EYES: No pain in eyes, discharge or change in vision. GASTROINTESTINAL: As per HPI. Past Medical History Past Medical History: Diabetes Mellitus, Eye Disorder, GERD/Reflux, Neurologic Disorder Additional Past Medical History / Comment(s): dysphygia, severe hearburn with nausea, neuropathy hands/feet, Legally Blind, Back and stump pain, (left leg) prosthesis left leg, past hx of anemia, HIATAL HERNIA History of Any Multi-Drug Resistant Organisms: MRSA Year Discovered:: 2010 MDRO Source:: scalp scrape from nail Past Surgical History: Back Surgery, Cholecystectomy, Hysterectomy, Joint Replacement, Orthopedic Surgery, Tonsillectomy Additional Past Surgical History / Comment(s): left below knee amputation-uses prosthesis, lt knee joint replacement, 3 toes rt foot amputated, laser surgery eyes, EGD w/ dilatation, COLONOSCOPY Past Anesthesia/Blood Transfusion Reactions: No Reported Reaction Additional Past Anesthesia/Blood Transfusion Reaction / Comm: no hx of problems with prior blood transfusion Smoking Status: Never smoker - Past Family History Mother Family Medical History: No Reported History Medications and Allergies Home Medications Medication Instructions Recorded Confirmed Type HYDROcodone/APAP 10-325MG [[place] 1 tab PO 5XD 01/14/16 06/29/20 History 10-325] Ascorbic Acid/Multivit-Min 1,000 mg PO DAILY 11/10/16 06/29/20 History [Emergen-C 1,000 mg Packet] INSULIN LISPRO (For Pump) [humaLOG See Protocol SQ-PUMP CONTINUOUS 11/10/16 06/29/20 History (For Pump)] Ergocalciferol [Vitamin D2 50,000 unit PO TH 12/19/19 06/29/20 History (DRISDOL)] Lidocaine 5% Patch [Lidoderm 5% 1 patch TOPICAL DAILY PRN 12/19/19 06/29/20 History Patch] Meloxicam [Mobic] 15 mg PO DAILY PRN 06/29/20 06/29/20 History Pregabalin [Lyrica] 200 mg PO TID PRN 06/29/20 06/29/20 History Semaglutide [Ozempic] 1 mg SQ TH 06/29/20 06/29/20 History Hyoscyamine Sulfate [Hyoscyamine 0.125 mg SL Q8HR PRN #90 tab.subl 07/03/20 Rx Sulfate SL] Hyoscyamine Sulfate [Levsin] 0.125 mg PO Q8HR PRN #90 tab 07/03/20 Rx Pantoprazole Sodium [Protonix] 40 mg PO DAILY #30 tablet. 07/03/20 Rx Allergies Allergy/AdvReac Type Severity Reaction Status Date / Time ceftriaxone sodium Allergy Anaphylaxis Verified 06/29/20 12:45 [From Rocephin] propoxyphene napsylate AdvReac Rash/Hives Verified 06/29/20 12:45 [From Giuliana-Kimani] pink dye Allergy Swelling Uncoded 06/29/20 12:45 steroids AdvReac extreme Uncoded 06/29/20 12:45 elevated blood sugar 1600 Physical Exam Vitals: Vital Signs Temp Pulse Resp BP Pulse Ox 07/02/20 13:45 98.1 F 87 16 133/77 98 07/02/20 07:01 98.2 F 81 18 115/67 95 07/02/20 02:00 98.0 F 88 17 101/66 97 07/01/20 20:00 97.8 F 78 17 118/74 98 Intake and Output 07/02/20 07/02/20 07/02/20 06:59 14:59 22:59 Intake Total 300 Output Total 100 Balance 200 Intake: Oral 300 Output: Emesis 100 Other: Voiding Method Toilet # Voids 1 On physical examination, patient appears comfortable in no apparent distress. HEAD: Normocephalic, atraumatic. EYES: No scleral icterus. No conjunctival injection. MOUTH: No lesions, tongue midline. NECK: Trachea midline, no gross abnormalities. CHEST: Clear to auscultation with no wheezing or rhonchi appreciated. HEART: Regular rate and rhythm. ABDOMEN: Soft, nontender to palpation. Bowel sounds are positive. No organomegaly. No guarding or rigidity. EXTREMITIES: No pedal edema, left [id number] amputation. SKIN: No rashes, no jaundice. NEUROLOGIC: Alert and oriented x3. No focal deficits. Results CBC & Chem 7: 07/02/20 07:36 07/03/20 06:23 Labs: Abnormal Lab Results - Last 24 Hours (Table) 07/01/20 07/01/20 07/02/20 Range/Units 16:36 20:09 02:13 RBC (3.80-5.40) m/uL Hgb (11.4-16.0) gm/dL Sodium (135-145) mmol/L Potassium (3.5-5.5) mmol/L Anion Gap (4.00-12.00) mmol/L BUN/Creatinine Ratio (12.00-20.00) Ratio Glucose (70-110) mg/dL POC Glucose (mg/dL) 184 H 147 H 67 L (75-99) mg/dL Calcium (8.7-10.3) mg/dL 07/02/20 07/02/20 07/02/20 Range/Units 06:47 07:36 07:36 RBC 3.60 L (3.80-5.40) m/uL Hgb 11.1 L (11.4-16.0) gm/dL Sodium 133 L (135-145) mmol/L Potassium 7.4 H* (3.5-5.5) mmol/L Anion Gap 2.00 L (4.00-12.00) mmol/L BUN/Creatinine Ratio 9.00 L (12.00-20.00) Ratio Glucose 381 H (70-110) mg/dL POC Glucose (mg/dL) 335 H (75-99) mg/dL Calcium 8.0 L (8.7-10.3) mg/dL 07/02/20 07/02/20 Range/Units 11:25 12:19 RBC (3.80-5.40) m/uL Hgb (11.4-16.0) gm/dL Sodium 136 L (135-145) mmol/L Potassium 5.7 H (3.5-5.5) mmol/L Anion Gap (4.00-12.00) mmol/L BUN/Creatinine Ratio (12.00-20.00) Ratio Glucose 215 H (70-110) mg/dL POC Glucose (mg/dL) 229 H (75-99) mg/dL Calcium (8.7-10.3) mg/dL Abdominal x-ray: report reviewed (Upper GI barium swallow on 07/02/20 with initial complete obstruction at the GE junction and intraesophageal reflux noted) Assessment and Plan (1) Dysphagia Narrative/Plan: 50-year-old female multiple medical comorbidities including prior hiatal hernia repair and multiple EGDs with dilations in the past presented with nausea, vomiting and dehydration. She reports difficulty swallowing which has been samuel g on for months. She has difficulty tolerating both solids and liquids. Her last EGD was performed on 06/25/2020 with balloon dilation up to 20 mm. Unclear etiology of symptoms, may be related to prior surgery and narrowing at the GE junction, motility abnormality, or other etiology. Current Visit: Yes Status: Acute Code(s): R13.10 - DYSPHAGIA, UNSPECIFIED SNOMED Code(s): 94431795 (2) Hiatal hernia with GERD Current Visit: No Status: Acute Code(s): K21.9 - GASTRO-ESOPHAGEAL REFLUX DISEASE WITHOUT ESOPHAGITIS; K44.9 - DIAPHRAGMATIC HERNIA WITHOUT OBSTRUCTION OR GANGRENE SNOMED Code(s): 719493308 Plan: Supportive care Okay for diet as tolerated Patient will be started on a trial of hyoscyamine for possible esophageal motility Continue other surgical management Case discussed with the patient length, she can follow-up with the GI clinic if still symptomatic in the outpatient setting Thank you for allowing us to participate in the care of this patient we will continue to follow
--- NOTE | 2020-07-03 15:11 | P.PN ---
Subjective Progress Note Date: 07/03/20 Principal diagnosis: Dysphasia The patient is seen and examined sitting up at the bedside. She is tolerating her diet better. She has not had any vomiting. She denies any abdominal pain. Objective - Vital Signs Vital signs: Vital Signs Temp 98.2 F 07/03/20 06:45 Pulse 91 07/03/20 06:45 Resp 17 07/03/20 06:45 BP 112/73 07/03/20 06:45 Pulse Ox 95 07/03/20 06:45 Intake & Output 07/02/20 07/03/20 07/03/20 18:59 06:59 18:59 Intake Total 1000 Balance 1000 Intake: Intake, IV Titration 1000 Amount Dextrose 5%-0.45% NaCl 1, 1000 000 ml @ 75 mls/hr IV . [id number] Rx#:[id number] Other: Voiding Method Toilet Toilet # Voids 3 1 - Exam General appearance: The patient is alert, oriented, appears in no acute distress. HET: Head is normocephalic and atraumatic. Conjunctiva pink. Sclera anicteric. Neck: Supple without lymphadenopathy. Abdomen: Soft, nontender, nondistended with bowel sounds. No guarding or rigidity. Extremities: Normal skin color and turgor. No pedal edema Neurological: No focal deficits. Alert and oriented 3. - Labs CBC & Chem 7: 07/02/20 07:36 07/03/20 06:23 Labs: Abnormal Lab Results - Last 24 Hours (Table) 07/02/20 07/02/20 07/02/20 Range/Units 07:36 11:25 12:19 Sodium 133 L 136 L (135-145) mmol/L Potassium 7.4 H* 5.7 H (3.5-5.5) mmol/L Anion Gap 2.00 L (4.00-12.00) mmol/L BUN (9.0-27.0) mg/dL BUN/Creatinine Ratio 9.00 L (12.00-20.00) Ratio Glucose 381 H 215 H (70-110) mg/dL POC Glucose (mg/dL) 229 H (75-99) mg/dL Calcium 8.0 L (8.7-10.3) mg/dL 07/02/20 07/02/20 07/03/20 Range/Units 16:41 20:14 06:23 Sodium (135-145) mmol/L Potassium (3.5-5.5) mmol/L Anion Gap (4.00-12.00) mmol/L BUN 8.0 L (9.0-27.0) mg/dL BUN/Creatinine Ratio 8.89 L (12.00-20.00) Ratio Glucose (70-110) mg/dL POC Glucose (mg/dL) 159 H 189 H (75-99) mg/dL Calcium 8.5 L (8.7-10.3) mg/dL Assessment and Plan (1) Dysphagia Narrative/Plan: 50-year-old female multiple medical comorbidities including prior hiatal hernia repair and multiple EGDs with dilations in the past presented with nausea, vomiting and dehydration. She reports difficulty swallowing which has been going on for months. She has difficulty tolerating both solids and liquids. Her last EGD was performed on 06/25/2020 with balloon dilation up to 20 mm. Unclear etiology of symptoms, may be related to prior surgery and narrowing at the GE junction, motility abnormality, or other etiology. Status: Acute Code(s): R13.10 - DYSPHAGIA, UNSPECIFIED SNOMED Code(s): 04215792 (2) Hiatal hernia with GERD Status: Acute Code(s): K21.9 - GASTRO-ESOPHAGEAL REFLUX DISEASE WITHOUT ESOPHAGITIS; K44.9 - DIAPHRAGMATIC HERNIA WITHOUT OBSTRUCTION OR GANGRENE SNOMED Code(s): 459925259 Plan: 1. Supportive care 2. Barium swallow completed and reviewed 3. Advance diet as tolerated, discussed with patient to eat small portions and chew well. 4. Continue Protonix daily 5. Hyoscyamine ordered 6. Continue with surgical recommendations 7. Recommend follow-up as an outpatient basis if symptoms persist I agree with the dictator's note, documented as a scribe by Linh Jang.
--- NOTE | 2020-07-03 23:18 | P.PN ---
Progress Note - Text Progress Note Date: 07/03/20 - Chief Complaint Nausea vomiting Consultation: This is a pleasant 50-year-old patient, of Dr. ayala from [place]. Patient chronic stable medical conditions include diabetes on insulin pump, GERD, peripheral neuropathy, legally blind, left below knee amputation with a prosthesis,. Patient has known gastroparesis. Patient's had surgical repair of laparoscopic recurrent hiatal hernia with mesh. Patient's had previous EGDs with balloon dilatation of the GE junction. Patient had EGD on June 25 -Dr. Yost for dysphagia. - mild stricture that was dilated. She had an upper GI. Study done yesterday was found to have evidence of retained contrast in the esophagus.-Partial obstructive pattern suspected narrowing at the level of the GE junction. She's been having intractable vomiting at home. Unable to keep anything down. Sugars was started to run low. Admitted with nausea vomiting. Hypoglycemia. Patient has a insulin pump. Using it accordingly.repeat upper GI swallow- [Incomplete]. Barium did stay in the esophagus about 3 minutes at least. And finally passed down to the stomach. Today-seen by GI. They prescribed hyoscyamine. Patient go home with the current diet. And follow with them. Depending upon the results. Discussed with patient Review of systems: Was done for constitutional, cardiovascular, GI, pulmonary. relevant finding as above Current medications reviewed in today's electronic records Past medical history to include: Diabetes mellitus type II on insulin pump, legally blind, GERD, peripheral neuropathy, left below knee amputation with a prosthesis, hiatal hernia, Social history: Lives with her boyfriend. No smoking or alcohol. Family history: Reviewed, noncontributory to presentation Physical examination: VITAL SIGNS: 98.2, 91, 17, 112/73, 95% room air GENERAL: BMI 28.2, sitting up in a chair awake EYES: Pupils equal. Conjunctiva normal. HEENT: External appearance of nose and ears normal, oral cavity grossly normal. NECK: JVD not raised; masses not palpable. HEART: First and second heart sounds are normal; no edema. LUNGS: Respiratory rate normal; clear to auscultation. ABDOMEN: Soft, nontender, liver spleen not palpable, no masses palpable. PSYCH: Alert and oriented x3; mood and affect normal. EXTREMITIES: Left below knee amputation-uses prosthesis INVESTIGATIONS, reviewed in the clinical context: July 02: White count 5.1 hemoglobin 11.1 potassium 7.4-repeat 5.7 creatinine 1.0 Accu-Cheks 229 Upper GI swallow-barium did stay in the esophagus for about 3 minutes. Finally did pass into the stomach July 01: Accu-Cheks 68, 79, 184, 147 White count 4 hemoglobin 11.3 platelets 213 potassium 4.5 creatinine 0.9 Assessment: -Persistent nausea vomiting after patient underwent EGD and stricture dilatation 5 days ago. Follow-up upper GI barium study -showing partial obstruction pattern with narrowing at the level of the GE junction. Repeat upper GI barium study shows the same results. Suspect achalasia -EGD with balloon dilatation on 06/25/2020 with a 20 mm balloon. -Diabetes mellitus type 2 chronically on insulin pump-uncontrolled with hypoglycemia from decreased oral intake -Diabetic peripheral neuropathy -Diabetic gastroparesis -Chronic low back pain -Left below knee amputation with a prosthesis -GERD -Hyperkalemia. Stop potassium supplement. Kayexalate. Plan: Patient also to monitor insulin pump. We'll take the hyoscyamine. Depending on results of follow-up with GI and Dr. Yost. Thank you Dr. Yost
[2020-07-05] MEDS ORDERED: NON FORMULARY DRUG (Semaglutide [Ozempic] 1 MG/0.75 ML Pen.Injctr) SQ SCH (12:15)
== END 2020-07-03 14:32 | disposition home or self-care (01) | DRG 392 ==
LOC: RADFLMAIN 10:48 → 4SSUR 11:44
PROVIDERS: ADMIT Surgery; ATTEND Surgery
PROC: 05HC33Z Insertion of Infusion Device into Left Basilic Vein, Percutaneous Approach (ICD-10-PCS; principal; 2020-06-29 13:15)
DX: K22.2 Esophageal obstruction (principal); E86.0 Dehydration; E11.649 Type 2 diabetes mellitus with hypoglycemia without coma; E11.42 Type 2 diabetes mellitus with diabetic polyneuropathy; E11.43 Type 2 diabetes mellitus with diabetic autonomic (poly)neuropathy; Z89.512 Acquired absence of left leg below knee; Z79.4 Long term (current) use of insulin; K31.84 Gastroparesis; R13.10 Dysphagia, unspecified; K44.9 Diaphragmatic hernia without obstruction or gangrene; K21.9 Gastro-esophageal reflux disease without esophagitis; E87.5 Hyperkalemia; D64.9 Anemia, unspecified; R47.02 Dysphasia; G89.29 Other chronic pain; M54.5 Low back pain; M79.605 Pain in left leg; H54.8 Legal blindness, as defined in USA; Z79.891 Long term (current) use of opiate analgesic; Z79.899 Other long term (current) drug therapy; Z96.41 Presence of insulin pump (external) (internal); Z86.14 Personal history of Methicillin resistant Staphylococcus aureus infection; Z90.49 Acquired absence of other specified parts of digestive tract; Z90.710 Acquired absence of both cervix and uterus; Z87.19 Personal history of other diseases of the digestive system; Z87.42 Personal history of other diseases of the female genital tract; Z90.89 Acquired absence of other organs; Z96.652 Presence of left artificial knee joint; Z97.14 Presence of artificial left leg (complete) (partial); Z98.890 Other specified postprocedural states; Z88.5 Allergy status to narcotic agent; Z88.8 Allergy status to other drugs, medicaments and biological substances; Z88.1 Allergy status to other antibiotic agents; Z91.02 Food additives allergy status
CPT/HCPCS: 36410; 74240; 74246; 76937; 80048; 80053; 83735; 85025; 85027

== ENCOUNTER 2020-07-23 10:56 | Day surgery (SDC) | payer MEDICARE, OTHER ==
[2020-07-20 09:20] VITALS: BMI 27.8
[~2020-07-23 10:56] MED LIST changes: -LIDOCAINE 1% (10MG/ML) FOR IV START INTRADERMA PRN
[2020-07-23 11:32] VITALS: RESP 16; TEMP 97.9
[2020-07-23 11:32] LABS: Glucose,Whole Blood 187 mg/dL (75-99)
[2020-07-23] MEDS ORDERED: fentaNYL (PF) 50 MCG/ML 2 ML AMP ONE (12:48)
[2020-07-23] MEDS ORDERED: MIDAZOLAM 2 MG/2 ML VIAL ONE (12:48)
[2020-07-23] MEDS ORDERED: PROPOFOL 10 MG/ML 20 ML VIAL IV ONE (12:48)
--- NOTE | 2020-07-23 13:07 | P.GSHP ---
History of Present Illness H&P Date: 07/23/20 Chief Complaint: Dysphagia This 50-year-old female who presents today for EGD. She's had issues with dysphagia. Past Medical History Past Medical History: Diabetes Mellitus, Eye Disorder, GERD/Reflux, Neurologic Disorder Additional Past Medical History / Comment(s): dysphygia, severe hearburn with nausea, neuropathy hands/feet, Legally Blind, Back and stump pain, (left leg) prosthesis left leg, past hx of anemia, HIATAL HERNIA History of Any Multi-Drug Resistant Organisms: MRSA Date of last positivie culture/infection: 2010 MDRO Source:: scalp scrape from nail Past Surgical History: Back Surgery, Cholecystectomy, Hysterectomy, Joint Replacement, Orthopedic Surgery, Tonsillectomy Additional Past Surgical History / Comment(s): left below knee amputation-uses prosthesis, lt knee joint replacement, 3 toes rt foot amputated, laser surgery eyes, EGD w/ dilatation, COLONOSCOPY Past Anesthesia/Blood Transfusion Reactions: No Reported Reaction Additional Past Anesthesia/Blood Transfusion Reaction / Comment(s): no hx of problems with prior blood transfusion Smoking Status: Never smoker - Past Family History Mother Family Medical History: No Reported History Medications and Allergies Home Medications Medication Instructions Recorded Confirmed Type HYDROcodone/APAP 10-325MG [[place] 1 tab PO 5XD 01/14/16 07/23/20 History 10-325] Ascorbic Acid/Multivit-Min 1,000 mg PO DAILY 11/10/16 07/23/20 History [Emergen-C 1,000 mg Packet] INSULIN LISPRO (For Pump) [humaLOG See Protocol SQ-PUMP CONTINUOUS 11/10/16 07/23/20 History (For Pump)] Lidocaine 5% Patch [Lidoderm 5% 1 patch TOPICAL DAILY PRN 12/19/19 07/23/20 History Patch] Meloxicam [Mobic] 15 mg PO DAILY PRN 06/29/20 07/23/20 History Pregabalin [Lyrica] 200 mg PO TID PRN 06/29/20 07/23/20 History Semaglutide [Ozempic] 1 mg SQ TH 06/29/20 07/23/20 History Hyoscyamine Sulfate [Hyoscyamine 0.125 mg SL Q8HR PRN #90 tab.subl 07/03/20 07/23/20 Rx Sulfate SL] Hyoscyamine Sulfate [Levsin] 0.125 mg PO Q8HR PRN #90 tab 07/03/20 07/23/20 Rx Pantoprazole Sodium [Protonix] 40 mg PO DAILY #30 tablet. 07/03/20 07/23/20 Rx Allergies Allergy/AdvReac Type Severity Reaction Status Date / Time ceftriaxone sodium Allergy Anaphylaxis Verified 07/23/20 11:18 [From Rocephin] propoxyphene napsylate AdvReac Rash/Hives Verified 07/23/20 11:18 [From Darvocet-N] pink dye Allergy Swelling Uncoded 07/23/20 11:18 steroids AdvReac extreme Uncoded 07/23/20 11:18 elevated blood sugar 1600 Surgical - Exam Vital Signs Temp Pulse Resp BP Pulse Ox 97.9 F 83 16 120/71 99 07/23/20 11:22 07/23/20 11:22 07/23/20 11:22 07/23/20 11:22 07/23/20 11:22 - General well developed, well nourished, no distress - Eyes PERRL - ENT normal pinna - Neck no masses - Respiratory normal expansion - Cardiovascular Rhythm: regular - Abdomen Abdomen: soft, non tender Results - Labs Abnormal Lab Results - Last 24 Hours (Table) 07/23/20 Range/Units 11:29 POC Glucose (mg/dL) 187 H (75-99) mg/dL Assessment and Plan Assessment: Dysphagia. We'll perform EGD
--- NOTE | 2020-07-23 13:09 | P.OP ---
Date of Procedure: 07/23/20 Preoperative Diagnosis: Dysphagia Postoperative Diagnosis: Dysphagia Procedure(s) Performed: EGD with balloon dilatation Anesthesia: MAC Surgeon: Arnaldo Yost Pathology: none sent Condition: stable Disposition: PACU Description of Procedure: She was placed on the endoscopy table in the lateral position. She received IV sedation. The gastroscope placed oropharynx passed in the esophagus and stomach. Scope was placed through the pylorus. There is no evidence of any gastric outlet obstruction. The stomach appeared normal. Scope was examined. There is known to the hiatal hernia. The GE junction was at 38 7 is. Due to the patient's symptoms of dysphagia a 20 mm balloon was held across the GE junction for 3 minutes. There is no evidence of any mucosal injury. The balloon was then deflated and then withdrawn. Related esophagus. Normal. Scope was withdrawn for patient.
[2020-07-23 13:28] VITALS: BP 107/72; PULSE 72
== END 2020-07-23 13:58 | disposition home or self-care (01) ==
LOC: ORWHC2ENDO 10:56
PROVIDERS: ATTEND Surgery
DX: R13.10 Dysphagia, unspecified (principal); K44.9 Diaphragmatic hernia without obstruction or gangrene; K21.9 Gastro-esophageal reflux disease without esophagitis; E11.40 Type 2 diabetes mellitus with diabetic neuropathy, unspecified; H54.8 Legal blindness, as defined in USA; Z79.4 Long term (current) use of insulin; Z79.899 Other long term (current) drug therapy; Z79.1 Long term (current) use of non-steroidal anti-inflammatories (NSAID); Z88.5 Allergy status to narcotic agent; Z88.8 Allergy status to other drugs, medicaments and biological substances; Z88.1 Allergy status to other antibiotic agents; Z86.14 Personal history of Methicillin resistant Staphylococcus aureus infection; Z96.652 Presence of left artificial knee joint; Z98.890 Other specified postprocedural states; Z90.49 Acquired absence of other specified parts of digestive tract; Z90.710 Acquired absence of both cervix and uterus
CPT/HCPCS: 43249; J2250; J3010; J2704; C1726

== ENCOUNTER → 2020-08-17 | Outpatient (CLI) | payer MEDICARE, OTHER ==
--- NOTE | 2020-08-17 08:48 | MR ---
EXAMINATION TYPE: MR knee LT wo con DATE OF EXAM: 08/17/2020 COMPARISON: Left knee x-ray January 14, 2016. HISTORY: Neuroma of amputation left stump, severe pain x 10 days TECHNIQUE: Multiplanar, multisequence imaging of the left knee is performed without IV contrast. FINDINGS: There is significant artifact degradation related to metallic hardware from total left knee arthropla sty making evaluation markedly suboptimal. There is amputation defect at the proximal diaphysis of th e tibia and fibula. There is old healed fracture through the proximal middle tibial metaphysis. No thomas spicious focal fluid collection is seen. Proximal evaluation about the prosthesis is nondiagnostic. N o suspicious skin thickening clearly identified. IMPRESSION: As above. Markedly suboptimal study. Consider further investigation with ultrasound if th ere is concern for recurrent soft tissue mass.
== END | disposition home or self-care (01) ==
LOC: RADMRIMAIN 06:49
PROVIDERS: ATTEND Surgery Vascular Surgery
DX: M79.605 Pain in left leg (principal); T87 Complications peculiar to reattachment and amputation; Z89.512 Acquired absence of left leg below knee

== ENCOUNTER 2021-12-22 22:20 | Emergency (ER) | payer MEDICARE, OTHER ==
--- NOTE | 2021-12-22 23:41 | XR ---
EXAMINATION TYPE: XR tibia fibula RT DATE OF EXAM: 12/22/2021 COMPARISON: NONE HISTORY: Leg pain TECHNIQUE: 4 views FINDINGS: The tibia and fibula appear intact. I see no fracture nor dislocation. Knee joint spaces ar e normal. Ankle joint appears intact. IMPRESSION: Negative right tibia and fibula exam
--- NOTE | 2021-12-23 01:17 | XR ---
EXAMINATION TYPE: XR ankle complete RT DATE OF EXAM: 12/23/2021 COMPARISON: NONE HISTORY: Ankle pain TECHNIQUE: 3 views FINDINGS: Ankle mortise is anatomic. I see no fracture nor dislocation. Joint spaces are normal. IMPRESSION: Normal right ankle exam. No fracture.
[2021-12-23] MEDS ORDERED: KETOROLAC 15 MG/ML 1 ML VIAL IM STA (01:37)
[2021-12-23] MEDS ORDERED: MAG HYDROX/AL HYDROX/SIMETH 30 ML, HYOSCYAMINE ELIXIR 10 ML, LIDOCAINE VISCOUS 2% 10 ML PO STA ×3 (01:53)
--- NOTE | 2021-12-23 02:02 | ED ---
Lower Extremity Injury HPI - General Chief Complaint: Extremity Injury, Lower Stated Complaint: Right leg pain Time Seen by Provider: 12/23/21 01:45 Source: patient, RN notes reviewed, old records reviewed Mode of arrival: wheelchair Limitations: physical limitation - History of Present Illness Initial Comments: Well-appearing 51-year-old female presents to the emergency room with right knee and ankle pain after losing her balance and falling today. Patient is a left AKA and uses a prosthesis. She had the toes of her right foot amputated last year. She believes she just lost her balance which caused the fall. She is able to partially bear weight. She did not hit her head or lose consciousness. She has no other injuries. MD Complaint: leg injury (right) -: hour(s) (5) Injury: Leg: Right, Knee: Right, Ankle: Right Type of Injury: other (fall) Place: home Severity scale (1-10): 10 Context: fall Associated Symptoms: able to partially bear weight - Related Data Home Medications Medication Instructions Recorded Confirmed HYDROcodone/APAP 10-325MG [[place] 1 tab PO 5XD 01/14/16 07/23/20 10-325] Ascorbic Acid/Multivit-Min 1,000 mg PO DAILY 11/10/16 07/23/20 [Emergen-C 1,000 mg Packet] INSULIN LISPRO (For Pump) [humaLOG See Protocol SQ-PUMP CONTINUOUS 11/10/16 07/23/20 (For Pump)] Lidocaine 5% Patch [Lidoderm 5% 1 patch TOPICAL DAILY PRN 12/19/19 07/23/20 Patch] Meloxicam [Mobic] 15 mg PO DAILY PRN 06/29/20 07/23/20 Pregabalin [Lyrica] 200 mg PO TID PRN 06/29/20 07/23/20 Semaglutide [Ozempic] 1 mg SQ TH 06/29/20 07/23/20 Previous Rx's Medication Instructions Recorded Hyoscyamine Sulfate [Hyoscyamine 0.125 mg SL Q8HR PRN #90 tab.subl 07/03/20 Sulfate SL] Hyoscyamine Sulfate [Levsin] 0.125 mg PO Q8HR PRN #90 tab 07/03/20 Pantoprazole Sodium [Protonix] 40 mg PO DAILY #30 tablet. 07/03/20 Allergies Allergy/AdvReac Type Severity Reaction Status Date / Time ceftriaxone sodium Allergy Anaphylaxis Verified 12/22/21 22:55 [From Rocephin] propoxyphene napsylate AdvReac Rash/Hives Verified 12/22/21 22:55 [From Darvocet-N] pink dye Allergy Swelling Uncoded 12/22/21 22:55 steroids AdvReac extreme Uncoded 12/22/21 22:55 elevated blood sugar 1600 Review of Systems ROS Statement: Those systems with pertinent positive or pertinent negative responses have been documented in the HPI. ROS Other: All systems not noted in ROS Statement are negative. Past Medical History Past Medical History: Diabetes Mellitus, Eye Disorder, GERD/Reflux, Neurologic Disorder Additional Past Medical History / Comment(s): dysphygia, severe hearburn with nausea, neuropathy hands/feet, Legally Blind, Back and stump pain, (left leg) prosthesis left leg, past hx of anemia, HIATAL HERNIA History of Any Multi-Drug Resistant Organisms: MRSA Date of last positivie culture/infection: 2010 MDRO Source:: scalp scrape from nail Past Surgical History: Back Surgery, Cholecystectomy, Hysterectomy, Joint Replacement, Orthopedic Surgery, Tonsillectomy Additional Past Surgical History / Comment(s): left below knee amputation-uses prosthesis, lt knee joint replacement, 3 toes rt foot amputated, laser surgery eyes, EGD w/ dilatation, COLONOSCOPY Past Anesthesia/Blood Transfusion Reactions: No Reported Reaction Additional Past Anesthesia/Blood Transfusion Reaction / Comment(s): no hx of problems with prior blood transfusion Past Psychological History: Anxiety Smoking Status: Never smoker Past Alcohol Use History: Rare Past Drug Use History: Marijuana - Past Family History Mother Family Medical History: No Reported History General Exam Limitations: physical limitation General appearance: alert, in no apparent distress Head exam: Present: atraumatic, normocephalic Eye exam: Absent: scleral icterus, conjunctival injection Neck exam: Absent: tenderness, meningismus Respiratory exam: Present: normal lung sounds bilaterally. Absent: respiratory distress, accessory muscle use Cardiovascular Exam: Present: regular rate Extremities exam: Present: normal capillary refill. Absent: pedal edema Right Knee exam: Present: tenderness (Patellar tendon), full knee extension. Absent: swelling, ecchymosis, dislocation, erythema Lower Leg exam: Present: abrasion Ankle exam: Present: tenderness (Lateral malleolus). Absent: swelling, abrasion, ecchymosis, deformity, erythema Foot/Toe exam: Absent: tenderness, swelling Neurovascular tendon exam: Present: no vascular compromise. Absent: abnormal cap refill, extremity cold to touch, pallor Neurological exam: Present: alert, oriented X3 Psychiatric exam: Present: normal affect, normal mood Skin exam: Present: warm, dry, normal color. Absent: cyanosis, diaphoretic, petechiae, pallor Course Vital Signs 12/22/21 12/23/21 22:50 02:07 Temperature 98.3 F 97 F L Pulse Rate 83 71 Respiratory 24 20 Rate Blood Pressure 118/68 138/78 O2 Sat by Pulse 97 97 Oximetry Medical Decision Making - Medical Decision Making X-ray of the right tib-fib shows no evidence of fracture, knee joint spaces are normal. X-ray of the ankle shows no evidence of fracture or dislocation. On physical exam there is no evidence of effusion to the right knee. She does have pain over the patellar tendon. She has complaints of pain to the lateral malleolus of the right foot. No evidence of swelling or bruising. She is neurovascularly intact. Patient denies any other injuries or pain. This is likely a sprain. Patient was given a shot of Toradol, an Ferd wrap for her knee and ankle stirrup for her ankle. She was given pain medicine in the emergency room. She was instructed to follow-up with orthopedics this week, states that she has seen Dr. Cheng in the past. At discharge patient is requesting something for her GERD. She was given a GI cocktail. Directed to return to the emergency room with any concerning symptoms. Case discussed with Dr. Green Disposition Clinical Impression: Right ankle sprain, Internal derangement of knee Disposition: HOME SELF-CARE Condition: Good Instructions (If sedation given, give patient instructions): Ankle Sprain (ED), Knee Pain (ED) Additional Instructions: Rest, ice, and elevate your right leg. Wear the ankle stirrup for support. Wear fred wrap to the knee for compression. Take Tylenol and/or Motrin as needed for pain. Follow-up with orthopedics this week. Return to the emergency room with any new or concerning symptoms including increased pain or inability to bear weight. Is patient prescribed a controlled substance at d/c from ED?: No Referrals: Eric Meeks MD [Primary Care Provider] - 1-2 days Time of Disposition: 02:01
[2021-12-23 02:11] VITALS: BP 138/78; PULSE 71; RESP 20; TEMP 97
== END 2021-12-23 02:10 | disposition home or self-care (01) ==
LOC: EC 22:20
DX: S93.401A Sprain of unspecified ligament of right ankle, initial encounter (principal); M23.91 Unspecified internal derangement of right knee; E11.9 Type 2 diabetes mellitus without complications; K21.9 Gastro-esophageal reflux disease without esophagitis; F41.9 Anxiety disorder, unspecified; F12.90 Cannabis use, unspecified, uncomplicated; Z88.1 Allergy status to other antibiotic agents; Z88.5 Allergy status to narcotic agent; Z91.041 Radiographic dye allergy status; Z88.8 Allergy status to other drugs, medicaments and biological substances; W01.0XXA Fall on same level from slipping, tripping and stumbling without subsequent striking against object, initial encounter
CPT/HCPCS: 96372; 99283

== ENCOUNTER 2022-05-08 07:08 | Day surgery (SDC) | payer MEDICARE, OTHER ==
[2022-05-06 13:04] VITALS: BMI 25.7
[2022-05-08] MEDS ORDERED: LACTATED RINGERS 1,000 ML IV SCH (07:26)
[2022-05-08] MEDS ORDERED: LIDOCAINE 1% (10MG/ML) FOR IV START INTRADERMA PRN (07:26)
[2022-05-08 07:32] VITALS: TEMP 97.2
[2022-05-08 07:48] LABS: Glucose,Whole Blood 152 mg/dL (70-110)
[2022-05-08] MEDS ORDERED: LIDOCAINE 2% INJ 20 MG/ML (2 ML VIAL) ONE (08:08)
[2022-05-08] MEDS ORDERED: PROPOFOL 10 MG/ML 20 ML VIAL IV ONE (08:08)
--- NOTE | 2022-05-08 08:09 | P.GSHP ---
History of Present Illness H&P Date: 05/08/22 Chief Complaint: GERD Is a 51-year-old female history of GERD. Patient resents today for EGD. Past Medical History Past Medical History: Diabetes Mellitus, Eye Disorder, GERD/Reflux, Hyperlipidemia, Neurologic Disorder Additional Past Medical History / Comment(s): Dysphagia, severe hearburn with nausea, neuropathy hands and feet, legally blind, back and left stump pain, left leg prosthesis, hx of anemia, hiatal hernia, eczema. History of Any Multi-Drug Resistant Organisms: MRSA Date of last positivie culture/infection: 2010 MDRO Source:: scalp scrape from nail Past Surgical History: Back Surgery, Cholecystectomy, Hysterectomy, Joint Replacement, Orthopedic Surgery, Tonsillectomy Additional Past Surgical History / Comment(s): Left below knee amputation-uses prosthesis, left knee joint replacement, all toes on right foot amputated, bilateral laser eye surgery, EGD with dilatation, colonoscopy. Past Anesthesia/Blood Transfusion Reactions: No Reported Reaction Additional Past Anesthesia/Blood Transfusion Reaction / Comment(s): No hx of problems with prior blood transfusion. Dad was really sensitive to Anesthesia, was sleepy for days afterwards. Past Psychological History: Anxiety Smoking Status: Never smoker Past Alcohol Use History: Rare Past Drug Use History: Marijuana Additional Drug Use History / Comment(s): Marijuana gummies once every 2-3 days PRN Insomnia. Aware no use 24hrs prior to procedure. - Past Family History Mother Family Medical History: No Reported History Medications and Allergies Home Medications Medication Instructions Recorded Confirmed Type HYDROcodone/APAP 10-325MG [[place] 1 tab PO 5XD PRN 01/14/16 05/06/22 History 10-325] Ascorbic Acid/Multivit-Min 1,000 mg PO DAILY 11/10/16 05/06/22 History [Emergen-C 1,000 mg Packet] INSULIN LISPRO (For Pump) [humaLOG See Protocol SQ-PUMP CONTINUOUS 11/10/16 05/06/22 History (For Pump)] Meloxicam [Mobic] 15 mg PO DAILY PRN 06/29/20 05/06/22 History Pregabalin [Lyrica] 200 mg PO TID PRN 06/29/20 05/06/22 History Pantoprazole Sodium [Protonix] 40 mg PO DAILY #30 tablet. 07/03/20 05/06/22 Rx Atorvastatin [Lipitor] 40 mg PO DAILY 05/06/22 05/06/22 History Ergocalciferol [Vitamin D2 (1250 1,250 mcg PO TH 05/06/22 05/06/22 History Mcg = 64206 Iu)] Allergies Allergy/AdvReac Type Severity Reaction Status Date / Time ceftriaxone sodium Allergy Anaphylaxis Verified 05/06/22 13:05 [From Rocephin] propoxyphene napsylate AdvReac Rash/Hives Verified 05/06/22 13:05 [From Darvocet-N] pink dye Allergy Swelling Uncoded 05/06/22 13:05 steroids AdvReac extreme Uncoded 05/06/22 13:05 elevated blood sugar 1600 Surgical - Exam Vital Signs Temp Pulse Resp BP Pulse Ox 97.2 F L 95 20 131/85 96 05/08/22 07:29 12 07:29 12 07:29 05/08/22 07:29 05/08/22 07:29 - General well developed, well nourished, no distress - Eyes PERRL - ENT normal pinna - Neck no masses - Respiratory normal expansion - Cardiovascular Rhythm: regular - Abdomen Abdomen: soft, non tender Results - Labs Abnormal Lab Results - Last 24 Hours (Table) 05/08/22 Range/Units 07:45 POC Glucose (mg/dL) 152 H (70-110) mg/dL Assessment and Plan Assessment: GERD. We'll perform EGD.
--- NOTE | 2022-05-08 08:21 | P.OP ---
Date of Procedure: 05/08/22 Preoperative Diagnosis: GERD Dysphagia Postoperative Diagnosis: Antral gastritis Hiatal hernia Possible gastroparesis Procedure(s) Performed: EGD Anesthesia: MAC Surgeon: Arnaldo Yost Pathology: other (Antrum) Condition: stable Disposition: PACU Description of Procedure: The patient's placed on the endoscopy table in the lateral position she received IV sedation. The gastroscope placed oropharynx passed in the esophagus into the stomach. Scope then placed through the pylorus. The first and second portion of the duodenum appeared normal. The scope summer back the antrum this. Minimal inflamed. A biopsies performed. The scope was unretroflexed and remainder the stomach appeared normal. There was a small recurrent hiatal hernia. The GE junction was at 38 cm. The distal esophagus appeared normal. The proximal esophagus.. There is no evidence of any gastric inlet obstruction the GE junction was patent. Scope was withdrawn for patient.
[2022-05-08 08:29] VITALS: RESP 12
[2022-05-08 08:50] VITALS: BP 121/75; PULSE 74
== END 2022-05-08 09:11 | disposition home or self-care (01) ==
LOC: ORWHC2ENDO 07:08
PROVIDERS: ATTEND Surgery
DX: K21.9 Gastro-esophageal reflux disease without esophagitis (principal); K29.50 Unspecified chronic gastritis without bleeding; K44.9 Diaphragmatic hernia without obstruction or gangrene; E11.9 Type 2 diabetes mellitus without complications; E78.5 Hyperlipidemia, unspecified; Z90.89 Acquired absence of other organs; Z90.710 Acquired absence of both cervix and uterus; Z90.49 Acquired absence of other specified parts of digestive tract; Z89.512 Acquired absence of left leg below knee; Z86.59 Personal history of other mental and behavioral disorders; Z79.1 Long term (current) use of non-steroidal anti-inflammatories (NSAID); Z79.899 Other long term (current) drug therapy
CPT/HCPCS: 43239; J2704; J2001; 88305

== ENCOUNTER → 2022-05-21 | Outpatient (CLI) | payer MEDICARE, OTHER ==
--- NOTE | 2022-05-22 14:33 | FL ---
EXAMINATION TYPE: FL UGI w esophagus DATE OF EXAM: 05/21/2022 COMPARISON: 05/30/2013 abdomen film HISTORY: Food not passing through stomach, gastroparesis TECHNIQUE: Single contrast technique was utilized due to previous [place] fundoplication. FINDINGS: Esophagus dilates to normal caliber and has normal contour to the gastroesophageal junction . No hesitancy passing through the gastroesophageal junction is evident. Scattered tertiary contracti ons are evident during the examination in the distal esophagus. Complete clearing is identified durin g the examination. Fundus body and antrum of the stomach appear normal. The gastroesophageal junction appears without st enosis Contrast enters the duodenum. There may be focal stenosis at the antral duodenal bulb junction identi fied during 2 portions of the examination. However, a widely patent pyloric channel is identified dur ing this exam. Consider spasm. Duodenal folds and mild prominence. Correlate for mild duodenitis. IMPRESSION: 1. Clinical consideration for pyloric spasm is recommended. Persistent stenosis however is not evide nt. 2. Presbyesophagus. 3. Mild duodenitis may be present.
== END | disposition home or self-care (01) ==
LOC: RADUSWWP 10:30
PROVIDERS: ATTEND Surgery
DX: K22.89 Other specified disease of esophagus (principal); K31.84 Gastroparesis; R13.19 Other dysphagia
CPT/HCPCS: 74240

== ENCOUNTER → 2023-03-09 | Outpatient (CLI) | payer MEDICARE, OTHER ==
[2023-03-09 17:19] LABS: HCT 37.8 % (37.2-46.3); MCH 30.2 pg (27.0-32.0); MCHC 31.7 d/dL (32.0-37.0); Mean Platelet Volume 11.2 FL (9.5-12.2); NRBC Per 100 WBC 0 X 10*3/uL (0.00-0.01); Platelet Count 264 X 10*3/uL (140-440); RBC 3.98 X 10*6/uL (4.10-5.20); RDW 14.4 % (11.5-14.5)
[2023-03-09 18:25] LABS: Blood Urea Nitrogen 21.5 mg/dL (9.0-27.0); Carbon Dioxide 21.2 mmol/L (21.6-31.8); Chloride 108 mmol/L (96-109); Potassium 4.6 mmol/L (3.5-5.5); Sodium 142 mmol/L (135-145)
== END | disposition home or self-care (01) ==
LOC: LABPAT 08:25
PROVIDERS: ATTEND Internal Medicine
DX: Z01.812 Encounter for preprocedural laboratory examination (principal); R07.9 Chest pain, unspecified; R06.02 Shortness of breath
CPT/HCPCS: 36415; 80051; 82565; 84520; 85027

== ENCOUNTER 2023-03-12 07:38 | Observation (INO) | payer MEDICARE, OTHER ==
[~2023-03-12 07:38] MED LIST changes: +HEPARIN SODIUM,PORCINE (1 ML) 2,500 UNIT in SODIUM CHLORIDE 0.9% 250 ML IRRIGATION PRN; +HEPARIN SODIUM,PORCINE 10,000 UNIT in SODIUM CHLORIDE 0.9% 1,000 ML IRRIGATION PRN; -LACTATED RINGERS 1,000 ML IV SCH
[2023-03-12] MEDS ORDERED: ASPIRIN 81 MG PO STA (07:59)
[2023-03-12 08:37] LABS: Basophils % (A) 0 %; Eosinophils # (A) 1.1 k/uL (0-0.7); Eosinophils % (A) 20 %; HCT 35.4 % (34.0-46.0); HGB 11.8 gm/dL (11.4-16.0); Lymphocytes # (A) 1.9 k/uL (1.0-4.8); Lymphocytes % (A) 34 %; MCH 31.2 pg (25.0-35.0); MCHC 33.2 g/dL (31.0-37.0); Mean Platelet Volume 8.1; Monocytes # (A) 0.3 k/uL (0-1.0); Monocytes % (A) 6 %; Neutrophils % (A) 37 %; Platelet Count 227 k/uL (150-450); RBC 3.77 m/uL (3.80-5.40); RDW 14.3 % (11.5-15.5); WBC 5.5 k/uL (3.8-10.6)
[2023-03-12 08:56] LABS: ALT 21 U/L (4-34); AST 25 U/L (14-36); African American GFR (CKD) 90 (>60 ml/min/1.73 sqM); Albumin 3.6 g/dL (3.5-5.0); Alkaline Phosphatase 52 U/L (38-126); Anion Gap 7 mmol/L; Blood Urea Nitrogen 25 mg/dL (7-17); Calcium 9.4 mg/dL (8.4-10.2); Carbon Dioxide 26 mmol/L (22-30); Chloride 107 mmol/L (98-107); Glucose 131 mg/dL (74-99); Magnesium 1.8 mg/dL (1.6-2.3); Non-African American GFR(CKD) 78 (>60 ml/min/1.73 sqM); Potassium 4.5 mmol/L (3.5-5.1); Sodium 140 mmol/L (137-145); Total Bilirubin 0.5 mg/dL (0.2-1.3); Total Protein 6.3 g/dL (6.3-8.2)
[2023-03-12 09:03] LABS: INR 0.9 (<1.2); Prothrombin Time 9.5 sec (9.0-12.0)
[2023-03-12 09:05] LABS: NT-Pro-B-Type Natriuretic Pept 93 pg/mL
--- NOTE | 2023-03-12 09:05 | XR ---
EXAMINATION TYPE: XR chest 2V DATE OF EXAM: 03/12/2023 COMPARISON: 12/19/2019 HISTORY: 52-year-old female with chest pain TECHNIQUE: PA and lateral views FINDINGS: The cardiomediastinal silhouette, aorta, and pulmonary vasculature are within normal limits. Lungs an d pleural spaces are clear. IMPRESSION: No acute cardiopulmonary process.
[2023-03-12 09:14] LABS: Partial Thromboplastin Time 21.8 sec (22.0-30.0)
--- NOTE | 2023-03-12 09:21 | ED ---
Chest Pain HPI - General Chief Complaint: Chest Pain Stated Complaint: chest pain Time Seen by Provider: 03/12/23 07:47 Source: patient, family, RN notes reviewed Mode of arrival: ambulatory Limitations: no limitations - History of Present Illness Initial Comments: 52-year-old female presents emergency Department with chief complaint of chest pain. Patient that she's been having bouts of chest pain states symptoms have worsened. Patient states the pain is centralized sometimes very sharp stabbing a pounding type pain. She does have a pressure associated with. She occasionally feels short of breath. Denies prior cardiac stents she does have a history of hyperlipidemia, diabetes and family cardiac history denies any history of smoking denies history of hypertension. Patient states she is currently seeing cardiology for workup. - Related Data Home Medications Medication Instructions Recorded Confirmed HYDROcodone/APAP 10-325MG [[place] 1 tab PO 5XD PRN 01/14/16 05/06/22 10-325] Ascorbic Acid/Multivit-Min 1,000 mg PO DAILY 11/10/16 05/06/22 [Emergen-C 1,000 mg Packet] INSULIN LISPRO (For Pump) [humaLOG See Protocol SQ-PUMP CONTINUOUS 11/10/16 05/06/22 (For Pump)] Meloxicam [Mobic] 15 mg PO DAILY PRN 06/29/20 05/06/22 Pregabalin [Lyrica] 200 mg PO TID PRN 06/29/20 05/06/22 Atorvastatin [Lipitor] 40 mg PO DAILY 05/06/22 05/06/22 Ergocalciferol [Vitamin D2 (1250 1,250 mcg PO TH 05/06/22 05/06/22 Mcg = 35644 Iu)] Previous Rx's Medication Instructions Recorded Pantoprazole Sodium [Protonix] 40 mg PO DAILY #30 tablet. 07/03/20 Allergies Allergy/AdvReac Type Severity Reaction Status Date / Time ceftriaxone sodium Allergy Anaphylaxis Verified 03/12/23 07:43 [From Rocephin] propoxyphene napsylate AdvReac Rash/Hives Verified 03/12/23 07:43 [From Darvocet-N] pink dye Allergy Swelling Uncoded 03/12/23 07:43 steroids AdvReac extreme Uncoded 03/12/23 07:43 elevated blood sugar 1600 Review of Systems ROS Statement: Those systems with pertinent positive or pertinent negative responses have been documented in the HPI. ROS Other: All systems not noted in ROS Statement are negative. EKG Findings - EKG Comments: EKG Findings:: EKG performed at 7:54 sinus rhythm with rate of 85 NH 158 QRS 85 QT/QTC 329/372 - EKG Results: EKG: interpreted by ISABEL Past Medical History Past Medical History: Diabetes Mellitus, Eye Disorder, GERD/Reflux, Neurologic Disorder Additional Past Medical History / Comment(s): dysphygia, severe hearburn with nausea, neuropathy hands/feet, Legally Blind, Back and stump pain, (left leg) prosthesis left leg, past hx of anemia, HIATAL HERNIA History of Any Multi-Drug Resistant Organisms: MRSA Date of last positivie culture/infection: 2010 MDRO Source:: scalp scrape from nail Past Surgical History: Back Surgery, Cholecystectomy, Hysterectomy, Joint Replacement, Orthopedic Surgery, Tonsillectomy Additional Past Surgical History / Comment(s): left below knee amputation-uses prosthesis, lt knee joint replacement, all toes on rt foot amputated, laser surgery eyes, EGD w/ dilatation, COLONOSCOPY Past Anesthesia/Blood Transfusion Reactions: No Reported Reaction Additional Past Anesthesia/Blood Transfusion Reaction / Comment(s): no hx of problems with prior blood transfusion Past Psychological History: Anxiety Smoking Status: Never smoker Past Alcohol Use History: Rare Past Drug Use History: Marijuana - Past Family History Mother Family Medical History: No Reported History General Exam Limitations: no limitations General appearance: alert, in no apparent distress Head exam: Present: atraumatic, normocephalic, normal inspection Respiratory exam: Present: normal lung sounds bilaterally. Absent: respiratory distress, wheezes, rales, rhonchi, stridor Cardiovascular Exam: Present: regular rate, normal rhythm, normal heart sounds. Absent: systolic murmur, diastolic murmur, rubs, gallop, clicks GI/Abdominal exam: Present: soft, normal bowel sounds. Absent: distended, tenderness, guarding, rebound, rigid Neurological exam: Present: alert, oriented X3 Skin exam: Present: warm, dry, intact, normal color. Absent: rash Course Vital Signs 03/12/23 03/12/23 07:43 09:11 Temperature 98.4 F Pulse Rate 98 73 Respiratory 18 18 Rate Blood Pressure 130/65 165/88 O2 Sat by Pulse 98 99 Oximetry Chest Pain MDM - MDM Was pt. sent in by a medical professional or institution (, [employer], COMPOUNDING PHARMACY TECHNICIAN, urgent care, hospital, or usp...) When possible be specific @ -No Did you speak to anyone other than the patient for history (EMS, parent, family, police, friend...)? What history was obtained from this source @ -No Did you review nursing and triage notes (agree or disagree)? Why? @ -I reviewed and agree with nursing and triage notes Were old charts reviewed (outside hosp., previous admission, EMS record, old EKG, old radiological studies, urgent care reports/EKG's, usp records)? Report findings @ -No old charts were reviewed Differential Diagnosis (chest pain, altered mental status, abdominal pain women, abdominal pain men, vaginal bleeding, weakness, fever, dyspnea, syncope, headache, dizziness, GI bleed, back pain, seizure, CVA, palpatations, mental health, musculoskeletal)? @ -Differential Chest Pain: Stable Angina, Unstable Angina, STEMI, NSTEMI Aortic Dissection, Pneumothorax, Musculoskeletal, Esophageal Spasm GERD, Cholecystitis, Pancreatitis, Zoster, this is not meant to be an all-inclusive list. ble EKG interpreted by me (3pts min.). @ -As above X-rays interpreted by me (1pt min.). @ -Chest x-ray shows no acute process CT interpreted by me (1pt min.). @ -None done U/S interpreted by me (1pt. min.). @ -None done What testing was considered but not performed or refused? (CT, X-rays, U/S, labs)? Why? @ -None What meds were considered but not given or refused? Why? @ -None Did you discuss the management of the patient with other professionals (professionals i.e. , [employer], COMPOUNDING PHARMACY TECHNICIAN, lab, RT, psych nurse, outreach and education social worker, church history professor, teacher, interface control officer, manager case)? Give summary @ -Dr. Knott as patient established with, Dr. Mcnair for admission Was smoking cessation discussed for >3mins.? @ -No Was critical care preformed (if so, how long)? @ -No Were there social determinants of health that impacted care today? How? (Homelessness, low income, unemployed, alcoholism, drug addiction, transportation, low edu. Level, literacy, decrease access to med. care, skilled nursing, rehab)? @ -No Was there de-escalation of care discussed even if they declined (Discuss DNR or withdrawal of care, Hospice)? DNR status @ -No What co-morbidities impacted this encounter? (DM, HTN, Smoking, COPD, CAD, Cancer, CVA, ARF, Chemo, Hep., AIDS, mental health diagnosis, sleep apnea, morbid obesity)? @ -Diabetes, hyperlipidemia Was patient admitted / discharged? Hospital course, mention meds given and route, prescriptions, significant lab abnormalities, going to OR and other pertinent info. @ -Admitted patient be admitted for cardiology vaginal, cardiology rule out. Patient was started on heparin. Undiagnosed new problem with uncertain prognosis? @ -No Drug Therapy requiring intensive monitoring for toxicity (Heparin, Nitro, Insulin, Cardizem)? @ -Heparin Were any procedures done? @ -No Diagnosis/symptom? @ -Chest pain Acute, or Chronic, or Acute on Chronic? @ -Acute Uncomplicated (without systemic symptoms) or Complicated (systemic symptoms)? @ -, Complicated Side effects of treatment? @ -No Exacerbation, Progression, or Severe Exacerbation? @ -No Poses a threat to life or bodily function? How? (Chest pain, [place], MS, pneumonia, PE, COPD, DKA, ARF, appy, cholecystitis, CVA, Diverticulitis, Homicidal, Suicidal, threat to staff... and all critical care pts) @ -Yes patient has ACS Disposition Clinical Impression: Chest pain Disposition: ADMITTED IP TO THIS HOSP Condition: Fair Referrals: Shayna Bustos NPC [Primary Care Provider] - 1-2 days Time of Disposition: 10:01
[2023-03-12] MEDS ORDERED: HEPARIN SODIUM 1,000 UN/ML (10ML VL) IV ONE (10:17)
[2023-03-12] MEDS ORDERED: NITROGLYCERIN SL TABS 0.4 MG TAB SUBLINGUAL PRN ×3 (10:17→12:33)
[2023-03-12] MEDS ORDERED: HEPARIN SODIUM 1,000 UN/ML (10ML VL) IV PRN (10:17)
[2023-03-12] MEDS ORDERED: PREGABALIN 100 MG CAP PO PRN (10:18)
[2023-03-12] MEDS ORDERED: HEPARIN SOD,PORK IN 0.45% NACL 25,000 UNIT in 0.45% NACL 1 250ML.BAG IV SCH (10:30)
[2023-03-12] MEDS ORDERED: INSULIN LISPRO (For Pump) 100 UNIT/ML VIAL SQ-PUMP SCH (10:30)
[2023-03-12] MEDS: HYDROcodone/APAP 10-325MG 1 EACH TAB PO PRN ×2 (12:13→23:41)
[2023-03-12] MEDS ORDERED: INSULIN ASPART 100 UNIT/ML SQ SCH (12:15)
[2023-03-12] MEDS ORDERED: ALPRAZolam 0.5 MG TAB PO PRN (12:21)
[2023-03-12] MEDS ORDERED: ATORVASTATIN 80 MG TAB PO STA (12:21)
[2023-03-12] MEDS ORDERED: ASPIRIN 325 MG TAB PO STA (12:21)
[2023-03-12] MEDS ORDERED: ALPRAZolam 0.25 MG TAB PO PRN (12:21)
--- NOTE | 2023-03-12 12:35 | P.CRDCN ---
History of Present Illness Consult date: 03/12/23 Consult reason: chest pain History of present illness: History of present illness: This is a 52 year old female patient of Dr. Knott with past medical history diabetes mellitus type 1 since age of 12, hyperlipidemia, diabetic neuropathy, gastritis, gastroparesis, prior below the knee amputation, prior right toes amputation, family history of premature coronary artery disease. Patient was established in the office on 03/09/2023 and at that time was having episodes of shortness of breath and heart racing with minimal activity and worsening. We have been asked to evaluate the patient for chest pain. Patient states that she has had chest pain on and off throughout the night and eases off a little bit when she relaxes. It's in the upper area and she does have some pain in the right side of her neck. The neck pain has been going on for 5 days but does occur along with the chest pain. She also has shortness of breath, dizziness an d sweating. Patient was being scheduled for cardiac catheterization and this is been moved up to be completed today. EKG sinus rhythm with no acute ST changes. Chest x-ray: No acute process WBC 5.5, hemoglobin 11.8, platelet count 227. INR 0.9. D-dimer 0.67. Electrolytes normal. BUN 25 creatinine 0.86. Blood sugar 131. Troponins negative 2. Magnesium 1.8. Liver function tests are normal. ProBNP 93. Home cardiac medications: Aspirin 81 mg daily, atorvastatin 40 mg daily, Toprol- XL 25 mg daily, Nitrostat as needed. Echocardiogram performed in 2017 revealed normal EF Lexiscan stress test performed in 2017 revealed normal EF and no ischemia. Review Of Systems: At the time of my evaluation: Constitutional: No fever, no chills. No weakness, fatigue or lethargy. EENT: No headache. No dizziness. Lungs: No shortness of breath, cough, no sputum production. No wheezing. Cardiovascular: No chest pain, no lower extremity edema. No palpitations. No paroxysmal nocturnal dyspnea. No orthopnea. No lightheadedness or dizziness. No syncopal episodes. Abdominal: No abdominal pain. No nausea, vomiting. No diarrhea. No constipation. No bloody or tarry stools. Genitourinary: No dysuria.. No urinary retention. Musculoskeletal: No myalgias. No muscle weakness, no frequent falls. No back pain. No neck pain. Integumentary: No wounds. No rash. No unusual bruising. Neurologic: No aphasia. No facial droop. No change in mentation. No head injury. No headache. Physical examination: Gen: This is a 52-year-old female resting on ER stretcher and appears to be comfortable and in no acute distress VS: reviewed HEENT: Head is atraumatic, normocephalic. Pupils equal, round. Sclerae is anicteric. NECK: Supple. No JVD. LUNGS: Clear to auscultation. No wheezes or rhonchi. No intercostal retractions. HEART: Regular rate and rhythm. No murmur. ABDOMEN: Soft No tenderness. EXTREMITIES: Prosthesis to the left lower extremity in place. No pedal edema on the right. No calf tenderness. NEUROLOGICAL: Patient is awake, alert and oriented x3. 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 Knott Obtain 2-D echocardiogram and Doppler study to assess cardiac structure and function Further recommendations to follow based upon clinical course Thank you kindly for this consultation. Nurse practitioner note has been reviewed, I agree with documented findings and plan of care. Patient was seen and examined. Past Medical History Past Medical History: Diabetes Mellitus, Eye Disorder, GERD/Reflux, Neurologic Disorder Additional Past Medical History / Comment(s): dysphygia, severe hearburn with nausea, neuropathy hands/feet, Legally Blind, Back and stump pain, (left leg) pr osthesis left leg, past hx of anemia, HIATAL HERNIA History of Any Multi-Drug Resistant Organisms: MRSA Date of last positivie culture/infection: 2010 MDRO Source:: scalp scrape from nail Past Surgical History: Back Surgery, Cholecystectomy, Hysterectomy, Joint Replacement, Orthopedic Surgery, Tonsillectomy Additional Past Surgical History / Comment(s): left below knee amputation-uses prosthesis, lt knee joint replacement, all toes on rt foot amputated, laser surgery eyes, EGD w/ dilatation, COLONOSCOPY Past Anesthesia/Blood Transfusion Reactions: No Reported Reaction Additional Past Anesthesia/Blood Transfusion Reaction / Comment(s): no hx of problems with prior blood transfusion Past Psychological History: Anxiety Smoking Status: Never smoker Past Alcohol Use History: Rare Past Drug Use History: Marijuana - Past Family History Mother Family Medical History: No Reported History Medications and Allergies Home Medications Medication Instructions Recorded Confirmed Type HYDROcodone/APAP 10-325MG [[place] 1 tab PO TID 01/14/16 03/12/23 History 10-325] Ascorbic Acid/Multivit-Min 1,000 mg PO DAILY 11/10/16 03/12/23 History [Emergen-C 1,000 mg Packet] Atorvastatin [Lipitor] 40 mg PO DAILY 05/06/22 03/12/23 History Ergocalciferol [Vitamin D2 (1250 1,250 mcg PO TH 05/06/22 03/12/23 History Mcg = 97943 Iu)] Aspirin EC [Ecotrin Low Dose] 81 mg PO DAILY 03/12/23 03/12/23 History Insulin Aspart (For Pump) [NovoLOG 0.01 unit SQ-PUMP CONTINUOUS 03/12/23 03/12/23 History (For Pump)] Linaclotide [Linzess] 145 mcg PO DAILY 03/12/23 03/12/23 History Metoprolol Succinate (ER) [Toprol 25 mg PO DAILY 03/12/23 03/12/23 History Xl] Nitroglycerin Sl Tabs [Nitrostat] 0.4 mg SUBLINGUAL Q5M PRN 03/12/23 03/12/23 History Leonarda Supplement 1 tab PO DAILY 03/12/23 03/12/23 History Allergies Allergy/AdvReac Type Severity Reaction Status Date / Time ceftriaxone sodium Allergy Anaphylaxis Verified 03/12/23 10:43 [From Rocephin] propoxyphene napsylate AdvReac Rash/Hives Verified 03/12/23 10:43 [From Darvocet-N] pink dye Allergy Swelling Uncoded 03/12/23 10:43 steroids AdvReac extreme Uncoded 03/12/23 10:43 elevated blood sugar 1600 Physical Exam Vitals: Vital Signs Temp Pulse Resp BP Pulse Ox 03/12/23 12:00 82 18 116/71 98 03/12/23 10:50 77 18 132/77 98 03/12/23 09:11 73 18 165/88 99 03/12/23 07:43 98.4 F 98 18 130/65 98 Intake and Output 03/11/23 03/12/23 03/12/23 22:59 06:59 14:59 Other: Weight 93.894 kg Results 03/12/23 08:19 03/12/23 08:19 Cardiac Enzymes 03/12/23 03/12/23 03/12/23 Range/Units 08:19 08:19 11:05 AST 25 (14-36) U/L Troponin I <0.012 <0.012 (0.000-0.034) ng/mL Coagulation 03/12/23 03/12/23 Range/Units 08:19 11:05 PT 9.5 (9.0-12.0) sec APTT 21.8 L 21.9 L (22.0-30.0) sec CBC 03/12/23 Range/Units 08:19 WBC 5.5 (3.8-10.6) k/uL RBC 3.77 L (3.80-5.40) m/uL Hgb 11.8 (11.4-16.0) gm/dL Hct 35.4 (34.0-46.0) % Plt Count 227 (150-450) k/uL Comprehensive Metabolic Panel 03/12/23 Range/Units 08:19 Sodium 140 (137-145) mmol/L Potassium 4.5 (3.5-5.1) mmol/L Chloride 107 (98-107) mmol/L Carbon Dioxide 26 (22-30) mmol/L BUN 25 H (7-17) mg/dL Creatinine 0.86 (0.52-1.04) mg/dL Glucose 131 H (74-99) mg/dL Calcium 9.4 (8.4-10.2) mg/dL AST 25 (14-36) U/L ALT 21 (4-34) U/L Alkaline Phosphatase 52 (38-126) U/L Total Protein 6.3 (6.3-8.2) g/dL Albumin 3.6 (3.5-5.0) g/dL Current Medications Generic Name Dose Route Start Last Admin Trade Name Freq PRN Reason Stop Dose Admin Hydrocodone Bitart/Acetaminophen 1 each 03/12/23 10:18 03/12/23 12:13 Hydrocodone/Apap 10-325mg 1 Each Tab PO 1 each 5XD PRN Administration Pain Alprazolam 0.25 mg 10/05/23 12:21 Alprazolam 0.25 Mg Tab PO Q6HR PRN Mild Anxiety Alprazolam 0.5 mg 03/12/23 12:21 Alprazolam 0.5 Mg Tab PO Q6HR PRN Moderate Anxiety Aspirin 325 mg 03/13/23 09:00 Aspirin 325 Mg Tab PO DAILY [facility] Aspirin 325 mg 03/12/23 12:21 Aspirin 325 Mg Tab PO 03/12/23 12:22 ONCE STA Atorvastatin Calcium 40 mg 03/13/23 09:00 Atorvastatin 40 Mg Tab PO DAILY TAMIKA Atorvastatin Calcium 80 mg 03/12/23 12:21 Atorvastatin 80 Mg Tab PO 03/12/23 12:22 ONCE STA Heparin Sodium (Porcine) 0 unit 03/12/23 10:17 Heparin Sodium 1,000 Un/Ml (10ml Vl) IV Q6HR PRN Low PTT Protocol Heparin Sodium/Sodium Chloride 250 mls @ 10 mls/hr 03/12/23 10:30 03/12/23 11:59 25,000 unit/ Sodium Chloride IV 10.65 units/kg/hr .Q24H TAMIKA 10 mls/hr Administration Protocol 10.65 UNITS/KG/HR Heparin Sodium (Porcine) 10, 1,001 mls @ 999 mls/hr 03/13/23 07:00 000 unit/ Sodium Chloride IRRIGATION 03/13/23 23:00 ONCE PRN INTRA-OP Heparin Sodium (Porcine) 2,500 250.5 mls @ 250 mls/hr 03/13/23 07:00 unit/ Sodium Chloride IRRIGATION 03/13/23 23:00 ONCE PRN INTRA-OP Insulin Human Lispro 0 unit 03/12/23 10:30 03/12/23 12:10 Insulin Lispro (For Pump) 100 Unit/Ml Vial SQ-PUMP 0.95 unit CONTINUOUS TAMIKA Administration Nitroglycerin 0.4 mg 03/12/23 10:17 Nitroglycerin Sl Tabs 0.4 Mg Tab SUBLINGUAL Q5M PRN Chest Pain Nitroglycerin 0.4 mg 03/12/23 12:21 Nitroglycerin Sl Tabs 0.4 Mg Tab SUBLINGUAL Q5M PRN Chest Pain Non-Formulary Medication 0.01 unit 03/12/23 12:15 03/12/23 12:17 Insulin Aspart (For Pump) [Novolog (For Pump)] SQ 0.01 unit CONTINUOUS TAMIKA Administration Pantoprazole Sodium 40 mg 03/13/23 07:30 Pantoprazole 40 Mg Tablet PO AC-BRKFST TAMIKA Pregabalin 200 mg 03/12/23 10:18 Pregabalin 100 Mg Cap PO TID PRN Pain Intake and Output 03/11/23 03/12/23 03/12/23 22:59 06:59 14:59 Other: Weight 93.894 kg Patient Weight 03/13/23 06:59 Weight 93.894 kg 03/12/23 08:19 03/12/23 08:19
[2023-03-12] MEDS: SODIUM CHLORIDE 0.9% 1,000 ML IV SCH (13:02)
[2023-03-12] MEDS ORDERED: fentaNYL (PF) 50 MCG/ML 2 ML AMP ONE (13:47)
[2023-03-12] MEDS ORDERED: VERAPAMIL 2.5 MG/ML 2 ML AMP ONE (13:47)
[2023-03-12] MEDS ORDERED: HEPARIN SODIUM 1,000 UN/ML (10ML VL) ONE (13:47)
[2023-03-12] MEDS: fentaNYL (PF) 50 MCG/ML 2 ML AMP IVP ONE ×2 (14:03→14:08)
[2023-03-12] MEDS: MIDAZOLAM 2 MG/2 ML VIAL IVP ONE ×2 (14:03→14:08)
[2023-03-12] MEDS ORDERED: LIDOCAINE 1% INJ 10MG/ML (30 ML VIAL-PF) SQ ONE (14:04)
[2023-03-12] MEDS ORDERED: IV FLUID CONTINUATION 900 ML IV ONE (14:05)
[2023-03-12] MEDS ORDERED: VERAPAMIL SYRINGE (5 MG/10 ML) INTRAARTER ONE (14:05)
[2023-03-12] MEDS: HEPARIN SODIUM 1,000 UN/ML (10ML VL) IV ONE ×3 (14:09→14:57)
[2023-03-12] MEDS ORDERED: TICAGRELOR 90 MG TAB ONE (14:28)
[2023-03-12] MEDS ORDERED: TICAGRELOR 90 MG TAB PO ONE (14:31)
[2023-03-12] MEDS ORDERED: IOPAMIDOL-370 100ML BTL INJ ONE ×3 (14:34→14:44)
--- NOTE | 2023-03-12 14:54 | P.PRCINT ---
Percutaneous Coronary Int. - Percutaneous Coronary Intervention Percutaneous Coronary Intervention: PROCEDURES PERFORMED: Left heart catheterization, bilateral coronary angiography, ultrasound guided arterial access, iFR diagonal 1, PCI diagonal 1 with a 2.5 x 15mm Xience FAUSTO, post dilated with a 2.5 NC balloon INDICATION: Chest pain with exertion concerning for unstable angina CONSENT:I have discussed the risks, benefits and alternative therapies for the above-mentioned procedure and for both sedation/analgesia as well as necessary blood product administration, if indicated, as they pertain to this patient. The patient has indicated understanding and acceptance of the risks and procedures discussed. PROCEDURE: After the risks, benefits and alternatives of the above mentioned procedure explained in detail with the patient, informed consent was obtained. Patient was taken to the catheterization lab and prepped and draped in usual fashion. Ultrasound guidance was used to assess for arterial access. 1% lidocaine was used to anesthetize the right radial artery. A 6-Sudanese sheath was placed in the right radial artery using modified Seldinger technique and ultrasound guidance. Left coronary angiography was performed with a 5-Sudanese JL 3.5 catheter and right coronary angiography was performed with a 5-Sudanese JR5 catheter in various views. A 5-Sudanese FR5 catheter was inserted into the left ventricle and pressure measurements were obtained. The decision was made to perform iFR of the diagonal 1 branch. Heparin was given for ACT greater than 250. A 6-Sudanese CLS 3.0 guide was used to engage the left main. A 0.014 pressure wire was advanced in the left main and normalize. Was then advanced into the mid diagonal 1 branch and iFR was performed and was abnormal at 0.86. Therefore the decision was made to perform PCI. A 0.014 BMW wire was advanced to the distal diagonal 1 branch. Predilation was performed with a 2.0 x 8 mm balloon. Next a 2.5 x 15 mm Xience FAUSTO was placed in the proximal diagonal 1 branch. The stent was postdilated with a 2.5 noncompliant balloon. Final angiograms were performed. Preintervention there was 80% stenosis with MARCELA 3 flow and postintervention there was less than 10% stenosis with MARCELA 3 flow. The right radial sheath was removed and a TR band was placed with hemostasis achieved. The patient tolerated the procedure well. Patient was transported back to the post catheterization holding area in stable condition. Conscious Sedation: Patient was monitored under the direct supervision of myself for conscious sedation using Versed and fentanyl for a total duration of 42 minutes HEMODYNAMICS: Aorta: 103/60 LV: 113/3, LVEDP 11 SELECTIVE CORONARY ARTERIOGRAPHY: LEFT MAIN: The left main is a large caliber vessel which bifurcates into the LAD and circumflex. There is no significant stenosis. LEFT ANTERIOR DESCENDING CORONARY ARTERY: LAD is a large caliber vessel which wraps around to the apex. There are mild luminal irregularities of LAD. Diagonal 1 is a small to moderate caliber branch with a proximal 80% stenosis. LEFT CIRCUMFLEX CORONARY ARTERY: Left circumflex is a moderate caliber vessel with mild luminal irregularities RIGHT CORONARY ARTERY: The right coronary artery is a large caliber vessel which gives off a PDA and PLV branch and is the dominant vessel. There is a mid RCA 30-40% stenosis and otherwise relatively normal. FINAL IMPRESSION: 1. CAD as described above including 30-40% RCA stenosis and diagonal 1 80% stenosis 2. Normal left sided filling pressures 3. Symptoms and findings consistent with unstable angina 4. Status post PCI diagonal 1 with a 2.5 x 15mm Xience FAUSTO, post dilated with a 2.5 NC balloon PLAN: 1. Aggressive risk factor modification per most recent ACC/AHA guidelines. 2. Continue dual antiplatelets with aspirin and Brillinta for 12 months.
--- NOTE | 2023-03-12 16:45 | P.HPIM ---
History of Present Illness H&P Date: 03/12/23 Chief Complaint: Chest pain 52-year-old woman with history of hypertension, diabetes, hyperlipidemia, BKA, family history of early coronary disease presented for evaluation of chest pain. 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 She has been experiencing intermittent chest pain which is worse with exertion and relieved with rest for several weeks. She presently reports mild chest discomfort at rest, denies palpitations. Denies fevers, chills, nausea, vomiting, syncope, recently, cough, dyspnea, abdominal pain, constipation, diarrhea, dysuria, numbness/weakness of extremities beyond baseline. Emergency, patient is afebrile, 130/65, heart rate 98, 98% on room air. CBC is unremarkable. Basic metabolic panel is unremarkable. Liver function tests unremarkable. Troponin was less than 0.012 than trended less than 0.012 on repeat. Coags are unremarkable. D-dimer is 0.67. EKG showed normal sinus rhyt hm with normal axis, no evidence of active ischemia. Chest x-ray showed normal- sized heart, clear breath bilaterally. Case is discussed with the emergency room provider incision was made with the patient's hospital for further evaluation. All Systems reviewed and pertinent positives and negatives noted in HPI, all other symptoms are negative Gen: in no apparent distress, resting comfortably in bed Eyes: PERRL, no scleral injection or icterus HENT: normocephalic, atraumatic, good hearing acuity, moist mucous membranes Neck: no tracheal deviation, full range of motion Resp: good air exchange, breathing comfortably with no accessory muscle use, no tactile fremitus CVS: good distal perfusion x 4, no pitting edema GI: soft, NTTP, ND, no hepatosplenomegaly : no suprapubic tenderness, no CVAT, sullivan catheter not present MSK: no clubbing, no cyanosis, no noted contractures of extremities Skin: no noted rashes, petechiae; temperature of skin is appropriate Neuro: moving all extremities without signs of weakness, CN II-XII intact Psych: cooperative, euthymic mood, insight and judgment intact Labs and imaging as above Assessment: Unstable angina Hypertension Hyperlipidemia Diabetes with diabetic neuropathy History of BKA Plan: Vital signs reviewed and noted in the HPI Lab work reviewed and noted in the HPI EKG and CXR are personally interpreted and noted in the HPI Case was discussed with the Emergency Room provider and decision was made to admit the patient for unstable angina Cardiology consult appreciated Nothing by mouth for left heart cath Aspirin, statin, metoprolol Trended troponins Heparin drip, follow PTT for toxicity EKG when necessary Telemetry Lipid panel, A1c, TSH Echocardiogram Patient is full code Past Medical History Past Medical History: Diabetes Mellitus, Eye Disorder, GERD/Reflux, Neurologic Disorder Additional Past Medical History / Comment(s): dysphygia, severe hearburn with na usea, neuropathy hands/feet, Legally Blind, Back and stump pain, (left leg) prosthesis left leg, past hx of anemia, HIATAL HERNIA History of Any Multi-Drug Resistant Organisms: MRSA Date of last positivie culture/infection: 2010 MDRO Source:: scalp scrape from nail Past Surgical History: Back Surgery, Cholecystectomy, Hysterectomy, Joint Replacement, Orthopedic Surgery, Tonsillectomy Additional Past Surgical History / Comment(s): left below knee amputation-uses prosthesis, lt knee joint replacement, all toes on rt foot amputated, laser surgery eyes, EGD w/ dilatation, COLONOSCOPY Past Anesthesia/Blood Transfusion Reactions: No Reported Reaction Additional Past Anesthesia/Blood Transfusion Reaction / Comment(s): no hx of problems with prior blood transfusion Past Psychological History: Anxiety Smoking Status: Never smoker Past Alcohol Use History: Rare Past Drug Use History: Marijuana - Past Family History Mother Family Medical History: No Reported History Medications and Allergies Home Medications Medication Instructions Recorded Confirmed Type HYDROcodone/APAP 10-325MG [[place] 1 tab PO TID 01/14/16 03/12/23 History 10-325] Ascorbic Acid/Multivit-Min 1,000 mg PO DAILY 11/10/16 03/12/23 History [Emergen-C 1,000 mg Packet] Atorvastatin [Lipitor] 40 mg PO DAILY 05/06/22 03/12/23 History Ergocalciferol [Vitamin D2 (1250 1,250 mcg PO TH 05/06/22 03/12/23 History Mcg = 77392 Iu)] Aspirin EC [Ecotrin Low Dose] 81 mg PO DAILY 03/12/23 03/12/23 History Insulin Aspart (For Pump) [NovoLOG 0.01 unit SQ-PUMP CONTINUOUS 03/12/23 03/12/23 History (For Pump)] Linaclotide [Linzess] 145 mcg PO DAILY 03/12/23 03/12/23 History Metoprolol Succinate (ER) [Toprol 25 mg PO DAILY 03/12/23 03/12/23 History Xl] Nitroglycerin Sl Tabs [Nitrostat] 0.4 mg SUBLINGUAL Q5M PRN 03/12/23 03/12/23 History Leonarda Supplement 1 tab PO DAILY 03/12/23 03/12/23 History Allergies Allergy/AdvReac Type Severity Reaction Status Date / Time ceftriaxone sodium Allergy Anaphylaxis Verified 03/12/23 10:43 [From Rocephin] propoxyphene napsylate AdvReac Rash/Hives Verified 03/12/23 10:43 [From Darvocet-N] pink dye Allergy Swelling Uncoded 03/12/23 10:43 steroids AdvReac extreme Uncoded 03/12/23 10:43 elevated blood sugar 1600 Physical Exam Osteopathic Statement: *. No significant issues noted on an osteopathic structural exam other than those noted in the History and Physical/Consult. Vitals: Vital Signs Temp Pulse Resp BP Pulse Ox 03/12/23 12:00 82 18 116/71 98 03/12/23 10:50 77 18 132/77 98 03/12/23 09:11 73 18 165/88 99 03/12/23 07:43 98.4 F 98 18 130/65 98 Intake and Output 03/12/23 03/12/23 03/12/23 06:59 14:59 22:59 Intake Total 200 Balance 200 Intake: IV 200 Other: Weight 93.894 kg Results CBC & Chem 7: 03/12/23 08:19 03/12/23 08:19 Labs: Abnormal Lab Results - Last 24 Hours (Table) 03/12/23 03/12/23 03/12/23 Range/Units 08:19 08:19 08:19 RBC 3.77 L (3.80-5.40) m/uL Eosinophils # 1.1 H (0-0.7) k/uL APTT 21.8 L (22.0-30.0) sec D-Dimer 0.67 H (<0.60) mg/L FEU BUN 25 H (7-17) mg/dL Glucose 131 H (74-99) mg/dL 03/12/23 Range/Units 11:05 RBC (3.80-5.40) m/uL Eosinophils # (0-0.7) k/uL APTT 21.9 L (22.0-30.0) sec D-Dimer (<0.60) mg/L FEU BUN (7-17) mg/dL Glucose (74-99) mg/dL
[2023-03-13] MEDS ORDERED: PANTOPRAZOLE 40 MG TABLET PO SCH (07:30)
[2023-03-13 08:03] VITALS: BP 120/76; PULSE 75; RESP 16; TEMP 97.6
[2023-03-13] MEDS: SODIUM CHLORIDE 0.9% 1,000 ML IV SCH (08:18)
[2023-03-13] MEDS ORDERED: NITROGLYCERIN SL TABS 0.4 MG TAB SUBLINGUAL PRN (08:48)
[2023-03-13] MEDS ORDERED: RX INFO: IV CONTRAST WAS GIVEN 1 EACH MISC MISCELLANE PRN (08:48)
[2023-03-13] MEDS ORDERED: ZOLPIDEM 5 MG TAB PO PRN (08:48)
[2023-03-13] MEDS ORDERED: MAG HYDROX/AL HYDROX/SIMETH 30 ML CUP PO PRN (08:48)
[2023-03-13] MEDS ORDERED: ATROPINE SULFATE 0.1 MG/ML 10ML SYRINGE IV PRN (08:48)
[2023-03-13] MEDS ORDERED: ATORVASTATIN 40 MG TAB PO SCH (09:00)
[2023-03-13] MEDS ORDERED: TICAGRELOR 90 MG TAB PO SCH (09:00)
[2023-03-13] MEDS ORDERED: ASPIRIN 325 MG TAB PO SCH (09:00)
[2023-03-13] MEDS ORDERED: METOPROLOL SUCCINATE (ER) 25 MG TAB.ER.24H PO SCH (09:00)
[2023-03-13] MEDS ORDERED: ASPIRIN 81 MG PO SCH (09:00)
--- NOTE | 2023-03-13 09:07 | P.PN ---
Subjective Progress Note Date: 03/13/23 History of present illness: This is a 52 year old female patient of Dr. Knott with past medical history diabetes mellitus type 1 since age of 12, hyperlipidemia, diabetic neuropathy, gastritis, gastroparesis, prior below the knee amputation, prior right toes amputation, family history of premature coronary artery disease. Patient was established in the office on 03/09/2023 and at that time was having episodes of shortness of breath and heart racing with minimal activity and worsening. We have been asked to evaluate the patient for chest pain. Patient states that she has had chest pain on and off throughout the night and eases off a little bit when she relaxes. It's in the upper area and she does have some pain in the right side of her neck. The neck pain has been going on for 5 days but does occur along with the chest pain. She also has shortness of breath, dizziness and sweating. Patient was being scheduled for cardiac catheterization and this is been moved up to be completed today. EKG sinus rhythm with no acute ST changes. Chest x-ray: No acute process WBC 5.5, hemoglobin 11.8, platelet count 227. INR 0.9. D-dimer 0.67. Electrolytes normal. BUN 25 creatinine 0.86. Blood sugar 131. Troponins negative 2. Magnesium 1.8. Liver function tests are normal. ProBNP 93. Home cardiac medications: Aspirin 81 mg daily, atorvastatin 40 mg daily, Toprol- XL 25 mg daily, Nitrostat as needed. Echocardiogram performed in 2017 revealed normal EF Lexiscan stress test performed in 2017 revealed normal EF and no ischemia. 03/13 Yesterday, patient underwent cardiac catheterization with Dr. Knott which revealed 30-40% RCA stenosis and diagonal one 80% stenosis status post PCI of the diagonal one. Patient to be on aspirin implant for 12 months. Blood pressure is 128/65, heart rate 60s and 70s. Patient's been afebrile. Patient denies having any chest pain, no shortness of breath, no palpitations. She denies lightheadedness or dizziness. Physical examination: Gen: This is a 52-year-old female resting on ER stretcher and appears to be comfortable and in no acute distress VS: reviewed HEENT: Head is atraumatic, normocephalic. Pupils equal, round. Sclerae is anicteric. NECK: Supple. No JVD. LUNGS: Clear to auscultation. No wheezes or rhonchi. No intercostal ret ractions. HEART: Regular rate and rhythm. No murmur. ABDOMEN: Soft No tenderness. EXTREMITIES: Prosthesis to the left lower extremity in place. No pedal edema on the right. No calf tenderness. NEUROLOGICAL: Patient is awake, alert and oriented x3. 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 Knott in 1 week. Nurse practitioner note has been reviewed, I agree with documented findings and plan of care. Patient was seen and examined. Objective - Vital Signs Vital signs: Vital Signs Temp 98.4 F 03/13/23 02:42 Pulse 69 03/13/23 02:42 Resp 15 03/13/23 02:42 BP 128/65 03/13/23 02:42 Pulse Ox 97 03/13/23 02:42 FiO2 Intake & Output 03/12/23 03/13/23 03/13/23 18:59 06:59 18:59 Intake Total 200 Balance 200 Weight 93.894 kg Intake: IV 200 Other: Voiding Method Toilet # Voids 2 - Labs CBC & Chem 7: 03/12/23 08:19 03/12/23 08:19 Labs: Abnormal Lab Results - Last 24 Hours (Table) 03/12/23 03/12/23 03/12/23 Range/Units 08:19 08:19 08:19 RBC 3.77 L (3.80-5.40) m/uL Eosinophils # 1.1 H (0-0.7) k/uL APTT 21.8 L (22.0-30.0) sec D-Dimer 0.67 H (<0.60) mg/L FEU BUN 25 H (7-17) mg/dL Glucose 131 H (74-99) mg/dL 03/12/23 03/12/23 Range/Units 11:05 17:48 RBC (3.80-5.40) m/uL Eosinophils # (0-0.7) k/uL APTT 21.9 L 52.1 H (22.0-30.0) sec D-Dimer (<0.60) mg/L FEU BUN (7-17) mg/dL Glucose (74-99) mg/dL
[2023-03-13 09:11] LABS: Blood Urea Nitrogen 25.3 mg/dL (9.0-27.0); Carbon Dioxide 25.8 mmol/L (21.6-31.8); Chloride 107 mmol/L (96-109); Chol/HDL Ratio 3.25 Ratio; Glucose 127 mg/dL (70-110); LDL Cholesterol,Calculated 111.6 mg/dL (0.0-131.0); Magnesium 1.9 mg/dL (1.5-2.4); Potassium 4.8 mmol/L (3.5-5.5); Sodium 139 mmol/L (135-145)
[2023-03-13 09:49] LABS: Basophils # (A) 0.04 X 10*3/uL (0.00-0.10); Basophils % (A) 1.1 %; Eosinophils # (A) 0.62 X 10*3/uL (0.04-0.35); HCT 32.1 % (37.2-46.3); HGB 10.3 d/dL (12.0-15.0); Lymphocytes # (A) 0.98 X 10*3/uL (0.90-5.00); Lymphocytes % (A) 26.8 %; MCHC 32.1 d/dL (32.0-37.0); MCV 93.6 FL (80.0-97.0); Mean Platelet Volume 10.8 FL (9.5-12.2); NRBC Per 100 WBC 0 X 10*3/uL (0.00-0.01); Neutrophils % (A) 43.8 %; Platelet Count 220 X 10*3/uL (140-440); RBC 3.43 X 10*6/uL (4.10-5.20); RDW 14.4 % (11.5-14.5); WBC 3.65 X 10*3/uL (4.50-10.00)
--- NOTE | 2023-03-13 14:47 | P.DS ---
Providers Date of admission: 03/12/23 09:22 Expected date of discharge: 03/13/23 Attending physician: Nehemiah Mcnair MD Consults: 03/12/23 10:17 Consult Physician Urgent Consulting Provider: Quinton Knott Consult Reason/Comments: chest pain Do you want consulting provider notified?: Yes 03/13/23 08:48 Consult Physician Routine Consulting Provider: [facility] Consult Reason/Comments: Post Interventional Patient Do you want consulting provider notified?: Already Contacted Primary care physician: PURA Mazariegos Hospital Course: Unstable angina Hypertension Hyperlipidemia Diabetes with diabetic neuropathy History of BKA Hospital Course: 52-year-old woman with history of hypertension, diabetes, hyperlipidemia, BKA, family history of early coronary disease presented for evaluation of chest pain. In the Emergency room, patient is afebrile, 130/65, heart rate 98, 98% on room air. CBC is unremarkable. Basic metabolic panel is unremarkable. Liver function tests unremarkable. Troponin was less than 0.012 than trended less than 0.012 on repeat. Coags are unremarkable. D-dimer is 0.67. EKG showed normal sinus rhythm with normal axis, no evidence of active ischemia. Chest x- ray showed normal-sized heart, clear breath bilaterally. Case is discussed with the emergency room provider and decision was made with the patient's hospital for further evaluation. Pt underwent LHC and was noted to have disease of 80% occlusion in OM1, she was stented. She was discharged home today with DAPT and f/u with cardiology. I spent 33 minutes coordinating this discharge on 03/13 Gen: in no apparent distress, resting comfortably in bed Eyes: PERRL, no scleral injection or icterus HENT: normocephalic, atraumatic, good hearing acuity, moist mucous membranes Neck: no tracheal deviation, full range of motion Resp: good air exchange, breathing comfortably with no accessory muscle use, no tactile fremitus CVS: good distal perfusion x 4, no pitting edema GI: soft, NTTP, ND, no hepatosplenomegaly : no suprapubic tenderness, no CVAT, sullivan catheter not present MSK: no clubbing, no cyanosis, no noted contractures of extremities Skin: no noted rashes, petechiae; temperature of skin is appropriate Neuro: moving all extremities without signs of weakness, CN II-XII intact Psych: cooperative, euthymic mood, insight and judgment intact Patient Condition at Discharge: Good Plan - Discharge Summary Discharge Rx Participant: Yes New Discharge Prescriptions: New Ticagrelor [Brilinta] 90 mg PO BID #180 tab Continue HYDROcodone/APAP 10-325MG [[place] 10-325] 1 tab PO TID Ascorbic Acid/Multivit-Min [Emergen-C 1,000 mg Packet] 1,000 mg PO DAILY Ergocalciferol [Vitamin D2 (1250 Mcg = 00479 Iu)] 1,250 mcg PO TH Atorvastatin [Lipitor] 40 mg PO DAILY Nitroglycerin Sl Tabs [Nitrostat] 0.4 mg SUBLINGUAL Q5M PRN PRN Reason: Chest Pain Leonarda Supplement 1 tab PO DAILY Linaclotide [Linzess] 145 mcg PO DAILY Insulin Aspart (For Pump) [NovoLOG (For Pump)] 0.01 unit SQ-PUMP CONTINUOUS Metoprolol Succinate (ER) [Toprol XL] 25 mg PO DAILY Aspirin EC [Ecotrin Low Dose] 81 mg PO DAILY Discharge Medication List HYDROcodone/APAP 10-325MG [[place] 10-325] 1 tab PO TID 01/14/16 [History] Ascorbic Acid/Multivit-Min [Emergen-C 1,000 mg Packet] 1,000 mg PO DAILY 11/10/16 [History] Atorvastatin [Lipitor] 40 mg PO DAILY 05/06/22 [History] Ergocalciferol [Vitamin D2 (1250 Mcg = 88135 Iu)] 1,250 mcg PO TH 05/06/22 [History] Aspirin EC [Ecotrin Low Dose] 81 mg PO DAILY 03/12/23 [History] Insulin Aspart (For Pump) [NovoLOG (For Pump)] 0.01 unit SQ-PUMP CONTINUOUS 03/12/23 [History] Linaclotide [Linzess] 145 mcg PO DAILY 03/12/23 [History] Metoprolol Succinate (ER) [Toprol XL] 25 mg PO DAILY 03/12/23 [History] Nitroglycerin Sl Tabs [Nitrostat] 0.4 mg SUBLINGUAL Q5M PRN 03/12/23 [History] Leonarda Supplement 1 tab PO DAILY 03/12/23 [History] Ticagrelor [Brilinta] 90 mg PO BID #180 tab 03/13/23 [Rx] Follow up Appointment(s)/Referral(s): Quinton Knott DO [STAFF PHYSICIAN] - 03/24/23 10:15 am Shayna Bustos NPC [Primary Care Provider] - 1-2 days Patient Instructions/Handouts: *[facility]gery [facility] - After Heart Catheterization - Cutlery Grinder Instructions, Heart Catheterization (DC) Discharge Disposition: HOME SELF-CARE
[2023-03-13] MEDS ORDERED: ATORVASTATIN 80 MG TAB PO SCH (21:00)
--- NOTE | 2023-03-14 10:52 | CA ---
Transthoracic Echo Report Name: Lizy Upton Age: 52 Gender: F : 1970 Exam Date: 03/13/2023 09:04 Exam Location: [facility] Ht (in): 71 Wt (lb): 207 Ordering Physician: Maia Delcid Attending/Referring Phys: [id number], Bhavin Progressive Care Nurse Vandana Muller RDCS Procedure CPT: Indications: LVF Cardiac Hx: Technical Quality: Fair Contrast 1: Total Dose (mL): Contrast 2: Total Dose (mL): MEASUREMENTS (Male / Female) Normal Values 2D ECHO LV Diastolic Diameter PLAX 4.2 cm 4.2 - 5.9 / 3.9 - 5.3 cm LV Systolic Diameter PLAX 2.2 cm IVS Diastolic Thickness 1.1 cm 0.6 - 1.0 / 0.6 - 0.9 cm LVPW Diastolic Thickness 1.0 cm 0.6 - 1.0 / 0.6 - 0.9 cm LV Relative Wall Thickness 0.5 RV Internal Dim ED PLAX 2.8 cm LA Volume 48.9 cm??? 18 - 58 / 22 - 52 cm??? LA Volume Index 22.3 cm???/m??? 16 - 28 cm???/m??? M-MODE Aortic Root Diameter MM 2.5 cm LA Systolic Diameter MM 3.5 cm LA Ao Ratio MM 1.4 AV Cusp Separation MM 1.8 cm DOPPLER AV Peak Velocity 134.3 cm/s AV Peak Gradient 7.2 mmHg AV Mean Velocity 96.6 cm/s AV Mean Gradient 4.1 mmHg AV Velocity Time Integral 30.2 cm LVOT Peak Velocity 135.8 cm/s LVOT Peak Gradient 7.4 mmHg LVOT Velocity Time Integral 31.8 cm MV Area PHT 2.5 cm??? Mitral E Point Velocity 76.8 cm/s Mitral A Point Velocity 85.3 cm/s Mitral E to A Ratio 0.9 MV Deceleration Time 301.4 ms MV E' Velocity 6.8 cm/s Mitral E to MV E' Ratio 11.3 TR Peak Velocity 208.8 cm/s TR Peak Gradient 17.4 mmHg Right Ventricular Systolic Press 22.3 mmHg FINDINGS Left Ventricle Mildly increased left ventricular wall thickness. Left ventricular cavity size normal. Normal left ventricular systolic function with no obvious regional wall motion abnormalities. Left ventricular ejection fraction is estimated at 55-60 %. Right Ventricle Normal right ventricular size and function. Right ventricular systolic pressure within normal limits. Right Atrium Normal right atrial size. Left Atrium Normal left atrial size. Mitral Valve Structurally normal mitral valve. No mitral stenosis, regurgitation or prolapse. Aortic Valve Trileaflet aortic valve. No aortic valve stenosis or regurgitation. Tricuspid Valve Structurally normal tricuspid valve. Mild tricuspid regurgitation. Pulmonic Valve Trace pulmonic regurgitation. Pericardium No pericardial effusion. Aorta Normal size aortic root and proximal ascending aorta. CONCLUSIONS Normal LV systolic function Previewed by: Dr. Deandre Darling MD (Electronically Signed) Final Date: 14 March 2023 10:51
== END 2023-03-13 11:28 | disposition home or self-care (01) ==
LOC: EC 07:38 → 6NMEDSUR 09:22
PROVIDERS: ADMIT Internal Medicine; ATTEND Internal Medicine
DX: I25.110 Atherosclerotic heart disease of native coronary artery with unstable angina pectoris (principal); I10 Essential (primary) hypertension; E10.43 Type 1 diabetes mellitus with diabetic autonomic (poly)neuropathy; K31.84 Gastroparesis; E10.42 Type 1 diabetes mellitus with diabetic polyneuropathy; E78.5 Hyperlipidemia, unspecified; K21.9 Gastro-esophageal reflux disease without esophagitis; M54.2 Cervicalgia; H54.8 Legal blindness, as defined in USA; K44.9 Diaphragmatic hernia without obstruction or gangrene; F41.9 Anxiety disorder, unspecified; Z79.1 Long term (current) use of non-steroidal anti-inflammatories (NSAID); Z79.82 Long term (current) use of aspirin; Z79.4 Long term (current) use of insulin; Z96.41 Presence of insulin pump (external) (internal); Z91.048 Other nonmedicinal substance allergy status; Z79.899 Other long term (current) drug therapy; Z88.1 Allergy status to other antibiotic agents; Z88.5 Allergy status to narcotic agent; Z88.8 Allergy status to other drugs, medicaments and biological substances; Z89.512 Acquired absence of left leg below knee; Z86.2 Personal history of diseases of the blood and blood-forming organs and certain disorders involving the immune mechanism; Z97.14 Presence of artificial left leg (complete) (partial); Z86.14 Personal history of Methicillin resistant Staphylococcus aureus infection; Z96.652 Presence of left artificial knee joint; Z90.49 Acquired absence of other specified parts of digestive tract; Z87.19 Personal history of other diseases of the digestive system; Z89.421 Acquired absence of other right toe(s); Z90.710 Acquired absence of both cervix and uterus; Z98.890 Other specified postprocedural states; Z82.49 Family history of ischemic heart disease and other diseases of the circulatory system
CPT/HCPCS: 96376; 96365; 96366; 99285; 36415; 93005; 93306; 93571; 93458; 85379; 83880; 80061; 80053; 80048; 84443; 83735 ×2; 84484; 85025 ×2; 85610; 85730 ×2; 83036; 71046; G0378 ×2; C9600; C1769 ×3; C1887; C1894; C1725 ×2; C1874; J2250; J2001; J3010; J1644 ×2; Q9967

== ENCOUNTER 2024-10-05 11:27 | Inpatient (IN) | payer MEDICARE, OTHER ==
[2024-10-05 12:43] LABS: Glucose,Whole Blood 200 mg/dL (70-110)
[2024-10-05 12:51] LABS: Basophils # (A) 0.06 10*3/uL (0.00-0.10); Basophils % (A) 0.8 %; Eosinophils # (A) 0.04 10*3/uL (0.04-0.35); Eosinophils % (A) 0.5 %; HCT 37.8 % (37.2-46.3); HGB 13.1 g/dL (12.0-15.0); Immature Platelet Fraction 3.8 % (1.1-6.1); Lymphocytes # (A) 1.25 10*3/uL (0.90-5.00); Lymphocytes % (A) 16.3 %; MCH 31.2 pg (27.0-32.0); MCHC 34.7 g/dL (32.0-37.0); Mean Platelet Volume 11.1 fL (9.5-12.2); Monocytes # (A) 0.84 10*3/uL (0.20-1.00); Monocytes % (A) 10.9 %; Neutrophils # (A) 5.46 10*3/uL (1.80-7.70); Neutrophils % (A) 71.1 %; WBC 7.68 10*3/uL (4.50-10.00)
[2024-10-05] MEDS: SODIUM CHLORIDE 0.9% 1,000 ML IV SCH (12:52)
[2024-10-05] MEDS: ONDANSETRON 4 MG/2 ML VIAL IVP STA (12:53)
[2024-10-05] MEDS: MORPHINE SULFATE 4 MG/ML SYRINGE IVP STA (12:53)
[2024-10-05] MEDS: PANTOPRAZOLE 40 MG/10 ML VIAL IVP STA (12:54)
[2024-10-05 13:04] LABS: ALT 15 U/L (4-34); African American GFR (CKD) 39 (>60 ml/min/1.73 sqM); Albumin 3.8 g/dL (3.5-5.0); Amylase 46 U/L (30-110); Blood Urea Nitrogen 49 mg/dL (7-17); Chloride 79 mmol/L (98-107); Glucose 210 mg/dL (74-99); Lipase 33 U/L (23-300); Non-African American GFR(CKD) 34 (>60 ml/min/1.73 sqM); Sodium 135 mmol/L (137-145); Total Bilirubin 0.9 mg/dL (0.2-1.3); Total Protein 6.9 g/dL (6.3-8.2)
[2024-10-05 13:07] LABS: VBG PH 7.59 (7.31-7.41)
[2024-10-05 13:12] LABS: Anion Gap 12 mmol/L
[2024-10-05 13:19] LABS: AST 34 U/L (14-36); Alkaline Phosphatase 65 U/L (38-126); Potassium 3.2 mmol/L (3.5-5.1)
--- NOTE | 2024-10-05 13:19 | ED ---
General Adult HPI - General Chief complaint: Nausea/Vomiting/Diarrhea Stated complaint: Diabetic Issue Time Seen by Provider: 10/05/24 12:29 Source: patient, EMS, RN notes reviewed, old records reviewed Mode of arrival: EMS Limitations: no limitations - History of Present Illness Initial comments: Patient is a 54-year-old female with past medical history remarkable for type 1 diabetes who presents emergency department complaining of multiple complaints. Patient has been had a productive cough, nasal congestion of green mucus for a few days to a week. Patient also has been dealing with abdominal pain, chronic constipation which seems worse. She has had some nonbilious nonbloody emesis as well as nonbloody looser stools. Patient states her sugars have mostly been normal but today they were over 200. Remote history of DKA. No known sick contacts. Has had a cholecystectomy as well as hysterectomy previously. Denies any chest pain. Denies any urinary complaints. Presents for further evaluation at this time. States she is having generalized abdominal discomfort, primarily in the lower quadrants. - Related Data Home Medications Medication Instructions Recorded Confirmed HYDROcodone/APAP 10-325MG [[place] 1 tab PO TID PRN 01/14/16 10/05/24 10-325] Atorvastatin [Lipitor] 40 mg PO DAILY 05/06/22 10/05/24 Ergocalciferol [Vitamin D2 (1250 1,250 mcg PO TH 05/06/22 10/05/24 Mcg = 50689 Iu)] Insulin Aspart (For Pump) [NovoLOG 0.01 unit SQ-PUMP CONTINUOUS 03/12/23 0 10/05/24 (For Pump)] Metoprolol Succinate (ER) [Toprol 25 mg PO DAILY 03/12/23 10/05/24 XL] Nitroglycerin Sl Tabs [Nitrostat] 0.4 mg SUBLINGUAL Q5M PRN 03/12/23 10/05/24 Eszopiclone [Lunesta] 3 mg PO HS 10/05/24 10/05/24 Famotidine 40 mg PO DAILY 10/05/24 10/05/24 Omeprazole 40 mg PO DAILY 10/05/24 10/05/24 Sertraline [Zoloft] 100 mg PO DAILY 10/05/24 10/05/24 traZODone HCL [Desyrel] 50 mg PO HS 10/05/24 10/05/24 Previous Rx's Medication Instructions Recorded Ticagrelor [Brilinta] 90 mg PO BID #180 tab 03/13/23 Allergies Allergy/AdvReac Type Severity Reaction Status Date / Time ceftriaxone sodium Allergy Anaphylaxis Verified 10/05/24 12:05 [From Rocephin] propoxyphene napsylate AdvReac Rash/Hives Verified 10/05/24 12:05 [From Darvocet-N] pink dye Allergy Swelling Uncoded 10/05/24 12:05 steroids AdvReac extreme Uncoded 10/05/24 12:05 elevated blood sugar 1600 Review of Systems ROS Statement: Those systems with pertinent positive or pertinent negative responses have been documented in the HPI. Review of Systems: CONST: Denies fever EYES: Denies blurry vision ENT: Denies nasal congestion C/V: Denies Chest pain RESP: Endorses productive cough GI: Endorses abdominal pain : Denies dysuria SKIN: Denies rash. MSK: Denies joint pain. NEURO: Denies headache ROS Other: All systems not noted in ROS Statement are negative. Past Medical History Past Medical History: Diabetes Mellitus, Eye Disorder, GERD/Reflux, Neurologic Disorder Additional Past Medical History / Comment(s): dysphygia, severe hearburn with nausea, neuropathy hands/feet, Legally Blind, Back and stump pain, (left leg) prosthesis left leg, past hx of anemia, HIATAL HERNIA History of Any Multi-Drug Resistant Organisms: None Reported, MRSA Date of last positivie culture/infection: 2010 MDRO Source:: scalp scrape from nail Past Surgical History: Back Surgery, Cholecystectomy, Hysterectomy, Joint Replacement, Orthopedic Surgery, Tonsillectomy Additional Past Surgical History / Comment(s): left below knee amputation-uses prosthesis, lt knee joint replacement, all toes on rt foot amputated, laser surgery eyes, EGD w/ dilatation, COLONOSCOPY Past Anesthesia/Blood Transfusion Reactions: No Reported Reaction Additional Past Anesthesia/Blood Transfusion Reaction / Comment(s): no hx of problems with prior blood transfusion Past Psychological History: Anxiety Smoking Status: Never smoker Past Alcohol Use History: Rare Past Drug Use History: Marijuana - Past Family History Mother Family Medical History: No Reported History General Exam - General Exam Comments Initial Comments: General: Appears in no acute distress. HEAD: Normal with no signs of head trauma. EYES: EOMI ENT: Hearing grossly intact, normal oropharynx. Mucous membranes RESPIRATORY: Clear breath sounds bilaterally. No wheezes, rales, or rhonchi. No hypoxia on room air. C/V: Regular rate and rhythm. S1 and S2 auscultated, no edema, peripheral pulses 2+ and intact throughout ABD: Abdomen soft, nondistended. Tender in the bilateral lower quadrants guarding. No rebound tenderness. No peritoneal signs. EXT: Normal range of motion, no obvious deformity SKIN: No rashes or lesions observed on exposed skin. NEURO: Alert and oriented x 4. Limitations: no limitations Course Vital Signs 10/05/24 10/05/24 10/05/24 11:30 11:37 13:11 Temperature 97.6 F Pulse Rate 102 H 93 Respiratory 16 18 Rate Blood Pressure 152/89 153/85 O2 Sat by Pulse 87 L 96 97 Oximetry 10/05/24 10/05/24 10/05/24 15:03 17:41 19:43 Temperature 97.9 F Pulse Rate 94 105 H 101 H Respiratory 16 20 17 Rate Blood Pressure 157/89 139/82 144/83 O2 Sat by Pulse 96 93 L 97 Oximetry Medical Decision Making - Medical Decision Making Was pt. sent in by a medical professional or institution (, PA, CONTROL ANALYST, urgent care, hospital, or half-way...) When possible be specific @ -No Did you speak to anyone other than the patient for history (EMS, parent, family, police, friend...)? What history was obtained from this source @ -No Did you review nursing and triage notes (agree or disagree)? Why? @ -I reviewed and agree with nursing and triage notes Were old charts reviewed (outside hosp., previous admission, EMS record, old EKG, old radiological studies, urgent care reports/EKG's, half-way records)? Report findings @ -No old charts were reviewed Differential Diagnosis (chest pain, altered mental status, abdominal pain women, abdominal pain men, vaginal bleeding, weakness, fever, dyspnea, syncope, headache, dizziness, GI bleed, back pain, seizure, CVA, palpatations, mental health, musculoskeletal)? @ -Differential Abdominal Pain Women: Appendicitis, Cholecystitis, diverticulosis, ischemic bowel, pancreatitis, hepatitis, UTI, gastroenteritis, AAA, incarcerated hernia, bowel obstruction, constipation, inflammatory bowel, hepatitis, peptic ulcer disease, splenic infarction, perforated viscus, vulvitis, ovarian torsion, PID, kidney stone, placenta abruption, this is not meant to be an all-inclusive list EKG interpreted by me (3pts min.). @ -As above X-rays interpreted by me (1pt min.). @ -Chest x-ray reveals possible viral bronchitis. CT interpreted by me (1pt min.). @ -CT abdomen pelvis without contrast negative for any obvious acute process. U/S interpreted by me (1pt. min.). @ -None done What testing was considered but not performed or refused? (CT, X-rays, U/S, labs)? Why? @ -None What meds were considered but not given or refused? Why? @ -None Did you discuss the management of the patient with other professionals (professionals i.e. , PA, CONTROL ANALYST, lab, RT, psych nurse, social media sr strategy manager, wildland fire fighter, teacher, parking enforcement officer, pillowcase maker)? Give summary @ -Discussed with Dr. Galvin, on-call nephrology who is agreement with plan for fluid hydration and continued monitoring. Discussed with admitting provider, VIRAJ whitt who accepted the admission. Was smoking cessation discussed for >3mins.? @ -No Was critical care preformed (if so, how long)? @ -No Were there social determinants of health that impacted care today? How? (Homelessness, low income, unemployed, alcoholism, drug addiction, transportation, low edu. Level, literacy, decrease access to med. care, detention, rehab)? @ -No Was there de-escalation of care discussed even if they declined (Discuss DNR or withdrawal of care, Hospice)? DNR status @ -No What co-morbidities impacted this encounter? (DM, HTN, Smoking, COPD, CAD, Cancer, CVA, ARF, Chemo, Hep., AIDS, mental health diagnosis, sleep apnea, morbid obesity)? @ -Insulin-dependent diabetes Was patient admitted / discharged? Hospital course, mention meds given and route, prescriptions, significant lab abnormalities, going to OR and other pertinent info. @ -Patient presents with nausea, vomiting, diarrhea with abdominal pain. Also URI symptoms. We will obtain general workup including ruling out DKA. She was in agreement this plan. Vital signs within acceptable limits.. Patient will be administered IV fluids. She is also given IV Zofran for nausea. Vital signs are within acceptable limits. EKG shows no signs of acute ischemia. CT abdomen/pelvis revealed negative for any obvious acute findings. Chest x- ray shows suspected bronchitis which is likely viral. Labs remarkable for hypokalemia at 3.2, and AKUA with a BUN of 49 and creatinine of 1.68, as well as hypercalcemia of 18.8. This was confirmed on repeat labs. Made to the workup unremarkable. Does not appear she is in DKA. I discussed results with the patient. I do believe hypercalcemia likely related to dehydration and we will obtain repeat labs in the morning. Ionized calcium ordered. Patient administered additional IV fluids and placed on maintenance infusion. I discussed with the on-call driver examiner, Dr. Galvin who was in agreement this plan will trend the labs. Patient administered potassium as well as for the hypokalemia. She will be admitted for further care. Patient was in agreement this plan. I spoke with the admitting provider, [facility] Whitt who accepted the admission. Undiagnosed new problem with uncertain prognosis? @ -No Drug Therapy requiring intensive monitoring for toxicity (Heparin, Nitro, Ins ulin, Cardizem)? @ -No Were any procedures done? @ -No Diagnosis/symptom? @ -AKUA, nausea and vomiting and diarrhea, hypokalemia, hypercalcemia likely secondary to dehydration Acute, or Chronic, or Acute on Chronic? @ -Acute Uncomplicated (without systemic symptoms) or Complicated (systemic symptoms)? @ -Complicated Side effects of treatment? @ -No Exacerbation, Progression, or Severe Exacerbation? @ -No Poses a threat to life or bodily function? How? (Chest pain, [place], [place], pneumonia, PE, COPD, DKA, ARF, appy, cholecystitis, CVA, Diverticulitis, Homicidal, Suicidal, threat to staff... and all critical care pts) @ -Yes - Lab Data Result diagrams: 10/05/24 12:41 10/05/24 14:14 Lab Results 10/05/24 10/05/24 10/05/24 Range/Units 12:41 12:41 12:41 WBC 7.68 (4.50-10.00) 10*3/uL RBC 4.20 (4.10-5.20) 10*6/uL Hgb 13.1 (12.0-15.0) g/dL Hct 37.8 (37.2-46.3) % MCV 90.0 (80.0-97.0) fL MCH 31.2 (27.0-32.0) pg MCHC 34.7 (32.0-37.0) g/dL Plt Count 199 (140-440) 10*3/uL MPV 11.1 (9.5-12.2) fL Immature Gran % (Auto) 0.4 % Neutrophils % 71.1 % Lymphocytes % 16.3 % Monocytes % 10.9 % Eosinophils % 0.5 % Basophils % 0.8 % Immature Gran # 0.03 (0.00-0.04) 10*3/uL Neutrophils # 5.46 (1.80-7.70) 10*3/uL Lymphocytes # 1.25 (0.90-5.00) 10*3/uL Monocytes # 0.84 (0.20-1.00) 10*3/uL Eosinophils # 0.04 (0.04-0.35) 10*3/uL Basophils # 0.06 (0.00-0.10) 10*3/uL Manual Slide Review Performed Immature Plt Fraction 3.8 (1.1-6.1) % RBC Morphology Normal PT (10.0-12.5) sec INR (<1.2) APTT (22.0-30.0) sec VBG pH (7.31-7.41) VBG pCO2 (37-51) mmHg VBG HCO3 (24-28) mmol/L Sodium 135 L (137-145) mmol/L Potassium 3.2 L (3.5-5.1) mmol/L Chloride 79 L (98-107) mmol/L Carbon Dioxide 44 H* (22-30) mmol/L Anion Gap 12 mmol/L BUN 49 H (7-17) mg/dL Creatinine 1.68 H (0.52-1.04) mg/dL Est GFR (CKD-EPI)AfAm 39 (>60 ml/min/1.73 sqM) Est GFR (CKD-EPI)NonAf 34 (>60 ml/min/1.73 sqM) Glucose 210 H (74-99) mg/dL POC Glucose (mg/dL) (70-110) mg/dL POC Glu Fancy Packer ID Plasma Lactic Acid Baron 1.4 (0.7-2.0) mmol/L Calcium 18.8 H* (8.4-10.2) mg/dL Total Bilirubin 0.9 (0.2-1.3) mg/dL AST 34 (14-36) U/L ALT 15 (4-34) U/L Alkaline Phosphatase 65 (38-126) U/L Total Protein 6.9 (6.3-8.2) g/dL Albumin 3.8 (3.5-5.0) g/dL Amylase 46 (30-110) U/L Lipase 33 (23-300) U/L Acetone, Qual Negative (Negative) Influenza Type A (PCR) (Not Detectd) Influenza Type B (PCR) (Not Detectd) RSV (PCR) (Not Detectd) SARS-CoV-2 (PCR) (Not Detectd) 10/05/24 10/05/24 10/05/24 Range/Units 12:41 12:42 12:51 WBC (4.50-10.00) 10*3/uL RBC (4.10-5.20) 10*6/uL Hgb (12.0-15.0) g/dL Hct (37.2-46.3) % MCV (80.0-97.0) fL MCH (27.0-32.0) pg MCHC (32.0-37.0) g/dL Plt Count (140-440) 10*3/uL MPV (9.5-12.2) fL Immature Gran % (Auto) % Neutrophils % % Lymphocytes % % Monocytes % % Eosinophils % % Basophils % % Immature Gran # (0.00-0.04) 10*3/uL Neutrophils # (1.80-7.70) 10*3/uL Lymphocytes # (0.90-5.00) 10*3/uL Monocytes # (0.20-1.00) 10*3/uL Eosinophils # (0.04-0.35) 10*3/uL Basophils # (0.00-0.10) 10*3/uL Manual Slide Review Immature Plt Fraction (1.1-6.1) % RBC Morphology PT (10.0-12.5) sec INR (<1.2) APTT (22.0-30.0) sec VBG pH 7.59 H (7.31-7.41) VBG pCO2 52 H (37-51) mmHg VBG HCO3 50 H (24-28) mmol/L Sodium (137-145) mmol/L Potassium (3.5-5.1) mmol/L Chloride (98-107) mmol/L Carbon Dioxide (22-30) mmol/L Anion Gap mmol/L BUN (7-17) mg/dL Creatinine (0.52-1.04) mg/dL Est GFR (CKD-EPI)AfAm (>60 ml/min/1.73 sqM) Est GFR (CKD-EPI)NonAf (>60 ml/min/1.73 sqM) Glucose (74-99) mg/dL POC Glucose (mg/dL) 200 H (70-110) mg/dL POC Glu Fancy Packer ID [facility] Plasma Lactic Acid Baron (0.7-2.0) mmol/L Calcium (8.4-10.2) mg/dL Total Bilirubin (0.2-1.3) mg/dL AST (14-36) U/L ALT (4-34) U/L Alkaline Phosphatase (38-126) U/L Total Protein (6.3-8.2) g/dL Albumin (3.5-5.0) g/dL Amylase (30-110) U/L Lipase (23-300) U/L Acetone, Qual (Negative) Influenza Type A (PCR) Not Detected (Not Detectd) Influenza Type B (PCR) Not Detected (Not Detectd) RSV (PCR) Not Detected (Not Detectd) SARS-CoV-2 (PCR) Not Detected (Not Detectd) 10/05/24 10/05/24 10/05/24 Range/Units 13:27 14:14 14:14 WBC (4.50-10.00) 10*3/uL RBC (4.10-5.20) 10*6/uL Hgb (12.0-15.0) g/dL Hct (37.2-46.3) % MCV (80.0-97.0) fL MCH (27.0-32.0) pg MCHC (32.0-37.0) g/dL Plt Count (140-440) 10*3/uL MPV (9.5-12.2) fL Immature Gran % (Auto) % Neutrophils % % Lymphocytes % % Monocytes % % Eosinophils % % Basophils % % Immature Gran # (0.00-0.04) 10*3/uL Neutrophils # (1.80-7.70) 10*3/uL Lymphocytes # (0.90-5.00) 10*3/uL Monocytes # (0.20-1.00) 10*3/uL Eosinophils # (0.04-0.35) 10*3/uL Basophils # (0.00-0.10) 10*3/uL Manual Slide Review Immature Plt Fraction (1.1-6.1) % RBC Morphology PT 11.5 (10.0-12.5) sec INR 1.0 (<1.2) APTT 19.1 L (22.0-30.0) sec VBG pH 7.58 H (7.31-7.41) VBG pCO2 47 (37-51) mmHg VBG HCO3 44 H (24-28) mmol/L Sodium 136 L (137-145) mmol/L Potassium 2.8 L (3.5-5.1) mmol/L Chloride 88 L (98-107) mmol/L Carbon Dioxide 40 H (22-30) mmol/L Anion Gap 8 mmol/L BUN 45 H (7-17) mg/dL Creatinine 1.69 H (0.52-1.04) mg/dL Est GFR (CKD-EPI)AfAm 39 (>60 ml/min/1.73 sqM) Est GFR (CKD-EPI)NonAf 34 (>60 ml/min/1.73 sqM) Glucose 221 H (74-99) mg/dL POC Glucose (mg/dL) (70-110) mg/dL POC Glu Fancy Packer ID Plasma Lactic Acid Baron (0.7-2.0) mmol/L Calcium 16.8 H* (8.4-10.2) mg/dL Total Bilirubin 0.8 (0.2-1.3) mg/dL AST 24 (14-36) U/L ALT 13 (4-34) U/L Alkaline Phosphatase 66 (38-126) U/L Total Protein 6.0 L (6.3-8.2) g/dL Albumin 3.3 L (3.5-5.0) g/dL Amylase (30-110) U/L Lipase (23-300) U/L Acetone, Qual (Negative) Influenza Type A (PCR) (Not Detectd) Influenza Type B (PCR) (Not Detectd) RSV (PCR) (Not Detectd) SARS-CoV-2 (PCR) (Not Detectd) - EKG Data -: EKG Interpreted by Me EKG Comments: 12-lead Electrocardiogram Interpretation Note EKG was reviewed and interpreted by myself. 12-lead ECG performed at 1251 is interpreted by me as revealing normal sinus rhythm at a rate of 97 beats per minute. [place] is normal. LA interval is 179 ms, QRS duration is 107 ms, QTc is 410 ms.. There were no ST or T wave abnormalities to suggest myocardial ischemia or injury. R wave progression across the precordium was satisfactory. By my interpretation this EKG is non-diagnostic for acute ischemia. Disposition Clinical Impression: AKUA (acute kidney injury), Hypokalemia, Hypercalcemia, Nausea vomiting and diarrhea Disposition: ADMITTED IP TO THIS HOSP Condition: Serious Time of Disposition: 17:15
[2024-10-05 13:21] LABS: Calcium 18.8 mg/dL (8.4-10.2); Carbon Dioxide 44 mmol/L (22-30)
[2024-10-05 14:01] LABS: RBC Morphology Normal
[2024-10-05 14:02] LABS: Platelet Count 199 10*3/uL (140-440)
[2024-10-05 14:11] LABS: Prothrombin Time 11.5 sec (10.0-12.5)
[2024-10-05 14:21] LABS: Partial Thromboplastin Time 19.1 sec (22.0-30.0)
[2024-10-05 14:22] LABS: VBG PH 7.58 (7.31-7.41)
[2024-10-05 14:36] LABS: ALT 13 U/L (4-34); AST 24 U/L (14-36); African American GFR (CKD) 39 (>60 ml/min/1.73 sqM); Albumin 3.3 g/dL (3.5-5.0); Alkaline Phosphatase 66 U/L (38-126); Anion Gap 8 mmol/L; Blood Urea Nitrogen 45 mg/dL (7-17); Chloride 88 mmol/L (98-107); Glucose 221 mg/dL (74-99); Non-African American GFR(CKD) 34 (>60 ml/min/1.73 sqM); Potassium 2.8 mmol/L (3.5-5.1); Sodium 136 mmol/L (137-145); Total Bilirubin 0.8 mg/dL (0.2-1.3)
[2024-10-05 14:45] LABS: Calcium 16.8 mg/dL (8.4-10.2); Carbon Dioxide 40 mmol/L (22-30)
[2024-10-05] MEDS ORDERED: Potassium Replacement Protocol 1 EACH MISC MISCELLANE PRN (15:15)
[2024-10-05] MEDS: SODIUM CHLORIDE 0.9% 1,000 ML IV STA (15:23)
[2024-10-05] MEDS: SODIUM CHLORIDE 0.9% 1,000 ML IV ONE (15:23)
[2024-10-05] MEDS: POTASSIUM CHLORIDE ER 20 MEQ TAB.ER PO SCH (15:24)
--- NOTE | 2024-10-05 16:06 | CT ---
EXAMINATION TYPE: CT abdomen pelvis wo con DATE OF EXAM: 10/05/2024 COMPARISON: 11/10/2016 CLINICAL INDICATION: Female, 54 years old with history of abdominal pain; PHH, abominal pain and vomi ting TECHNIQUE: CT scan of the abdomen and pelvis is performed without oral or IV contrast. CT DLP: 726.[address] CTDI: mGy Automated exposure control for dose reduction was used. FINDINGS: Within the limitations of a non-contrast study, the following observations are made. There are mild chronic interstitial changes in the lung bases, left greater than right. There is surgical absence of the gallbladder. There is no biliary ductal dilatation. There is no organomegaly of the liver, pancreas, spleen or adrenal glands. There is moderate pancreat ic atrophy. There are scattered small renal vascular calcifications. There is a probable 2 - 3 mm nonobstructing left renal calcification. There is no hydronephrosis bilaterally. The caliber of the abdominal aorta is normal and there is no retroperitoneal adenopathy or hemorrhage . The bowel loops are normal in caliber is no evidence of obstruction. No inflammatory changes are iden tified in the mesentery and there is no free intraperitoneal air or fluid. There is no pelvic mass, free fluid, abscess or adenopathy. There is surgical absence of the uterus. There are no focal osseous lesions. There is a 2.2 cm well-circumscribed nodule in the subcutaneous soft tissues in the right groin likel y a benign sebaceous cyst.. IMPRESSION: No acute changes within the abdomen or pelvis. [facility], , 10/05/2024 4:04 PM
[2024-10-05 16:08] LABS: Influenza A Not Detected (Not Detectd)
[2024-10-05 16:09] LABS: Influenza B Not Detected (Not Detectd); RSV Not Detected (Not Detectd)
--- NOTE | 2024-10-05 16:31 | XR ---
EXAMINATION TYPE: XR chest 2V DATE OF EXAM: 10/05/2024 4:20 PM COMPARISON: 03/12/2023 CLINICAL INDICATION: Female, 54 years old with history of abdominal pain, , TECHNIQUE: AP and lateral views FINDINGS: Heart upper limits of normal in size. Aorta within normal limits. Mild interstitial prominence withou t consolidation or pleural effusion. Cholecystectomy clips in the lateral view. IMPRESSION: Possible underlying bronchitis or asthma. Otherwise, no acute process seen. [facility], Workstation: [employer], 10/05/2024 4:29 PM
[2024-10-05] MEDS ORDERED: ACETAMINOPHEN TAB 325 MG TAB PO PRN (17:47)
[2024-10-05] MEDS ORDERED: NALOXONE 0.4 MG/ML 1 ML VIAL IV PRN (17:47)
[2024-10-05] MEDS ORDERED: MORPHINE SULFATE 4 MG/ML SYRINGE IV PRN (17:47)
[2024-10-05 20:13] LABS: Amorphous Sediment,Urine Rare /hpf; Appearance,Urine Cloudy (Clear); Bilirubin,Urine Negative (Negative); Blood,Urine Negative (Negative); Color,Urine Colorless; Glucose,Urine (UA) 2+ (Negative); Ketones,Urine 1+ (Negative); Leukocyte Esterase,Urine Negative (Negative); Nitrite,Urine Negative (Negative); PH, Urine 7.5 (5.0-8.0); Protein,Urine Negative (Negative); RBC,Urine 1 /hpf (0-5); Specific Gravity,Urine 1.007 (1.001-1.035); Squamous Epithelial Cell,Urine <1 /hpf (0-4); Urobilinogen,Urine <2.0 mg/dL (<2.0); WBC,Urine 1 /hpf (0-5)
[2024-10-06] MEDS: ONDANSETRON 4 MG/2 ML VIAL IVP PRN (01:26)
[2024-10-06 01:32] LABS: Glucose,Whole Blood 342 mg/dL (70-110)
[2024-10-06 05:49] LABS: Glucose,Whole Blood 394 mg/dL (70-110)
[2024-10-06] MEDS ORDERED: DEXTROSE 50% SYRINGE 50 ML IVP PRN ×2 (06:00)
[2024-10-06 06:11] LABS: Glucose,Whole Blood 443 mg/dL (70-110)
[2024-10-06] MEDS ORDERED: HYDROcodone/APAP 10-325MG 1 EACH TAB PO PRN (06:19)
[2024-10-06] MEDS ORDERED: LORazepam 2 MG/ML INJ IV PRN (06:23)
[2024-10-06] MEDS: INSULIN LISPRO (HumaLOG) 100 UNIT/ML 10 mL VL SQ SCH (06:35)
[2024-10-06] MEDS: SODIUM CHLORIDE 0.9% 1,000 ML IV SCH (06:47)
[2024-10-06 08:17] LABS: Glucose,Whole Blood 369 mg/dL (70-110)
[2024-10-06] MEDS: ATORVASTATIN 40 MG TAB PO SCH (08:19)
[2024-10-06] MEDS: ENOXAPARIN 40 MG/0.4 ML SYRINGE SQ SCH (08:20)
[2024-10-06] MEDS: FAMOTIDINE 20 MG TAB PO SCH (08:20)
[2024-10-06] MEDS: PANTOPRAZOLE 40 MG/10 ML VIAL IV SCH (08:20)
[2024-10-06] MEDS: METOPROLOL SUCCINATE (ER) 25 MG TAB.ER.24H PO SCH (08:21)
[2024-10-06] MEDS: TICAGRELOR 90 MG TAB PO SCH (08:21)
[2024-10-06] MEDS: INSULIN GLARGINE (LANTUS) 100 UNIT/ML SYR SQ SCH (09:03)
[2024-10-06 10:19] LABS: Basophils # (A) 0.05 X 10*3/uL (0.00-0.10); Basophils % (A) 0.7 %; Eosinophils # (A) 0.01 X 10*3/uL (0.04-0.35); Eosinophils % (A) 0.1 %; HCT 34.5 % (37.2-46.3); Lymphocytes # (A) 0.73 X 10*3/uL (0.90-5.00); MCHC 31.9 g/dL (32.0-37.0); Mean Platelet Volume 11.9 FL (9.5-12.2); Monocytes # (A) 0.51 X 10*3/uL (0.20-1.00); NRBC Per 100 WBC 0 X 10*3/uL (0.00-0.01); Neutrophils # (A) 5.95 X 10*3/uL (1.80-7.70); Neutrophils % (A) 81.8 %; Platelet Count 227 X 10*3/uL (140-440); RBC 3.67 X 10*6/uL (4.10-5.20); RDW 12.6 % (11.5-14.5); WBC 7.28 X 10*3/uL (4.50-10.00)
[2024-10-06 12:04] LABS: Calcium 16.1 mg/dL (8.4-10.2)
--- NOTE | 2024-10-06 12:15 | P.NPCON ---
History of Present Illness - History of Present Illness Patient is a 54-year-old female with history of diabetes, diabetic retinopathy, gastroesophageal reflux disease who is admitted to the hospital with complaints of abdominal discomfort, constipation, overall not feeling well. Patient also complained of cough. She has noted to have a serum calcium of 18.8. This is now down to 16.1. Patient admits to taking Tums for heartburn. Previous calcium 9.0 on 03/13/2023. No history of fever or chills. Serum creatinine was 1.68 mg/dL yesterday. It was 1.0 on 03/13/2023. Labs are not available from today. Patient is alert and oriented Past Medical History Past Medical History: Diabetes Mellitus, Eye Disorder, GERD/Reflux, Neurologic Disorder Additional Past Medical History / Comment(s): dysphygia, severe hearburn with nausea, neuropathy hands/feet, Legally Blind, Back and stump pain, (left leg) prosthesis left leg, past hx of anemia, HIATAL HERNIA History of Any Multi-Drug Resistant Organisms: None Reported, MRSA Date of last positivie culture/infection: 2010 MDRO Source:: scalp scrape from nail Past Surgical History: Back Surgery, Cholecystectomy, Hysterectomy, Joint Replacement, Orthopedic Surgery, Tonsillectomy Additional Past Surgical History / Comment(s): left below knee amputation-uses prosthesis, lt knee joint replacement, all toes on rt foot amputated, laser surgery eyes, EGD w/ dilatation, COLONOSCOPY Past Anesthesia/Blood Transfusion Reactions: No Reported Reaction Additional Past Anesthesia/Blood Transfusion Reaction / Comment(s): no hx of problems with prior blood transfusion Past Psychological History: Anxiety Smoking Status: Never smoker Past Alcohol Use History: Rare Past Drug Use History: Marijuana - Past Family History Mother Family Medical History: No Reported History Medications and Allergies Home Medications Medication Instructions Recorded Confirmed Type HYDROcodone/APAP 10-325MG [[place] 1 tab PO TID PRN 01/14/16 10/05/24 History 10-325] Atorvastatin [Lipitor] 40 mg PO DAILY 05/06/22 10/05/24 History Ergocalciferol [Vitamin D2 (1250 1,250 mcg PO TH 05/06/22 10/05/24 History Mcg = 87224 Iu)] Insulin Aspart (For Pump) [NovoLOG 0.01 unit SQ-PUMP CONTINUOUS 03/12/23 10/05/24 History (For Pump)] Metoprolol Succinate (ER) [Toprol 25 mg PO DAILY 03/12/23 10/05/24 History XL] Nitroglycerin Sl Tabs [Nitrostat] 0.4 mg SUBLINGUAL Q5M PRN 03/12/23 10/05/24 History Ticagrelor [Brilinta] 90 mg PO BID #180 tab 03/13/23 10/05/24 Rx Eszopiclone [Lunesta] 3 mg PO HS 10/05/24 10/05/24 History Famotidine 40 mg PO DAILY 10/05/24 10/05/24 History Omeprazole 40 mg PO DAILY 10/05/24 10/05/24 History Sertraline [Zoloft] 100 mg PO DAILY 10/05/24 10/05/24 History traZODone HCL [Desyrel] 50 mg PO HS 10/05/24 10/05/24 History Allergies Allergy/AdvReac Type Severity Reaction Status Date / Time ceftriaxone sodium Allergy Anaphylaxis Verified 10/05/24 12:05 [From Rocephin] propoxyphene napsylate AdvReac Rash/Hives Verified 10/05/24 12:05 [From Darvocet-N] pink dye Allergy Swelling Uncoded 10/05/24 12:05 steroids AdvReac extreme Uncoded 10/05/24 12:05 elevated blood sugar 1600 Physical Exam Vitals: Vital Signs Temp Pulse Resp BP Pulse Ox 10/06/24 08:21 105 H 16 95/59 10/06/24 05:36 98.5 F 110 H 18 105/61 90 L 10/06/24 01:16 98.4 F 110 H 17 144/78 97 10/05/24 19:43 97.9 F 101 H 17 144/83 97 10/05/24 17:41 105 H 20 139/82 93 L 10/05/24 15:03 94 16 157/89 96 10/05/24 13:11 93 18 153/85 97 Intake and Output 10/05/24 10/06/24 10/06/24 22:59 06:59 14:59 Output Total 1000 1600 Balance -1000 -1600 Output: Urine 1000 1600 Uretheral (Wilson) 1000 1600 Patient is awake, comfortable, no acute distress Alert and oriented x 3 Examination of the heart S1 and S2 Examination of the lungs bilateral breath sounds are heard Abdomen is soft nontender Examination of lower extremities shows no significant edema HIMS MANAGER exam grossly intact Results - Lab Results Most recent lab results Calcium 16.1 mg/dL (8.4-10.2) H* 10/06/24 10:22 10/06/24 07:50 10/05/24 14:14 Assessment and Plan Assessment: 1. Acute kidney injury, secondary to hypercalcemia. UA is benign. Maintained on IV fluids. No evidence of obstruction on CT of the abdomen. 2. Hypercalcemia associated with excessive use of Tums. Rule out other etiologies. PTH and RAMYA levels along with vitamin D and immunofixation are ordered 3. Constipation from severe hypercalcemia 4. Hypokalemia from decreased oral intake, no diuretics noted on home med list 5. Type 1 diabetes with diabetic retinopathy Plan: Continue with normal saline Check PTH, 25-hydroxy vitamin D and one 25-hydroxy vitamin D along with RAMYA levels and serum and urine immunofixation. Check labs today and again in a.m. Thank you for the consultation. We will continue to follow the patient with you during her hospitalization.
[2024-10-06 12:19] LABS: Glucose,Whole Blood 333 mg/dL (70-110)
[2024-10-06] MEDS: SERTRALINE 100 MG TAB PO SCH (12:26)
[2024-10-06] MEDS: LACTULOSE 20 GM/30 ML CUP PO SCH (12:30)
[2024-10-06] MEDS: ZOLEDRONIC ACID 4 MG in SODIUM CHLORIDE 0.9% 100 ML IV ONE (13:50)
[2024-10-06] MEDS: DENOSUMAB 60 MG/ML 1 ML SYRINGE SQ ONE (13:57)
[2024-10-06] MEDS: CALCITONIN INJ 200 UNIT/ML (MDV) VIAL SQ ONE (14:16)
[2024-10-06 15:55] LABS: ALT 13 U/L (8-44); AST 22 U/L (13-35); Albumin 3.3 g/dL (3.8-4.9); Alkaline Phosphatase 72 U/L (41-126); Blood Urea Nitrogen 57.5 mg/dL (9.0-27.0); Calcium 15.2 mg/dL (8.7-10.3); Carbon Dioxide 24.4 mmol/L (21.6-31.8); Chloride 89 mmol/L (96-109); Globulin 2.2 g/dL (1.6-3.3); Glucose 420 mg/dL (70-110); Potassium 3.4 mmol/L (3.5-5.5); Sodium 138 mmol/L (135-145); Total Bilirubin 0.4 mg/dL (0.3-1.2); Total Protein 5.5 g/dL (6.2-8.2)
--- NOTE | 2024-10-06 17:34 | P.HPIM ---
History of Present Illness H&P Date: 10/06/24 History of present illness; Patient is a 54-year-old female with history of type 1 diabetes who presents for vomiting and abdominal pain. She states that her abdominal pain is constant and left upper quadrant began weeks ago as she has been constipated for the last 10 to 12 days. Over the last 5 days she has also had multiple episodes of vomiting each day for which she has taken roughly 20-30 times every day for the last 5 days which did not improve her symptoms. She also has a productive cough which she states has been lingering for months. At this time she has no chest pain, palpitations, dyspnea. Spoke with the ER physician, patient admission was accepted by internal medicine service for treatment. REVIEW OF SYSTEMS: Pertinent positives and negatives noted in HPI. PHYSICAL EXAMINATION: Vitals reviewed GENERAL: Resting comfortably in bed. EYES: PERRL, no scleral injection or icterus. Left eye vision loss at baseline. HENT: Normocephalic, atraumatic, hearing grossly intact, dry mucous membranes NECK: No tracheal deviation, full range of motion. CARDIOVASCULAR: S1 and S2 present. No murmurs, rubs, or gallops. PULMONARY: Chest is clear to auscultation, no wheezing, rhonchi, or crackles. ABDOMEN: Soft, left lower quadrant tenderness, nondistended. No palpable organ omegaly. MUSCULOSKELETAL: Left below-knee prosthetic EXTREMITIES: No apparent cyanosis, clubbing. No pedal edema. NEUROLOGICAL: Gross neurological examination with no apparent focal deficits. SKIN: No apparent rashes. ER FINDINGS: Labs significant for sodium 132, potassium 3.2, bicarb 44, anion gap 12, BUN 49, creatinine 1.68, glucose 210, calcium 18.8, UA with glucose 2+, ketones 1+. Acetone negative, viral respiratory panel negative. PTH intact 5.9 EKG independently interpreted showed sinus rhythm rate at 97, no ST depressions or elevations, no T wave abnormalities noted CT abdomen pelvis with findings of no acute process. Assessment and Plan: In summary, patient is a 54-year-old female with history of type 1 diabetes who presents for vomiting and abdominal pain. #Hypercalcemia, due to excessive Tums use #AKUA secondary to hypercalcemia #Constipation from severe hypercalcemia #Hypokalemia from decreased oral intake #Metabolic alkalosis due to above #Urinary retention Continue normal saline Wilson catheter placed Zometa ordered Prolia and calcitonin ordered Potassium replacement protocol in place Continue Protonix, famotidine and Zofran Begin lactulose 30 mg 3 times daily Check ionized calcium, PTH, 25-hydroxy vitamin D and one 25-hydroxy vitamin D along with RAMYA levels and serum and urine immunofixation Monitor CMP and calcium closely Nephrology following #Diabetes mellitus type 1, with retinopathy Resume home Lantus 35 units daily Begin low-dose sliding scale insulin, monitor for hypoglycemia Chronic Medical Conditions #CAD, GERD, peripheral neuropathy, partial blindness, leg amputation Resume home medications DVT ppx: Subq Lovenox 40 meq daily Code status: Full code F: IV Normal saline E: Replete as needed N: Heart healthy diet A: Ambulatory Anticipated discharge place: Pending clinical course Anticipated discharge time: Pending clinical course Dr. Jacobs seen patient with resident, present during exam, and agreed with findings. Dictation was produced using [employer] dictation software. Please excuse any grammatical, word or spelling errors. Past Medical History Past Medical History: Diabetes Mellitus, Eye Disorder, GERD/Reflux, Neurologic Disorder Additional Past Medical History / Comment(s): dysphygia, severe hearburn with nausea, neuropathy hands/feet, Legally Blind, Back and stump pain, (left leg) pr osthesis left leg, past hx of anemia, HIATAL HERNIA History of Any Multi-Drug Resistant Organisms: None Reported, MRSA Date of last positivie culture/infection: 2010 MDRO Source:: scalp scrape from nail Past Surgical History: Back Surgery, Cholecystectomy, Hysterectomy, Joint Replacement, Orthopedic Surgery, Tonsillectomy Additional Past Surgical History / Comment(s): left below knee amputation-uses prosthesis, lt knee joint replacement, all toes on rt foot amputated, laser surgery eyes, EGD w/ dilatation, COLONOSCOPY Past Anesthesia/Blood Transfusion Reactions: No Reported Reaction Additional Past Anesthesia/Blood Transfusion Reaction / Comment(s): no hx of problems with prior blood transfusion Past Psychological History: Anxiety Smoking Status: Never smoker Past Alcohol Use History: Rare Past Drug Use History: Marijuana - Past Family History Mother Family Medical History: No Reported History Medications and Allergies Home Medications Medication Instructions Recorded Confirmed Type HYDROcodone/APAP 10-325MG [[place] 1 tab PO TID PRN 01/14/16 10/05/24 History 10-325] Atorvastatin [Lipitor] 40 mg PO DAILY 05/06/22 10/05/24 History Ergocalciferol [Vitamin D2 (1250 1,250 mcg PO TH 05/06/22 10/05/24 History Mcg = 37914 Iu)] Insulin Aspart (For Pump) [NovoLOG 0.01 unit SQ-PUMP CONTINUOUS 03/12/23 10/05/24 History (For Pump)] Metoprolol Succinate (ER) [Toprol 25 mg PO DAILY 03/12/23 10/05/24 History XL] Nitroglycerin Sl Tabs [Nitrostat] 0.4 mg SUBLINGUAL Q5M PRN 03/12/23 10/05/24 History Ticagrelor [Brilinta] 90 mg PO BID #180 tab 03/13/23 10/05/24 Rx Eszopiclone [Lunesta] 3 mg PO HS 10/05/24 10/05/24 History Famotidine 40 mg PO DAILY 10/05/24 10/05/24 History Omeprazole 40 mg PO DAILY 10/05/24 10/05/24 History Sertraline [Zoloft] 100 mg PO DAILY 10/05/24 10/05/24 History traZODone HCL [Desyrel] 50 mg PO HS 10/05/24 10/05/24 History Allergies Allergy/AdvReac Type Severity Reaction Status Date / Time ceftriaxone sodium Allergy Anaphylaxis Verified 10/05/24 12:05 [From Rocephin] propoxyphene napsylate AdvReac Rash/Hives Verified 10/05/24 12:05 [From Darvocet-N] pink dye Allergy Swelling Uncoded 10/05/24 12:05 steroids AdvReac extreme Uncoded 10/05/24 12:05 elevated blood sugar 1600 Physical Exam Vitals: Vital Signs Temp Pulse Resp BP Pulse Ox 10/06/24 08:21 105 H 16 95/59 10/06/24 05:36 98.5 F 110 H 18 105/61 90 L 10/06/24 01:16 98.4 F 110 H 17 144/78 97 10/05/24 19:43 97.9 F 101 H 17 144/83 97 10/05/24 17:41 105 H 20 139/82 93 L 10/05/24 15:03 94 16 157/89 96 10/05/24 13:11 93 18 153/85 97 10/05/24 11:37 96 10/05/24 11:30 97.6 F 102 H 16 152/89 87 L Intake and Output 10/05/24 10/06/24 10/06/24 22:59 06:59 14:59 Output Total 1000 1600 Balance -1000 -1600 Output: Urine 1000 1600 Uretheral (Wilson) 1000 1600 Results CBC & Chem 7: 10/06/24 07:50 10/06/24 07:50 Labs: Abnormal Lab Results - Last 24 Hours (Table) 10/05/24 10/05/24 10/05/24 Range/Units 12:41 12:42 12:51 APTT (22.0-30.0) sec VBG pH 7.59 H (7.31-7.41) VBG pCO2 52 H (37-51) mmHg VBG HCO3 50 H (24-28) mmol/L Sodium 135 L (137-145) mmol/L Potassium 3.2 L (3.5-5.1) mmol/L Chloride 79 L (98-107) mmol/L Carbon Dioxide 44 H* (22-30) mmol/L BUN 49 H (7-17) mg/dL Creatinine 1.68 H (0.52-1.04) mg/dL Glucose 210 H (74-99) mg/dL POC Glucose (mg/dL) 200 H (70-110) mg/dL Calcium 18.8 H* (8.4-10.2) mg/dL Total Protein (6.3-8.2) g/dL Albumin (3.5-5.0) g/dL Urine Appearance (Clear) Urine Glucose (UA) (Negative) Urine Ketones (Negative) Amorphous Sediment (None) /hpf 10/05/24 10/05/24 10/05/24 Range/Units 13:27 14:14 14:14 APTT 19.1 L (22.0-30.0) sec VBG pH 7.58 H (7.31-7.41) VBG pCO2 (37-51) mmHg VBG HCO3 44 H (24-28) mmol/L Sodium 136 L (137-145) mmol/L Potassium 2.8 L (3.5-5.1) mmol/L Chloride 88 L (98-107) mmol/L Carbon Dioxide 40 H (22-30) mmol/L BUN 45 H (7-17) mg/dL Creatinine 1.69 H (0.52-1.04) mg/dL Glucose 221 H (74-99) mg/dL POC Glucose (mg/dL) (70-110) mg/dL Calcium 16.8 H* (8.4-10.2) mg/dL Total Protein 6.0 L (6.3-8.2) g/dL Albumin 3.3 L (3.5-5.0) g/dL Urine Appearance (Clear) Urine Glucose (UA) (Negative) Urine Ketones (Negative) Amorphous Sediment (None) /hpf 10/05/24 10/05/24 10/06/24 Range/Units 19:11 21:05 01:30 APTT (22.0-30.0) sec VBG pH (7.31-7.41) VBG pCO2 (37-51) mmHg VBG HCO3 (24-28) mmol/L Sodium (137-145) mmol/L Potassium (3.5-5.1) mmol/L Chloride (98-107) mmol/L Carbon Dioxide (22-30) mmol/L BUN (7-17) mg/dL Creatinine (0.52-1.04) mg/dL Glucose (74-99) mg/dL POC Glucose (mg/dL) 342 H (70-110) mg/dL Calcium 16.8 H* (8.4-10.2) mg/dL Total Protein (6.3-8.2) g/dL Albumin (3.5-5.0) g/dL Urine Appearance Cloudy H (Clear) Urine Glucose (UA) 2+ H (Negative) Urine Ketones 1+ H (Negative) Amorphous Sediment Rare H (None) /hpf 10/06/24 10/06/24 10/06/24 Range/Units 05:48 06:10 08:16 APTT (22.0-30.0) sec VBG pH (7.31-7.41) VBG pCO2 (37-51) mmHg VBG HCO3 (24-28) mmol/L Sodium (137-145) mmol/L Potassium (3.5-5.1) mmol/L Chloride (98-107) mmol/L Carbon Dioxide (22-30) mmol/L BUN (7-17) mg/dL Creatinine (0.52-1.04) mg/dL Glucose (74-99) mg/dL POC Glucose (mg/dL) 394 H 443 H 369 H (70-110) mg/dL Calcium (8.4-10.2) mg/dL Total Protein (6.3-8.2) g/dL Albumin (3.5-5.0) g/dL Urine Appearance (Clear) Urine Glucose (UA) (Negative) Urine Ketones (Negative) Amorphous Sediment (None) /hpf
[2024-10-06 17:48] LABS: Glucose,Whole Blood 250 mg/dL (70-110)
[2024-10-06] MEDS ORDERED: LORazepam 1 MG/0.5 ML VIAL IV PRN (18:08)
[2024-10-06] MEDS: INSULIN GLARGINE (LANTUS) 100 UNIT/ML SYR SQ STA (18:29)
[2024-10-06 19:55] LABS: Glucose,Whole Blood 231 mg/dL (70-110)
[2024-10-06] MEDS: traZODone HCL 50 MG TAB PO SCH (21:05)
[2024-10-06] MEDS: TEMAZEPAM 15 MG CAP PO SCH (21:05)
[2024-10-07 06:09] LABS: Glucose,Whole Blood 137 mg/dL (70-110)
[2024-10-07 06:42] LABS: Basophils # (A) 0.05 10*3/uL (0.00-0.10); Basophils % (A) 0.5 %; Eosinophils # (A) 0.01 10*3/uL (0.04-0.35); Eosinophils % (A) 0.1 %; HCT 31.6 % (37.2-46.3); HGB 10.5 g/dL (12.0-15.0); Lymphocytes # (A) 0.96 10*3/uL (0.90-5.00); Lymphocytes % (A) 9.6 %; MCH 30.4 pg (27.0-32.0); MCHC 33.2 g/dL (32.0-37.0); MCV 91.6 fL (80.0-97.0); Mean Platelet Volume 11.1 fL (9.5-12.2); Monocytes # (A) 0.68 10*3/uL (0.20-1.00); Monocytes % (A) 6.8 %; Neutrophils # (A) 8.28 10*3/uL (1.80-7.70); Neutrophils % (A) 82.5 %; Platelet Count 242 10*3/uL (140-440); RBC 3.45 10*6/uL (4.10-5.20); RDW 12.7 % (11.5-14.5); WBC 10.03 10*3/uL (4.50-10.00)
[2024-10-07 07:11] LABS: Ionized Calcium 7.1 mg/dL (4.5-5.3)
[2024-10-07 07:13] LABS: ALT 24 U/L (4-34); AST 73 U/L (14-36); African American GFR (CKD) 43 (>60 ml/min/1.73 sqM); Albumin 3.2 g/dL (3.5-5.0); Alkaline Phosphatase 68 U/L (38-126); Anion Gap 7 mmol/L; Blood Urea Nitrogen 55 mg/dL (7-17); Carbon Dioxide 36 mmol/L (22-30); Chloride 98 mmol/L (98-107); Glucose 149 mg/dL (74-99); Non-African American GFR(CKD) 37 (>60 ml/min/1.73 sqM); Potassium 2.9 mmol/L (3.5-5.1); Sodium 141 mmol/L (137-145); Total Bilirubin 0.8 mg/dL (0.2-1.3); Total Protein 5.7 g/dL (6.3-8.2)
[2024-10-07 07:17] LABS: Calcium 13.7 mg/dL (8.4-10.2)
[2024-10-07] MEDS ORDERED: Potassium Replacement Protocol 1 EACH MISC MISCELLANE PRN (07:37)
[2024-10-07 07:50] LABS: Magnesium 0.9 mg/dL (1.6-2.3)
[2024-10-07] MEDS: POTASSIUM CHLORIDE 10 MEQ in WATER FOR INJECTION 1 100ML.BAG IVPB SCH (08:20)
[2024-10-07] MEDS: MAGNESIUM SULFATE-D5W PMX 1 GM in DEXTROSE/WATER 1 100ML.BAG IVPB SCH (10:39)
[2024-10-07] MEDS: METOCLOPRAMIDE 5 MG/ML 2 ML VIAL IVP PRN (10:40)
[2024-10-07 11:33] LABS: Glucose,Whole Blood 197 mg/dL (70-110)
[2024-10-07] MEDS: bisacodyL 10 MG SUPP RECTAL STA (12:01)
--- NOTE | 2024-10-07 15:41 | P.PN ---
Subjective Progress Note Date: 10/07/24 History of present illness; Patient is a 54-year-old female with history of type 1 diabetes who presents for vomiting and abdominal pain. She states that her abdominal pain is constant and left upper quadrant began weeks ago as she has been constipated for the last 10 to 12 days. Over the last 5 days she has also had multiple episodes of vomiting each day for which she has taken roughly 20-30 times every day for the last 5 days which did not improve her symptoms. She also has a productive cough which she states has been lingering for months. At this time she has no chest pain, palpitations, dyspnea. 5-2-25. Patient seen and examined at bedside. Today's labs WBC 10, hemoglobin 10.5, sodium 141, potassium 2.9, bicarb 36, BUN 55, creatinine 1.56, calcium 13.7, ionized calcium measurements 7.1, magnesium 0.9, vitamin D 25-hydroxy, PTH intact 5.9. REVIEW OF SYSTEMS: Pertinent positives and negatives noted in HPI. PHYSICAL EXAMINATION: Vitals reviewed GENERAL: Resting comfortably in bed. EYES: PERRL, no scleral injection or icterus. Left eye vision loss at baseline. HENT: Normocephalic, atraumatic, hearing grossly intact, moist mucous membranes NECK: No tracheal deviation, full range of motion. CARDIOVASCULAR: S1 and S2 present. No murmurs, rubs, or gallops. PULMONARY: Chest is clear to auscultation, no wheezing, rhonchi, or crackles. ABDOMEN: Soft, left lower quadrant tenderness, nondistended. No palpable organomegaly. MUSCULOSKELETAL: Left below-knee prosthetic EXTREMITIES: No apparent cyanosis, clubbing. No pedal edema. NEUROLOGICAL: Gross neurological examination with no apparent focal deficits. SKIN: No apparent rashes. Assessment and Plan: In summary, patient is a 54-year-old female with history of type 1 diabetes who presents for vomiting and abdominal pain. #Hypercalcemia, due to excessive Tums use #AKUA secondary to hypercalcemia #Constipation from severe hypercalcemia #Hypokalemia from decreased oral intake #Hypomagnesemia #Metabolic alkalosis due to above #Urinary retention #Leukocytosis, reactive Continue normal saline Wilson catheter placed Potassium replacement protocol in place Given magnesium sulfate 4 g Continue Protonix, famotidine and Zofran, Reglan Begin lactulose 30 mg 3 times daily, rectal suppository once Check RAMYA levels and serum and urine immunofixation Monitor CMP and calcium closely Nephrology following #Diabetes mellitus type 1, with retinopathy Resume home Lantus 35 units daily Begin low-dose sliding scale insulin, monitor for hypoglycemia Chronic Medical Conditions #CAD, GERD, peripheral neuropathy, partial blindness, leg amputation Resume home medications DVT ppx: Subq Lovenox 40 meq daily Code status: Full code F: IV Normal saline E: Replete as needed N: Heart healthy diet A: Ambulatory Anticipated discharge place: Home Anticipated discharge time: [address] Jacobs seen patient with resident, present during exam, and agreed with findings. Dictation was produced using [employer] dictation software. Please excuse any gram matical, word or spelling errors. Objective - Vital Signs Vital signs: Vital Signs Temp 98.8 F 10/07/24 04:00 Pulse 104 H 10/07/24 04:00 Resp 16 10/07/24 04:00 BP 151/87 10/07/24 04:00 Pulse Ox 92 L 10/07/24 04:00 FiO2 Intake & Output 10/06/24 10/07/24 10/07/24 18:59 06:59 18:59 Intake Total 240 Output Total 600 1100 Balance -600 -860 Weight 74.843 kg 75 kg Intake: Oral 240 Output: Urine 600 1100 Uretheral (Wilson) 800 Other: Voiding Method Indwelling Catheter Indwelling Catheter - Labs CBC & Chem 7: 10/07/24 06:18 10/07/24 06:18 Labs: Abnormal Lab Results - Last 24 Hours (Table) 10/06/24 10/06/24 10/06/24 Range/Units 07:50 07:50 10:22 WBC (4.50-10.00) 10*3/uL RBC 3.67 L (4.10-5.20) X 10*6/uL Hgb 11.0 L (12.0-15.0) g/dL Hct 34.5 L (37.2-46.3) % MCHC 31.9 L (32.0-37.0) g/dL Immature Gran # (0.00-0.04) 10*3/uL Neutrophils # (1.80-7.70) 10*3/uL Lymphocytes # 0.73 L (0.90-5.00) X 10*3/uL Eosinophils # 0.01 L (0.04-0.35) X 10*3/uL Potassium 3.4 L (3.5-5.5) mmol/L Chloride 89 L (96-109) mmol/L Carbon Dioxide (22-30) mmol/L Anion Gap 24.60 H (4.00-12.00) mmol/L BUN 57.5 H (9.0-27.0) mg/dL Creatinine 2.3 H (0.6-1.5) mg/dL Est GFR (CKD-EPI) 24 L (>=60) BUN/Creatinine Ratio 25.00 H (12.00-20.00) Ratio Glucose 420 H (70-110) mg/dL POC Glucose (mg/dL) (70-110) mg/dL Calcium 15.2 A* (8.7-10.3) mg/dL Ionized Calcium [place] (4.5-5.3) mg/dL Magnesium (1.6-2.3) mg/dL AST (14-36) U/L Total Protein 5.5 L (6.2-8.2) g/dL Albumin 3.3 L (3.8-4.9) g/dL Albumin/Globulin Ratio 1.50 L (1.60-3.17) Ratio Vitamin D 25-Hydroxy (30.0-100.0) ng/mL PTH Intact 5.9 L (14.0-72.0) pg/mL 10/06/24 10/06/24 10/06/24 Range/Units 10:22 12:16 17:46 WBC (4.50-10.00) 10*3/uL RBC (4.10-5.20) X 10*6/uL Hgb (12.0-15.0) g/dL Hct (37.2-46.3) % MCHC (32.0-37.0) g/dL Immature Gran # (0.00-0.04) 10*3/uL Neutrophils # (1.80-7.70) 10*3/uL Lymphocytes # (0.90-5.00) X 10*3/uL Eosinophils # (0.04-0.35) X 10*3/uL Potassium (3.5-5.5) mmol/L Chloride (96-109) mmol/L Carbon Dioxide (22-30) mmol/L Anion Gap (4.00-12.00) mmol/L BUN (9.0-27.0) mg/dL Creatinine (0.6-1.5) mg/dL Est GFR (CKD-EPI) (>=60) BUN/Creatinine Ratio (12.00-20.00) Ratio Glucose (70-110) mg/dL POC Glucose (mg/dL) 333 H 250 H (70-110) mg/dL Calcium 16.1 H* (8.7-10.3) mg/dL Ionized Calcium [place] (4.5-5.3) mg/dL Magnesium (1.6-2.3) mg/dL AST (14-36) U/L Total Protein (6.2-8.2) g/dL Albumin (3.8-4.9) g/dL Albumin/Globulin Ratio (1.60-3.17) Ratio Vitamin D 25-Hydroxy 20.1 L (30.0-100.0) ng/mL PTH Intact (14.0-72.0) pg/mL 10/06/24 10/07/24 10/07/24 Range/Units 19:52 06:00 06:18 WBC (4.50-10.00) 10*3/uL RBC (4.10-5.20) X 10*6/uL Hgb (12.0-15.0) g/dL Hct (37.2-46.3) % MCHC (32.0-37.0) g/dL Immature Gran # (0.00-0.04) 10*3/uL Neutrophils # (1.80-7.70) 10*3/uL Lymphocytes # (0.90-5.00) X 10*3/uL Eosinophils # (0.04-0.35) X 10*3/uL Potassium (3.5-5.5) mmol/L Chloride (96-109) mmol/L Carbon Dioxide (22-30) mmol/L Anion Gap (4.00-12.00) mmol/L BUN (9.0-27.0) mg/dL Creatinine (0.6-1.5) mg/dL Est GFR (CKD-EPI) (>=60) BUN/Creatinine Ratio (12.00-20.00) Ratio Glucose (70-110) mg/dL POC Glucose (mg/dL) 231 H 137 H (70-110) mg/dL Calcium (8.7-10.3) mg/dL Ionized Calcium [place] 7.1 H* (4.5-5.3) mg/dL Magnesium 0.9 L* (1.6-2.3) mg/dL AST (14-36) U/L Total Protein (6.2-8.2) g/dL Albumin (3.8-4.9) g/dL Albumin/Globulin Ratio (1.60-3.17) Ratio Vitamin D 25-Hydroxy (30.0-100.0) ng/mL PTH Intact (14.0-72.0) pg/mL 10/07/24 10/07/24 Range/Units 06:18 06:18 WBC 10.03 H (4.50-10.00) 10*3/uL RBC 3.45 L (4.10-5.20) X 10*6/uL Hgb 10.5 L (12.0-15.0) g/dL Hct 31.6 L (37.2-46.3) % MCHC (32.0-37.0) g/dL Immature Gran # 0.05 H (0.00-0.04) 10*3/uL Neutrophils # 8.28 H (1.80-7.70) 10*3/uL Lymphocytes # (0.90-5.00) X 10*3/uL Eosinophils # 0.01 L (0.04-0.35) X 10*3/uL Potassium 2.9 L (3.5-5.5) mmol/L Chloride (96-109) mmol/L Carbon Dioxide 36 H (22-30) mmol/L Anion Gap (4.00-12.00) mmol/L BUN 55 H (9.0-27.0) mg/dL Creatinine 1.56 H (0.6-1.5) mg/dL Est GFR (CKD-EPI) (>=60) BUN/Creatinine Ratio (12.00-20.00) Ratio Glucose 149 H (70-110) mg/dL POC Glucose (mg/dL) (70-110) mg/dL Calcium 13.7 H* (8.7-10.3) mg/dL Ionized Calcium [place] (4.5-5.3) mg/dL Magnesium (1.6-2.3) mg/dL AST 73 H (14-36) U/L Total Protein 5.7 L (6.2-8.2) g/dL Albumin 3.2 L (3.8-4.9) g/dL Albumin/Globulin Ratio (1.60-3.17) Ratio Vitamin D 25-Hydroxy (30.0-100.0) ng/mL PTH Intact (14.0-72.0) pg/mL
[2024-10-07 16:34] LABS: Glucose,Whole Blood 215 mg/dL (70-110)
--- NOTE | 2024-10-07 17:07 | P.PN ---
Subjective Patient is seen for follow-up for hypercalcemia. Calcium has decreased to 13.7. Patient is maintained on IV fluids. No significant complaints today. Objective - Vital Signs Vital signs: Vital Signs Temp 98 F 10/07/24 15:50 Pulse 88 10/07/24 15:50 Resp 16 10/07/24 15:50 BP 137/77 10/07/24 15:50 Pulse Ox 93 L 10/07/24 15:50 FiO2 Intake & Output 10/06/24 10/07/24 10/07/24 18:59 06:59 18:59 Intake Total 240 Output Total 600 1100 900 Balance -600 860 -900 Weight 74.843 kg 75 kg Intake: Oral 240 Output: Urine 600 1100 900 Uretheral (Wilson) 800 Other: Voiding Method Indwelling Catheter Indwelling Catheter Indwelling Catheter - Exam Patient is awake, comfortable, no acute distress Examination of the heart S1 and S2 Examination of the lungs bilateral breath sounds are heard Abdomen is soft nontender Examination of lower extremities shows no significant edema 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 - Labs CBC & Chem 7: 10/07/24 06:18 10/07/24 06:18 Labs: Abnormal Lab Results - Last 24 Hours (Table) 10/06/24 10/06/24 10/06/24 Range/Units 07:50 10:22 17:46 WBC (4.50-10.00) 10*3/uL RBC (4.10-5.20) 10*6/uL Hgb (12.0-15.0) g/dL Hct (37.2-46.3) % Immature Gran # (0.00-0.04) 10*3/uL Neutrophils # (1.80-7.70) 10*3/uL Eosinophils # (0.04-0.35) 10*3/uL Potassium (3.5-5.1) mmol/L Carbon Dioxide (22-30) mmol/L BUN (7-17) mg/dL Creatinine (0.52-1.04) mg/dL Glucose (74-99) mg/dL POC Glucose (mg/dL) 250 H (70-110) mg/dL Calcium (8.4-10.2) mg/dL Ionized Calcium Layla (4.5-5.3) mg/dL Magnesium (1.6-2.3) mg/dL AST (14-36) U/L Total Protein (6.3-8.2) g/dL Albumin (3.5-5.0) g/dL Vitamin D 25-Hydroxy 20.1 L (30.0-100.0) ng/mL Vit D 1,25-Dihydroxy 9.5 L (19.9-79.3) pg/mL 10/06/24 10/07/24 10/07/24 Range/Units 19:52 06:00 06:18 WBC (4.50-10.00) 10*3/uL RBC (4.10-5.20) 10*6/uL Hgb (12.0-15.0) g/dL Hct (37.2-46.3) % Immature Gran # (0.00-0.04) 10*3/uL Neutrophils # (1.80-7.70) 10*3/uL Eosinophils # (0.04-0.35) 10*3/uL Potassium (3.5-5.1) mmol/L Carbon Dioxide (22-30) mmol/L BUN (7-17) mg/dL Creatinine (0.52-1.04) mg/dL Glucose (74-99) mg/dL POC Glucose (mg/dL) 231 H 137 H (70-110) mg/dL Calcium (8.4-10.2) mg/dL Ionized Calcium Layla 7.1 H* (4.5-5.3) mg/dL Magnesium 0.9 L* (1.6-2.3) mg/dL AST (14-36) U/L Total Protein (6.3-8.2) g/dL Albumin (3.5-5.0) g/dL Vitamin D 25-Hydroxy (30.0-100.0) ng/mL Vit D 1,25-Dihydroxy (19.9-79.3) pg/mL 10/07/24 10/07/24 10/07/24 Range/Units 06:18 06:18 11:31 WBC 10.03 H (4.50-10.00) 10*3/uL RBC 3.45 L (4.10-5.20) 10*6/uL Hgb 10.5 L (12.0-15.0) g/dL Hct 31.6 L (37.2-46.3) % Immature Gran # 0.05 H (0.00-0.04) 10*3/uL Neutrophils # 8.28 H (1.80-7.70) 10*3/uL Eosinophils # 0.01 L (0.04-0.35) 10*3/uL Potassium 2.9 L (3.5-5.1) mmol/L Carbon Dioxide 36 H (22-30) mmol/L BUN 55 H (7-17) mg/dL Creatinine 1.56 H (0.52-1.04) mg/dL Glucose 149 H (74-99) mg/dL POC Glucose (mg/dL) 197 H (70-110) mg/dL Calcium 13.7 H* (8.4-10.2) mg/dL Ionized Calcium Layla (4.5-5.3) mg/dL Magnesium (1.6-2.3) mg/dL AST 73 H (14-36) U/L Total Protein 5.7 L (6.3-8.2) g/dL Albumin 3.2 L (3.5-5.0) g/dL Vitamin D 25-Hydroxy (30.0-100.0) ng/mL Vit D 1,25-Dihydroxy (19.9-79.3) pg/mL 10/07/24 Range/Units 16:33 WBC (4.50-10.00) 10*3/uL RBC (4.10-5.20) 10*6/uL Hgb (12.0-15.0) g/dL Hct (37.2-46.3) % Immature Gran # (0.00-0.04) 10*3/uL Neutrophils # (1.80-7.70) 10*3/uL Eosinophils # (0.04-0.35) 10*3/uL Potassium (3.5-5.1) mmol/L Carbon Dioxide (22-30) mmol/L BUN (7-17) mg/dL Creatinine (0.52-1.04) mg/dL Glucose (74-99) mg/dL POC Glucose (mg/dL) 215 H (70-110) mg/dL Calcium (8.4-10.2) mg/dL Ionized Calcium Layla (4.5-5.3) mg/dL Magnesium (1.6-2.3) mg/dL AST (14-36) U/L Total Protein (6.3-8.2) g/dL Albumin (3.5-5.0) g/dL Vitamin D 25-Hydroxy (30.0-100.0) ng/mL Vit D 1,25-Dihydroxy (19.9-79.3) pg/mL Assessment and Plan Assessment: 1. Acute kidney injury, secondary to hypercalcemia. Serum creatinine down to 1.5 from 2.3 at peak. UA is benign. Maintained on IV fluids. No evidence of obstruction on CT of the abdomen. 2. Hypercalcemia associated with excessive use of Tums. Rule out other etiologies. PTH is appropriately low at 5.9. 25-hydroxy vitamin D low at 20 and 1,25-hydroxy vitamin D at 9.5 immunofixation is pending. 3. Constipation from severe hypercalcemia 4. Hypokalemia from decreased oral intake and vomiting. No diuretics noted on home med list. Significant hypomagnesemia noted as well. 5. Type 1 diabetes with diabetic retinopathy. 6. Hypomagnesemia associated with use of proton pump inhibitors. Currently being replaced 7. Metabolic alkalosis from vomiting, improving. Maintained on normal saline. Plan: Continue with normal saline Follow-up on serum and urine immunofixation Replace potassium and magnesium aggressively Repeat labs in a.m.
[2024-10-07 19:55] LABS: Glucose,Whole Blood 164 mg/dL (70-110)
[2024-10-08 05:58] LABS: Glucose,Whole Blood 99 mg/dL (70-110)
[2024-10-08] MEDS: PANTOPRAZOLE 40 MG TABLET PO SCH (09:02)
[2024-10-08 10:03] LABS: HCT 30.9 % (37.2-46.3); HGB 10.6 g/dL (12.0-15.0); MCH 31.5 pg (27.0-32.0); MCHC 34.3 g/dL (32.0-37.0); Mean Platelet Volume 10.8 fL (9.5-12.2); Platelet Count 195 10*3/uL (140-440); RBC 3.36 10*6/uL (4.10-5.20); RDW 12.7 % (11.5-14.5)
[2024-10-08 10:20] LABS: ALT 21 U/L (4-34); AST 51 U/L (14-36); African American GFR (CKD) 55 (>60 ml/min/1.73 sqM); Albumin 2.6 g/dL (3.5-5.0); Alkaline Phosphatase 74 U/L (38-126); Anion Gap 2 mmol/L; Blood Urea Nitrogen 34 mg/dL (7-17); Calcium 10.9 mg/dL (8.4-10.2); Carbon Dioxide 36 mmol/L (22-30); Chloride 102 mmol/L (98-107); Glucose 111 mg/dL (74-99); Non-African American GFR(CKD) 48 (>60 ml/min/1.73 sqM); Sodium 140 mmol/L (137-145); Total Bilirubin 0.6 mg/dL (0.2-1.3)
[2024-10-08 10:30] LABS: Potassium 2.7 mmol/L (3.5-5.1)
[2024-10-08] MEDS ORDERED: Potassium Replacement Protocol 1 EACH MISC MISCELLANE PRN (10:53)
[2024-10-08] MEDS: POTASSIUM CHLORIDE 10 MEQ in WATER FOR INJECTION 1 100ML.BAG IVPB SCH (11:12)
--- NOTE | 2024-10-08 11:20 | P.PN ---
Subjective Progress Note Date: 10/08/24 History of present illness; Patient is a 54-year-old female with history of type 1 diabetes who presents for vomiting and abdominal pain. She states that her abdominal pain is constant and left upper quadrant began weeks ago as she has been constipated for the last 10 to 12 days. Over the last 5 days she has also had multiple episodes of vomiting each day for which she has taken roughly 20-30 times every day for the last 5 days which did not improve her symptoms. She also has a productive cough which she states has been lingering for months. At this time she has no chest pain, palpitations, dyspnea. 10-07-24. Patient seen and examined at bedside. Today's labs WBC 10, hemoglobin 10.5, sodium 141, potassium 2.9, bicarb 36, BUN 55, creatinine 1.56, calcium 13.7, ionized calcium measurements 7.1, magnesium 0.9, vitamin D 25-hydroxy, PTH intact 5.9. 10-08-24. Patient seen and examined at bedside. He is feeling more tired than usual today. Nausea and vomiting improving, did have bowel movement yesterday. Today's labs WBC 7.5, hemoglobin 10.6, sodium 140, potassium 2.7, bicarb 36, BUN 34, creatinine 1.2, calcium 10.9, magnesium 0.6. REVIEW OF SYSTEMS: Pertinent positives and negatives noted in HPI. PHYSICAL EXAMINATION: Vitals reviewed GENERAL: Resting comfortably in bed. EYES: PERRL, no scleral injection or icterus. Left eye vision loss at baseline. NECK: No tracheal deviation, full range of motion. CARDIOVASCULAR: S1 and S2 present. No murmurs, rubs, or gallops. PULMONARY: Chest is clear to auscultation, no wheezing, rhonchi, or crackles. ABDOMEN: Soft, left lower quadrant tenderness, nondistended. No palpable organomegaly. MUSCULOSKELETAL: Left below-knee prosthetic EXTREMITIES: No apparent cyanosis, clubbing. No pedal edema. NEUROLOGICAL: Gross neurological examination with no apparent focal deficits. SKIN: No apparent rashes. Assessment and Plan: In summary, patient is a 54-year-old female with history of type 1 diabetes who presents for vomiting and abdominal pain. 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 #AKUA secondary to hypercalcemia #Constipation from severe hypercalcemia #Hypokalemia from decreased oral intake #Hypomagnesemia #Metabolic alkalosis due to above #Urinary retention #Leukocytosis, reactive Continue normal saline Potassium replacement protocol in place Magnesium replaced Continue Protonix, famotidine and Zofran, Reglan Begin lactulose 30 mg 3 times daily, rectal suppository once Check RAMYA levels and serum and urine immunofixation Monitor CMP and calcium closely Nephrology following #Diabetes mellitus type 1, with retinopathy Resume home Lantus 35 units daily Begin low-dose sliding scale insulin, monitor for hypoglycemia Chronic Medical Conditions #CAD, GERD, peripheral neuropathy, partial blindness, leg amputation Resume home medications DVT ppx: Subq Lovenox 40 meq daily Code status: Full code F: IV Normal saline E: Replete as needed N: Heart healthy diet A: Ambulatory Anticipated discharge place: Home Anticipated discharge time: Tomorrow Dr. Jacobs seen patient with resident, present during exam, and agreed with findings. Dictation was produced using [employer] dictation software. Please excuse any grammatical, word or spelling errors. Objective - Vital Signs Vital signs: Vital Signs Temp 98.1 F 10/08/24 04:15 Pulse 75 10/08/24 04:15 Resp 16 10/08/24 04:15 BP 135/79 10/08/24 04:15 Pulse Ox 90 L 10/08/24 04:15 FiO2 Intake & Output 10/07/24 10/08/24 10/08/24 18:59 06:59 18:59 Intake Total 120 Output Total 1225 300 Balance -1225 -180 Weight 75.5 kg Intake: Oral 120 Output: Urine 1225 300 Other: Voiding Method Indwelling Catheter Indwelling Catheter - Labs CBC & Chem 7: 10/08/24 09:39 10/08/24 09:39 Labs: Abnormal Lab Results - Last 24 Hours (Table) 10/06/24 10/07/24 10/07/24 Range/Units 07:50 11:31 16:33 POC Glucose (mg/dL) 197 H 215 H (70-110) mg/dL Vit D 1,25-Dihydroxy 9.5 L (19.9-79.3) pg/mL 10/07/24 Range/Units 19:52 POC Glucose (mg/dL) 164 H (70-110) mg/dL Vit D 1,25-Dihydroxy (19.9-79.3) pg/mL
[2024-10-08 11:48] LABS: Glucose,Whole Blood 98 mg/dL (70-110)
[2024-10-08 11:48] LABS: Glucose,Whole Blood 39 mg/dL (70-110)
[2024-10-08] MEDS: PROCHLORPERAZINE INJ 10 MG/2 ML VIAL IVP PRN (12:25)
[2024-10-08] MEDS: POTASSIUM CHLORIDE ER 20 MEQ TAB.ER PO STA ×2 (12:26→16:30)
[2024-10-08] MEDS: THIAMINE 100 MG TAB PO SCH (12:26)
[2024-10-08] MEDS: NYSTATIN 100,000 UNIT/ML SUSP 500,000 UNIT/5 ML CUP PO SCH (13:30)
--- NOTE | 2024-10-08 14:03 | P.PN ---
Subjective Progress Note Date: 10/08/24 Patient is seen for follow-up for hypercalcemia. Patient is maintained on IV fluids. Feeling cold and more weak today. 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 Objective - Vital Signs Vital signs: Vital Signs Temp 98.1 F 10/08/24 04:15 Pulse 75 10/08/24 04:15 Resp 16 10/08/24 04:15 BP 135/79 10/08/24 04:15 Pulse Ox 90 L 10/08/24 04:15 FiO2 Intake & Output 10/07/24 10/08/24 10/08/24 18:59 06:59 18:59 Intake Total 120 Output Total 1225 300 Balance -1225 -180 Weight 75.5 kg Intake: Oral 120 Output: Urine 1225 300 Other: Voiding Method Indwelling Catheter Indwelling Catheter Indwelling Catheter - Labs CBC & Chem 7: 10/08/24 09:39 10/08/24 09:39 Labs: Abnormal Lab Results - Last 24 Hours (Table) 10/06/24 10/07/24 10/07/24 Range/Units 07:50 11:31 16:33 RBC (4.10-5.20) 10*6/uL Hgb (12.0-15.0) g/dL Hct (37.2-46.3) % Potassium (3.5-5.1) mmol/L Carbon Dioxide (22-30) mmol/L BUN (7-17) mg/dL Creatinine (0.52-1.04) mg/dL Glucose (74-99) mg/dL POC Glucose (mg/dL) 197 H 215 H (70-110) mg/dL Calcium (8.4-10.2) mg/dL AST (14-36) U/L Total Protein (6.3-8.2) g/dL Albumin (3.5-5.0) g/dL Vit D 1,25-Dihydroxy 9.5 L (19.9-79.3) pg/mL 10/07/24 10/08/24 10/08/24 Range/Units 19:52 09:39 09:39 RBC 3.36 L (4.10-5.20) 10*6/uL Hgb 10.6 L (12.0-15.0) g/dL Hct 30.9 L (37.2-46.3) % Potassium 2.7 L* (3.5-5.1) mmol/L Carbon Dioxide 36 H (22-30) mmol/L BUN 34 H (7-17) mg/dL Creatinine 1.26 H (0.52-1.04) mg/dL Glucose 111 H (74-99) mg/dL POC Glucose (mg/dL) 164 H (70-110) mg/dL Calcium 10.9 H (8.4-10.2) mg/dL AST 51 H (14-36) U/L Total Protein 5.0 L (6.3-8.2) g/dL Albumin 2.6 L (3.5-5.0) g/dL Vit D 1,25-Dihydroxy (19.9-79.3) pg/mL Assessment and Plan Assessment: 1. Acute kidney injury, secondary to hypercalcemia. Serum creatinine down to 1.2 from 2.3 at peak. UA is benign. Maintained on IV fluids. No evidence of obstruction on CT of the abdomen. 2. Hypercalcemia associated with excessive use of Tums. Rule out other etiologies. Calcium iproved 10.9 today. PTH is appropriately low at 5.9. 25- hydroxy vitamin D low at 20 and 1,25-hydroxy vitamin D at 9.5 immunofixation is pending. 3. Constipation from severe hypercalcemia 4. Hypokalemia from decreased oral intake and vomiting. No diuretics noted on home med list. Significant hypomagnesemia can lead to renal potassium wasting. 5. Type 1 diabetes with diabetic retinopathy. 6. Hypomagnesemia associated with use of proton pump inhibitors. Currently being replaced 7. Metabolic alkalosis from vomiting, improving. Maintained on normal saline. Plan: Continue with normal saline Follow-up on serum and urine immunofixation Replace potassium and magnesium aggressively Repeat labs in a.m.
[2024-10-08 16:49] LABS: Glucose,Whole Blood 146 mg/dL (70-110)
[2024-10-08 20:20] LABS: Glucose,Whole Blood 164 mg/dL (70-110)
[2024-10-09 06:05] LABS: Glucose,Whole Blood 144 mg/dL (70-110)
[2024-10-09] MEDS: INSULIN GLARGINE (LANTUS) 100 UNIT/ML SYR SQ SCH (06:13)
[2024-10-09 08:30] LABS: ALT 20 U/L (4-34); AST 39 U/L (14-36); African American GFR (CKD) 60 (>60 ml/min/1.73 sqM); Albumin 2.7 g/dL (3.5-5.0); Alkaline Phosphatase 77 U/L (38-126); Anion Gap 5 mmol/L; Blood Urea Nitrogen 28 mg/dL (7-17); Calcium 9.6 mg/dL (8.4-10.2); Carbon Dioxide 31 mmol/L (22-30); Chloride 104 mmol/L (98-107); Glucose 133 mg/dL (74-99); Non-African American GFR(CKD) 52 (>60 ml/min/1.73 sqM); Potassium 3.5 mmol/L (3.5-5.1); Sodium 140 mmol/L (137-145); Total Bilirubin 0.7 mg/dL (0.2-1.3); Total Protein 5.3 g/dL (6.3-8.2)
--- NOTE | 2024-10-09 11:41 | P.PN ---
Subjective 10/09/2024 Patient is admitted for hypercalcemia secondary to excessive Tums use. Calcium normalized creatinine came down to 1.1. Patient constipation resolved. Serum immunofixation is pending but the other labs including vitamin D and PTH are not elevated. Patient although is quite weak will need PT and OT evaluation before discharge may even need placement at subacute rehabilitation. Patient is feeling much better today REVIEW OF SYSTEMS: All other systems are negative except those mentioned in the HPI PHYSICAL EXAMINATION: GENERAL: The patient is alert and oriented x3, not in any acute distress. Well developed, well nourished. HEENT: Pupils are round and equally reacting to light. EOMI. No scleral icterus. No conjunctival pallor. Normocephalic, atraumatic. No pharyngeal erythema. No thyromegaly. CARDIOVASCULAR: S1 and S2 present. No murmurs, rubs, or gallops. PULMONARY: Chest is clear to auscultation, no wheezing or crackles. ABDOMEN: Soft, nontender, nondistended, normoactive bowel sounds. No palpable organomegaly. MUSCULOSKELETAL: No joint swelling or deformity. EXTREMITIES: No cyanosis, clubbing, or pedal edema. NEUROLOGICAL: Gross neurological examination did not reveal any focal deficits. SKIN: No rashes. Assessment and plan #Hypercalcemiadue to excessive Tums use #AKUA secondary to hypercalcemia, improved #Constipation from severe hypercalcemia, resolved #Hypokalemia from decreased oral intake and IV fluids improved with supplementation #Hypomagnesemia #Metabolic alkalosis due to above #Urinary retention #Leukocytosis, reactive Continue normal saline Potassium replacement protocol in place Magnesium replaced Continue Protonix, famotidine and Zofran, Reglan Begin lactulose 30 mg 3 times daily, rectal suppository once Check RAMYA levels and serum and urine immunofixation Monitor CMP and calcium closely Nephrology following #Diabetes mellitus type 1, with retinopathy Resume home Lantus 35 units daily Begin low-dose sliding scale insulin, monitor for hypoglycemia Chronic Medical Conditions #CAD, GERD, peripheral neuropathy, partial blindness, leg amputation Resume home medications DVT ppx: Subq Lovenox 40 meq daily Code status: Full code Objective - Vital Signs Vital signs: Vital Signs Temp 98.5 F 10/09/24 04:00 Pulse 81 10/09/24 08:00 Resp 16 10/09/24 08:00 BP 155/81 10/09/24 08:00 Pulse Ox 92 L 10/09/24 08:00 FiO2 Intake & Output 10/08/24 10/09/24 10/09/24 18:59 06:59 18:59 Output Total 1700 1000 500 Balance -1700 -1000 -500 Weight 75.5 kg Output: Urine 1700 1000 500 Other: Voiding Method Indwelling Catheter Indwelling Catheter Indwelling Catheter # Bowel Movements 1 - Labs CBC & Chem 7: 10/08/24 09:39 10/09/24 07:33 Labs: Abnormal Lab Results - Last 24 Hours (Table) 10/08/24 10/08/24 10/08/24 Range/Units 11:44 16:47 20:18 Carbon Dioxide (22-30) mmol/L BUN (7-17) mg/dL Creatinine (0.52-1.04) mg/dL Glucose (74-99) mg/dL POC Glucose (mg/dL) 39 L* 146 H 164 H (70-110) mg/dL AST (14-36) U/L Total Protein (6.3-8.2) g/dL Albumin (3.5-5.0) g/dL 10/09/24 10/09/24 Range/Units 06:02 07:33 Carbon Dioxide 31 H (22-30) mmol/L BUN 28 H (7-17) mg/dL Creatinine 1.18 H (0.52-1.04) mg/dL Glucose 133 H (74-99) mg/dL POC Glucose (mg/dL) 144 H (70-110) mg/dL AST 39 H (14-36) U/L Total Protein 5.3 L (6.3-8.2) g/dL Albumin 2.7 L (3.5-5.0) g/dL
[2024-10-09 11:57] LABS: Glucose,Whole Blood 189 mg/dL (70-110)
--- NOTE | 2024-10-09 12:29 | P.PN ---
Subjective Progress Note Date: 10/09/24 Patient is seen for follow-up for hypercalcemia. Patient is maintained on IV fluids. No new complaints. 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 Objective - Vital Signs Vital signs: Vital Signs Temp 98.5 F 10/09/24 04:00 Pulse 81 10/09/24 08:00 Resp 16 10/09/24 08:00 BP 155/81 10/09/24 08:00 Pulse Ox 92 L 10/09/24 08:00 FiO2 Intake & Output 10/08/24 10/09/24 10/09/24 18:59 06:59 18:59 Output Total 1700 1000 500 Balance -1700 -1000 -500 Weight 75.5 kg Output: Urine 1700 1000 500 Other: Voiding Method Indwelling Catheter Indwelling Catheter # Bowel Movements 1 - Labs CBC & Chem 7: 10/08/24 09:39 10/09/24 07:33 Labs: Abnormal Lab Results - Last 24 Hours (Table) 10/08/24 10/08/24 10/08/24 Range/Units 11:44 16:47 20:18 Carbon Dioxide (22-30) mmol/L BUN (7-17) mg/dL Creatinine (0.52-1.04) mg/dL Glucose (74-99) mg/dL POC Glucose (mg/dL) 39 L* 146 H 164 H (70-110) mg/dL AST (14-36) U/L Total Protein (6.3-8.2) g/dL Albumin (3.5-5.0) g/dL 10/09/24 10/09/24 Range/Units 06:02 07:33 Carbon Dioxide 31 H (22-30) mmol/L BUN 28 H (7-17) mg/dL Creatinine 1.18 H (0.52-1.04) mg/dL Glucose 133 H (74-99) mg/dL POC Glucose (mg/dL) 144 H (70-110) mg/dL AST 39 H (14-36) U/L Total Protein 5.3 L (6.3-8.2) g/dL Albumin 2.7 L (3.5-5.0) g/dL Assessment and Plan Assessment: 1. Acute kidney injury, secondary to hypercalcemia. Serum creatinine down to 1.2 from 2.3 at peak. UA is benign. Maintained on IV fluids. No evidence of obstruction on CT of the abdomen. 2. Hypercalcemia associated with excessive use of Tums. Rule out other etiologies. Calcium iproved 10.9 today. PTH is appropriately low at 5.9. 25-hydroxy vitamin D low at 20 and 1,25-hydroxy vitamin D at 9.5 3. Constipation from severe hypercalcemia 4. Hypokalemia from decreased oral intake and vomiting. No diuretics noted on home med list. Significant hypomagnesemia can lead to renal potassium wasting. 5. Type 1 diabetes with diabetic retinopathy. 6. Hypomagnesemia associated with use of proton pump inhibitors. Currently being replaced 7. Metabolic alkalosis from vomiting, improving. Maintained on normal saline. Plan: Discontinue IVF now renal funciton stable and calcium normal Replace potassium and magnesium as needed Repeat labs in a.m.
[2024-10-09 16:53] LABS: Glucose,Whole Blood 148 mg/dL (70-110)
[2024-10-09 19:41] LABS: Glucose,Whole Blood 155 mg/dL (70-110)
[2024-10-10 05:53] LABS: Glucose,Whole Blood 191 mg/dL (70-110)
[2024-10-10 07:11] LABS: ALT 18 U/L (4-34); AST 33 U/L (14-36); African American GFR (CKD) 63 (>60 ml/min/1.73 sqM); Albumin 2.5 g/dL (3.5-5.0); Alkaline Phosphatase 73 U/L (38-126); Anion Gap 4 mmol/L; Blood Urea Nitrogen 21 mg/dL (7-17); Calcium 8.4 mg/dL (8.4-10.2); Carbon Dioxide 32 mmol/L (22-30); Chloride 102 mmol/L (98-107); Glucose 169 mg/dL (74-99); Non-African American GFR(CKD) 55 (>60 ml/min/1.73 sqM); Potassium 2.9 mmol/L (3.5-5.1); Sodium 138 mmol/L (137-145); Total Bilirubin 0.7 mg/dL (0.2-1.3); Total Protein 4.9 g/dL (6.3-8.2)
[2024-10-10] MEDS: MAGNESIUM OXIDE 400 MG TAB PO SCH (09:45)
[2024-10-10] MEDS: POTASSIUM CHLORIDE ER 20 MEQ TAB.ER PO SCH ×2 (09:45→18:26)
[2024-10-10] MEDS: MAGNESIUM SULFATE-D5W PMX 1 GM in DEXTROSE/WATER 1 100ML.BAG IVPB SCH (09:46)
[2024-10-10 11:28] LABS: Glucose,Whole Blood 247 mg/dL (70-110)
--- NOTE | 2024-10-10 12:17 | P.PN ---
Subjective Progress Note Date: 10/10/24 Patient is seen for follow-up for hypercalcemia. Not on IV fluids. Patient reports lactulose is working very well and she is having loose bowel movements. No new complaints. Objective - Vital Signs Vital signs: Vital Signs Temp 98.1 F 10/10/24 04:31 Pulse 79 10/10/24 04:31 Resp 16 10/10/24 04:31 BP 145/72 10/10/24 04:31 Pulse Ox 94 L 10/10/24 04:31 FiO2 Intake & Output 10/09/24 10/10/24 10/10/24 18:59 06:59 18:59 Intake Total 240 Output Total 1800 1850 Balance -1800 -1850 240 Intake: Oral 240 Output: Urine 1800 1850 Other: Voiding Method Indwelling Catheter Indwelling Catheter # Bowel Movements 1 - Exam Patient is awake, comfortable, no acute distress Examination of the heart S1 and S2 Examination of the lungs bilateral breath sounds are heard Abdomen is soft nontender Examination of lower extremities shows no significant edema 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 Urinary catheter in place for retention - Labs CBC & Chem 7: 10/08/24 09:39 10/10/24 06:19 Labs: Abnormal Lab Results - Last 24 Hours (Table) 10/09/24 10/09/24 10/09/24 Range/Units 11:56 16:51 19:38 Potassium (3.5-5.1) mmol/L Carbon Dioxide (22-30) mmol/L BUN (7-17) mg/dL Creatinine (0.52-1.04) mg/dL Glucose (74-99) mg/dL POC Glucose (mg/dL) 189 H 148 H 155 H (70-110) mg/dL Magnesium (1.6-2.3) mg/dL Total Protein (6.3-8.2) g/dL Albumin (3.5-5.0) g/dL 10/10/24 10/10/24 10/10/24 Range/Units 05:50 06:19 06:19 Potassium 2.9 L (3.5-5.1) mmol/L Carbon Dioxide 32 H (22-30) mmol/L BUN 21 H (7-17) mg/dL Creatinine 1.14 H (0.52-1.04) mg/dL Glucose 169 H (74-99) mg/dL POC Glucose (mg/dL) 191 H (70-110) mg/dL Magnesium 0.8 L* (1.6-2.3) mg/dL Total Protein 4.9 L (6.3-8.2) g/dL Albumin 2.5 L (3.5-5.0) g/dL Assessment and Plan Assessment: 1. Acute Kidney Injury secondary to hypercalcemia 2. Hypercalcemia due to overuse of TUMS antacids 3. Constipation secondary to hypercalcemia, improving 4. Hypokalemia from decreased PO intake & vomiting 5. Hypomagnesemia, currently being replaced 6. Metabolic alkalosis from vomiting, improving 6. Urinary retention, catheter in place 7. Type 1 diabetes with diabetic retinopathy Plan: Replace Potassium & Magnesium as needed Repeat labs in afternoon and will replete as needed Repeat labs in AM Recommend voiding trial and discontinuation of catheter I have seen and examined the patient with resident and agree with A&P as janeen avaols. Milk-alkali syndrome improved. Denies hx of malignancy. Replace K and Mag.
[2024-10-10 16:04] LABS: Glucose,Whole Blood 166 mg/dL (70-110)
[2024-10-10 16:07] VITALS: RESP 16
[2024-10-10 16:07] LABS: Magnesium 1.5 mg/dL (1.6-2.3); Potassium 3.2 mmol/L (3.5-5.1)
--- NOTE | 2024-10-10 16:26 | P.PN ---
Subjective Progress Note Date: 10/10/24 History of present illness; Patient is a 54-year-old female with history of type 1 diabetes who presents for vomiting and abdominal pain. She states that her abdominal pain is constant and left upper quadrant began weeks ago as she has been constipated for the last 10 to 12 days. Over the last 5 days she has also had multiple episodes of vomiting each day for which she has taken roughly 20-30 times every day for the last 5 days which did not improve her symptoms. She also has a productive cough which she states has been lingering for months. At this time she has no chest pain, palpitations, dyspnea. 10/10/2024 Patient seen and examined at bedside. Patient has been endorsing 8-10 bowel movements since yesterday. Patient was on p.o. lactulose 10 mg 3 times daily which has been put on hold. Otherwise, patient is reporting no abdominal pain, nausea, vomiting, fever or chills. Likely discharge tomorrow. Labs today show sodium 138, potassium 2.9, improved to 3.2, after potassium replacement, chloride 102, bicarb 32, BUN 21, creatinine 1.14, glucose 169, calcium 8.4, magnesium 0.8, improved to 1.5 after magnesium replacement. REVIEW OF SYSTEMS: Pertinent positives and negatives noted in HPI. PHYSICAL EXAMINATION: Vitals reviewed GENERAL: Resting comfortably in bed. EYES: PERRL, no scleral injection or icterus. Left eye vision loss at baseline. NECK: No tracheal deviation, full range of motion. CARDIOVASCULAR: S1 and S2 present. No murmurs, rubs, or gallops. PULMONARY: Chest is clear to auscultation, no wheezing, rhonchi, or crackles. ABDOMEN: Soft, left lower quadrant tenderness, nondistended. No palpable organomegaly. MUSCULOSKELETAL: Left below-knee prosthetic EXTREMITIES: No apparent cyanosis, clubbing. No pedal edema. NEUROLOGICAL: Gross neurological examination with no apparent focal deficits. SKIN: No apparent rashes. Assessment and Plan: In summary, patient is a 54-year-old female with history of type 1 diabetes who presents for vomiting and abdominal pain. 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 3 times daily Continue Protonix, famotidine and Zofran, Reglan Discontinue lactulose Check RAMYA levels normal and serum and urine immunofixation are pending Monitor CMP and calcium closely Nephrology following #Diabetes mellitus type 1, with retinopathy Continue home Lantus 25 units daily Continue low-dose sliding scale insulin, monitor for hypoglycemia Chronic Medical Conditions #CAD, GERD, peripheral neuropathy, partial blindness, leg amputation Resume home medications DVT ppx: Subq Lovenox 40 meq daily Code status: Full code F: None E: Replete as needed N: Heart healthy diet A: Ambulatory Anticipated discharge place: Home Anticipated discharge time: Tomorrow Dr. Jacobs seen patient with resident, present during exam, and agreed with findings. Dictation was produced using [email or web address] dictation software. Please excuse any grammatical, word or spelling errors. Objective - Vital Signs Vital signs: Vital Signs Temp 97.9 F 10/10/24 16:06 Pulse 73 10/10/24 16:06 Resp 16 10/10/24 16:06 BP 106/68 10/10/24 16:06 Pulse Ox 95 10/10/24 16:06 FiO2 Intake & Output 10/09/24 10/10/24 10/10/24 18:59 06:59 18:59 Intake Total 240 Output Total 1800 1850 550 Balance -1800 -1850 -310 Intake: Oral 240 Output: Urine 1800 1850 550 Other: Voiding Method Indwelling Catheter Indwelling Catheter Indwelling Catheter # Bowel Movements 1 2 - Labs CBC & Chem 7: 10/08/24 09:39 10/10/24 15:41 Labs: Abnormal Lab Results - Last 24 Hours (Table) 10/09/24 10/09/24 10/10/24 Range/Units 16:51 19:38 05:50 Potassium (3.5-5.1) mmol/L Carbon Dioxide (22-30) mmol/L BUN (7-17) mg/dL Creatinine (0.52-1.04) mg/dL Glucose (74-99) mg/dL POC Glucose (mg/dL) 148 H 155 H 191 H (70-110) mg/dL Magnesium (1.6-2.3) mg/dL Total Protein (6.3-8.2) g/dL Albumin (3.5-5.0) g/dL 10/10/24 10/10/24 10/10/24 Range/Units 06:19 06:19 11:24 Potassium 2.9 L (3.5-5.1) mmol/L Carbon Dioxide 32 H (22-30) mmol/L BUN 21 H (7-17) mg/dL Creatinine 1.14 H (0.52-1.04) mg/dL Glucose 169 H (74-99) mg/dL POC Glucose (mg/dL) 247 H (70-110) mg/dL Magnesium 0.8 L* (1.6-2.3) mg/dL Total Protein 4.9 L (6.3-8.2) g/dL Albumin 2.5 L (3.5-5.0) g/dL 10/10/24 10/10/24 Range/Units 15:41 16:03 Potassium 3.2 L (3.5-5.1) mmol/L Carbon Dioxide (22-30) mmol/L BUN (7-17) mg/dL Creatinine (0.52-1.04) mg/dL Glucose (74-99) mg/dL POC Glucose (mg/dL) 166 H (70-110) mg/dL Magnesium 1.5 L (1.6-2.3) mg/dL Total Protein (6.3-8.2) g/dL Albumin (3.5-5.0) g/dL
[2024-10-10 19:54] LABS: Glucose,Whole Blood 182 mg/dL (70-110)
[2024-10-11 06:14] LABS: Glucose,Whole Blood 185 mg/dL (70-110)
[2024-10-11 07:14] LABS: Basophils # (A) 0.02 10*3/uL (0.00-0.10); Basophils % (A) 0.3 %; Eosinophils # (A) 0.58 10*3/uL (0.04-0.35); Eosinophils % (A) 10.1 %; HCT 32.7 % (37.2-46.3); HGB 10.6 g/dL (12.0-15.0); Lymphocytes # (A) 1.41 10*3/uL (0.90-5.00); Lymphocytes % (A) 24.4 %; MCH 30.1 pg (27.0-32.0); MCHC 32.4 g/dL (32.0-37.0); MCV 92.9 fL (80.0-97.0); Mean Platelet Volume 11.3 fL (9.5-12.2); Monocytes # (A) 0.58 10*3/uL (0.20-1.00); Monocytes % (A) 10.1 %; Neutrophils # (A) 3.14 10*3/uL (1.80-7.70); Neutrophils % (A) 54.4 %; Platelet Count 199 10*3/uL (140-440); RBC 3.52 10*6/uL (4.10-5.20); WBC 5.77 10*3/uL (4.50-10.00)
[2024-10-11 07:24] LABS: African American GFR (CKD) 55 (>60 ml/min/1.73 sqM); Anion Gap 5 mmol/L; Blood Urea Nitrogen 18 mg/dL (7-17); Calcium 8.1 mg/dL (8.4-10.2); Carbon Dioxide 28 mmol/L (22-30); Chloride 107 mmol/L (98-107); Glucose 189 mg/dL (74-99); Magnesium 1.3 mg/dL (1.6-2.3); Non-African American GFR(CKD) 48 (>60 ml/min/1.73 sqM); Potassium 4.3 mmol/L (3.5-5.1); Sodium 140 mmol/L (137-145)
[2024-10-11] MEDS: MAGNESIUM SULFATE-D5W PMX 1 GM in DEXTROSE/WATER 1 100ML.BAG IVPB SCH (08:50)
[2024-10-11 11:13] LABS: Glucose,Whole Blood 304 mg/dL (70-110)
--- NOTE | 2024-10-11 13:34 | P.PN ---
Subjective Progress Note Date: 10/11/24 Patient is seen for follow-up for hypercalcemia. Not on IV fluids. No new complaints. Objective - Vital Signs Vital signs: Vital Signs Temp 97.6 F 10/11/24 08:44 Pulse 83 10/11/24 08:44 Resp 16 10/11/24 08:44 BP 112/73 10/11/24 08:44 Pulse Ox 96 10/11/24 08:44 FiO2 Intake & Output 10/10/24 10/11/24 10/11/24 18:59 06:59 18:59 Intake Total 480 200 250 Output Total 1050 1000 Balance -570 -800 250 Weight 75 kg Intake: IV 10 Invasive Line 3 10 Oral 480 200 240 Output: Urine 1050 1000 Uretheral (Wilson) 1000 Other: Voiding Method Indwelling Catheter Indwelling Catheter # Bowel Movements 1 - Exam Patient is awake, comfortable, no acute distress Examination of the heart S1 and S2 Examination of the lungs bilateral breath sounds are heard Abdomen is soft nontender Examination of lower extremities shows no significant edema [employer] exam grossly intact External catheter in place - Labs CBC & Chem 7: 10/11/24 05:51 10/11/24 05:51 Labs: Abnormal Lab Results - Last 24 Hours (Table) 10/10/24 10/10/24 10/10/24 Range/Units 11:24 15:41 16:03 RBC (4.10-5.20) 10*6/uL Hgb (12.0-15.0) g/dL Hct (37.2-46.3) % Eosinophils # (0.04-0.35) 10*3/uL Potassium 3.2 L (3.5-5.1) mmol/L BUN (7-17) mg/dL Creatinine (0.52-1.04) mg/dL Glucose (74-99) mg/dL POC Glucose (mg/dL) 247 H 166 H (70-110) mg/dL Calcium (8.4-10.2) mg/dL Magnesium 1.5 L (1.6-2.3) mg/dL 10/10/24 10/11/24 10/11/24 Range/Units 19:50 05:51 05:51 RBC 3.52 L (4.10-5.20) 10*6/uL Hgb 10.6 L (12.0-15.0) g/dL Hct 32.7 L (37.2-46.3) % Eosinophils # 0.58 H (0.04-0.35) 10*3/uL Potassium (3.5-5.1) mmol/L BUN 18 H (7-17) mg/dL Creatinine 1.27 H (0.52-1.04) mg/dL Glucose 189 H (74-99) mg/dL POC Glucose (mg/dL) 182 H (70-110) mg/dL Calcium 8.1 L (8.4-10.2) mg/dL Magnesium 1.3 L (1.6-2.3) mg/dL /11/30 Range/Units 06:12 RBC (4.10-5.20) 10*6/uL Hgb (12.0-15.0) g/dL Hct (37.2-46.3) % Eosinophils # (0.04-0.35) 10*3/uL Potassium (3.5-5.1) mmol/L BUN (7-17) mg/dL Creatinine (0.52-1.04) mg/dL Glucose (74-99) mg/dL POC Glucose (mg/dL) 185 H (70-110) mg/dL Calcium (8.4-10.2) mg/dL Magnesium (1.6-2.3) mg/dL Assessment and Plan Assessment: 1. Acute Kidney Injury secondary to hypercalcemia, stable 2. Hypercalcemia due to overuse of TUMS antacids, Milk alkali syndrome resolved 3. Constipation secondary to hypercalcemia, resolved 4. Hypokalemia from decreased PO intake & vomiting, resolved 5. Hypomagnesemia, currently being replaced; due to GI losses. 6. Metabolic alkalosis from vomiting, milk-alkali, improving 6. External catheter in place 7. Type 1 diabetes with diabetic retinopathy Plan: Replace Potassium & Magnesium as needed Repeat labs in AM External catheter in place I have seen and examined the patient with resident and agree with A&P as written. Ok to resume vit d as calcium now on lower end. Advised to avoid excessive calcium supplements, incl tums. Mag replaced.
--- NOTE | 2024-10-11 16:06 | P.PN ---
Subjective Progress Note Date: 10/11/24 History of present illness; Patient is a 54-year-old female with history of type 1 diabetes who presents for vomiting and abdominal pain. She states that her abdominal pain is constant and left upper quadrant began weeks ago as she has been constipated for the last 10 to 12 days. Over the last 5 days she has also had multiple episodes of vomiting each day for which she has taken roughly 20-30 times every day for the last 5 days which did not improve her symptoms. She also has a productive cough which she states has been lingering for months. At this time she has no chest pain, palpitations, dyspnea. 10/10/2024 Patient seen and examined at bedside. Patient has been endorsing 8-10 bowel movements since yesterday. Patient was on p.o. lactulose 10 mg 3 times daily which has been put on hold. Otherwise, patient is reporting no abdominal pain, nausea, vomiting, fever or chills. Likely discharge tomorrow. Labs today show sodium 138, potassium 2.9, improved to 3.2, after potassium replacement, chloride 102, bicarb 32, BUN 21, creatinine 1.14, glucose 169, calcium 8.4, magnesium 0.8, improved to 1.5 after magnesium replacement. 10/11/2024 Patient seen and examined at the bedside. No acute events overnight. Patient reports no abdominal pain, nausea, vomiting, fever, chills, diarrhea or constipation. Labs today shows WBC 5.7, hemoglobin 10.6, sodium 140, potassium 4.3, BUN 18, creatinine 1.27, calcium 8.1, magnesium 1.3. Patient continues to feel weak and will likely be discharged tomorrow waiting for subacute rehab authorization and placement. In the meantime, will do a voiding trial since patient has a Wilson catheter in. REVIEW OF SYSTEMS: Pertinent positives and negatives noted in HPI. PHYSICAL EXAMINATION: Vitals reviewed GENERAL: Resting comfortably in bed. EYES: PERRL, no scleral injection or icterus. Left eye vision loss at baseline. NECK: No tracheal deviation, full range of motion. CARDIOVASCULAR: S1 and S2 present. No murmurs, rubs, or gallops. PULMONARY: Chest is clear to auscultation, no wheezing, rhonchi, or crackles. ABDOMEN: Soft, left lower quadrant tenderness, nondistended. No palpable organomegaly. MUSCULOSKELETAL: Left below-knee prosthetic EXTREMITIES: No apparent cyanosis, clubbing. No pedal edema. NEUROLOGICAL: Gross neurological examination with no apparent focal deficits. SKIN: No apparent rashes. Assessment and Plan: In summary, patient is a 54-year-old female with history of type 1 diabetes who presents for vomiting and abdominal pain. 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 3 times daily Continue Protonix, famotidine and Zofran, Reglan Discontinue lactulose Check RAMYA levels normal and serum and urine immunofixation are pending Monitor BMP and calcium closely Nephrology following - PT OT on board #Diabetes mellitus type 1, with retinopathy Continue home Lantus 25 units daily Continue low-dose sliding scale insulin, monitor for hypoglycemia Chronic Medical Conditions #CAD, GERD, peripheral neuropathy, partial blindness, leg amputation Resume home medications DVT ppx: Subq Lovenox 40 meq daily Code status: Full code F: None E: Replete as needed N: Heart healthy diet A: Ambulatory Anticipated discharge place: Subacute rehab Anticipated discharge time: Tomorrow Dr. Jacobs seen patient with resident, present during exam, and agreed with findings. Dictation was produced using [employer] dictation software. Please excuse any grammatical, word or spelling errors. Objective - Vital Signs Vital signs: Vital Signs Temp 98.0 F 10/11/24 10:42 Pulse 68 10/11/24 13:30 Resp 16 10/11/24 13:30 BP 107/68 10/11/24 10:42 Pulse Ox 96 10/11/24 10:42 FiO2 Intake & Output 10/10/24 10/11/24 10/11/24 18:59 06:59 18:59 Intake Total 480 200 482 Output Total 1050 1000 800 Balance -570 -800 -318 Weight 75 kg Intake: IV 20 Invasive Line 3 20 Oral 480 200 462 Output: Urine 1050 1000 800 Uretheral (Wilson) 1000 600 Other: Voiding Method Indwelling Catheter Indwelling Catheter External Catheter # Bowel Movements 1 1 - Labs CBC & Chem 7: 10/11/24 05:51 10/11/24 05:51 Labs: Abnormal Lab Results - Last 24 Hours (Table) 10/10/24 10/10/24 10/11/24 Range/Units 15:41 19:50 05:51 RBC (4.10-5.20) 10*6/uL Hgb (12.0-15.0) g/dL Hct (37.2-46.3) % Eosinophils # (0.04-0.35) 10*3/uL Potassium 3.2 L (3.5-5.1) mmol/L BUN 18 H (7-17) mg/dL Creatinine 1.27 H (0.52-1.04) mg/dL Glucose 189 H (74-99) mg/dL POC Glucose (mg/dL) 182 H (70-110) mg/dL Calcium 8.1 L (8.4-10.2) mg/dL Magnesium 1.5 L 1.3 L (1.6-2.3) mg/dL 10/11/24 10/11/24 10/11/24 Range/Units 05:51 06:12 11:12 RBC 3.52 L (4.10-5.20) 10*6/uL Hgb 10.6 L (12.0-15.0) g/dL Hct 32.7 L (37.2-46.3) % Eosinophils # 0.58 H (0.04-0.35) 10*3/uL Potassium (3.5-5.1) mmol/L BUN (7-17) mg/dL Creatinine (0.52-1.04) mg/dL Glucose (74-99) mg/dL POC Glucose (mg/dL) 185 H 304 H (70-110) mg/dL Calcium (8.4-10.2) mg/dL Magnesium (1.6-2.3) mg/dL
[2024-10-11 16:21] LABS: Glucose,Whole Blood 142 mg/dL (70-110)
[2024-10-11 20:00] VITALS: TEMP 98.1
[2024-10-11 20:13] LABS: Glucose,Whole Blood 208 mg/dL (70-110)
[2024-10-12 05:53] LABS: Glucose,Whole Blood 206 mg/dL (70-110)
[2024-10-12 07:26] LABS: African American GFR (CKD) 54 (>60 ml/min/1.73 sqM); Anion Gap 6 mmol/L; Blood Urea Nitrogen 19 mg/dL (7-17); Calcium 7.8 mg/dL (8.4-10.2); Carbon Dioxide 26 mmol/L (22-30); Chloride 104 mmol/L (98-107); Glucose 218 mg/dL (74-99); Magnesium 1.6 mg/dL (1.6-2.3); Non-African American GFR(CKD) 47 (>60 ml/min/1.73 sqM); Potassium 4.1 mmol/L (3.5-5.1); Sodium 136 mmol/L (137-145)
--- NOTE | 2024-10-12 09:48 | P.DS ---
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 Labs significant for sodium 132, potassium 3.2, bicarb 44, anion gap 12, BUN 49, creatinine 1.68, glucose 210, calcium 18.8, UA with glucose 2+, ketones 1+. Acetone negative, viral respiratory panel negative. PTH intact 5.9. EKG independently interpreted showed sinus rhythm rate at 97, no ST depressions or elevations, no T wave abnormalities noted. CT abdomen pelvis with findings of no acute process. Nephrology was consulted. Patient received IV normal saline and zoledronic acid. Sullivan catheter was placed for urinary retention. Electrolytes were replaced. Subsequently, patient continue improving her symptoms. Serum chemistry including calcium return to baseline. Urine output adequate. Sullivan catheter was removed. Patient reports no chest pain, shortness of breath, abdominal pain, diarrhea or constipation. Patient is medically optimized and hemodynamically stable for discharge. Patient to repeat BMP as an outpatient within 3 days after discharge and follow-up with her primary care physician for close follow-up. Patient resume her regular home medications as directed. Patient counseled on excessive use of Tums. Discharge disposition: Home Vital signs reviewed. Gen: in no apparent distress, resting comfortably in bed Eyes: PERRLA, EOMI, no scleral injection or icterus HENT: normocephalic, atraumatic, good hearing acuity, moist mucous membranes Neck: full range of motion Resp: CTAB, no rales, rhonchi, or wheezes CVS: normal S1 and S2, no murmurs, rubs or gallops, no edema GI: soft, NTTP, ND, no hepatosplenomegaly : no suprapubic tenderness, no CVAT, sullivan catheter [is/not] present MSK: no clubbing, no cyanosis, no noted contractures of extremities Skin: no noted rashes, petechiae; temperature of skin is appropriate Neuro: moving all extremities without signs of weakness, CN II-XII intact Psych: cooperative, euthymic mood, insight and judgment intact Dictation was produced using [employer] dictation software. Please excuse any grammatical, word or spelling errors. Patient Condition at Discharge: Stable Plan - Discharge Summary Discharge Rx Participant: No New Discharge Prescriptions: Continue HYDROcodone/APAP 10-325MG [Usk 10-325] 1 tab PO TID PRN PRN Reason: Pain Ergocalciferol [Vitamin D2 (1250 Mcg = 02291 Iu)] 1,250 mcg PO TH Atorvastatin [Lipitor] 40 mg PO DAILY Nitroglycerin Sl Tabs [Nitrostat] 0.4 mg SUBLINGUAL Q5M PRN PRN Reason: Chest Pain Ticagrelor [Brilinta] 90 mg PO BID #180 tab Famotidine 40 mg PO DAILY traZODone HCL [Desyrel] 50 mg PO HS Sertraline [Zoloft] 100 mg PO DAILY Insulin Aspart (For Pump) [NovoLOG (For Pump)] 0.01 unit SQ-PUMP CONTINUOUS Metoprolol Succinate (ER) [Toprol XL] 25 mg PO DAILY Omeprazole 40 mg PO DAILY Eszopiclone [Lunesta] 3 mg PO HS Discharge Medication List HYDROcodone/APAP 10-325MG [Usk 10-325] 1 tab PO TID PRN 01/14/16 [History] Atorvastatin [Lipitor] 40 mg PO DAILY 05/06/22 [History] Ergocalciferol [Vitamin D2 (1250 Mcg = 17707 Iu)] 1,250 mcg PO TH 05/06/22 [History] Insulin Aspart (For Pump) [NovoLOG (For Pump)] 0.01 unit SQ-PUMP CONTINUOUS 03/12/23 [History] Metoprolol Succinate (ER) [Toprol XL] 25 mg PO DAILY 03/12/23 [History] Nitroglycerin Sl Tabs [Nitrostat] 0.4 mg SUBLINGUAL Q5M PRN 03/12/23 [History] Ticagrelor [Brilinta] 90 mg PO BID #180 tab 03/13/23 [Rx] Eszopiclone [Lunesta] 3 mg PO HS 10/05/24 [History] Famotidine 40 mg PO DAILY 10/05/24 [History] Omeprazole 40 mg PO DAILY 10/05/24 [History] Sertraline [Zoloft] 100 mg PO DAILY 10/05/24 [History] traZODone HCL [Desyrel] 50 mg PO HS 10/05/24 [History] Follow up Appointment(s)/Referral(s): Eric Meeks MD [Primary Care Provider] - 1-2 days Ambulatory/Diagnostic Orders: Basic Metabolic Panel [LAB.AMB] Time Frame: 3 Days, Facility: [facility], Location: [place] [address] Patient Instructions/Handouts: Hypercalcemia (DC) Activity/Diet/Wound Care/Special Instructions: Please get your blood work done within 3 days and follow-up for the results with your PCP.
[2024-10-12 11:10] LABS: Glucose,Whole Blood 423 mg/dL (70-110)
[2024-10-12 12:43] VITALS: BP 86/54; PULSE 81
--- NOTE | 2024-10-12 17:29 | P.PN ---
Subjective Progress Note Date: 10/12/24 Patient is seen for follow-up for hypercalcemia. Not on IV fluids. No new complaints. Objective - Vital Signs Vital signs: Vital Signs Temp 98.1 F 10/12/24 04:00 Pulse 83 10/12/24 08:00 Resp 16 10/12/24 08:00 BP 100/65 10/12/24 08:00 Pulse Ox 96 10/12/24 08:00 FiO2 Intake & Output 10/11/24 10/12/24 10/12/24 18:59 06:59 18:59 Intake Total 602 20 180 Output Total 800 500 Balance -198 -480 180 Weight 85 kg Intake: IV 20 20 Invasive Line 3 20 20 Oral 582 180 Output: Urine 800 500 Uretheral (Wilson) 600 Other: Voiding Method External Catheter External Catheter # Bowel Movements 1 1 - Exam Patient is awake, comfortable, no acute distress Examination of the heart S1 and S2 Examination of the lungs bilateral breath sounds are heard Abdomen is soft nontender Examination of lower extremities shows no significant edema [employer] exam grossly intact External catheter in place - Labs CBC & Chem 7: 10/11/24 05:51 10/12/24 06:24 Labs: Abnormal Lab Results - Last 24 Hours (Table) 10/11/24 10/11/24 10/11/24 Range/Units 11:12 16:15 20:11 Sodium (137-145) mmol/L BUN (7-17) mg/dL Creatinine (0.52-1.04) mg/dL Glucose (74-99) mg/dL POC Glucose (mg/dL) 304 H 142 H 208 H (70-110) mg/dL Calcium (8.4-10.2) mg/dL 10/12/24 10/12/24 Range/Units 05:51 06:24 Sodium 136 L (137-145) mmol/L BUN 19 H (7-17) mg/dL Creatinine 1.29 H (0.52-1.04) mg/dL Glucose 218 H (74-99) mg/dL POC Glucose (mg/dL) 206 H (70-110) mg/dL Calcium 7.8 L (8.4-10.2) mg/dL Assessment and Plan Assessment: 1. Acute Kidney Injury secondary to hypercalcemia, stable 2. Hypercalcemia due to overuse of TUMS antacids, Milk alkali syndrome resolved 3. Constipation secondary to hypercalcemia, resolved 4. Hypokalemia from decreased PO intake & vomiting, resolved 5. Hypomagnesemia, currently being replaced; due to GI losses. 6. Metabolic alkalosis from vomiting, milk-alkali, improving 6. External catheter in place 7. Type 1 diabetes with diabetic retinopathy Plan: Replace Potassium & Magnesium as needed Repeat labs in AM External catheter in place Counseled to avoid excessive calcium supplements including TUMS May resume vitamin D supplementation as calcium is now lower. Patient is clear for discharge from nephrology standpoint. I have seen and examined the patient with resident and agree with A&P as written.
[2024-10-13] MEDS ORDERED: ERGOCALCIFEROL 1,250 MCG (50,000 IU) CAPSULE PO SCH (09:00)
== END 2024-10-12 14:30 | disposition home or self-care (01) | DRG 683 ==
LOC: EC 11:27 → 4SSUR 17:47 → 3SCARD 22:39
PROVIDERS: ADMIT Hospitalist; ATTEND Hospitalist
DX: N17.9 Acute kidney failure, unspecified (principal); E87.3 Alkalosis; D72.829 Elevated white blood cell count, unspecified; E10.319 Type 1 diabetes mellitus with unspecified diabetic retinopathy without macular edema; E83.42 Hypomagnesemia; E10.42 Type 1 diabetes mellitus with diabetic polyneuropathy; Z79.4 Long term (current) use of insulin; Z89.512 Acquired absence of left leg below knee; Z97.14 Presence of artificial left leg (complete) (partial); Z11.52 Encounter for screening for COVID-19; E83.52 Hypercalcemia; T47.1X5A Adverse effect of other antacids and anti-gastric-secretion drugs, initial encounter; T47.3X5A Adverse effect of saline and osmotic laxatives, initial encounter; E87.6 Hypokalemia; R19.7 Diarrhea, unspecified; F41.9 Anxiety disorder, unspecified; H54.8 Legal blindness, as defined in USA; K59.09 Other constipation; K21.9 Gastro-esophageal reflux disease without esophagitis; I25.10 Atherosclerotic heart disease of native coronary artery without angina pectoris; Z79.02 Long term (current) use of antithrombotics/antiplatelets; Z79.899 Other long term (current) drug therapy; Z90.710 Acquired absence of both cervix and uterus; Z96.41 Presence of insulin pump (external) (internal); Z96.652 Presence of left artificial knee joint; Z88.1 Allergy status to other antibiotic agents; Z88.8 Allergy status to other drugs, medicaments and biological substances; R33.8 Other retention of urine; Z88.6 Allergy status to analgesic agent; Z91.048 Other nonmedicinal substance allergy status; X58.XXXA Exposure to other specified factors, initial encounter; Z90.49 Acquired absence of other specified parts of digestive tract
CPT/HCPCS: 36415; 51702; 71046; 74176; 80048; 80053; 81001; 82009; 82150; 82164; 82306; 82310; 82330; 82652; 82803; 83605; 83690; 83735; 83970; 84132; 85025; 85027; 85610; 85730; 86334; 86335; 87636; 93005; 96361; 96365; 96372; 96375; 96376; 99285